=== PATIENT | female | born 1960 | race Caucasian/White ===

== ENCOUNTER → 2018-03-03 07:02 | Outpatient (CLI) | payer OTHER, SELFPAY ==
[2018-03-03 08:51] LABS: Hemoglobin A1c 6.8 % (4.2-6.3)
[2018-03-03 08:53] LABS: AST(SGOT) 14 U/L (15-37); Alanine Aminotransfer ALT/SGPT 24 U/L (13-56); Albumin, Serum 3.8 g/dL (3.2-5.0); Alkaline Phosphatase 83 U/L (45-117); Anion Gap 7 (5-15); BUN 16 mg/dL (7-18); BUN/Creat Ratio 20.1 RATIO (10-20); Calcium,Total 8.8 mg/dL (8.5-10.1); Chloride 107 mmol/L (98-107); Cholesterol 198 mg/dL (200); EST Glomerular Filtration Rate 79 mL/min (>60); Est Glom Filt Rate - Afr Amer 95 mL/min (>60); Free T3 3.3 pg/mL (2.18-3.98); Globulin 3.7 g/dL (2.2-4.2); Glucose 128 mg/dL (74-106); High Density Lipoprotein 33 mg/dL; Potassium 4.1 mmol/L (3.5-5.1); Protein, Total 7.5 g/dL (6.4-8.2); Sodium Level 139 mmol/L (136-145); T4 Free Direct 1.47 ng/dL (0.76-1.46); Thyroid Stim Hormone (TSH) 0.06 uIU/mL (0.358-3.74); Triglycerides 162 mg/dL; Very Low Density Lipoprotein 32 mg/dL (5-40)
[2018-03-03 09:28] LABS: Microalbumin,Random Urine < 5.0 mg/L (NO RANGE EST.)
[2018-03-05 09:30] LABS: Vitamin D,25 Hydroxy 78.9 ng/mL (29.95-100.01)
[2018-03-06 11:25] LABS: Anti-Thyroglobulin AB < 1.0 IU/mL (0.0-0.9); Thyroglobulin, Serum Qt. < 0.1 ng/mL (1.5-38.5)
== END ==
PROVIDERS: Family Provider Family Medicine; PCP Family Medicine; Visit Provider Nurse Practitioner
DX: E03.9 Hypothyroidism, unspecified (principal); E07.9 Disorder of thyroid, unspecified; E11.9 Type 2 diabetes mellitus without complications; E55.9 Vitamin D deficiency, unspecified
CPT/HCPCS: 36415; 80053; 80061; 82043; 82306; 82570; 83036; 83970; 84432; 84439; 84443; 84481; 86800

== ENCOUNTER → 2018-03-05 14:42 | Outpatient (CLI) | payer OTHER, SELFPAY ==
--- NOTE | 2018-03-05 14:43 | US_ITS ---
STUDY: THYROID ULTRASOUND REASON FOR EXAM: Female, 57 years old. Hypothyroidism history of thyroid cancer thyroid removed TECHNIQUE: Ultrasound evaluation of the thyroid was performed with real-time and static brito-scale imaging. COMPARISON: None. FINDINGS: RIGHT LOBE: Removed. LEFT LOBE: Removed. ISTHMUS: Removed. No visualized regional lymph nodes. US/Thyroid IMPRESSION: No visualized thyroid tissue. Electronically Signed: Kendy Cabrera MD at 17:53 EDT Tel , Service support ,
== END ==
PROVIDERS: Family Provider Family Medicine; PCP Family Medicine; Visit Provider Nurse Practitioner
DX: E03.9 Hypothyroidism, unspecified (principal); E07.9 Disorder of thyroid, unspecified; E55.9 Vitamin D deficiency, unspecified; E11.9 Type 2 diabetes mellitus without complications
CPT/HCPCS: 76536

== ENCOUNTER → 2019-09-21 10:20 | Outpatient (CLI) | payer OTHER, SELFPAY ==
[2018-02-26 16:35] VITALS: BMI 29.4
--- NOTE | 2019-09-21 10:26 | US_ITS ---
STUDY: ABDOMINAL ULTRASOUND - RIGHT UPPER QUADRANT REASON FOR VISIT: Female, 59 years old right upper quadrant pain radiating to the back. TECHNIQUE: Ultrasound evaluation of the right upper quadrant was performed with real-time and static brito-scale imaging. TECHNICAL QUALITY: Limited. Examination limited by bowel gas. COMPARISON: None. FINDINGS: Liver: The liver measures 18.6 cm. There is increased echogenicity consistent with fatty infiltration. The bile ducts are within normal limits. There is hepatic color flow. The direction of portal flow is hepatopetal. There is no demonstrated mass lesion. Gallbladder: Normal distended gallbladder. The gallbladder wall measures 1.8 mm. There is a negative sonographic Sanchez's sign. There is no pericholecystic fluid. There are no gallstones. Common Bile Duct (C.B.D.): The common bile duct measures 4.8 mm. Pancreas: Normal size of the head, body and tail of the pancreas. There is normal echogenicity of the pancreas. There is no demonstrated pancreatic mass or cyst. Right Kidney: Normal size of the right kidney. The right kidney measures 11.5 x 6.4 x 3.8 cm. Normal renal cortex. The right cortex measures 1.1 cm. There is no demonstrated renal mass or cyst. There is no right hydronephrosis. US/Abdomen Limited IMPRESSION: Diffuse fatty liver, otherwise normal right upper quadrant ultrasound examination. Electronically Signed: Tatiana Colby MD at 22:05 EST , Service support ,
== END ==
PROVIDERS: Family Provider Family Medicine; PCP Family Medicine; Referring Provider Family Medicine; Visit Provider Family Medicine
DX: R10.11 Right upper quadrant pain (principal)
CPT/HCPCS: 76705

== ENCOUNTER → 2019-11-21 12:19 | Outpatient (CLI) | payer OTHER, SELFPAY ==
[2019-11-12 15:35] VITALS: BMI 29.4
[2019-11-21 13:51] LABS: Creatinine, Urine (random) < 13.00 mg/dL (NO RANGE EST.); Microalbumin,Random Urine < 5.0 mg/L (NO RANGE EST.)
[2019-11-21 14:03] LABS: Vitamin D,25 Hydroxy 69.2 ng/mL (29.95-100.01)
[2019-11-21 14:05] LABS: ALB/GLOB Ratio 1.1 RATIO (0.9-2.4); AST(SGOT) 23 U/L (15-37); Alanine Aminotransfer ALT/SGPT 45 U/L (13-56); Albumin, Serum 4.3 g/dL (3.2-5.0); Alkaline Phosphatase 90 U/L (45-117); Anion Gap 7 (5-15); BUN 11 mg/dL (7-18); BUN/Creat Ratio 13.3 RATIO (10-20); Bilirubin, Direct 0.11 mg/dL (0.00-0.30); Calcium,Total 9.4 mg/dL (8.5-10.1); Chloride 104 mmol/L (98-107); Cholesterol 149 mg/dL (200); Creatinine, Serum 0.82 mg/dL (0.55-1.02); EST Glomerular Filtration Rate 75 mL/min (>60); Est Glom Filt Rate - Afr Amer 91 mL/min (>60); Globulin 3.9 g/dL (2.2-4.2); Glucose 93 mg/dL (74-106); High Density Lipoprotein 35 mg/dL; Magnesium 1.9 mg/dL (1.6-2.6); Potassium 3.6 mmol/L (3.5-5.1); Protein, Total 8.2 g/dL (6.4-8.2); Sodium Level 138 mmol/L (136-145); T4 Free Direct 1.49 ng/dL (0.76-1.46); Thyroid Stim Hormone (TSH) 0.15 uIU/mL (0.358-3.74); Triglycerides 180 mg/dL; Very Low Density Lipoprotein 36 mg/dL (5-40)
== END ==
PROVIDERS: PCP Family Medicine; Referring Provider Internal Medicine Endocrinology, Diabetes & Metabolism; Visit Provider Internal Medicine Endocrinology, Diabetes & Metabolism
DX: M62.838 Other muscle spasm (principal); K75.81 Nonalcoholic steatohepatitis (NASH)
CPT/HCPCS: 36415; 80053; 80061; 82043; 82248; 82306; 82570; 83735; 84439; 84443; 86304

== ENCOUNTER → 2020-10-09 16:19 | Outpatient (CLI) | payer OTHER, SELFPAY ==
[2020-10-09 15:32] VITALS: BMI 29.1
[2020-10-09 17:35] LABS: Microalbumin,Random Urine < 5.0 mg/L (NO RANGE EST.)
[2020-10-09 18:07] LABS: ALB/GLOB Ratio 1.1 RATIO (0.9-2.4); AST(SGOT) 16 U/L (15-37); Alanine Aminotransfer ALT/SGPT 25 U/L (13-56); Albumin, Serum 4.1 g/dL (3.2-5.0); Alkaline Phosphatase 93 U/L (45-117); Anion Gap 9 (5-15); BUN 10 mg/dL (7-18); Calcium,Total 9.3 mg/dL (8.5-10.1); Chloride 105 mmol/L (98-107); Cholesterol 153 mg/dL (200); Creatinine, Serum 0.83 mg/dL (0.55-1.02); EST Glomerular Filtration Rate 74 mL/min (>60); Est Glom Filt Rate - Afr Amer 90 mL/min (>60); Globulin 3.7 g/dL (2.2-4.2); Glucose 100 mg/dL (74-106); High Density Lipoprotein 36 mg/dL; Potassium 3.8 mmol/L (3.5-5.1); Protein, Total 7.8 g/dL (6.4-8.2); Sodium Level 138 mmol/L (136-145); T4 Free Direct 1.33 ng/dL (0.76-1.46); Thyroid Stim Hormone (TSH) 0.28 uIU/mL (0.358-3.74); Triglycerides 151 mg/dL; Very Low Density Lipoprotein 30 mg/dL (5-40)
[2020-10-09 18:19] LABS: Vitamin D,25 Hydroxy 79.2 ng/mL
[2020-10-12 13:31] LABS: Carcinoembryonic Antigen 2139 2.2 ng/mL (0.0-4.7)
== END ==
PROVIDERS: PCP Family Medicine; Referring Provider Internal Medicine Endocrinology, Diabetes & Metabolism; Visit Provider Internal Medicine Endocrinology, Diabetes & Metabolism
DX: E11.9 Type 2 diabetes mellitus without complications (principal); E55.9 Vitamin D deficiency, unspecified; E89.0 Postprocedural hypothyroidism
CPT/HCPCS: 36415; 80053; 80061; 82043; 82306; 82378; 82570; 84439; 84443

== ENCOUNTER → 2021-02-24 | Outpatient (CLI) | payer OTHER, SELFPAY ==
[2021-02-24 10:53] VITALS: BMI 28.9
[2021-02-26 16:45] LABS: HPV APTIMA, High Risk Negative (Negative)
== END | disposition home or self-care (01) ==
LOC: LABSPEC 12:05
PROVIDERS: PCP Family Medicine; Referring Provider Obstetrics & Gynecology; Visit Provider Obstetrics & Gynecology
DX: Z12.4 Encounter for screening for malignant neoplasm of cervix (principal)
CPT/HCPCS: 87624; 88175; G0145

== ENCOUNTER → 2021-03-19 06:57 | Outpatient (CLI) | payer OTHER, SELFPAY ==
[2021-02-24 10:53] VITALS: BMI 28.9
--- NOTE | 2021-03-19 07:04 | BI_ITS ---
MAMMOGRAPHY - BILATERAL SCREENING 3-D TOMOSYNTHESIS REASON FOR EXAM: Female, 60 years old. Routine screening PERTINENT HISTORY: Cousin with breast cancer. TECHNIQUE: 2-D mammograms and 3-D Tomosynthesis of the breast (s) were performed. CAD was performed. COMPARISON: 2013 FINDINGS: The breast composition is composed of scattered fibroglandular density. Scattered benign calcifications are seen. No dense spiculated masses or suspicious microcalcifications are identified. No architectural distortion is identified. There is no skin thickening or retraction. There has been no significant change since the prior study. BI/SCRN MAMM (CAD)W/CHINTAN BILAT IMPRESSION: No mammographic signs of malignancy. Routine yearly mammograms recommended. ASSESSMENT CATEGORY: BIRADS Category 2: Benign. A letter regarding these results will be sent to the patient by the facility within 30 days. FOLLOW UP RECOMMENDATION: Yearly follow up mammogram recommended. (A) Approximately 10% of breast cancers are not detected by mammography. A normal mammogram should not delay biopsy of a clinically suspicious abnormality. Electronically Signed: Jorge Quiroz MD at 12:46 EDT , Service support ,
== END ==
PROVIDERS: PCP Family Medicine; Referring Provider Obstetrics & Gynecology; Visit Provider Obstetrics & Gynecology
DX: Z12.31 Encounter for screening mammogram for malignant neoplasm of breast (principal)
CPT/HCPCS: 77063; 77067

== ENCOUNTER → 2021-09-02 08:40 | Outpatient (CLI) | payer OTHER, SELFPAY ==
[2021-09-02 12:39] LABS: ALB/GLOB Ratio 0.9 RATIO (0.9-2.4); AST(SGOT) 13 U/L (15-37); Alanine Aminotransfer ALT/SGPT 23 U/L (13-56); Albumin, Serum 3.6 g/dL (3.2-5.0); Alkaline Phosphatase 91 U/L (45-117); Anion Gap 9 (5-15); BUN 13 mg/dL (7-18); BUN/Creat Ratio 16.6 RATIO (10-20); Calcium,Total 9.3 mg/dL (8.5-10.1); Chloride 105 mmol/L (98-107); Cholesterol 160 mg/dL (200); Creatinine, Serum 0.78 mg/dL (0.55-1.02); EST Glomerular Filtration Rate 79 mL/min (>60); Est Glom Filt Rate - Afr Amer 96 mL/min (>60); Glucose 113 mg/dL (74-106); High Density Lipoprotein 36 mg/dL; Potassium 4.1 mmol/L (3.5-5.1); Protein, Total 7.6 g/dL (6.4-8.2); Sodium Level 139 mmol/L (136-145); T4 Free Direct 1.17 ng/dL (0.76-1.46); Thyroid Stim Hormone (TSH) 0.64 uIU/mL (0.358-3.74); Triglycerides 205 mg/dL; Very Low Density Lipoprotein 41 mg/dL (5-40)
[2021-09-02 12:56] LABS: Vitamin D,25 Hydroxy 51.4 ng/mL
[2021-09-02 13:34] LABS: Microalbumin,Random Urine < 5.0 mg/L (NO RANGE EST.)
[2021-09-03 22:57] LABS: Anti-Thyroglobulin AB < 1.0 IU/mL (0.0-0.9); Carcinoembryonic Antigen 2139 2.7 ng/mL (0.0-4.7); Thyroglobulin, Serum Qt. < 0.1 ng/mL (1.5-38.5)
== END ==
PROVIDERS: PCP Family Medicine; Visit Provider Internal Medicine Endocrinology, Diabetes & Metabolism
DX: C73 Malignant neoplasm of thyroid gland (principal); E11.9 Type 2 diabetes mellitus without complications; E55.9 Vitamin D deficiency, unspecified; E89.0 Postprocedural hypothyroidism
CPT/HCPCS: 80053; 80061; 82043; 82306; 82378; 82570; 84432; 84439; 84443; 86800

== ENCOUNTER 2021-12-14 13:39 | Outpatient (CLI) | payer OTHER, SELFPAY ==
[2021-12-16 16:13] LABS: Carcinoembryonic Antigen 2139 2.2 ng/mL (0.0-4.7)
== END 2021-12-14 23:59 | disposition home or self-care (01) ==
PROVIDERS: PCP Family Medicine; Referring Provider Internal Medicine Endocrinology, Diabetes & Metabolism; Visit Provider Internal Medicine Endocrinology, Diabetes & Metabolism
DX: C73 Malignant neoplasm of thyroid gland (principal)
CPT/HCPCS: 36415; 82378

== ENCOUNTER → 2022-03-16 | Outpatient (CLI) | payer OTHER, SELFPAY ==
--- NOTE | 2022-03-16 13:45 | VUL_PTH ---
PATIENT: FANTA NEUMANN LOC: [facility] U#:[id number] AGE/SX: 61/F ROOM: RE03/16/[address]: Dr. Mita Mazariegso DO : 1960 BED: DIS: 03/16/2022 SPEC #: [id number] RECD: 03/16/22 16:25 STATUS: HARSHA PASTOR #: [id number] DBEORAH: 03/16/22 13:[address]: Mita Mazariegos DEPT: SURGICAL PATHOLOGY RECD BY: Juana Salcedo ENTERED: 03/17/22 08:13 SP TYPE: VULVA BX OTHR DR: Dr. Jarad Murrell MD Tissues: Vulva, NOS Procedures: Surgery Specimen Level IV HEADER OPERATION: Vulva biopsy PRE-OP DIAGNOSIS: Vulva lesion TISSUE SUBMITTED: Vulva MICROSCOPIC DIAGNOSIS Vulvar lesion, biopsy: Densely collagenized dermis suggestive of lichen sclerosus. See comment. AM:rosalva 03/18/2022 COMMENT Clinical correlation is suggested. MICROSCOPIC DESCRIPTION Slides are reviewed. GROSS DESCRIPTION Received is one container labeled with the patient's name and not further designated. The specimen consists of one irregular fragment of light french soft tissue that measures 0.3 x 0.2 x 0.1 cm. The specimen is totally submitted in one cassette. / SJ:rosalva 03/17/2022 TC:3 CPT: 88346
== END | disposition home or self-care (01) ==
LOC: LABSPEC 16:35
PROVIDERS: PCP Family Medicine; Referring Provider Obstetrics & Gynecology; Visit Provider Obstetrics & Gynecology
DX: N90.89 Other specified noninflammatory disorders of vulva and perineum (principal)
CPT/HCPCS: 88305

== ENCOUNTER → 2022-04-01 | Outpatient (CLI) | payer OTHER, SELFPAY ==
--- NOTE | 2022-04-01 08:34 | BI_ITS ---
MAMMOGRAPHY - BILATERAL SCREENING REASON FOR EXAM: Female, 61 years old. Routine annual screening examination. PERTINENT HISTORY: Non-contributory. TECHNIQUE: Digital bilateral breast chintan (3D mammographic acquisition) in the CC and MLO projections. 2-D mediolateral oblique (MLO) and craniocaudad (CC) views of both breasts were obtained. CAD: Full Field Digital Mammography with Computer Added Detection was performed. COMPARISON: Comparison is made with prior study dated 03/19/2021. FINDINGS: Breast Composition: There are scattered areas of fibroglandular density. There are no dominant masses or suspicious calcifications. No other significant abnormalities are identified. There has been no significant change since the prior study. BI/SCRN MAMM (CAD)W/CHINTAN BILAT IMPRESSION: Stable bilateral screening mammogram. Yearly follow-up mammogram recommended. (A) ASSESSMENT CATEGORY: BIRADS Category 1: Negative. A letter regarding these results will be sent to the patient by the facility within 30 days. Approximately 10% of breast cancers are not detected by mammography. A normal mammogram should not delay biopsy of a clinically suspicious abnormality. [id number] Electronically Signed: Hugh Schultz MD at 9:14 EDT ,
== END | disposition home or self-care (01) ==
LOC: OPBI 08:32
PROVIDERS: PCP Family Medicine; Referring Provider Obstetrics & Gynecology; Visit Provider Obstetrics & Gynecology
DX: Z12.31 Encounter for screening mammogram for malignant neoplasm of breast (principal)
CPT/HCPCS: 77063; 77067

== ENCOUNTER → 2022-08-27 | Outpatient (CLI) | payer OTHER, SELFPAY ==
[2022-08-27 16:50] LABS: ALB/GLOB Ratio 1.1 RATIO (0.9-2.4); AST(SGOT) 18 U/L (15-37); Alanine Aminotransfer ALT/SGPT 26 U/L (13-56); Albumin, Serum 3.7 g/dL (3.2-5.0); Alkaline Phosphatase 80 U/L (45-117); Anion Gap 10 (5-15); BUN 11 mg/dL (7-18); BUN/Creat Ratio 12.5 RATIO (10-20); Chloride 104 mmol/L (98-107); Cholesterol 126 mg/dL (200); Creatinine, Serum 0.88 mg/dL (0.55-1.02); EST Glomerular Filtration Rate 69 mL/min (>60); Est Glom Filt Rate - Afr Amer 84 mL/min (>60); Globulin 3.4 g/dL (2.2-4.2); Glucose 263 mg/dL (74-106); High Density Lipoprotein 31 mg/dL; Potassium 3.9 mmol/L (3.5-5.1); Protein, Total 7.1 g/dL (6.4-8.2); Sodium Level 138 mmol/L (136-145); T4 Free Direct 1.42 ng/dL (0.76-1.46); Thyroid Stim Hormone (TSH) 0.51 uIU/mL (0.358-3.74); Triglycerides 139 mg/dL; Very Low Density Lipoprotein 28 mg/dL (5-40)
[2022-08-27 16:56] LABS: Microalbumin:Creatinine Ratio 5.5 mg/g CRE (<30 mg/g CRE)
[2022-08-28 10:37] LABS: Carcinoembryonic Antigen 1.9 ng/mL (0.0-4.7)
== END | disposition home or self-care (01) ==
PROVIDERS: PCP Family Medicine; Visit Provider Internal Medicine Endocrinology, Diabetes & Metabolism
DX: E11.9 Type 2 diabetes mellitus without complications (principal); C73 Malignant neoplasm of thyroid gland; E89.0 Postprocedural hypothyroidism; E55.9 Vitamin D deficiency, unspecified
CPT/HCPCS: 36415; 80053; 80061; 82043; 82306; 82378; 82570; 84439; 84443

== ENCOUNTER 2022-09-13 16:04 | Outpatient (CLI) | payer OTHER, SELFPAY ==
--- NOTE | 2022-09-13 16:09 | BD_ITS ---
STUDY: DUAL ENERGY X-RAY ABSORPTIOMETRY / DXA REASON FOR EXAM: Female, 61 years old. Screening TECHNIQUE: Bone Mineral Density (BMD) measurements of lumbar spine and bilateral hips were obtained. COMPARISON: None. FINDINGS: Lumbar Spine (L1-L4): g/cm2 (0.897) / T-score (-1.4) / Z-score (0.3) Findings are suggestive of osteopenia with a low fracture risk. Left Femur Total: g/cm2 (1.043) / T-score (0.8) / Z-score (1.9) Left Femoral Neck: g/cm2 (0.891) / T-score (0.4) / Z-score (1.8) Right Femur Total: g/cm2 (1.014) / T-score (0.6) / Z-score (1.7) Right Femoral Neck: g/cm2 (0.944) / T-score (0.9) / Z-score (2.3) BD/Dexa Bone Density Study IMPRESSION: The patient is considered osteopenic as outlined below according to World Andrea Organization (WHO) criteria with a low fracture risk. Reference Information: The T-score is the number of standard deviations above or below the standard which is normal for young adults at their peak bone mineral density. The World Health Organization (WHO) interprets the T-scores as follows: Above -1 Normal bone density Between -1 and -2.5 Osteopenia Equal to / or below -2.5 Osteoporosis As a practical clinical guideline, osteopenia may be graded as follows: Mild -1 through -1.5 Moderate -1.6 through -2.0 Severe -2.1 through -2.4 The Z-score is the number of standard deviations above or below age-matched controls. A Z-score of less than -1.5 would be considered abnormal. References: 1. NIH Osteoporosis and Related Bone Diseases www osteo.org 2. International Society for Clinical Densitometry www iscd.org 3. National Osteoporosis Foundation www nof.org Electronically Signed: Hugh Schultz MD at 14:59 EST ,
== END 2022-09-13 23:59 | disposition home or self-care (01) ==
LOC: OPBD 16:05
PROVIDERS: PCP Family Medicine; Visit Provider Internal Medicine Endocrinology, Diabetes & Metabolism
DX: Z78.0 Asymptomatic menopausal state (principal)
CPT/HCPCS: 77080

== ENCOUNTER → 2023-03-02 | Outpatient (CLI) | payer OTHER, SELFPAY | END | disposition home or self-care (01) | LOC: LABSPEC 09:31 | PROVIDERS: PCP Family Medicine; Referring Provider Family Medicine; Visit Provider Family Medicine | DX: N39.0 Urinary tract infection, site not specified (principal) | CPT/HCPCS: 87086; 87088 ==

== ENCOUNTER → 2023-05-04 | Outpatient (CLI) | payer OTHER, SELFPAY ==
--- NOTE | 2023-05-04 | BI_ITS ---
MAMMOGRAPHY - BILATERAL SCREENING REASON FOR EXAM: Female, 62 years old. Routine annual screening examination. PERTINENT HISTORY: Non-contributory. Chronic bilateral nipple inversion. TECHNIQUE: Digital bilateral breast chintan (3D mammographic acquisition) in the CC and MLO projections. 2-D mediolateral oblique (MLO) and craniocaudad (CC) views of both breasts were obtained. CAD: Full Field Digital Mammography with Computer Added Detection was performed. COMPARISON: Comparison is made with prior study dated April 01, 2022 and March 19, 2021. FINDINGS: Breast Composition: The breasts are heterogeneously dense, which may obscure small masses. There are no dominant masses or suspicious calcifications. Stable bilateral nipple inversion. No other significant abnormalities are identified. There has been no significant change since the prior study. BI/SCRN MAMM (CAD)W/CHINTAN BILAT IMPRESSION: Stable bilateral screening mammogram. Yearly follow-up mammogram recommended. (A) ASSESSMENT CATEGORY: BIRADS Category 2: Benign. A letter regarding these results will be sent to the patient by the facility within 30 days. Approximately 10% of breast cancers are not detected by mammography. A normal mammogram should not delay biopsy of a clinically suspicious abnormality. [id number] Electronically Signed: Hugh Schultz MD at 8:39 EDT ,
== END | disposition home or self-care (01) ==
LOC: OPBI 07:32
PROVIDERS: PCP Family Medicine; Referring Provider Obstetrics & Gynecology; Visit Provider Obstetrics & Gynecology
DX: Z12.31 Encounter for screening mammogram for malignant neoplasm of breast (principal)
CPT/HCPCS: 77063; 77067

== ENCOUNTER 2023-08-08 21:29 | Inpatient (IN) | payer OTHER, SELFPAY ==
[2023-08-08] VITALS (8 sets, daily range): BP systolic 108–159; BP diastolic 57–77; PULSE 86–94; RESP 12–16; TEMP 36.1–36.8; O2SAT 98–100; BMI 23.8
[2023-08-08] MEDS: Ondansetron 4 MG/2 ML Vial IV (21:42)
[2023-08-08] MEDS: Morphine 4 MG/ML Syringe IV (21:43)
--- NOTE | 2023-08-08 21:43 | EKG12_ITS ---
Test Reason : CP Blood Pressure : / mmHG Vent. Rate : 092 BPM Atrial Rate : 092 BPM P-R Int : 144 ms QRS Dur : 084 ms QT Int : 352 ms P-R-T Axes : 072 050 -07 degrees QTc Int : 435 ms Critical Test Result: STEMI Normal sinus rhythm ST elevation consider anterolateral injury or acute infarct ACUTE UT / STEMI Abnormal ECG Confirmed by JUAN PICKETT, NAOMI ([id number]), editor department JOANNA VICTORIA ([id number]) on 08/14/2023 2:00:14 PM Referred By: Rubio Ye Confirmed By:NAOMI MARTINEZ MD
[2023-08-08] MEDS: TICAGRELOR 90 MG TABLET 180 MG PO (21:45)
--- NOTE | 2023-08-08 21:45 | RAD_ITS ---
INDICATION: chest pain EXAMINATION: Frontal view of the chest COMPARISON: None. FINDINGS: Frontal view of the chest was obtained. The cardiac silhouette is not enlarged. No confluent airspace disease. No pneumothorax. No acute fracture identified. RAD/Chest 1 View (Portable) IMPRESSION: No acute pulmonary disease. Electronically Signed: Patrice Swartz MD at 22:23 EDT ,
[2023-08-08] MEDS: Heparin Injection (Vial) 5,000 UNIT/ML VIAL 4000 UNIT IV (21:46)
[2023-08-08] MEDS: Aspirin 81 MG TAB.CHEW 324 MG PO (21:47)
[2023-08-08] MEDS: Nitroglycerin SL (ED/IMG/CATH) 0.4 MG TABLET SL ×3 (21:50→22:00)
[2023-08-08 21:55] LABS: Absolute Neutrophil Count 7.8 X10^3/uL (2.0-7.7); Basophil% 0.7 % (0-1); Eosinophil# 0.52 X10^3/uL; Eosinophils% 3.4 % (0-5); Hematocrit 42.9 % (37-47); Hemoglobin 14.2 g/dL (12.0-15.0); Lymphocyte % 32.4 % (19-41); Mean Corp Hgb Conc 33.1 g/dL (32-36); Mean Corpuscular Hgb 29.8 pg (27.0-32.0); Mean Corpuscular Volume 90.1 fL (81-99); Mean Platelet Vol. 9.9 fl (6.2-12.0); Monocyte% 11.2 % (0-10); NRBC Flagged by Analyzer 0 % (0-5); Neutrophil # 7.84 X10^3/uL (2.7-7.7); Neutrophil % 51.8 % (47-70); POSITIVE DIFFERENTIAL YES; Platelet Count 337 K/mm3 (150-450); RBC Distribution Width CV 13.7 % (11.6-14.6); RBC Distribution Width SD 45.2 fl (35.1-43.9); Red Blood Count 4.76 M/mm3 (4.2-5.4); White Blood Count 15.1 K/mm3 (4.4-11.0)
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
[2023-08-08 22:08] LABS: Prothrombin Time (Protime)PT. 13.7 SECONDS (11.7-14.9)
[2023-08-08 22:09] LABS: Differential Indicated SCAN CRITERIA MET; Partial Thromboplast Time 25.5 Seconds (24.1-36.2)
[2023-08-08 22:15] LABS: Anion Gap 10 (5-15); BUN 12 mg/dL (7-18); BUN/Creat Ratio 13.8 RATIO (10-20); Calcium,Total 9.1 mg/dL (8.5-10.1); Chloride 106 mmol/L (98-107); Creatinine, Serum 0.87 mg/dL (0.55-1.02); EST Glomerular Filtration Rate 70 mL/min (>60); Est Glom Filt Rate - Afr Amer 85 mL/min (>60); Estimated Creatinine Clearance 59.56 ml/min; Glucose 122 mg/dL (74-106); Potassium 3.2 mmol/L (3.5-5.1); Sodium Level 139 mmol/L (136-145); Troponin-I HS 35 pg/mL (3.0-54.0)
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
[2023-08-08 22:26] LABS: Differential Comment SCANNED
--- NOTE | 2023-08-08 23:45 | EKG12_ITS ---
Test Reason : POST PCI Blood Pressure : / mmHG Vent. Rate : 084 BPM Atrial Rate : 084 BPM P-R Int : 148 ms QRS Dur : 090 ms QT Int : 382 ms P-R-T Axes : 064 079 068 degrees QTc Int : 451 ms Normal sinus rhythm Normal ECG When compared with ECG of 08-AUG-2023 21:34, MANUAL COMPARISON REQUIRED, DATA IS UNCONFIRMED Confirmed by JUAN PICKETT, NAOMI ([id number]), book or script editor RUTH BOWMAN ([id number]) on 08/17/2023 1:26:55 PM Referred By: Rubio Ye Confirmed By:NAOMI MARTINEZ MD
--- NOTE | 2023-08-08 23:49 | ECHOCS_ITS ---
Reason For Study: s/p [facility] Procedure This was a 2D Doppler, Color Flow transthoracic echocardiogram. Contrast injection was performed. Exam performed portable in ICU/CCU. Left Ventricle Normal LV size. The left ventricular ejection fraction is 55 %. Stage 1 diastolic dysfunction. There are regional wall motion abnormalities as specified. Mid-Anterior : Hypokinetic. Septal [place] : Hypokinetic. The rest of the wall segments are normal. Right Ventricle Normal RV size. Normal systolic function. Atria Normal left atrium. Normal right atrium. Mitral Valve Normal mitral valve. Tricuspid Valve Normal tricuspid valve. Mild (1+) tricuspid valve insufficiency. Pulmonary artery systolic pressure is 32 mmHg. Aortic Valve Normal aortic valve. Trisinus/trileaflet aortic valve. Pulmonic Valve Normal pulmonic valve. Great Vessels Normal aortic root. Pericardium/Pleural No pericardial effusion. Medication Diluted definity 1.5ml given slow IV push to enhance endocardial definition. MMode/2D Measurements & Calculations LVIDd: 4.2 cm IVSd: 1.1 cm LA dimension: 3.1 cm LVIDs: 2.8 cm LVPWd: 0.95 cm RVDd: 2.7 cm FS: 33.4 % LAV(MOD-bp): 32.3 ml LVAd ap4: 26.3 cm2 LVAd ap2: 28.0 cm2 LAV(MOD-bp) Indexed: 18.8 ml/m2 LVLd ap4: 7.4 cm LVLd ap2: 7.7 cm LAV(MOD-sp2): 29.7 ml EDV(MOD-sp4): 77.9 ml EDV(MOD-sp2): 87.2 ml LAV(MOD-sp4): 32.0 ml EDV(sp4-el): 79.5 ml EDV(sp2-el): 86.6 ml LVAs ap4: 15.2 cm2 LVAs ap2: 17.1 cm2 LVLs ap4: 6.0 cm LVLs ap2: 6.1 cm ESV(MOD-sp4): 31.6 ml ESV(MOD-sp2): 39.5 ml ESV(sp4-el): 32.6 ml ESV(sp2-el): 40.4 ml EF(MOD-sp4): 59.4 % EF(MOD-sp2): 54.7 % EF(sp4-el): 59.0 % SV(MOD-sp4): 46.3 ml SV(MOD-sp2): 47.7 ml SV(sp4-el): 47.0 ml LA A4 area: 12.9 cm2 RA A4 area: 11.4 cm2 TAPSE: 1.5 cm Time Measurements MV dec time: 0.19 sec Doppler Measurements & Calculations MV E max lamonte: 93.5 cm/sec Lat Peak E' Lamonte: 9.5 cm/sec Med Peak E' Lamonte: 11.1 cm/sec MV A max lamonte: 96.7 cm/sec E/E' lat: 9.8 E/E' med: 8.4 MV E/A: 0.97 MV V2 max: 110.2 cm/sec MV P1/2t max lamonte: 105.1 cm/sec Ao V2 max: 94.8 cm/sec MV max P.9 mmHg MV P1/2t: 63.6 msec Ao max P.6 mmHg MV V2 mean: 61.6 cm/sec MV mean P.8 mmHg MV dec slope: 483.8 cm/sec2 MV V2 VTI: 28.5 cm MVA(P1/2t): 3.5 cm2 LV V1 max: 92.9 cm/sec MR max lamonte: 557.8 cm/sec PA V2 max: 93.3 cm/sec LV V1 max P.4 mmHg MR max P.5 mmHg PA V2 mean: 70.1 cm/sec MR mean lamonte: 456.5 cm/sec MR mean P.6 mmHg MR VTI: 181.8 cm TR max lamonte: 266.6 cm/sec TR max P.4 mmHg ECHO/Echo Complete W/ Contrast Interpretation Summary Normal LV size. The left ventricular ejection fraction is 55 %. There are regional wall motion abnormalities as specified. Stage 1 diastolic dysfunction. Pulmonary artery systolic pressure is 32 mmHg. Contrast injection was performed. Ordering Physician: Rubio Ye Referring Physician: Greta Edmond Performed By: Jason Beauchamp [facility]
--- NOTE | 2023-08-08 23:50 | CON.PCM.CA_ITS ---
Assessment & Plan Assessment/Plan (1) STEMI (ST elevation myocardial infarction): QUALIFIERS: Involved coronary artery: LAD coronary artery Qualified Code(s): I21.02 - ST elevation (STEMI) myocardial infarction involving left anterior descending coronary artery PLAN: Treated with drug-eluting stent to the LAD and PTCA of ostial diagonal 1. We will keep the patient on aspirin, Brilinta, beta-garo, statin. We will check a 2D echo to evaluate LV function. Patient is being admitted to the CCU for further management. HPI Consult Data Date of Consult: 08/08/23 HPI Narrative Reason for Consultation: STEMI HPI Narrative: FANTA NEUMANN, is a 62 F who presents with chest pain. EKG revealed anterolateral ST elevation CT. Patient underwent emergent coronary angiography which revealed 90% stenosis in the LAD diagonal 1 bifurcation. She was treated with drug-eluting stent to the LAD and PTCA alone of the ostial diagonal 1. Patient was doing well at the end of the procedure and is being admitted to the CCU for further management. Review of systems: All systems reviewed. All else is negative except as in HPI [facility] Medical History Arthritis Cervical high risk HPV (human papillomavirus) test positive Diabetes type 2, controlled GERD (gastroesophageal reflux disease) High cholesterol High triglycerides Hives Overweight (BMI 25.0-29.9) Pneumonia Thyroid cancer Vitamin D deficiency Home Medications cholecalciferol (vitamin D3) 125 mcg (5,000 unit) capsule 5,000 unit PO .3/week 10/12/20 [History Last Taken Unknown] Vagifem 10 mcg vaginal tablet (estradiol) 10 mcg vaginal 2XW #8 tabs 02/24/21 [R x Last Taken Unknown] estradiol 0.01% (0.1 mg/gram) vaginal cream 1 g vaginal 2XW #42.5 grams 03/08/22 [Rx Last Taken Unknown] clobetasol 0.05 % topical cream 1 applic topical BID 12 weeks #30 grams 03/18/22 [Rx Last Taken Unknown] atorvastatin 20 mg tablet 20 mg PO DAILY #90 tabs 08/03/22 [Rx Last Taken Unknown] metformin 1,000 mg tablet 1,000 mg PO BID #180 tabs 08/03/22 [Rx Last Taken Unknown] ospemifene 60 mg tablet (Osphena) 60 mg PO DAILY #90 tabs 06/29/23 [Rx Last Taken Unknown] Synthroid 100 mcg tablet (levothyroxine) 100 mcg PO DAILY #30 tabs 07/27/23 [Rx Last Taken Unknown] hydrocortisone 2.5 % topical cream with perineal applicator (Proctozone-HC) 1 applic MO BID-QID PRN hemorrhoids #30 grams 07/28/23 [Rx Last Taken Unknown] Allergy/AdvReac Type Severity Reaction Status Date / Time animal dander Allergy Unknown NEEDS Verified 08/08/23 21:33 FOLLOW-UP house dust Allergy Unknown Unknown Verified 08/08/23 21:33 mold Allergy Unknown Unknown Verified 08/08/23 21:33 Family History Other Cancer Diabetes Heart disease Hypertension Myocardial infarction Surgical History S/P complete thyroidectomy S/P surgical removal of pilonidal cyst Social History Smoking Status: Never smoker second hand exposure: No alcohol intake: current alcohol intake frequency: a few times a month substance use type: does not use what type of physical activity do you participate in: none seatbelt use: always do you feel safe at home: Yes additional social history: -Johan Physical Exam Const alert and oriented x3 HEENT normocephalic Eyes no scleral icterus Resp clear to auscultation bilaterally Cardio regular rate Extremity no pedal edema Psych mental status grossly normal Risk Stratification Risk Stratification Applicable: No Charges/Coding Visit Charges Inpatient E&M: 54952 Init Hosp L2 Objective Data Vital Signs: Vital Signs Temp Pulse Resp BP Pulse Ox O2 Del Method 98.2 F 87 16 124/73 H 98 Room Air 08/08/23 21:30 08/08/23 22:25 08/08/23 22:25 08/08/23 22:25 08/08/23 22:25 08/08/23 21:56 Oxygen Delivery Method Room Air Weight: 143 lb 9 oz Body Mass Index (BMI) 23.8 Lab / Micro Data 08/08/23 21:36 08/08/23 21:36 Labs: Laboratory Results - last 24 hr 08/08/23 21:36: WBC 15.1 H, RBC 4.76, Hgb 14.2, Hct 42.9, MCV 90.1, MCH 29.8, MCHC 33.1, RDW Std Deviation 45.2 H, RDW Coeff of Josef 13.7, Plt Count 337, MPV 9.9, Immature Gran % (Auto) 0.500, Neut % (Auto) 51.8, Lymph % (Auto) 32.4, [place] % (Auto) 11.2 H, Eos % (Auto) 3.4, Baso % (Auto) 0.7, Absolute Neuts (auto) 7.8 H, Absolute Lymphs (auto) 4.90 H, Nucleated RBC % 0, Differential Comment SCANNED, Diff Path Review February, PT 13.7, INR 1.0, APTT 25.5, Sodium 139, Potassium 3.2 L, Chloride 106, Carbon Dioxide 23.0, Anion Gap 10, BUN 12, Creatinine 0.87, Estim Creat Clear Calc 59.56, Est GFR (MDRD) Af Amer 85, Est GFR (MDRD) Non-Af 70, BUN/Creatinine Ratio 13.8, Glucose 122 H, Calcium 9.1, Troponin I High Sens 35 Cardiology Labs/Tests 08/08/23 21:36: WBC 15.1 H, RBC 4.76, Hgb 14.2, Hct 42.9, MCV 90.1, MCH 29.8, MCHC 33.1, Plt Count 337, MPV 9.9, Immature Gran % (Auto) 0.500, Neut % (Auto) 51.8, Lymph % (Auto) 32.4, [place] % (Auto) 11.2 H, Eos % (Auto) 3.4, Baso % (Auto) 0.7, Absolute Neuts (auto) 7.8 H, Nucleated RBC % 0, PT 13.7, INR 1.0, APTT 25.5, Sodium 139, Potassium 3.2 L, Chloride 106, Carbon Dioxide 23.0, Anion Gap 10, BUN 12, Creatinine 0.87, Est GFR (MDRD) Af Amer 85, Est GFR (MDRD) Non-Af 70, BUN/Creatinine Ratio 13.8, Glucose 122 H, Calcium 9.1 Rhythm: EKG: ECHO: Stress Test: Cardiac Cath: PCI: CT Surgery: Holter monitor: EPS: PPM: CXR: Chest CT Scan: Radiography Diagnostic Testing: Radiology Impression Chest X-Ray 08/08/23 21:45 IMPRESSION: No acute pulmonary disease. Electronically Signed: Patrice Swartz MD at 22:23 EDT ,
[2023-08-09] VITALS (23 sets, daily range): BP systolic 91–144; BP diastolic 55–74; PULSE 68–96; RESP 12–20; TEMP 36.1–37; O2SAT 96–100; BMI 23.8
[2023-08-09 00:22] LABS: Troponin-I HS 2187 pg/mL (3.0-54.0)
[2023-08-09] MEDS: 0.9% Normal Saline (1000mL) 1,000 ML 75 ML IV (00:56)
[2023-08-09 03:39] LABS: Absolute Lymphocyte Count 1.31 X10^3/uL (0.83-4.51); Basophil# 0.04 X10^3/uL; Basophil% 0.4 % (0-1); Hematocrit 36.7 % (37-47); Hemoglobin 11.5 g/dL (12.0-15.0); Lymphocyte # 1.31 X10^3/ul (0.83-4.51); Lymphocyte % 12.5 % (19-41); Mean Corp Hgb Conc 31.3 g/dL (32-36); Mean Corpuscular Hgb 28.6 pg (27.0-32.0); Mean Corpuscular Volume 91.3 fL (81-99); Mean Platelet Vol. 9.7 fl (6.2-12.0); Monocyte# 0.96 X10^3/uL; Monocyte% 9.2 % (0-10); NRBC Flagged by Analyzer 0 % (0-5); Neutrophil # 8.04 X10^3/uL (2.7-7.7); Neutrophil % 76.5 % (47-70); Platelet Count 233 K/mm3 (150-450); RBC Distribution Width CV 13.7 % (11.6-14.6); RBC Distribution Width SD 45.5 fl (35.1-43.9); Red Blood Count 4.02 M/mm3 (4.2-5.4); White Blood Count 10.5 K/mm3 (4.4-11.0)
[2023-08-09 04:28] LABS: Troponin-I HS 11827 pg/mL (3.0-54.0)
[2023-08-09 04:29] LABS: AST(SGOT) 25 U/L (15-37); Alanine Aminotransfer ALT/SGPT 14 U/L (13-56); Albumin, Serum 2.9 g/dL (3.2-5.0); Alkaline Phosphatase 59 U/L (45-117); Anion Gap 5 (5-15); BUN 10 mg/dL (7-18); BUN/Creat Ratio 13.8 RATIO (10-20); Chloride 110 mmol/L (98-107); Creatinine, Serum 0.73 mg/dL (0.55-1.02); EST Glomerular Filtration Rate 86 mL/min (>60); Est Glom Filt Rate - Afr Amer 104 mL/min (>60); Estimated Creatinine Clearance 70.98 ml/min; Glucose 126 mg/dL (74-106); Potassium 3.7 mmol/L (3.5-5.1); Protein, Total 5.9 g/dL (6.4-8.2); Sodium Level 140 mmol/L (136-145)
[2023-08-09] MEDS: Levothyroxine 100 MCG Tablet PO (05:00)
--- NOTE | 2023-08-09 07:14 | PCM.PN.HOSP ---
Reason for Visit Reason for Visit: Diagnoses ST elevation (STEMI) myocardial infarction involving left anterior descending coronary artery (08/08/23) ST elevation (STEMI) myocardial infarction of unspecified site (08/08/23) Subjective Subjective Feeling much better than she was previously and denies any chest pain or shortness of breath Objective Data Objective Data Vital Signs: Vital Signs Temp Pulse Resp BP Pulse Ox O2 Del Method 97.0 F L 68 15 116/58 L 97 Room Air 08/09/23 00:00 08/09/23 07:00 08/09/23 07:00 08/09/23 07:00 08/09/23 07:00 08/09/23 07:00 Oxygen Delivery Method Room Air Weight: 65.1 kg Body Mass Index (BMI) 23.8 Intake & Output: Intake and Output for Last 24 Hours 08/07/23 08/08/23 08/09/23 23:59 23:59 23:59 Intake Total 100 / 100 Balance 100 / 100 Lab / Micro Data 08/09/23 03:30 08/09/23 03:30 Labs: Laboratory Results - last 24 hr 08/08/23 21:36: WBC 15.1 H, RBC 4.76, Hgb 14.2, Hct 42.9, MCV 90.1, MCH 29.8, MCHC 33.1, RDW Std Deviation 45.2 H, RDW Coeff of Josef 13.7, Plt Count 337, MPV 9.9, Immature Gran % (Auto) 0.500, Neut % (Auto) 51.8, Lymph % (Auto) 32.4, [place] % (Auto) 11.2 H, Eos % (Auto) 3.4, Baso % (Auto) 0.7, Absolute Neuts (auto) 7.8 H, Absolute Lymphs (auto) 4.90 H, Nucleated RBC % 0, Differential Comment SCANNED, Diff Path Review February foll, PT 13.7, INR 1.0, APTT 25.5, Sodium 139, Potassium 3.2 L, Chloride 106, Carbon Dioxide 23.0, Anion Gap 10, BUN 12, Creatinine 0.87, Estim Creat Clear Calc 59.56, Est GFR (MDRD) Af Amer 85, Est GFR (MDRD) Non-Af 70, BUN/Creatinine Ratio 13.8, Glucose 122 H, Calcium 9.1, Troponin I High Sens 35 08/08/23 23:50: Troponin I High Sens 2187 H* 08/09/23 03:30: WBC 10.5, RBC 4.02 L, Hgb 11.5 L, Hct 36.7 L, MCV 91.3, MCH 28.6, MCHC 31.3 L D, RDW Std Deviation 45.5 H, RDW Coeff of Josef 13.7, Plt Count 233, MPV 9.7, Immature Gran % (Auto) 0.400, Neut % (Auto) 76.5 H, Lymph % (Auto) 12.5 L, [place] % (Auto) 9.2, Eos % (Auto) 1.0, Baso % (Auto) 0.4, Absolute Neuts (auto) 8.0 H, Absolute Lymphs (auto) 1.31, Nucleated RBC % 0, Sodium 140, Potassium 3.7, Chloride 110 H, Carbon Dioxide 25.0, Anion Gap 5, BUN 10, Creatinine 0.73, Estim Creat Clear Calc 70.98, Est GFR (MDRD) Af Amer 104, Est GFR (MDRD) Non-Af 86, BUN/Creatinine Ratio 13.8, Glucose 126 H, Calcium 8.0 L, Total Bilirubin 0.20, AST 25, ALT 14, Alkaline Phosphatase 59, Troponin I High Sens 95209 H*, Total Protein 5.9 L, Albumin 2.9 L, Globulin 3.0, Albumin/Globulin Ratio 1.0 Radiography Diagnostic Testing: Radiology Impression Chest X-Ray 08/08/23 21:45 IMPRESSION: No acute pulmonary disease. Electronically Signed: Patrice Swartz MD at 22:23 EDT , Physical Exam Narrative General: Alert, oriented, no apparent distress HEENT: Atraumatic, normocephalic Eyes: Anicteric, normal conjunctiva, extraocular movements grossly intact Neck: Supple Respiratory: Clear to auscultation bilaterally, normal respiratory effort Cardiovascular: Regular rate and rhythm GI: Soft, nontender, nondistended Extremities: No edema Musculoskeletal: Moving all extremities Neuro: No overt focal neurological deficits Skin: No rashes appreciated Psych: Cooperative Assessment & Plan Assessment/Plan (1) STEMI (ST elevation myocardial infarction): QUALIFIERS: Involved coronary artery: LAD coronary artery Qualified Code(s): I21.02 - ST elevation (STEMI) myocardial infarction involving left anterior descending coronary artery PLAN: Plan #STEMI -EKG showed ST elevations in leads V3,- V6; 1 and aVL with reciprocals in inferior leads. -At the ED patient was ordered full dose aspirin; Brilinta loading dose;. Also she was order was heparin IV; morphine and nitroglycerin. -cxr was interpreted by radiology as no acute pulmonary disease. Chest x-ray and independently interpreted by hospitalist; agrees with without interpretation. Cardiology was consulted. Patient was taken to the recyclable materials collector -Check troponin and trend so it can be used as baseline. -Further orders after stent placement or by cardiology. -08/09: Treated with HOWARD to LAD and PTCA of ostial diagonal 1. Continue aspirin, Brilinta, beta-garo, statin. Echo ordered #Hypothyroidism after thyroidectomy secondary to medullary thyroid carcinoma -Continue Synthroid #Type 2 diabetes mellitus -Glucose checks and sliding scale insulin Time spent in the patient's overall evaluation,decision-making process, review of diagnostic data, adjustment of management, discussion with other providers, nursing and ancillary staff involved in patient's care documentation, 35 minutes. Charges/Coding Visit Charges Inpatient E&M: 48689 [facility] Hosp L2
--- NOTE | 2023-08-09 07:45 | CRPHASE1 ---
Patient Communication Patient Information PHII Cardiac Rehab Discussed with Patient:: Yes Guide to Cardiac Rehab Given to Patient:: Yes Cardiac Rehab Facility Choice List Given to Patient:: Yes Communication to Cardiac Rehab Choice Program [facility] PHII:: Communication Given to CR [employer] Room Attendant:: Rubio Ye Phase II Cardiac Rehab:: Yes Sessions:: 36 sessions - 3 days/wk, 12 weeks Cardiac Rehabilitation Info Program Information Cardiac Rehabilitation Program Information: Cardiac Rehab The cardiac rehab team at [facility] consists of highly skilled exercise physiologists, nurses, respiratory therapists and physicians working together with you. Our purpose is to help you have a full recovery and achieve the goals you set for yourself. Over the years many of our patients have returned to activities they assumed they would never do again! We can help restore your confidence and motivation to make lifestyle changes that can have a significant impact on your health and quality of life! We can help answer questions and concerns you may have about exercise, lifestyle, medications, diet, stress and anxiety which are common following a hospitalization. WE monitor ECG and vital signs during exercise and discuss your progress with you and report to your physician(s). Cardiac Rehab is proven to help reduce readmissions, improve functional capacity and lower recurrence of problems with your heart. Our Cardiac Rehab program is Certified by the [place] [employer]io-Vascular and Pulmonary [employer] (AACVPR) and Accredited by the [place] [employer] through our [facility]. You can contact us at . We invite you to call us with your questions or to get started in our program. If you have other questions or concerns be sure to ask your physician/provider during your follow-up visit. WE look forward to seeing you!
--- NOTE | 2023-08-09 07:47 | CRPH1.INSTRU ---
General Education Discussed with Patient CAD and cardiac anatomy and function:: Patient communicates acknowledgment Explanation of diagnoses and procedures:: Patient communicates acknowledgment Sign/Symptoms of NC:: Patient communicates acknowledgment Antiplatelet therapy: Patient communicates acknowledgment Proper use of NTG-SL: Patient communicates acknowledgment Emergency procedures and activation of EMS: Patient communicates acknowledgment Compliance of all prescribed medications: Patient communicates acknowledgment Smoking Risk Factors Patient Nicotine/Smoking Risk Factors Are:: Never smoked Dyslipidemia Recommendations Recommendations Include:: Lipid profile not available Response Code Dyslipidemia Response Code:: Patient communicates acknowledgment Overweight/Obesity Risk Factors Patient Overweight/Obesity Risk Factors Are:: BMI Normal [18-25 & < 65 years old] Recommendations Recommendations Include:: Weight loss of 5-10% Response Code Overweight/Obesity:: Patient communicates acknowledgment Hypertension Recommendations Recommendations Include:: BP <130/80 if diabetic and Decrease/maintain normal body weight Response Code Hypertension:: Patient communicates acknowledgment Heart Disease Risk Factors Patient Heart Disease Risk Factors Are:: Family history of heart disease < 65 years old Recommendations Recommendations Include:: Educated family members of their risk Response Code Heart Disease Response Code:: Patient communicates acknowledgment Diabetes Risk Factors Patient Diabetes Risk Factors Are:: Elevated blood sugars Recommendations Recommendations Include:: Maintain fasting blood sugars 70-110 md/dL, Maintain HgbA1c of 6% or less, Monitor blood sugar as prescribed, Diabetic dietary guidelines and Decrease/maintain body weight Response Code Diabetes:: Patient communicates acknowledgment Sedentary Risk Factors Patient Sedentary Risk Factors Are:: Lack of regular exercise Recommendations Recommendations Include:: Aerobic exercise 5-7 times/week for 20-30 minutes continuously, Benefits of regular exercise, Discussed home walking program and Monitored Outpatient Cardiac Rehab Response Code Sedentary Response Code:: Patient communicates acknowledgment Stress Risk Factors Patient Stress Risk Factors Are:: Patient denies stress as a risk factor Recommendations Recommendations Include:: Identification of stressors, and assessment of coping skills and Stress management techniques Response Code Stress Response Code:: Patient communicates acknowledgment
[2023-08-09] MEDS: TICAGRELOR 90 MG TABLET PO ×2 (08:18→22:40)
[2023-08-09] MEDS: Metoprolol Tartrate 25 MG Tablet 12.5 MG PO ×2 (08:18→22:41)
[2023-08-09] MEDS: Aspirin E.C. 81 MG Tablet PO (08:19)
--- NOTE | 2023-08-09 09:00 | CASEMGMT ---
RN RADHA Face to Face with patient for initial transition planning/care coordination assessment. RN CM introduced self and role at [facility]. Patient lying in bed, alert and oriented. Patient willing to participate in assessment and is able to answer all questions appropriately. Care providers, pharmacy, and demographics verified. Patient wishes to discharge home, denies need for home health at this time. Patient states she has no further needs or concerns at this time. CM to follow for discharge planning needs that may arise. PCP: Feli Specialists: [facility] Preferred Pharmacy: [facility] retail at discharge. [facility] [facility] yes Living Will/HPOA: none LNOK: Living Arrangements: Patient lives with in a first floor apartment with no steps to enter. Patient states she is independent at home. Transportation: Self, DME/HHC: Patient has grab bar at home. No previous HHC or SNF Disposition Plan: Patient to discharge home with family support and follow-up plans in place. Nallely ROCHE, RN, CM
[2023-08-09 13:42] LABS: Pathologist Review Reviewed
[2023-08-09] MEDS: Lisinopril 2.5 MG Tablet PO (17:44)
[2023-08-09] MEDS: Atorvastatin Calcium 40 MG Tablet PO (22:41)
--- NOTE | 2023-08-09 23:45 | EKG12_ITS ---
Test Reason : AM EKG Blood Pressure : / mmHG Vent. Rate : 084 BPM Atrial Rate : 084 BPM P-R Int : 156 ms QRS Dur : 092 ms QT Int : 386 ms P-R-T Axes : 062 080 056 degrees QTc Int : 456 ms Normal sinus rhythm Normal ECG Confirmed by JUAN PICKETT, NAOMI ([id number]), editorial cartoonist LUDIVINA NICHOLSON ([id number]) on 08/15/2023 1:49:42 PM Referred By: Rubio Ye Confirmed By:NAOMI MARTINEZ MD
[2023-08-10 03:00] VITALS: PULSE 80
[2023-08-10 03:27] VITALS: BMI 23.3
[2023-08-10 05:30] VITALS: BP 129/76; PULSE 79; RESP 16; TEMP 36.8; O2SAT 99
[2023-08-10] MEDS: Levothyroxine 100 MCG Tablet PO (05:47)
[2023-08-10 06:16] LABS: Absolute Lymphocyte Count 1.54 X10^3/uL (0.83-4.51); Absolute Neutrophil Count 6.5 X10^3/uL (2.0-7.7); Basophil# 0.05 X10^3/uL; Basophil% 0.5 % (0-1); Eosinophil# 0.52 X10^3/uL; Eosinophils% 5.4 % (0-5); Hematocrit 41.1 % (37-47); Hemoglobin 12.9 g/dL (12.0-15.0); Lymphocyte # 1.54 X10^3/ul (0.83-4.51); Lymphocyte % 15.9 % (19-41); Mean Corp Hgb Conc 31.4 g/dL (32-36); Mean Corpuscular Hgb 28.6 pg (27.0-32.0); Mean Corpuscular Volume 91.1 fL (81-99); Mean Platelet Vol. 10.2 fl (6.2-12.0); Monocyte# 1.06 X10^3/uL; NRBC Flagged by Analyzer 0 % (0-5); Neutrophil # 6.48 X10^3/uL (2.7-7.7); Platelet Count 247 K/mm3 (150-450); RBC Distribution Width SD 47.3 fl (35.1-43.9); Red Blood Count 4.51 M/mm3 (4.2-5.4); White Blood Count 9.7 K/mm3 (4.4-11.0)
[2023-08-10 06:49] LABS: Anion Gap 6 (5-15); BUN 9 mg/dL (7-18); BUN/Creat Ratio 12.7 RATIO (10-20); Calcium,Total 8.7 mg/dL (8.5-10.1); Chloride 113 mmol/L (98-107); Creatinine, Serum 0.71 mg/dL (0.55-1.02); EST Glomerular Filtration Rate 88 mL/min (>60); Est Glom Filt Rate - Afr Amer 107 mL/min (>60); Estimated Creatinine Clearance 72.98 ml/min; Glucose 108 mg/dL (74-106); Potassium 3.7 mmol/L (3.5-5.1); Sodium Level 141 mmol/L (136-145)
--- NOTE | 2023-08-10 08:14 | PCM.PN.CARD ---
Subjective Subjective Patient seen and evaluated. Doing well no complaints Objective Data Vital Signs: Vital Signs Temp Pulse Resp BP Pulse Ox O2 Del Method 98.3 F 79 16 129/76 H 99 Room Air 08/10/23 05:30 08/10/23 05:30 08/10/23 05:30 08/10/23 05:30 08/10/23 05:30 08/10/23 05:30 Oxygen Delivery Method Room Air Weight: 140 lb 3.424 oz Body Mass Index (BMI) 23.3 Intake & Output: Intake and Output for Last 24 Hours 08/08/23 08/09/23 08/10/23 23:59 23:59 23:59 Intake Total 835 / 835 0 / 0 Balance 835 / 835 0 / 0 Lab / Micro Data 08/10/23 04:44 08/10/23 04:44 Labs: Laboratory Results - last 24 hr 08/08/23 21:36: Diff Path Review Reviewed 08/10/23 04:44: WBC 9.7, RBC 4.51, Hgb 12.9, Hct 41.1, MCV 91.1, MCH 28.6, MCHC 31.4 L, RDW Std Deviation 47.3 H, RDW Coeff of Josef 14.0, Plt Count 247, MPV 10.2, Immature Gran % (Auto) 0.200, Neut % (Auto) 67.0, Lymph % (Auto) 15.9 L, [place] % (Auto) 11.0 H, Eos % (Auto) 5.4 H, Baso % (Auto) 0.5, Absolute Neuts (auto) 6.5, Absolute Lymphs (auto) 1.54, Nucleated RBC % 0, Sodium 141, Potassium 3.7, Chloride 113 H, Carbon Dioxide 22.0, Anion Gap 6, BUN 9, Creatinine 0.71, Estim Creat Clear Calc 72.98, Est GFR (MDRD) Af Amer 107, Est GFR (MDRD) Non-Af 88, BUN/Creatinine Ratio 12.7, Glucose 108 H, Calcium 8.7 Cardiology Labs/Tests 08/10/23 04:44: WBC 9.7, RBC 4.51, Hgb 12.9, Hct 41.1, MCV 91.1, MCH 28.6, MCHC 31.4 L, Plt Count 247, MPV 10.2, Immature Gran % (Auto) 0.200, Neut % (Auto) 67.0, Lymph % (Auto) 15.9 L, [place] % (Auto) 11.0 H, Eos % (Auto) 5.4 H, Baso % (Auto) 0.5, Absolute Neuts (auto) 6.5, Nucleated RBC % 0, Sodium 141, Potassium 3.7, Chloride 113 H, Carbon Dioxide 22.0, Anion Gap 6, BUN 9, Creatinine 0.71, Est GFR (MDRD) Af Amer 107, Est GFR (MDRD) Non-Af 88, BUN/Creatinine Ratio 12.7, Glucose 108 H, Calcium 8.7 Rhythm: EKG: ECHO: Stress Test: Cardiac Cath: PCI: CT Surgery: Holter monitor: EPS: PPM: CXR: Chest CT Scan: Radiography Diagnostic Testing: Radiology Impression Echocardiogram 08/08/23 23:49 Interpretation Summary Normal LV size. The left ventricular ejection fraction is 55 %. There are regional wall motion abnormalities as specified. Stage 1 diastolic dysfunction. Pulmonary artery systolic pressure is 32 mmHg. Contrast injection was performed. Ordering Physician: Rubio Ye Referring Physician: Greta Edmond Performed By: Jason Beauchamp RCS Physical Exam Const alert, oriented x3 and no apparent distress General Appearance: cooperative HEENT hearing grossly normal bilaterally Head and Scalp: atraumatic Eyes EOMs intact bilaterally Neck General: normal visual inspection Chest inspection of chest normal and palpation of chest normal Resp normal respiratory effort Auscultation: clear to auscultation bilaterally Cardio regular rate, regular rhythm, S1 normal heart sound and S2 normal heart sound Jugular Venous Distention: JVD GI normal to inspection, nondistended, normoactive bowel sounds Extremity normal capillary refill and no pedal edema Peripheral Pulses: Yes pulses 2+ throughout and femoral pulses present Skin no rashes or lesions noted Neuro oriented x3 and CN's II-XII intact bilaterally Psych Appearance: grossly normal and appropriate Assessment & Plan Assessment/Plan (1) STEMI (ST elevation myocardial infarction): QUALIFIERS: Involved coronary artery: LAD coronary artery Qualified Code(s): I21.02 - ST elevation (STEMI) myocardial infarction involving left anterior descending coronary artery PLAN: Plan #STEMI Patient presented with an ST elevation myocardial infarction and underwent treatment with HOWARD to LAD and PTCA of ostial diagonal 1. Continue aspirin, Brilinta, beta-garo, statin. Echocardiogram demonstrated preserved left ventricular systolic function. Patient can be discharged later today for outpatient follow-up And cardiac rehabilitation.
[2023-08-10 09:09] VITALS: O2SAT 99
[2023-08-10 09:50] VITALS: BP 126/60; PULSE 95; RESP 16; TEMP 36.6; O2SAT 99
--- NOTE | 2023-08-10 10:00 | EKG12_ITS ---
Test Reason : AM EKG Blood Pressure : / mmHG Vent. Rate : 081 BPM Atrial Rate : 081 BPM P-R Int : 152 ms QRS Dur : 086 ms QT Int : 398 ms P-R-T Axes : 061 078 118 degrees QTc Int : 462 ms Normal sinus rhythm T wave abnormality, consider anterolateral ischemia Abnormal ECG When compared with ECG of 09-AUG-2023 04:46, MANUAL COMPARISON REQUIRED, DATA IS UNCONFIRMED Confirmed by JUAN PICKETT, NAOMI ([id number]), city editor RUTH BOWMAN ([id number]) on 08/10/2023 11:08:30 AM Referred By: Rubio Ye Confirmed By:NAOMI MARTINEZ MD
[2023-08-10 10:11] VITALS: PULSE 95
[2023-08-10] MEDS: TICAGRELOR 90 MG TABLET PO (10:11)
[2023-08-10] MEDS: Lisinopril 2.5 MG Tablet PO (10:11)
[2023-08-10] MEDS: Aspirin E.C. 81 MG Tablet PO (10:11)
[2023-08-10] MEDS: Metoprolol Tartrate 25 MG Tablet 12.5 MG PO (10:11)
--- NOTE | 2023-08-10 10:40 | PCM.PN.CARD ---
Subjective Subjective Patient is doing well. No significant cardiac complaints. Objective Data Vital Signs: Vital Signs Temp Pulse Resp BP Pulse Ox O2 Del Method 97.9 F 95 16 126/60 H 99 Room Air 08/10/23 09:50 08/10/23 10:11 08/10/23 09:50 08/10/23 09:50 08/10/23 09:50 08/10/23 09:50 Oxygen Delivery Method Room Air Weight: 140 lb 3.424 oz Body Mass Index (BMI) 23.3 Intake & Output: Intake and Output for Last 24 Hours 08/08/23 08/09/23 08/10/23 23:59 23:59 23:59 Intake Total 835 / 835 0 / 0 Balance 835 / 835 0 / 0 Lab / Micro Data 08/10/23 04:44 08/10/23 04:44 Labs: Laboratory Results - last 24 hr 08/08/23 21:36: Diff Path Review Reviewed 08/10/23 04:44: WBC 9.7, RBC 4.51, Hgb 12.9, Hct 41.1, MCV 91.1, MCH 28.6, MCHC 31.4 L, RDW Std Deviation 47.3 H, RDW Coeff of Josef 14.0, Plt Count 247, MPV 10.2, Immature Gran % (Auto) 0.200, Neut % (Auto) 67.0, Lymph % (Auto) 15.9 L, [place] % (Auto) 11.0 H, Eos % (Auto) 5.4 H, Baso % (Auto) 0.5, Absolute Neuts (auto) 6.5, Absolute Lymphs (auto) 1.54, Nucleated RBC % 0, Sodium 141, Potassium 3.7, Chloride 113 H, Carbon Dioxide 22.0, Anion Gap 6, BUN 9, Creatinine 0.71, Estim Creat Clear Calc 72.98, Est GFR (MDRD) Af Amer 107, Est GFR (MDRD) Non-Af 88, BUN/Creatinine Ratio 12.7, Glucose 108 H, Calcium 8.7 Cardiology Labs/Tests 08/10/23 04:44: WBC 9.7, RBC 4.51, Hgb 12.9, Hct 41.1, MCV 91.1, MCH 28.6, MCHC 31.4 L, Plt Count 247, MPV 10.2, Immature Gran % (Auto) 0.200, Neut % (Auto) 67.0, Lymph % (Auto) 15.9 L, [place] % (Auto) 11.0 H, Eos % (Auto) 5.4 H, Baso % (Auto) 0.5, Absolute Neuts (auto) 6.5, Nucleated RBC % 0, Sodium 141, Potassium 3.7, Chloride 113 H, Carbon Dioxide 22.0, Anion Gap 6, BUN 9, Creatinine 0.71, Est GFR (MDRD) Af Amer 107, Est GFR (MDRD) Non-Af 88, BUN/Creatinine Ratio 12.7, Glucose 108 H, Calcium 8.7 Rhythm: EKG: ECHO: Stress Test: Cardiac Cath: PCI: CT Surgery: Holter monitor: EPS: PPM: CXR: Chest CT Scan: Radiography Diagnostic Testing: Radiology Impression Echocardiogram 08/08/23 23:49 Interpretation Summary Normal LV size. The left ventricular ejection fraction is 55 %. There are regional wall motion abnormalities as specified. Stage 1 diastolic dysfunction. Pulmonary artery systolic pressure is 32 mmHg. Contrast injection was performed. Ordering Physician: Rubio Ye Referring Physician: Greta Edmond Performed By: Jason Beauchamp RCS Physical Exam Const alert and oriented x3 HEENT normocephalic Eyes no scleral icterus Resp normal respiratory effort Psych mental status grossly normal
--- NOTE | 2023-08-10 11:43 | DCINST_ITS ---
Discharge Instructions Diet Discharge Diet: - (DASH diet) Follow Up Care Test Results: Test results from this visit will be discussed in further detail at your follow- up appointment, if applicable. Discharge Plan Admission Admit Date/Time: 08/08/23 21:56 Primary Reason for Your Visit: Chest pain, STEMI Attending Provider: Chante Josue Primary Care Provider: Greta Edmond Consulting Providers: Cristiano Rajput; Rubio Ye Instructions Patient Instructions: Heart Attack Dc, Heart Attack Meds, Heart Attack Questions, Heart Attack: Leaving the Hospital, Heart Attack: Back at Home Additional Instructions / Restrictions: DISCHARGE INSTRUCTIONS PLEASE READ *Please take this with you to your next doctors appointment* -Your atorvastatin has been increased to 40 mg daily, new prescription was sent to your preferred pharmacy on file -You will also need to take an 81 mg aspirin daily, metoprolol 12.5 mg twice daily, lisinopril 2.5 mg twice daily, and Brilinta 90 mg twice daily. -Any newly prescribed medications have been sent to your preferred pharmacy on file -You will need to follow-up with cardiology upon discharge, please call the office of Dr. Saunders's office upon discharge to schedule your hospital follow-up appointment ) -Do only light and easy activities for 2 to 3 days after your stent placement, ask for help with chores and errands while you recover and have someone drive you to your appointments. -Unless your job involves lifting you may return to normal activities within 2 days -Please take your medications as prescribed, do not skip doses -Check your incisions every day for signs of infection which would include redness, swelling, leaking. It is normal to have a small bruise or bump where the catheter was placed but a bruise that is getting larger is not normal. Please tell your healthcare team about this. Please proceed to the emergency department if you have uncontrollable bleeding from the site. -It is important to eat a diet that is low in fat, salt, and cholesterol -You will be set up with cardiac rehab upon discharge, it is important that you follow-up -Okay to shower from the day after your heart catheterization but keep your incision site clean and dry. -Please call your primary care provider's office upon discharge to schedule a hospital follow up within 1 week. -For any concerning signs or symptoms please call 911 or proceed to the nearest emergency department Discharge Orders/Prescriptions Prescriptions: New atorvastatin 40 mg Tablet 40 mg PO QHS 30 Days Qty: 30 0RF aspirin 81 mg Tablet,Delayed Release (Dr/Ec) 81 mg PO DAILY 30 Days Qty: 30 0RF lisinopril 2.5 mg Tablet 2.5 mg PO DAILY 30 Days Qty: 30 0RF metoprolol tartrate 25 mg Tablet 12.5 mg PO BID 30 Days Qty: 30 0RF Brilinta 90 mg Tablet 90 mg PO BID 30 Days Qty: 60 0RF Continued estradiol [Vagifem] 10 mcg tablet 10 mcg vaginal 2XW Qty: 8 12RF Rx Instructions: To start after using nightly x2w Osphena 60 mg tablet 60 mg PO DAILY Qty: 90 4RF Rx Instructions: must administer with food, preferably a high-fat meal hydrocortisone [Proctozone-HC] 2.5 % cream with perineal applicator 1 applic OR BID-QID PRN (Reason: hemorrhoids) Qty: 30 0RF cholecalciferol (vitamin D3) 125 mcg (5,000 unit) capsule 5,000 unit PO .3/week metformin 1,000 mg tablet 1,000 mg PO BID Qty: 180 3RF levothyroxine [Synthroid] 100 mcg tablet 100 mcg PO DAILY Qty: 30 0RF Discontinued estradiol 0.01 % (0.1 mg/gram) cream 1 g vaginal 2XW Qty: 42.5 3RF clobetasol 0.05 % cream 1 applic topical BID 84 Days Qty: 30 6RF atorvastatin 20 mg tablet 20 mg PO DAILY Qty: 90 3RF Referrals / Follow Up: Bob Saunders MD [Med Staff - Active Staff] - Within 1 Month Greta Edmond DO [Primary Care Provider] - Within 1 Week Disposition Disposition (needs filled in before D/C Order can be placed): Home, Self Care
--- NOTE | 2023-08-10 11:47 | DS.PCM_ITS ---
Providers Date of Admission: 08/08/23 Date of Discharge: 08/10/23 Primary Care Physician: Dr. Greta Edmond, Consultations 08/09/23 02:14 Consult: Cardiology Routine Consulting Provider: Rubio Ye Reason for Consult: STEMI EMERGENT Consult: Yes MD Notified: Yes Date Notified: 08/09/23 Time Notified: 02:15 Method of Notification: ED Physician Initiated Method of Consult:: In-Person Reason For Visit: STEMI Diagnosis Discharge Diagnosis (1) STEMI (ST elevation myocardial infarction): Status: Acute Code(s): I21.3 - ST elevation (STEMI) myocardial infarction of unspecified site Qualifiers: Involved coronary artery: LAD coronary artery Qualified Code(s): I21.02 - ST elevation (STEMI) myocardial infarction involving left anterior descending coronary artery (2) Diabetes type 2, controlled: Status: Acute Code(s): E11.9 - Type 2 diabetes mellitus without complications Qualifiers: Diabetes mellitus facility manager histology insulin use: without retirement use Diabetes mellitus complication status: without complication Qualified Code(s): E11.9 - Type 2 diabetes mellitus without complications (3) Medullary thyroid carcinoma: Status: Chronic Code(s): C73 - Malignant neoplasm of thyroid gland (4) Stented coronary artery: Status: Acute Code(s): Z95.5 - Presence of coronary angioplasty implant and graft (5) (HFpEF) heart failure with preserved ejection fraction: Status: Acute Code(s): I50.30 - Unspecified diastolic (congestive) heart failure Plan #STEMI Treated with HOWARD to LAD and PTCA of ostial diagonal #Hypothyroidism after thyroidectomy secondary to medullary thyroid carcinoma #Type 2 diabetes mellitus Medications at Discharge Home Medications cholecalciferol (vitamin D3) 125 mcg (5,000 unit) capsule 5,000 unit PO .3/week 10/12/20 Vagifem 10 mcg vaginal tablet (estradiol) 10 mcg vaginal 2XW #8 tabs 02/24/21 metformin 1,000 mg tablet 1,000 mg PO BID #180 tabs 08/03/22 ospemifene 60 mg tablet (Osphena) 60 mg PO DAILY #90 tabs 06/29/23 Synthroid 100 mcg tablet (levothyroxine) 100 mcg PO DAILY #30 tabs 07/27/23 hydrocortisone 2.5 % topical cream with perineal applicator (Proctozone-HC) 1 applic GA BID-QID PRN hemorrhoids #30 grams 07/28/23 aspirin 81 mg tablet,delayed release 81 mg PO DAILY 30 days #30 tabs 08/10/23 atorvastatin 40 mg tablet 40 mg PO QHS 30 days #30 tabs 08/10/23 lisinopril 2.5 mg tablet 2.5 mg PO DAILY 30 days #30 tabs 08/10/23 metoprolol tartrate 25 mg tablet 12.5 mg (1/2 x 25 mg) PO BID 30 days #30 tabs 08/10/23 ticagrelor 90 mg tablet (Brilinta) 90 mg PO BID 30 days #60 tabs 08/10/23 Hospital Course Procedures Cardiac catheterization (w/ stenting) and Transthoracic echo Summary of Care Provided Minutes Spent on Discharge: 35 Hospital Course: FANTA NEUMANN, is a 62 F with a significant history of medullary thyroid carcinoma status post thyroidectomy; diabetes mellitus; and hyperlipidemia who noted that ED 08/08/2023 with substernal chest pain and was found to have a STEMI. EKG showed ST elevations in leads V3,- V6; 1 and aVL with reciprocals in inferior leads. Taken to Processing Technologist emergently and treated with HOWARD to LAD and PTCA of ostial diagonal 1. Did well postop, echocardiogram with EF 55%, stage 1 diastolic dysfunction and regional wallmotion abdn. Patient started on aspirin, Brilinta, beta-tory, lisinopril, statin increased. Cardiology cleared patient for discharge. Discharge instructions as followed: DISCHARGE INSTRUCTIONS PLEASE READ *Please take this with you to your next doctors appointment* -Your atorvastatin has been increased to 40 mg daily, new prescription was sent to your preferred pharmacy on file -You will also need to take an 81 mg aspirin daily, metoprolol 12.5 mg twice daily, lisinopril 2.5 mg twice daily, and Brilinta 90 mg twice daily. -Any newly prescribed medications have been sent to your preferred pharmacy on file -You will need to follow-up with cardiology upon discharge, please call the office of Dr. Saunders's office upon discharge to schedule your hospital follow-up appointment ( [phone]) -Do only light and easy activities for 2 to 3 days after your stent placement, ask for help with chores and errands while you recover and have someone drive you to your appointments. -Unless your job involves lifting you may return to normal activities within 2 days -Please take your medications as prescribed, do not skip doses -Check your incisions every day for signs of infection which would include redness, swelling, leaking. It is normal to have a small bruise or bump where the catheter was placed but a bruise that is getting larger is not normal. Please tell your healthcare team about this. Please proceed to the emergency department if you have uncontrollable bleeding from the site. -It is important to eat a diet that is low in fat, salt, and cholesterol -You will be set up with cardiac rehab upon discharge, it is important that you follow-up -Okay to shower from the day after your heart catheterization but keep your incision site clean and dry. -Please call your primary care provider's office upon discharge to schedule a hospital follow up within 1 week. -For any concerning signs or symptoms please call 911 or proceed to the nearest emergency department Physical Exam Narrative General: Alert, oriented, no apparent distress HEENT: Atraumatic, normocephalic Eyes: Anicteric, normal conjunctiva, extraocular movements grossly intact Neck: Supple Respiratory: Clear to auscultation bilaterally, normal respiratory effort Cardiovascular: Regular rate and rhythm GI: Soft, nontender, nondistended Extremities: No edema Musculoskeletal: Moving all extremities Neuro: No overt focal neurological deficits Skin: No rashes appreciated Psych: Cooperative Weight / BMI Weight Weight: 63.6 kg Body Mass Index (BMI) 23.3 ABG / Lab / Microbiology Data 08/10/23 04:44 08/10/23 04:44 Laboratory: Laboratory Results - last 24 hr 08/08/23 21:36: Diff Path Review Reviewed 08/10/23 04:44: WBC 9.7, RBC 4.51, Hgb 12.9, Hct 41.1, MCV 91.1, MCH 28.6, MCHC 31.4 L, RDW Std Deviation 47.3 H, RDW Coeff of Josef 14.0, Plt Count 247, MPV 10.2, Immature Gran % (Auto) 0.200, Neut % (Auto) 67.0, Lymph % (Auto) 15.9 L, [place] % (Auto) 11.0 H, Eos % (Auto) 5.4 H, Baso % (Auto) 0.5, Absolute Neuts (auto) 6.5, Absolute Lymphs (auto) 1.54, Nucleated RBC % 0, Sodium 141, Potassium 3.7, Chloride 113 H, Carbon Dioxide 22.0, Anion Gap 6, BUN 9, Creatinine 0.71, Estim Creat Clear Calc 72.98, Est GFR (MDRD) Af Amer 107, Est GFR (MDRD) Non-Af 88, BUN/Creatinine Ratio 12.7, Glucose 108 H, Calcium 8.7 Radiography Diagnostic Testing: Radiology Impression Echocardiogram 08/08/23 23:49 Interpretation Summary Normal LV size. The left ventricular ejection fraction is 55 %. There are regional wall motion abnormalities as specified. Stage 1 diastolic dysfunction. Pulmonary artery systolic pressure is 32 mmHg. Contrast injection was performed. Ordering Physician: Rubio Ye Referring Physician: Greta Edmond Performed By: Jason Beauchamp RCS D/C Instructions Discharge Diet: - (DASH diet) Meaningful Use Info Meaningful Use Diagnoses (Choose all that apply): AMI AMI/Post PCI/Angioplasty Aspirin given w/in 24hrs of arrival?: Yes ASA at discharge?: Yes Antiplatelet Therapy at Discharge:: Yes Statins at discharge?: Yes Maurizio/ARB at discharge?: Yes Beta Tory at discharge?: Yes Done w/ Acute CA measure.: Yes Documented LVEF (%): 55 Discharge Plan Admission Admit Date/Time: 08/08/23 21:56 Primary Reason for Your Visit: Chest pain, STEMI Attending Provider: Chante Josue Primary Care Provider: Greta Edmond Consulting Providers: Cristiano Rajput; Rubio Ye Instructions Patient Instructions: Heart Attack Dc, Heart Attack Meds, Heart Attack Questions, Heart Attack: Leaving the Hospital, Heart Attack: Back at Home Additional Instructions / Restrictions: DISCHARGE INSTRUCTIONS PLEASE READ *Please take this with you to your next doctors appointment* -Your atorvastatin has been increased to 40 mg daily, new prescription was sent to your preferred pharmacy on file -You will also need to take an 81 mg aspirin daily, metoprolol 12.5 mg twice daily, lisinopril 2.5 mg twice daily, and Brilinta 90 mg twice daily. -Any newly prescribed medications have been sent to your preferred pharmacy on file -You will need to follow-up with cardiology upon discharge, please call the office of Dr. Saunders's office upon discharge to schedule your hospital follow-up appointment ( [phone]) -Do only light and easy activities for 2 to 3 days after your stent placement, ask for help with chores and errands while you recover and have someone drive you to your appointments. -Unless your job involves lifting you may return to normal activities within 2 days -Please take your medications as prescribed, do not skip doses -Check your incisions every day for signs of infection which would include redness, swelling, leaking. It is normal to have a small bruise or bump where the catheter was placed but a bruise that is getting larger is not normal. Please tell your healthcare team about this. Please proceed to the emergency department if you have uncontrollable bleeding from the site. -It is important to eat a diet that is low in fat, salt, and cholesterol -You will be set up with cardiac rehab upon discharge, it is important that you follow-up -Okay to shower from the day after your heart catheterization but keep your incision site clean and dry. -Please call your primary care provider's office upon discharge to schedule a hospital follow up within 1 week. -For any concerning signs or symptoms please call 911 or proceed to the nearest emergency department Discharge Orders/Prescriptions Prescriptions: New atorvastatin 40 mg Tablet 40 mg PO QHS 30 Days Qty: 30 0RF aspirin 81 mg Tablet,Delayed Release (Dr/Ec) 81 mg PO DAILY 30 Days Qty: 30 0RF lisinopril 2.5 mg Tablet 2.5 mg PO DAILY 30 Days Qty: 30 0RF metoprolol tartrate 25 mg Tablet 12.5 mg PO BID 30 Days Qty: 30 0RF Brilinta 90 mg Tablet 90 mg PO BID 30 Days Qty: 60 0RF Continued estradiol [Vagifem] 10 mcg tablet 10 mcg vaginal 2XW Qty: 8 12RF Rx Instructions: To start after using nightly x2w Osphena 60 mg tablet 60 mg PO DAILY Qty: 90 4RF Rx Instructions: must administer with food, preferably a high-fat meal hydrocortisone [Proctozone-HC] 2.5 % cream with perineal applicator 1 applic GA BID-QID PRN (Reason: hemorrhoids) Qty: 30 0RF cholecalciferol (vitamin D3) 125 mcg (5,000 unit) capsule 5,000 unit PO .3/week metformin 1,000 mg tablet 1,000 mg PO BID Qty: 180 3RF levothyroxine [Synthroid] 100 mcg tablet 100 mcg PO DAILY Qty: 30 0RF Discontinued estradiol 0.01 % (0.1 mg/gram) cream 1 g vaginal 2XW Qty: 42.5 3RF clobetasol 0.05 % cream 1 applic topical BID 84 Days Qty: 30 6RF atorvastatin 20 mg tablet 20 mg PO DAILY Qty: 90 3RF Referrals / Follow Up: Bob Saunders MD [Med Staff - Active Staff] - Within 1 Month Greta Edmond DO [Primary Care Provider] - Within 1 Week Disposition Disposition (needs filled in before D/C Order can be placed): Home, Self Care Charges/Coding Visit Charges Inpatient E&M: 63208 Disch Hosp >30min
--- NOTE | 2023-08-10 12:30 | CASEMGMT ---
Patient discharging on Brilinta. RN CM called [facility] retail and 30 day savings card applied. RN CM provided patient with $5 copay card. Patient denied further needs. Patient had no further questions or concerns.
--- NOTE | 2023-08-10 12:38 | CL.I_ITS ---
Patient Name: FANTA NEUMANN Study Date: 08/08/2023 Performing: Owen Ye MD Ht: 65 inches 165.1 cm : 1960 Wt: 143.8 lbs 65.12 kg Age: 62 Gender: female BSA: 1.72 PROCEDURE(S) PERFORMED DC02-(40733)LHC/COR IC16-([id number])AMI, HOWARD OR PTCA, ARTERY/GRAFT, SINGLE VESSEL IC02-([id number])PTCA, EACH ADD'L CORONARY ART, SAME MAJOR CLINICAL PROFILE AND CO-MORBIDITIES Indications: ACS <= 24 hrs Heart Failure: None Stress/Imaging Stress/Image Study Performed: No CAD Presentations: STEMI. Symptom onset Date/Time: 08/08/23 Time Not Available CONCLUSIONS CAD as described. Successful PCI of mLAD/D1 bifurcation with HOWARD to mLAD and PTCA alone of D1. RECOMMENDATIONS DESCRIPTION OF PROCEDURE The patient arrived to the procedure lab. The risks and benefits of the procedure as well as a full description of our services here and lack of surgical backup were fully explained to the patient and/or their significant other prior to the catheterization. The Timeout was completed, verifying the correct patient and procedure. The patient's procedural site was prepped and draped in the usual fashion. Local anesthetic was given subcutaneously to right radial region with Lidocaine 2%. Using a modified Seldinger technique, arterial access was obtained via the right radial artery, a 6Fr sheath was inserted.. Right Coronary Artery selective angiography was then performed in multiple views using a 5 Fr. JR 4 catheter XB3 Guide catheter was inserted and engaged into the LCA. BMW Guide wire was advanced to the LAD. 2.25x12 E[place] Balloon catheter was inserted. Balloon catheter was advanced across lesion in the LAD, mid. PTCA balloon inflated at 8 atms for 7 secs. Angiogram performed post balloon dilatation. 3x30 Resolute Drug Eluting stent was inserted. Drug Eluting stent was advanced across the lesion in the LAD, mid. Angiogram performed post stent deployment. 1.5x12 SC Euphora Balloon catheter was inserted. Balloon catheter was advanced across lesion in the first diagonal, ostial. PTCA balloon inflated at 14 atms for 16 secs. Angiogram performed post balloon dilatation. The arterial sheath was pulled and a TR Band was applied for hemostasis. 15cc of air CORONARY ANGIOGRAPHY DOMINANCE: Right Dominant LEFT MAIN: Mild luminal irregularities LEFT ANTERIOR DESCENDING ARTERY: MID LAD: 95 % Stenosis DIAGONAL 1: Ostial - 95 % Stenosis CIRCUMFLEX ARTERY: Mild luminal irregularities RIGHT CORONARY ARTERY: Mild luminal irregularities INTERVENTION INFORMATION LESION SITE: LAD (Mid) Lesion Complexity: High/C, chronic total occlusion: No, lesion at bifurcation: Yes, thrombus present: No, lesion length: 25 mm, culprit lesion: Yes, Previously treated lesion: No Pre Stenosis: 95 % Pre intervention MISTY flow: 3 PROCEDURE: Drug Eluting Stent with pre dilatation. Post Stenosis: 0 % Post intervention MISTY flow: 3 Lesion Devices: Khan .014 190cm BMW [place] Straight Cordis 6 Fr XB3.0 100cm Guide Catheter Medtronic SC EUPHORA RX 2.25x12 BALLOON Medtronic Resolute Felipe RX HOWARD 3.0x30 LESION SITE: 1st Diagonal (Ostial) Lesion Complexity: High/C, chronic total occlusion: No, lesion at bifurcation: Yes, thrombus present: No, lesion length: 3 mm, culprit lesion: Yes, Previously treated lesion: No Pre Stenosis: 95 % Pre intervention MISTY flow: 2 PROCEDURE: Balloon Angioplasty PTCA alone was perfomed through the stent struts to improve flow into the D1. Post Stenosis: 90 % Post intervention MISTY flow: 3 Lesion Devices: Khan .014 190cm BMW [place] Straight Cordis 6 Fr XB3.0 100cm Guide Catheter Medtronic SC EUPHORA RX 1.5x12 BALLOON COMPLICATIONS No Complications PROCEDURE MEDICATIONS Oxygen: 2 L/min via nasal cannula Heparin given IA 08/08/2023 22:44:45 Verapamil 2.5mg, Ntg 100mcgs, 3000 units of Heparin given IA 08/08/2023 22:44:45 SUMMARY OF HEMODYNAMIC DATA Time AIR REST ECG 22:24:27 AO 105/55 (78) SA 22:46:36 AO 111/57 (82) 23:00:36 Signed By Owen Ye MD On 08/10/2023 12:37:40 Owen Ye MD
== END 2023-08-10 13:36 | disposition home or self-care (01) | DRG 322 ==
LOC: ED 22:01 → ICU 22:17 → PCU 08-09 14:56
PROVIDERS: Admitting Provider Hospitalist; Emergency Provider Emergency Medicine; PCP Family Medicine; Referring Provider Specialist; Visit Provider Internal Medicine
DX: I21.02 ST elevation (STEMI) myocardial infarction involving left anterior descending coronary artery (principal); I50.30 Unspecified diastolic (congestive) heart failure; C73 Malignant neoplasm of thyroid gland; E11.9 Type 2 diabetes mellitus without complications; E89.0 Postprocedural hypothyroidism; F41.9 Anxiety disorder, unspecified; E78.5 Hyperlipidemia, unspecified; Z79.82 Long term (current) use of aspirin; Z79.02 Long term (current) use of antithrombotics/antiplatelets; Z95.5 Presence of coronary angioplasty implant and graft
CPT/HCPCS: 36415; 71045; 80048; 80053; 84484; 85025; 85610; 85730; 92921; 92941; 93005; 93306; 93454; 99284; J7030; Q9957; Q9967; A4216; C1725; C1769; C1874; C1887; C1894; C8929; C9606; J1327; J2405

== ENCOUNTER → 2023-08-16 | Outpatient (CLI) | payer OTHER, SELFPAY ==
--- NOTE | 2023-08-16 08:06 | CR.HP_ITS ---
CR - History & Physical General Arrival date:: 08/16/23 Arrival time:: 08:06 Date of Referral:: 08/10/23 Date of CR Evaluation:: 08/16/23 Referring Physician: Dr. Bob Saunders Primary Diagnosis: STEMI, PCI with coronary stetnt History of Present Cardiac Event Onset Date PTCA or coronary stenting:: Yes Vessel: LAD, ostial diagonal 1 08/08/23 Medications Ambulatory Orders Medication Instructions Recorded cholecalciferol (vitamin D3) 125 5,000 unit PO .3/week 10/12/20 mcg (5,000 unit) capsule Vagifem 10 mcg vaginal tablet 10 mcg vaginal 2XW #8 tabs 02/24/21 (estradiol) metformin 1,000 mg tablet 1,000 mg PO BID #180 tabs 08/03/22 ospemifene 60 mg tablet (Osphena) 60 mg PO DAILY #90 tabs 06/29/23 Synthroid 100 mcg tablet 100 mcg PO DAILY #30 tabs 07/27/23 (levothyroxine) hydrocortisone 2.5 % topical cream 1 applic HI BID-QID PRN 07/28/23 with perineal applicator hemorrhoids #30 grams (Proctozone-HC) aspirin 81 mg tablet,delayed 81 mg PO DAILY 30 days #30 tabs 08/10/23 release atorvastatin 40 mg tablet 40 mg PO QHS 30 days #30 tabs 08/10/23 lisinopril 2.5 mg tablet 2.5 mg PO DAILY 30 days #30 tabs 08/10/23 metoprolol tartrate 25 mg tablet 12.5 mg (1/2 x 25 mg) PO BID 30 08/10/23 days #30 tabs ticagrelor 90 mg tablet (Brilinta) 90 mg PO BID 30 days #60 tabs 08/10/23 Allergies Allergies animal dander Allergy (Unknown, Verified 08/08/23 21:33) NEEDS FOLLOW-UP house dust Allergy (Unknown, Verified 08/08/23 21:33) Unknown mold Allergy (Unknown, Verified 08/08/23 21:33) Unknown Sleep Disorder Evaluation Hx of Sleep Apnea: No Do you snore loudly (louder than talking or can be heard through closed doors)?: No Do you often feel tired/ fatigued/ sleepy during daytime?: No Has anyone observed you stop breathing during sleep?: No History of Hypertension (for STOP score): No STOP Results: Negative Advanced Directives Advanced Directives Power of Marketing Researcher: No Living Will: No Advance Directives Information Provided: No Advance Directives on File: No DNR Order?:: No Past Medical History Covid-19 Screening Physicial Symptoms Other Clinical Concerns Exposure Risk Pertinent Comorbidities Has a serious heart condition:: Yes Diabetic:: Yes Past Medical Illness Past Medical History (Updated 08/10/23 @ 11:[address] Chante Josue MD) Arteriosclerotic coronary artery disease (08/08/23) I25.10 Arthritis M19.90 Cervical high risk HPV (human papillomavirus) test positive R87.810 Diabetes type 2, controlled E11.9 GERD (gastroesophageal reflux disease) K21.9 High cholesterol E78.00 High triglycerides E78.1 Hives L50.9 Overweight (BMI 25.0-29.9) Pneumonia J18.9 Thyroid cancer C73 Vitamin D deficiency E55.9 Past Surgical History Past Surgical History (Updated 08/09/23 @ 08:46 by Ingrid Sanchez) S/P complete thyroidectomy E89.0 S/P surgical removal of pilonidal cyst Z98.890 Stented coronary artery (08/08/23) Z95.5 HOWARD to LAD and PTCA of ostial Diagonal 1 Family History Summary Family History Other Cancer Diabetes Heart disease Hypertension Myocardial infarction Social History Smoking History Smoking Status: Never smoker Alcohol Use Alcohol Usage: Yes (socially) Occupation Occupation (List type of work in comments):: Employed Hours worked per day:: 8 Returned to work on:: 08/14/23 Hobbies, Recreation, Social Activities Hobbies: Reading and Other (birding, cooking, gardening) Recreational Activities: I am able to engage in all my recreational activities Social Environment Status Marital Status: Current Living Arrangements Living Environment:: Family Children How many children do you have?: 2 Do any of your children live nearby?: No Safety Do you feel safe in your surroundings?: Yes Assistance Do you need any assistance at home?: no Review of Systems Review of Systems Hints Review of Present Symptoms: Reports Shortness of Breath with Exertion, Operative Discomfort (mild wrist pain), Angina, Fatigue, Heart Arrhythmia/Irregularities (feels it beating fast) and Appetite - Special Diet; Denies Shortness of Breath at Rest, PVD, Wound Healing, Dizziness/Lightheadedness, Appetite - Normal, Sleep - Normal or Sexual Changes Pain Is Patient Pain Free?: Yes Risk Factor Assessment Chief Complaint Chief Complaint: STEMI, PCI with coronary stent Vital Signs Pulse Ox: 99 Blood Pressure: 129/76 Pulse Pulse Rate: 79 Stress Stress: Work-related and Home/Family Diabetes Diabetic History: Type II Nutrition Referral for Diabetes: Yes Obesity Height: 5 ft 5 in Weight:: 140 lb Weight in Pounds: 140.0 lbs Body Mass Index (BMI): 23.3 Nutritional Referral for Obesity: No Physical Inactivity Physical Inactivity: None Risk Stratification Risk Guidelines: Lowest Risk: Risk Factor for Smoking, Moderate Risk: Risk Factor for Obesity, Risk Factor for Hypertension, Risk Factor for Sedentary Lifestyle and Risk Factor for Depression and Highest Risk: Risk Factor for Dyslipidemia and Risk Factor for Diabetes For Smoking Smoking Risk Guidelines For Dyslipidemia Dyslipidemia Risk Guidelines For Diabetes Mellitus Diabetes Risk Guidelines For Obesity/Overweight Obesity/Overweight Risk Guidelines For Hypertension Hypertension Risk Guidelines For Sedentary Lifestyle Sedentary Lifestyle Risk Guidelines For Depression Depression Risk Guidelines Family History Family History Other Cancer Diabetes Heart disease Hypertension Myocardial infarction Motivation Motivation to Participate On a scale of 1 to 10, how prepared are you to commit to attending program?: 10 What do you see as barriers to successfully being able to complete the program?: no What do you see as the benefits of succesfully completing the program? In other words, what do you hope to get out of participating in the program?: stronger, healthier, confidence Are there issues you are dealing with that will interfere with completing the program?: no Do you have a spouse or signficant other, family or friends who will help support you to complete the program?: yes
[2023-08-16 08:13] VITALS: BP 129/76; PULSE 79; O2SAT 99
--- NOTE | 2023-08-16 08:13 | PCM.CR.ITP ---
Diagnosis General Information Admitting Diagnosis: STEMI, PCI with coronary stent Personal Learning Style:: Audio/Visual Stage of change r/t lifestyle modifications:: Contemplation Gave educational material for:: Treating Heart Disease, How The Heart Works, What it means to have Heart Disease, How Coronary Artery Disease is Diagnosed, Heart Procedures, What Heart Medications Do, Risk Factors & Modifications, Living an Active Life, Nutrition, Emotions & Heart Disease, Stress Management & Relaxation and Sleep Disorders & Heart Disease Education/Goals Cardiac Rehabilitation Goals Personal Goals: Initial Assessment: Improve management of stress and emotions, Improve energy level, Participate in home exercise program, Improve muscle strength and endurance, Improve diet and eating habits (eat healthier) and Control risk factors (learn risk factor modification) Scale for measuring improvement of personal goals Diagnosis & Disease Process Outcomes/Goals: Pt IDs own risk factors & lifestyle modifications by Session 10, Verbalizes symptoms of angina & response by session 3., Pt independently manages and Other Additional Outcomes/Goals: Plan/Interventions: Assist Pt to ID & engage in lifestyle modification to reduce CVD risk, Instruct on individual risk factors, Review symptoms of angina & emergency actions, Review secondary diagnosis & identify educational needs. and Other see comment 30 day Reassessments:: Not Met 30 day Reassessments:: Not Met 30 day Reassessments:: Not Met 30 day Reassessments:: Not Met Final Reassessments:: Not Met Safety Referral to Physical Therapy: No Referral to [facility] Case Management: No Fall Risk Assessed:: Yes Assistive Devices:: None Exercise - Initial Assessment Visit Date of Eval: 08/16/23 (initial eval ) Mets: Pre-: >3 METS for 30 minutes by discharge, >5 METS for 30 minutes by discharge, >7 METS for 30 minutes by discharge and Unable to meet goal due to: (see comment below) Physician Prescribed Exercise Modalities: Treadmill, Rower, Airdyne, NuStep, SciFit and Lateral [place] Frequency: 2x/week for 18 weeks [36 sessions] and 3x/week for 12 weeks [36 sessions] Intensity: 60-80% of age predicted maximum heart rate reserve Duration: 30 - 45 minutes Current METSs:: 3 Target Heart Rate:: 94-133 Resting Blood Pressure: 129/76 EKG Type: NSR with T wave abnormality Outcomes & Goals Goals:: Verbalizes understanding of THR, RPE & goal METS by session 6, Documents in home exercise log/reports 30 min aerobic 5 day/wk by DC, Demonstrates accurate pulse taking by DC and Other additional outcome/goals: see below Intervention & Plan Exercise Program Goals: Instruct on personal THR & RPE, Instruct on MET level & personal MET goal, Show patient to take own pulse /validate performance until accurate, Instruct on home exercise and Other additional plan/int Physical Activity Home Exercise Physical Activity - Home Exercise: Safe Exercise, Warm-up, Self-monitoring, Cool-Down, Home Exercise > 30 min Daily and Sitting Time <3 hours/daily Outcomes & Goals Outcomes/Goals: Demonstrates correct Warm-up/exercise Cool-Down (S3) if = 2.5 METs, Verbalizes symptoms of exercise intolerance by Session 3 (S3), Demonstrate safe equipment use (S3) & follows exercise prescrition (6) and Other: See below Intervention & Plan Plan/Intervention: Instruct warm-up & cool-down if exercising at > 2 METs, Instruct on symptoms of exercise intolerance & actions to take, Instruct & monitor on saf, Assess intial functional capacity & safety risk and Other See below Nutrition - Initial Assessment Program Goals Nutrition Program Goals Patient has diagnosis of Hyperlipidemia (ICD E78)?: Yes Visit Date of Eval: 08/16/23 (initial eval ) Cholesterol/Lipids (Other Core Measures) Determine presence & major risk factors that modify LDL goal: Cigarette smoking, Hypertension or hypertensive medication, Low HDL cholesterol <40 mg/dL*, Family history of premature CHD in Male < 55 years: female <65 yearsFa and Age men > 45 years; women >/= 55 years Outcomes/Goals: Pt IDs own risk factors & lifestyle modifications by Session 10, Verbalizes symptoms of angina & response by session 3., Pt independently manages and Other Additional Outcomes/Goals: Intervention/Plan: Advocate for lipid panel cholesterol medication if applicable, Instruct on personal lipid levels & lipid goals/NCEP guidelines, Instruct on cholesterol and Other additional plan/int Referral to dietitian:: Yes Diabetes (Other Core Measures) Diabetes Type: Diagnosis Type II ICD-10 E11 Insulin dependent injection/pump?: No Non-Insulin Dependent?: Yes Do you monitor your blood sugar at home?: Yes Referral to Diabetic Clinic:: Yes Outcomes/Goals:: Able to state symptoms of, Able to state, Able to state and Other additional Intervention/Plan:: Instruct on, Refer to, Instruct on and Other Weight Mgt (Other Care) Height: 5 ft 5 in Weight:: 140 lb BMI: 23.3 Diagnosis Overweight/Obesity BMI> 30% ICD-10 E66: No Diagnosis High BMI/Morbid Obesity BMI> 35% ICD-10 Z68: No Outcomes/Goals: Pt sets, maintains & shows weight loss goal & trend during rehab and Other additional outcomes/goals Intervention/Plan: Instruct on ideal BMI & set weight loss goal w/patient, Assist pt to ID & incorporate diet changes for weight loss by S9, Refer to Structured Weight Loss program as appropriate, Encourage goal of using 250-300dcal per session for weight loss and Other additional plan/interventions Healthy Eating Habits Will attend diet classes:: Yes Outcomes/Goals:: Consume diet rich in vegs,fruits,whole grain/high fiber,fish,lean meat, Limit sat/trans fats,cholesterol & added salts & sugars and Other additional outcome/goals: Intervention/Plan:: Assess current eating habits and Other Additional plan/interventions Education Gave educational materials for:: Signs & symptoms of hypoglycemia, Signs & symptoms of hyperglycemia, Relate diabetes to coronary artery disease and Healthy eating Core - Initial Assessment Visit Date of Eval: 08/16/23 (initial eval ) Medication Compliance Preventative Medication(s):: Aspirin, ALEXANDRA inhibitor, Ticagrelor/P2Y12 inhibitor, Statin/lipid and Beta garo H/O mental health issues: depression, anxiety, or addiction?: No Doesn?t believe in the benefits of treatment?: No Believes medications are unnecessary or harmful?: No Has a concern about medication side effects?: No Expresses concern over the cost of medications?: No Outcomes/Goals: Verbalizes medications,desired effect & common side effects @ DC, Pt self-reports following medication regimen, Keeps card in wallet w/medications listed by DC and Other additional outcome/goals: Interventions/plans: Instruct on medication effects & side effects, Review medication list w/patient every two weeks, Instruct importance of taking meds as ordered & assist problem solving and Other additional Tobacco Use Tobacco Use: Non-smoker Hypertension Resting Blood Pressure:: 129/76 [place] [employer] Hypertension Guidelines Outcomes/Goals: Able to verbalize/achieve optimal blood pressure <130/80, Incorporates diet changes & exercise for blood pressure control by DC and Other additional outcomes/goals Interventions/plan: Instruct on optimal blood pressure, hypertension & medications, Instruct on effects of sodium, alcohol, stress, exercise &hypertension and Other additional plan/interventions Tobacco Cessation Referral Smoking Cessation Referral:: No Individual Education/Counseling:: No Education Schedule Given:: Yes Psychosocial - Initial Assess VIsit Date of Eval: 08/16/23 (initial eval ) History of previous Mental disease:: No Target Goals Target Goals Patient Health Questionnaire PHQ-9 Screening Initial Assessment: 1. Little interest or pleasure in doing things: Not at all 2. Feeling down, depressed, or hopeless: Not at all 3. Trouble falling or staying asleep, or sleeping too much: Several days 4. Feeling tired or having little energy: Several days 5. Poor appetite or overeating: Several days 6. Feeling bad about yourself -- or that you are a failure or have let yourself or your family down: Not at all 7. Trouble concentrating on things, such as reading the newspaper or watching television: Not at all 8. Moving or speaking so slowly that other people could have noticed. Or the opposite - being so fidgety or restless that you have been moving around a lot more than usual: Not at all 9. Thoughts that you would be better off , or of hurting yourself in some way: Not at all How difficult have these problems made it for you to do your work, take care of things at home, or get along with other people?: Somewhat difficult Total Score: 3 LEONEL-Q SV Test Statements CAD is a disease of the arteries in the heart: False Examples of risk factors for heart disease: True Angina is chest pain or discomfort: True The benefits of resistance training include: True Eating more meat and dairy products: False Anti-platelet medications such as aspirin are important: True The only effective way to manage stress: False An exercise warm-up slowly increases heart rate: True Prepared, processed foods usually have high sodium: True Depression is common after a heart attack: True The statin medications lower cholesterol: True To control blood pressure, lower the amount of sodium: True If someone gets chest discomfort during walking: False Transfats are partially hydrogenated vegetable oils: True Sleep apnea that is not treated increases the risk: False To control cholesterol, one should become a vegetarian: False Someone knows if he/she is exercising at the right level: True Diabetes cannot be prevented with exercise & health eating: False Stress is a large risk for heart attack: True A diet that can help lower blood pressure is rich in: True Total Score Total Correct Responses: 20 Self-Efficacy 6-Item Scale Initial Assessment: We would like to know how confident you are in doing certain activities. Please select your confidence level for: Fatigue Select Number: 8 Physical Discomfort or Pain Select Number: 8 Emotional Distress Select Number: 9 Other Symptoms or Health Problems Select Number: 9 Different Tasks and Activities Select Number: 9 Medication Select Number: 9 Total Score:: 8 Nutrition Survey Nutrition Survey Instructions Scoring Instructions Nutrition Survey Initial: Have you lost >10 lbs over the past 2 months without trying?: No Are you following a special diet at home for diabetes, low fat, or low salt?: Yes Are you interested in meeting with a dietitian for help understanding your diet?: Yes Do you eat less than 3 meals a day?: No Do you eat fatty meats (barnes, sausage, ribs, etc), fried foods, desserts, large amounts of salad dressings, margarine, butter, or cheese most days?: Yes Do you have food allergies? [Enter types in comment field]: No Do you eat in restaurants more than 3 times a week?: No Do you season food with salt, seasoning salt, or garlic salt?: Yes Do you used canned, boxed, frozen meals, or soups, seasoning packets?: Yes Total Score:: 5 Exercise - 30-day Assessment Physician Prescribed Exercise Modalities: Treadmill, Rower, Airdyne, NuStep, SciFit and Lateral Assignment Clerk Frequency: 3x/week for 12 weeks [36 sessions] Intensity: 60-80% of age predicted maximum heart rate reserve Exercise - Final/Discharge Physician Prescribed Exercise Modalities: Treadmill, Rower, Airdyne, NuStep, SciFit and Lateral [place] Frequency: 2x/week for 18 weeks [36 sessions] and 3x/week for 12 weeks [36 sessions] Intensity: 60-80% of age predicted maximum heart rate reserve Current METSs:: 3 Target Heart Rate:: 94-133 Nutrition - 30-Day Assessment Weight Mgt (Other Care) Height: 5 ft 5 in Weight:: 140 lb BMI: 23.3 Nutrition - 60-Day Assessment Weight Mgt (Other Care) Height: 5 ft 5 in Weight:: 140 lb BMI: 23.3 Core - Final Assessment Hypertension Resting Blood Pressure:: 129/76 [place] [employer] Hypertension Guidelines Core - 60-Day Assessment Hypertension Resting Blood Pressure:: 129/76 [place] [employer] Hypertension Guidelines Psychosocial - 30-Day Assess Target Goals Target Goals Psychosocial - 60-Day Assess Target Goals Target Goals Psychosocial - 90-Day Assess Target Goals Target Goals Psychosocial - Final Assessmen Target Goals Target Goals Nutrition - 90-Day Assessment Weight Mgt (Other Care) Height: 5 ft 5 in Weight:: 140 lb BMI: 23.3 Nutrition - Final Assessment Program Goals Patient has diagnosis of Hyperlipidemia (ICD E78)?: Yes Weight Mgt (Other Care) Height: 5 ft 5 in Weight:: 140 lb BMI: 23.3
[2023-08-16 08:22] VITALS: BP 129/76
[2023-08-16 08:34] VITALS: BMI 23.3
[2023-08-16 09:12] VITALS: BMI 23.3
== END | disposition home or self-care (01) ==
LOC: CR 07:59
PROVIDERS: PCP Family Medicine; Referring Provider Internal Medicine Cardiovascular Disease; Visit Provider Internal Medicine Cardiovascular Disease
DX: Z95.5 Presence of coronary angioplasty implant and graft (principal); I20.9 Angina pectoris, unspecified; E11.9 Type 2 diabetes mellitus without complications; I25.2 Old myocardial infarction; I5A Non-ischemic myocardial injury (non-traumatic); I25.10 Atherosclerotic heart disease of native coronary artery without angina pectoris; E78.00 Pure hypercholesterolemia, unspecified; Z85.850 Personal history of malignant neoplasm of thyroid; R06.02 Shortness of breath; G89.18 Other acute postprocedural pain; R53.83 Other fatigue; I49.9 Cardiac arrhythmia, unspecified

== ENCOUNTER → 2023-08-19 | Outpatient (CLI) | payer OTHER, SELFPAY ==
[2023-08-16 08:34] VITALS: BMI 23.3
[2023-08-19 12:30] LABS: T4 Free Direct 1.29 ng/dL (0.76-1.46); Thyroid Stim Hormone (TSH) 1.13 uIU/mL (0.358-3.74)
== END | disposition home or self-care (01) ==
LOC: LAB 11:18
PROVIDERS: PCP Family Medicine; Visit Provider Nurse Practitioner Family
DX: E89.0 Postprocedural hypothyroidism (principal)
CPT/HCPCS: 36415; 84439; 84443

== ENCOUNTER → 2023-08-25 | Outpatient (CLI) | payer OTHER, SELFPAY ==
[2023-08-16 08:34] VITALS: BMI 23.3
[2023-08-25 16:49] LABS: Anion Gap 6 (5-15); BUN 12 mg/dL (7-18); BUN/Creat Ratio 14.7 RATIO (10-20); Chloride 105 mmol/L (98-107); Creatinine, Serum 0.82 mg/dL (0.55-1.02); EST Glomerular Filtration Rate 75 mL/min (>60); Est Glom Filt Rate - Afr Amer 91 mL/min (>60); Glucose 95 mg/dL (74-106); Magnesium 2.1 mg/dL (1.6-2.6); Potassium 4.1 mmol/L (3.5-5.1); Sodium Level 136 mmol/L (136-145)
== END | disposition home or self-care (01) ==
LOC: LAB 14:36
PROVIDERS: PCP Nurse Practitioner Family; Referring Provider Nurse Practitioner Gerontology; Visit Provider Nurse Practitioner Gerontology
DX: I50.30 Unspecified diastolic (congestive) heart failure (principal)
CPT/HCPCS: 36415; 80048; 83735

== ENCOUNTER 2023-08-28 15:15 | Outpatient (RCR) | payer OTHER, SELFPAY ==
[2023-08-16 08:34] VITALS: BMI 23.3
== END 2023-08-29 23:59 ==
LOC: CR 15:15
PROVIDERS: PCP Family Medicine; Referring Provider Internal Medicine Cardiovascular Disease; Visit Provider Internal Medicine Cardiovascular Disease
DX: I21.02 ST elevation (STEMI) myocardial infarction involving left anterior descending coronary artery (principal); Z95.5 Presence of coronary angioplasty implant and graft; I25.10 Atherosclerotic heart disease of native coronary artery without angina pectoris
CPT/HCPCS: 93798

== ENCOUNTER 2023-09-27 15:15 | Outpatient (RCR) | payer OTHER, SELFPAY ==
[2023-08-16 08:34] VITALS: BMI 23.3
--- NOTE | 2023-09-15 09:53 | PCM.CR.ITP ---
Exercise - Initial Assessment Visit Session #:: 11 Nutrition - Initial Assessment Weight Mgt (Other Care) Height: 5 ft 5 in Weight:: 135 lb BMI: 22.4 Psychosocial - Initial Assess Target Goals Target Goals Patient Health Questionnaire PHQ-9 Screening 30-Day Re-eval Assessment: 1. Little interest or pleasure in doing things: Not at all 2. Feeling down, depressed, or hopeless: Not at all 3. Trouble falling or staying asleep, or sleeping too much: Several days 4. Feeling tired or having little energy: Several days 5. Poor appetite or overeating: Several days 6. Feeling bad about yourself -- or that you are a failure or have let yourself or your family down: Not at all 7. Trouble concentrating on things, such as reading the newspaper or watching television: Not at all 8. Moving or speaking so slowly that other people could have noticed. Or the opposite - being so fidgety or restless that you have been moving around a lot more than usual: Not at all 9. Thoughts that you would be better off , or of hurting yourself in some way: Not at all How difficult have these problems made it for you to do your work, take care of things at home, or get along with other people?: Somewhat difficult Total Score: 3 Self-Efficacy 6-Item Scale 30-Day Re-eval Assessment: We would like to know how confident you are in doing certain activities. Please select your confidence level for: Fatigue Select Number: 8 Physical Discomfort or Pain Select Number: 8 Emotional Distress Select Number: 9 Other Symptoms or Health Problems Select Number: 9 Different Tasks and Activities Select Number: 9 Medication Select Number: 9 Total Score:: 8 Nutrition Survey Nutrition Survey Instructions Scoring Instructions Exercise - 30-day Assessment Visit Date of Eval: 09/15/23 Session #:: 11 Physician Prescribed Exercise Modalities: Treadmill, NuStep and Lateral [place] Frequency: 3x/week for 12 weeks [36 sessions] Intensity: 60-80% of age predicted maximum heart rate reserve Duration: 30 - 45 minutes Current METSs:: 4 Target Heart Rate:: 11-133 Current RPE:: 11-13 Maximum Excercise HR:: 129 Resting Blood Pressure: 104/60 Maximum Exercise Blood Pressure: 182/62 EKG Type: NSR to ST w/t wave abnormality to st with rare PAC/PVC. Outcomes & Goals Goals:: Verbalizes understanding of THR, RPE & goal METS by session 6, Documents in home exercise log/reports 30 min aerobic 5 day/wk by DC, Demonstrates accurate pulse taking by DC and Other additional outcome/goals: see below Intervention & Plan Exercise Program Goals: Instruct on personal THR & RPE, Instruct on MET level & personal MET goal, Show patient to take own pulse /validate performance until accurate, Instruct on home exercise and Other additional plan/int 30-day Reassessments 30 day Reassessments:: Progressing Reassessment Notes & Comments:: RPE explained Physical Activity Home Exercise Physical Activity - Home Exercise: Safe Exercise, Warm-up, Self-monitoring, Cool-Down, Home Exercise > 30 min Daily and Sitting Time <3 hours/daily Outcomes & Goals Outcomes/Goals: Demonstrates correct Warm-up/exercise Cool-Down (S3) if = 2.5 METs, Verbalizes symptoms of exercise intolerance by Session 3 (S3), Demonstrate safe equipment use (S3) & follows exercise prescrition (6) and Other: See below Intervention & Plan Plan/Intervention: Instruct warm-up & cool-down if exercising at > 2 METs, Instruct on symptoms of exercise intolerance & actions to take, Instruct & monitor on saf, Assess intial functional capacity & safety risk and Other See below 30-day Reassessments 30 day Reassessments:: Progressing Reassessment Notes & Comments:: warm up encouraged Nutrition - 30-Day Assessment Program Goals Nutrition Program Goals Patient has diagnosis of Hyperlipidemia (ICD E78)?: Yes Visit Date of Eval: 09/15/23 Session #:: 11 Cholesterol/Lipids (Other Core Measures) Determine presence & major risk factors that modify LDL goal: Hypertension or hypertensive medication, Low HDL cholesterol <40 mg/dL*, Family history of premature CHD in Male < 55 years: female <65 yearsFa and Age men > 45 years; women >/= 55 years Outcomes/Goals: Pt IDs own risk factors & lifestyle modifications by Session 10, Verbalizes symptoms of angina & response by session 3., Pt independently manages and Other Additional Outcomes/Goals: Intervention/Plan: Advocate for lipid panel cholesterol medication if applicable, Instruct on personal lipid levels & lipid goals/NCEP guidelines, Instruct on cholesterol and Other additional plan/int 30-day Reassessments:: Progressing Reassessment Notes & Comments:: risk factors reviewed Diabetes (Other Core Measures) Diabetes Type: Diagnosis Type II ICD-10 E11 Insulin dependent injection/pump?: No Non-Insulin Dependent?: Yes Do you monitor your blood sugar at home?: Yes Referral to Diabetic Clinic:: Yes Outcomes/Goals:: Able to state symptoms of, Able to state, Able to state and Other additional Intervention/Plan:: Instruct on, Refer to, Instruct on and Other 30-day Reassessments:: Met Weight Mgt (Other Care) Height: 5 ft 5 in Weight:: 135 lb BMI: 22.4 Diagnosis Overweight/Obesity BMI> 30% ICD-10 E66: No Diagnosis High BMI/Morbid Obesity BMI> 35% ICD-10 Z68: No Outcomes/Goals: Pt sets, maintains & shows weight loss goal & trend during rehab and Other additional outcomes/goals Intervention/Plan: Instruct on ideal BMI & set weight loss goal w/patient, Assist pt to ID & incorporate diet changes for weight loss by S9, Refer to Structured Weight Loss program as appropriate, Encourage goal of using 250-300dcal per session for weight loss and Other additional plan/interventions 30 day Reassessments:: Progressing Reassessment Notes & Comments:: pt to attend nutrition class Healthy Eating Habits Will attend diet classes:: Yes Intervention/Plan:: Assess current eating habits and Other Additional plan/interventions 30-day Reassessments:: Progressing Reassessment Notes & Comments:: pt to attend nutrition class Education Gave educational materials for:: Signs & symptoms of hypoglycemia, Signs & symptoms of hyperglycemia, Relate diabetes to coronary artery disease and Healthy eating Nutrition - 60-Day Assessment Weight Mgt (Other Care) Height: 5 ft 5 in Weight:: 135 lb BMI: 22.4 Core - 30-Day Assessment Visit Date of Eval: 09/15/23 Session #:: 11 Medication Compliance Preventative Medication(s):: Aspirin, ALEXANDRA inhibitor, Ticagrelor/P2Y12 inhibitor, Statin/lipid and Beta garo H/O mental health issues: depression, anxiety, or addiction?: No Doesn?t believe in the benefits of treatment?: No Believes medications are unnecessary or harmful?: No Has a concern about medication side effects?: No Expresses concern over the cost of medications?: No Outcomes/Goals: Verbalizes medications,desired effect & common side effects @ DC, Pt self-reports following medication regimen, Keeps card in wallet w/medications listed by DC and Other additional outcome/goals: Interventions/plans: Instruct on medication effects & side effects, Review medication list w/patient every two weeks, Instruct importance of taking meds as ordered & assist problem solving and Other additional 30-day Reassessments:: Progressing Reassessment Notes & Comments:: pt encouraged to take her meds Tobacco Use Tobacco Use: Non-smoker Hypertension Resting Blood Pressure:: 104/60 [place] [employer] Hypertension Guidelines Peak Exercise Blood Pressure:: 182/62 Outcomes/Goals: Able to verbalize/achieve optimal blood pressure <130/80, Incorporates diet changes & exercise for blood pressure control by DC and Other additional outcomes/goals Interventions/plan: Instruct on optimal blood pressure, hypertension & medications, Instruct on effects of sodium, alcohol, stress, exercise &hypertension and Other additional plan/interventions 30 day Reassessments:: Progressing Reassessment Notes & Comments:: pt encouraged to take her meds Tobacco Cessation Referral Smoking Cessation Referral:: No Individual Education/Counseling:: No Education Schedule Given:: Yes Psychosocial - 30-Day Assess Target Goals Target Goals Psychosocial - 60-Day Assess Target Goals Target Goals Psychosocial - 90-Day Assess Target Goals Target Goals Psychosocial - Final Assessmen Target Goals Target Goals Nutrition - 90-Day Assessment Weight Mgt (Other Care) Height: 5 ft 5 in Weight:: 135 lb BMI: 22.4 Nutrition - Final Assessment Weight Mgt (Other Care) Height: 5 ft 5 in Weight:: 135 lb BMI: 22.4
[2023-09-15 10:02] VITALS: BP 104/60; BMI 22.4
== END 2023-09-28 23:59 ==
LOC: CR 15:15
PROVIDERS: PCP Nurse Practitioner Family; Referring Provider Internal Medicine Cardiovascular Disease; Visit Provider Internal Medicine Cardiovascular Disease
DX: I21.02 ST elevation (STEMI) myocardial infarction involving left anterior descending coronary artery (principal); I25.10 Atherosclerotic heart disease of native coronary artery without angina pectoris; Z95.5 Presence of coronary angioplasty implant and graft
CPT/HCPCS: 93798

== ENCOUNTER → 2023-09-30 | Outpatient (CLI) | payer OTHER, SELFPAY ==
[2023-09-15 10:02] VITALS: BMI 22.4
[2023-09-30 09:12] LABS: AST(SGOT) 15 U/L (15-37); Alanine Aminotransfer ALT/SGPT 22 U/L (13-56); Albumin, Serum 3.3 g/dL (3.2-5.0); Alkaline Phosphatase 54 U/L (45-117); Anion Gap 4 (5-15); BUN 11 mg/dL (7-18); BUN/Creat Ratio 12.8 RATIO (10-20); Calcium,Total 8.7 mg/dL (8.5-10.1); Chloride 113 mmol/L (98-107); Cholesterol 140 mg/dL (200); Creatinine, Serum 0.86 mg/dL (0.55-1.02); EST Glomerular Filtration Rate 71 mL/min (>60); Est Glom Filt Rate - Afr Amer 86 mL/min (>60); Globulin 3.3 g/dL (2.2-4.2); Glucose 117 mg/dL (74-106); High Density Lipoprotein 37 mg/dL; Potassium 4.1 mmol/L (3.5-5.1); Protein, Total 6.6 g/dL (6.4-8.2); Sodium Level 143 mmol/L (136-145); Triglycerides 99 mg/dL; Very Low Density Lipoprotein 20 mg/dL (5-40)
[2023-09-30 11:23] LABS: Microalbumin,Random Urine 13.3 mg/L (NO RANGE EST.); Microalbumin:Creatinine Ratio 12.9 mg/g CRE (<30 mg/g CRE)
[2023-10-02 08:39] LABS: Vitamin D,25 Hydroxy 76.3 ng/mL
[2023-10-02 13:10] LABS: Carcinoembryonic Antigen 2139 2.5 ng/mL (0.0-4.7)
== END | disposition home or self-care (01) ==
LOC: LAB 07:42
PROVIDERS: PCP Nurse Practitioner Family; Referring Provider Internal Medicine Endocrinology, Diabetes & Metabolism; Visit Provider Internal Medicine Endocrinology, Diabetes & Metabolism
DX: E11.9 Type 2 diabetes mellitus without complications (principal); C73 Malignant neoplasm of thyroid gland; E89.0 Postprocedural hypothyroidism; E55.9 Vitamin D deficiency, unspecified
CPT/HCPCS: 36415; 80053; 80061; 82043; 82306; 82378; 82570

== ENCOUNTER 2023-10-16 16:04 | Outpatient (CLI) | payer OTHER, SELFPAY ==
[2023-10-16 11:14] VITALS: BMI 22.1
[2023-10-16 16:26] LABS: Hematocrit 43.9 % (37-47); Hemoglobin 14.3 g/dL (12.0-15.0); Mean Corp Hgb Conc 32.6 g/dL (32-36); Mean Corpuscular Volume 92.2 fL (81-99); Mean Platelet Vol. 9.4 fl (6.2-12.0); Platelet Count 334 K/mm3 (150-450); RBC Distribution Width CV 14.7 % (11.6-14.6); RBC Distribution Width SD 50.3 fl (35.1-43.9); Red Blood Count 4.76 M/mm3 (4.2-5.4); White Blood Count 9.1 K/mm3 (4.4-11.0)
[2023-10-16 16:51] LABS: Thyroid Stim Hormone (TSH) 0.14 uIU/mL (0.358-3.74)
== END 2023-10-16 23:59 | disposition home or self-care (01) ==
LOC: LAB 16:05
PROVIDERS: PCP Nurse Practitioner Family; Referring Provider Internal Medicine Cardiovascular Disease; Visit Provider Internal Medicine Cardiovascular Disease
DX: R00.0 Tachycardia, unspecified (principal); I50.30 Unspecified diastolic (congestive) heart failure; C73 Malignant neoplasm of thyroid gland; I25.10 Atherosclerotic heart disease of native coronary artery without angina pectoris; Z95.5 Presence of coronary angioplasty implant and graft; E89.0 Postprocedural hypothyroidism; K62.5 Hemorrhage of anus and rectum
CPT/HCPCS: 36415; 84443; 85027

== ENCOUNTER 2023-10-27 15:15 | Outpatient (RCR) | payer OTHER, SELFPAY ==
[2023-09-15 10:02] VITALS: BMI 22.4
[2023-09-29 00:50] VITALS: BP 104/60
--- NOTE | 2023-10-16 11:04 | PCM.CR.ITP ---
Nutrition - Initial Assessment Weight Mgt (Other Care) Height: 5 ft 5 in Weight:: 133 lb BMI: 22.1 Psychosocial - Initial Assess Target Goals Target Goals Referral to Behavioral Health PS - Interventions: Yes: Attend Stress Management Classes and No: Referral to Behavioral Health if PHQ-9 score >9:, No: Referral to [facility] and No: Referral to Physician if PHQ-9 if score is 5-9: Patient Health Questionnaire PHQ-9 Screening 60-Day Re-eval Assessment: 1. Little interest or pleasure in doing things: Not at all 2. Feeling down, depressed, or hopeless: Not at all 3. Trouble falling or staying asleep, or sleeping too much: Not at all 4. Feeling tired or having little energy: Not at all 5. Poor appetite or overeating: Several days 6. Feeling bad about yourself -- or that you are a failure or have let yourself or your family down: Not at all 7. Trouble concentrating on things, such as reading the newspaper or watching television: Not at all 8. Moving or speaking so slowly that other people could have noticed. Or the opposite - being so fidgety or restless that you have been moving around a lot more than usual: Not at all 9. Thoughts that you would be better off , or of hurting yourself in some way: Not at all How difficult have these problems made it for you to do your work, take care of things at home, or get along with other people?: Not difficult at all Total Score: 1 Self-Efficacy 6-Item Scale 60-Day Re-eval Assessment: We would like to know how confident you are in doing certain activities. Please select your confidence level for: Fatigue Select Number: 9 Physical Discomfort or Pain Select Number: 9 Emotional Distress Select Number: 10 Other Symptoms or Health Problems Select Number: 10 Different Tasks and Activities Select Number: 10 Medication Select Number: 10 Total Score:: 9 Nutrition Survey Nutrition Survey Instructions Scoring Instructions Exercise - 60-day Assessment Visit Date of Eval: 10/16/23 Session #:: 22 Physician Prescribed Exercise Modalities: Treadmill, NuStep and Lateral [place] Frequency: 3x/week for 12 weeks [36 sessions] Intensity: 60-80% of age predicted maximum heart rate reserve Duration: 30 - 45 minutes Current METSs:: 5 Target Heart Rate:: 118-133 Current RPE:: 11-12 Maximum Excercise HR:: 146 Resting Blood Pressure: 126/50 Maximum Exercise Blood Pressure: 186/44 EKG Type: NSR to sinus tachycardia with T wave abnomality, Isolated PAC Current Physical Activity or Exercising minutes: 35:32 Outcomes & Goals Goals:: Verbalizes understanding of THR, RPE & goal METS by session 6, Documents in home exercise log/reports 30 min aerobic 5 day/wk by DC and Demonstrates accurate pulse taking by DC Intervention & Plan Exercise Program Goals: Instruct on personal THR & RPE, Instruct on MET level & personal MET goal, Show patient to take own pulse /validate performance until accurate and Instruct on home exercise 30-day Reassessments 30 day Reassessments:: Progressing Physical Activity Home Exercise Physical Activity - Home Exercise: Safe Exercise, Warm-up, Self-monitoring, Cool-Down, Home Exercise > 30 min Daily and Sitting Time <3 hours/daily Outcomes & Goals Outcomes/Goals: Demonstrates correct Warm-up/exercise Cool-Down (S3) if = 2.5 METs, Verbalizes symptoms of exercise intolerance by Session 3 (S3) and Demonstrate safe equipment use (S3) & follows exercise prescrition (6) Intervention & Plan Plan/Intervention: Instruct warm-up & cool-down if exercising at > 2 METs, Instruct on symptoms of exercise intolerance & actions to take, Instruct & monitor on saf and Assess intial functional capacity & safety risk 30-day Reassessments 30 day Reassessments:: Progressing Nutrition - 30-Day Assessment Weight Mgt (Other Care) Height: 5 ft 5 in Weight:: 133 lb BMI: 22.1 Nutrition - 60-Day Assessment Program Goals Nutrition Program Goals Patient has diagnosis of Hyperlipidemia (ICD E78)?: Yes Visit Date of Eval: 10/16/23 Session #:: 22 Cholesterol/Lipids (Other Core Measures) Determine presence & major risk factors that modify LDL goal: Hypertension or hypertensive medication and Age men > 45 years; women >/= 55 years Outcomes/Goals: Pt IDs own risk factors & lifestyle modifications by Session 10 and Verbalizes symptoms of angina & response by session 3. Intervention/Plan: Instruct on personal lipid levels & lipid goals/NCEP guidelines and Instruct on cholesterol Referral to dietitian:: Yes 30-day Reassessments:: Progressing Diabetes (Other Core Measures) Diabetes Type: Not Applicable Weight Mgt (Other Care) Not Applicable: Yes Height: 5 ft 5 in Weight:: 133 lb BMI: 22.1 Diagnosis Overweight/Obesity BMI> 30% ICD-10 E66: No Diagnosis High BMI/Morbid Obesity BMI> 35% ICD-10 Z68: No Outcomes/Goals: Pt sets, maintains & shows weight loss goal & trend during rehab Intervention/Plan: Instruct on ideal BMI & set weight loss goal w/patient 30 day Reassessments:: Met Healthy Eating Habits Will attend diet classes:: Yes Outcomes/Goals:: Consume diet rich in vegs,fruits,whole grain/high fiber,fish,lean meat and Limit sat/trans fats,cholesterol & added salts & sugars Intervention/Plan:: Assess current eating habits 30-day Reassessments:: Met Core - 60-Day Assessment Visit Date of Eval: 10/16/23 Session #:: 22 Medication Compliance Preventative Medication(s):: Aspirin, Ticagrelor/P2Y12 inhibitor and Statin/lipid H/O mental health issues: depression, anxiety, or addiction?: No Doesn?t believe in the benefits of treatment?: No Believes medications are unnecessary or harmful?: No Has a concern about medication side effects?: No Expresses concern over the cost of medications?: No Outcomes/Goals: Verbalizes medications,desired effect & common side effects @ DC, Pt self-reports following medication regimen and Keeps card in wallet w/medications listed by DC Interventions/plans: Instruct on medication effects & side effects, Review medication list w/patient every two weeks and Instruct importance of taking meds as ordered & assist problem solving 30-day Reassessments:: Met Tobacco Use Tobacco Use: Non-smoker Hypertension Resting Blood Pressure:: 126/50 [place] [employer] Hypertension Guidelines Peak Exercise Blood Pressure:: 186/44 Outcomes/Goals: Able to verbalize/achieve optimal blood pressure <130/80 and Incorporates diet changes & exercise for blood pressure control by DC Interventions/plan: Instruct on optimal blood pressure, hypertension & medications and Instruct on effects of sodium, alcohol, stress, exercise &hypertension 30 day Reassessments:: Progressing Tobacco Cessation Referral Smoking Cessation Referral:: No Individual Education/Counseling:: Yes Education Schedule Given:: Yes Psychosocial - 30-Day Assess Target Goals Target Goals Referral to Behavioral Health PS - Interventions: Yes: Attend Stress Management Classes and No: Referral to Behavioral Health if PHQ-9 score >9:, No: Referral to [facility] and No: Referral to Physician if PHQ-9 if score is 5-9: Outcomes/Goals: See list Psychosocial Outcomes/Goals:: ID's personal stressors & 2 strategies to manage stress by discharge Psychosocial - 60-Day Assess VIsit Date of Eval: 10/16/23 Session #:: 22 Not Applicable: Yes History of previous Mental disease:: No Target Goals Target Goals Psychosocial Test Tool Used:: PHQ-9 Questionnaire phq-9 Severity Referral to Behavioral Health PS - Interventions: Yes: Attend Stress Management Classes and No: Referral to Behavioral Health if PHQ-9 score >9:, No: Referral to [facility] and No: Referral to Physician if PHQ-9 if score is 5-9: Outcomes/Goals: See list Psychosocial Outcomes/Goals:: ID's personal stressors & 2 strategies to manage stress by discharge Intervention/Plan: See List Interventions/Plan:: Assess stressors,coping strategies & signs of derpression on admission, Instruct/assist pt to develop coping & personal stress Mgt strategies, Instruct patient to recognize signs & symptoms of depression and Instruct patient to recog 30-day Reassessments: 30 day Reassessments:: Progressing Psychosocial - 90-Day Assess Target Goals Target Goals Referral to Behavioral Health PS - Interventions: Yes: Attend Stress Management Classes and No: Referral to Behavioral Health if PHQ-9 score >9:, No: Referral to [facility] and No: Referral to Physician if PHQ-9 if score is 5-9: Psychosocial - Final Assessmen Target Goals Target Goals Referral to Behavioral Health PS - Interventions: Yes: Attend Stress Management Classes and No: Referral to Behavioral Health if PHQ-9 score >9:, No: Referral to [facility] and No: Referral to Physician if PHQ-9 if score is 5-9: Nutrition - 90-Day Assessment Weight Mgt (Other Care) Height: 5 ft 5 in Weight:: 133 lb BMI: 22.1 Nutrition - Final Assessment Weight Mgt (Other Care) Height: 5 ft 5 in Weight:: 133 lb BMI: 22.1
[2023-10-16 11:14] VITALS: BP 126/50
== END 2023-10-29 23:59 ==
LOC: CR 15:15
PROVIDERS: PCP Nurse Practitioner Family; Referring Provider Internal Medicine Cardiovascular Disease; Visit Provider Internal Medicine Cardiovascular Disease
DX: I21.02 ST elevation (STEMI) myocardial infarction involving left anterior descending coronary artery (principal); I25.10 Atherosclerotic heart disease of native coronary artery without angina pectoris; Z95.5 Presence of coronary angioplasty implant and graft
CPT/HCPCS: 93798

== ENCOUNTER 2023-11-27 15:15 | Outpatient (RCR) | payer OTHER, SELFPAY ==
[2023-10-30 00:47] VITALS: BP 104/60; BP 126/50
== END 2023-11-29 23:59 ==
LOC: CR 15:15
PROVIDERS: PCP Nurse Practitioner Family; Referring Provider Internal Medicine Cardiovascular Disease; Visit Provider Internal Medicine Cardiovascular Disease
DX: I21.02 ST elevation (STEMI) myocardial infarction involving left anterior descending coronary artery (principal); I25.10 Atherosclerotic heart disease of native coronary artery without angina pectoris; Z95.5 Presence of coronary angioplasty implant and graft
CPT/HCPCS: 93798

== ENCOUNTER → 2023-11-27 | Outpatient (CLI) | payer OTHER, SELFPAY ==
[2023-11-27 09:19] LABS: Absolute Lymphocyte Count 1.04 X10^3/uL (0.83-4.51); Basophil# 0.08 X10^3/uL; Eosinophils% 3.6 % (0-5); Hematocrit 45.8 % (37-47); Hemoglobin 14.4 g/dL (12.0-15.0); Lymphocyte # 1.04 X10^3/ul (0.83-4.51); Lymphocyte % 12.7 % (19-41); Mean Corp Hgb Conc 31.4 g/dL (32-36); Mean Corpuscular Hgb 28.7 pg (27.0-32.0); Mean Corpuscular Volume 91.2 fL (81-99); Mean Platelet Vol. 9.7 fl (6.2-12.0); Monocyte# 0.75 X10^3/uL; Monocyte% 9.1 % (0-10); NRBC Flagged by Analyzer 0 % (0-5); Neutrophil # 6.02 X10^3/uL (2.7-7.7); Neutrophil % 73.2 % (47-70); Platelet Count 308 K/mm3 (150-450); RBC Distribution Width CV 13.8 % (11.6-14.6); RBC Distribution Width SD 46.5 fl (35.1-43.9); Red Blood Count 5.02 M/mm3 (4.2-5.4); White Blood Count 8.2 K/mm3 (4.4-11.0)
--- OUTSIDE RECORDS SUMMARY | 2023-11-27 09:35 | XMS RPT_ITS | CCD ---
Author Name Unknown Address [address] [place] [address] Organization [facility] Results Test Name Value Interpretation Reference Range Facil ity Progress note 10-06-2021 Note Date & Type Note Facility 10-06-2021 Note HNO ID: [id number] Author: Leonel Matute MD Service: ? Author Type: Physician Type: Progress Notes Filed: 10/06/2021 11:09 AM Note Text: Leonel Matute M.D. Department of Endocrine Surgery Endocrinology [place] [address] ENDOCRINE SURGERY NEW CONSULTATION NAME: Fanta Martinez CLINIC NO: [id number] : 1960 REFERRING PROVIDER: Bharath Raines MD [address] [place] [id number] The patient was referred by the above provider and my findings and recommendations will be communicated by way of the shared medical record. HPI: Fanta Martinez was evaluated today for a consultation regarding the following condition(s): Medullary thyroid carcinoma (hcc) (primary encounter diagnosis). 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 Autumn Masters in 2010 Pertinent medications (blood thinners, calcium, biotin, diuretics, lithium): No PMH: PAST MEDICAL HISTORY Diagnosis Date - Asthma - Diabetes (HCC) type 2 - Dyslipidemia - Hypertension - Snoring - Thyroid cancer (HCC) 2010 PSH: PAST SURGICAL HISTORY Procedure Laterality Date - COLONOSCOP W/ OR W/O [facility] SPEC 12/07/2015 Colonoscopy - COLONOSCOPY 2005 [facility] (neg except hemorrhoids) - DRAINAGE OF PILONIDAL CY[employer] high school - EXTRACTION, ERUPTED TOOTH OR EXPOSED ROOT (ELEVATION AND/OR FORCEPS REMOVAL) age 20 wisdom teeth - PAST SURGICAL HISTORY OF 06/2008 removal moles/back - THYROIDECTOMY 11/2010 Medications: Current Outpatient Medications on File Prior to Visit Medication Sig - metFORMIN ER (GLUCOPHAGE XR) 500 mg 24 hr tablet Take 1 tablet by mouth twice daily. - SYNTHROID 112 mcg tablet Take 1 tablet by mouth daily before breakfast. Brand name only - Estradiol (VAGIFEM) 10 mcg tab vaginal tablet Use 1 tablet vaginally twice a week. - Cholecalciferol, Vitamin D3, 5,000 unit tab Take 5,000 Units by mouth once daily. - ATORVASTATIN CALCIUM (ATORVASTATIN ORAL) Take 20 mg by mouth. - ibuprofen 800 mg ORAL tablet Take 1 tablet by mouth every 8 hours as needed. FOR PAIN. No current facility-administered medications on file prior to visit. All: ALLERGIES Allergen Reactions - Environmental [Othe* Other: See Comments watery eyes and itching - House Dust Unknown - Mold Unknown SH: Social History Tobacco Use - Smoking status: Never Smoker - Smokeless tobacco: Never Used Substance Use Topics - Alcohol use: Yes Alcohol/week: 2.5 standard drinks Types: 1 Glasses of Wine (5oz) per week - Drug use: No FH: Pertinent history above; otherwise, non-contributory REVIEW OF SYSTEMS: GENERAL: Well-appearing, no malaise or fevers HEENT: Negative for occular, acoustic, nasal, or oral complaints NECK: See HPI RESPIRATORY: Negative for cough, hemoptysis, wheezing, or resting dyspnea CARDIOVASCULAR: Negative for resting chest pain GI: No nausea, vomiting, or diarrhea MUSCULOSKELETAL: Negative for joint swelling or acute pain PSYCH: Negative for significant mood disorder or psychiatric illness ENDOCRINE: See HPI NEURO: No history of recent syncope, paralysis, or seizures PHYSICAL EXAM: On physical exam, Fanta Martinez is well appearing, alert, and oriented and appears euthyroid. On inspection, the skin over the anterior neck is smooth, no mass is visualized. There is a barely visible cervical scar. Palpation revealed neck to be supple. No lymphadenopathy was palpated on either side of the neck. ULTRASOUND EXAMINATION: Ultrasound examination was performed in the office. The thyroid was absent. No worrisome lymphadenopathy was appreciated in either central neck compartment or jugular chain. There was no evidence of structural recurrence. LABS: TSH Date Value Ref Range Status 01/09/2019 0.375 (L) 0.400 - 5.500 uU/mL Final Calcium Date Value Ref Range Status 02/13/2016 8.9 8.5 - 10.5 mg/dL Final Calcitonin, per the patient, was recently measured at 14 ASSESSMENT and PLAN: In summary, Fanta Martinez has a remote history of medullary thyroid cancer and an undetectable calcitonin level dating back to 2019. Per report, her recent calcitonin level blanco to 14. I do not see obvious structural recurrence on ultrasound today. Therefore, I recommend repeat calcitonin and CEA measurement in three months. I recommend surveillance sonography in six months with in radiology, by Dr. Masters, or by myself. I appreciate being involved in the care of your patient, and please feel free to contact me should you have additional questions. Sincerely, (more content not included)... [facility] Summary Purpose Family History No Family History Records Found Advance Directives No Advanced Directives Records Found Additional Source Comments INFORMATION SOURCE (unrecogn ized section and content) FOR RECORDS PERTAINING TO PATIENTS WHO ARE OR HAVE BEEN ENROLLED IN A CHEMICAL DEPENDENCY/SUBSTANCEABUSE PROGRAM, SOME INFORMATION MAY BE OMITTED. This clinical summary was aggregated from multiple sources. Caution should be exercised in using it in the provision of clinical care. This summary normalizes information from multiple sources, and as a consequence, information in this document may materially change the coding, format and clinical context of patient data. In addition, data may be omitted in some cases. CLINICAL DECISIONS SHOULD BE BASED ON THE PRIMARY CLINICAL RECORDS. [employer] provides no warranty or guarantee of the accuracy or completeness of information in this document.
[2023-11-27 09:46] LABS: BNP,B-Type NATRIURETIC PEPTIDE 11.6 pg/mL (0-100)
[2023-11-27 09:51] LABS: Anion Gap 4 (5-15); BUN 17 mg/dL (7-18); BUN/Creat Ratio 18.1 RATIO (10-20); Calcium,Total 9.3 mg/dL (8.5-10.1); Chloride 111 mmol/L (98-107); Creatinine, Serum 0.94 mg/dL (0.55-1.02); EST Glomerular Filtration Rate 64 mL/min (>60); Est Glom Filt Rate - Afr Amer 77 mL/min (>60); Glucose 121 mg/dL (74-106); Potassium 4.3 mmol/L (3.5-5.1); Sodium Level 139 mmol/L (136-145)
[2023-11-27 10:37] LABS: Thyroid Stim Hormone (TSH) 0.47 uIU/mL (0.358-3.74)
== END | disposition home or self-care (01) ==
PROVIDERS: Internal Medicine Cardiovascular Disease; PCP Nurse Practitioner Family; Referring Provider Nurse Practitioner Gerontology; Visit Provider Nurse Practitioner Gerontology
DX: R00.0 Tachycardia, unspecified (principal); I50.30 Unspecified diastolic (congestive) heart failure; C73 Malignant neoplasm of thyroid gland; I25.10 Atherosclerotic heart disease of native coronary artery without angina pectoris; K62.5 Hemorrhage of anus and rectum; Z95.5 Presence of coronary angioplasty implant and graft; E89.0 Postprocedural hypothyroidism; R06.02 Shortness of breath
CPT/HCPCS: 36415; 80048; 83880; 84443; 85025

== ENCOUNTER → 2024-01-17 | Outpatient (CLI) | payer OTHER, SELFPAY ==
--- NOTE | 2024-01-17 10:00 | RAD_ITS ---
STUDY: X-RAY - LEFT KNEE REASON FOR EXAM: Female, 63 years old. Pain in left knee. TECHNIQUE: 4 views of the left knee. COMPARISON: None. FINDINGS: Normal visualized distal femur. Normal visualized proximal tibia and fibula. Normal proximal tibiofibular articulation. There is no demonstrated fracture. There is minimal degenerative arthrosis of the medial femorotibial compartment. Normal lateral femorotibial compartment. Normal patellofemoral articulation. There is a small knee joint effusion. There is a 1.0 cm calcified loose body in the intercondylar notch. The soft tissue structures are unremarkable. 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 Small knee joint effusion. 1.0 cm calcified loose body in the intercondylar notch. Electronically Signed: Ralph Prado MD at 10:37 EDT ,
== END | disposition home or self-care (01) ==
LOC: RAD 09:55
PROVIDERS: PCP Nurse Practitioner Family; Referring Provider Family Medicine; Visit Provider Family Medicine
DX: M25.562 Pain in left knee (principal)
CPT/HCPCS: 73564

== ENCOUNTER 2024-03-27 16:30 | Outpatient (RCR) | payer OTHER, SELFPAY ==
--- NOTE | 2024-02-01 07:14 | HP.PTEVAL_ITS ---
Patient's Visit Information Visit Information Visit Information: FANTA NEUMANN is a 63 year old F referred to Physical Therapy by Dr. Harjit Gordon DO with a diagnosis of L ant knee pain. Date of Evaluation: 01/31/24 Physical Therapist: Fritz Noriega DPT Visit Plan Frequency: 2x /Week Duration: 6 Weeks Plan: -quad and HS stretching/ MT to L ITB and patellar tendon (can use CFM, STM, foam rolling, or other modality to help decrease pain) -LE/hip strengthening (begin with closed chain, include concentric and eccentric quad strengthening) need to have indep gym program by end of PT -dynamic balance act (SL if toelrated) *Pt has some tightness/irritation in patellar tendon and ITB, working on reducing pain and strengthening LEs, pt fairly active and wants to work up to indep gym program (HEP: prone quad stretch, seated GTB HS curls, GTB SLR, S/L hip ABD, glute bridge, ITB stretch, GTB TKE, lateral GTB walks) Subjective Subjective: Pt presents to PT with L knee pain that began about 2 months ago. Pt had a heart attack in Jul 2023, recently finished cardiac rehab in Nov. and was doing a lot of recumbent bike and walking on treadmill. Pt is a member of [employer], noticed pain more when trying to workout and walk on treadmill, was okay during 30 min period at gym, next day was more sore. Pt reports no KEYON, but did have an instance where she stepped down out of car and twisted her knee which aggravated knee pain a few days ago. Pt works at [employer], has been on her feet a lot. Pt feels she has been able to improve what shes able to do, but feels she is not quite there yet with her physical activity. Pt reports standing sometimes helps knee feel better, elevating her legs in recliner while at home often. GOALS: indep with workout program, decrease pain Objective Objective: ROM: 125 flex, ext 0 deg, tightness in [place], tightness in L ITB (stretch felt good) MMT: L - knee ext 4-/5 pain, knee flex 3+/5, hip flex 3+/5, hip ABD 4-/5 R - knee ext 4/5, knee flex 4-/5, hip flex 4/5, hip ABD 4-/5 glute bridge 4-/5 rich[place] PALPATION: tenderness of lateral knee near insertion of L ITB, inferior pole of patella along patellar tendon, TTP distal L hamstrings GAIT: no AD, slight increase in pelvic rotation to advance LEs STAIRS: reciprocal to ascend and descend, some pain with descending when lowering using LLE MICHAEL COMPRESSION: (+) L OBERS: (+) L Balance/Special Test Scores Lower Extremity Functional Score: 39 Goals Goal 1:: Pt will demonstrate overall LE strength of 4+/5 with no pain Goal Time Frame: 4-6 Weeks Goal 2:: Pt will navigate full flight of steps with 0/10 pain in L knee Goal Time Frame: 4-6 Weeks Goal 3:: Pt will be able to workout for >3 days per week with no knee pain Goal Time Frame: 6-8 Weeks Goal 4:: Pt will demonstrate good squat mechanics with good knee stability Goal Time Frame: 4-6 Weeks Rehabilitation Potential Physical Therapy Diagnosis: Pt presents to PT with L knee pain, weakness, decr eased LE tissue extensibility and difficulty with gait. Pt would benefit from skilled PT services to address LE strength, quad and HS length, and overall improve stability of L knee to allow pt to perform functional and recreational act. Rehabilitation Potential: Excellent Anticipated Interventions Patient/Client Instruction: Educate patient on: Condition and Plan of Care For the Purpose of:: To decrease pain, To decrease swelling/inflammation, To increase ROM, To improve nutrient delivery to tissue, To improve ability to perform ADL's, To increase tolerance to activity/condition/position, To improve performance and independence with ADL's, To improve ability of physical actions for home/community/work/leisure, To improve gait and locomotor functions, To improve health of tissue, To decrease soft tissue restriction, To increase flexibility/ROM, To improve balance, To assume or resume ADL's, To improve self management, To prevent re-injury, To improve ability to perform tasks related to life management and To improve tolerance to ADL's Therapeutic Exercise to Include: Strength training, Endurance training, Balance training, Body mechanics, Postural training, Flexibilty training, Gait and locomotor training, Passive ROM and Active ROM For the Purpose of:: To decrease pain, To decrease swelling/inflammation, To increase ROM, To increase oxygenation perfusion, To improve ability to perform ADL's, To increase tolerance to activity/condition/position, To improve performance and independence with ADL's, To improve ability of physical actions for home/community/work/leisure, To improve gait and locomotor functions, To improve health of tissue, To decrease soft tissue restriction, To increase flexibility/ROM, To assume or resume ADL's, To reduce risk of recurrence, To improve safety, To improve health and function, To foster healthy habits, To improve self management, To prevent re-injury, To improve ability to perform tasks related to life management and To improve tolerance to ADL's Manual Therapy Techniques to Include: Mobilization, Passive ROM and Soft tissue mobilization For the Purpose of:: To decrease pain, To decrease swelling/inflammation, To increase ROM, To improve health of tissue, To decrease soft tissue restriction and To increase flexibility/ROM TENS: Yes Cryotherapy (ice pack, ice massage): Yes Ultrasound (thermal/non thermal): Yes For the Purpose of:: To decrease pain, To decrease swelling/inflammation, To increase ROM and To improve health of tissue Text: Thank you for the opportunity to evaluate your patient. For Medicare and Medicare HMO plans, please review the plan of care and approve it. It will need to be FAXED BACK to us at [phone] for Medicare purposes. For Medicare only, by signing this I certify the plan of care. Please let me know if there are questions or concerns regarding this plan of care. Physician Signature: Date:
--- NOTE | 2024-02-15 17:18 | HP.PTDCSUM ---
Discharge Summary D/C summary: It has been my pleasure to treat FANTA NEUMANN referred by Dr. Harjit Gordon DO, with the diagnosis of L ant knee pain for a total of 5 visit(s). Discharge Date: Please see the following information for a summary of their discharge status. Subjective Subjective: Pt states her day hasn't been too bad today, reports pain in L anterior knee when standing from seated position. Pt also reports she had pain when walking up hill earlier this week with her . Pain L knee: Pain Intensity (Out of 10): 3 Objective Objective/Function: Added rocker board balance for increased hip stability. Utilized STM only with manual therapy today d/t increased soreness in L quad. Pt educated to speak with PCP about seeing orthopaedic DR about loose body found in X-ray that may be causing her more pain. Goals Goal 1:: Pt will demonstrate overall LE strength of 4+/5 with no pain Goal 2:: Pt will navigate full flight of steps with 0/10 pain in L knee Goal 3:: Pt will be able to workout for >3 days per week with no knee pain Goal 4:: Pt will demonstrate good squat mechanics with good knee stability Plan Plan: -quad and HS stretching/ MT to L ITB and patellar tendon (can use CFM, STM, foam rolling, or other modality to help decrease pain) -LE/hip strengthening (begin with closed chain, include concentric and eccentric quad strengthening) need to have indep gym program by end of PT -dynamic balance act (SL if toelrated) *Pt has some tightness/irritation in patellar tendon and ITB, working on reducing pain and strengthening LEs, pt fairly active and wants to work up to indep gym program (HEP: prone quad stretch, seated GTB HS curls, GTB SLR, S/L hip ABD, glute bridge, ITB stretch, GTB TKE, lateral GTB walks) D/C Information d/c sentence: If there are questions or concerns regarding this patient's physical therapy, please feel free to call me at [phone]. Thank you for the referral of this patient. Sincerely, Blake Dillard, PT, Cert MDT, OCS Balance/Gait/Functional tests Balance/Special Test Scores Lower Extremity Functional Score: 39
--- NOTE | 2024-02-15 17:23 | HP.PT.NRP ---
Patient Information Patient Information: FANTA NEUMANN was seen in my office for initial evaluation on 01/31/24. The following Plan of Care was established for this patient: POC Established Initial Frequency: 2x /Week Initial Duration: 6 Weeks Anticipated Interventions Patient/Client Instruction: Educate patient on: Condition and Plan of Care For the Purpose of:: To decrease pain, To decrease swelling/inflammation, To increase ROM, To improve nutrient delivery to tissue, To improve ability to perform ADL's, To increase tolerance to activity/condition/position, To improve performance and independence with ADL's, To improve ability of physical actions for home/community/work/leisure, To improve gait and locomotor functions, To improve health of tissue, To decrease soft tissue restriction, To increase flexibility/ROM, To improve balance, To assume or resume ADL's, To improve self management, To prevent re-injury, To improve ability to perform tasks related to life management and To improve tolerance to ADL's Therapeutic Exercise to Include: Strength training, Endurance training, Balance training, Body mechanics, Postural training, Flexibilty training, Gait and locomotor training, Passive ROM and Active ROM For the Purpose of:: To decrease pain, To decrease swelling/inflammation, To increase ROM, To increase oxygenation perfusion, To improve ability to perform ADL's, To increase tolerance to activity/condition/position, To improve performance and independence with ADL's, To improve ability of physical actions for home/community/work/leisure, To improve gait and locomotor functions, To improve health of tissue, To decrease soft tissue restriction, To increase flexibility/ROM, To assume or resume ADL's, To reduce risk of recurrence, To improve safety, To improve health and function, To foster healthy habits, To improve self management, To prevent re-injury, To improve ability to perform tasks related to life management and To improve tolerance to ADL's Manual Therapy Techniques to Include: Mobilization, Passive ROM and Soft tissue mobilization For the Purpose of:: To decrease pain, To decrease swelling/inflammation, To increase ROM, To improve health of tissue, To decrease soft tissue restriction and To increase flexibility/ROM TENS: Yes Cryotherapy (ice pack, ice massage): Yes Ultrasound (thermal/non thermal): Yes For the Purpose of:: To decrease pain, To decrease swelling/inflammation, To increase ROM and To improve health of tissue Last Seen Last Seen: This patient was last seen in our office . Pertinent comments regarding their Physical therapy will appear below: This patient was seen for PT for knee pain for 5 session thus id d/c At this point I will be discontinuing this patient from physical therapy. I would be happy to see this patient again in the future if found appropriate by the physician. Thank you! Blake Dillard, PT, Cert MDT, OCS Balance/Gait/Functional tests Balance/Special Test Scores Lower Extremity Functional Score: 39
--- NOTE | 2024-03-27 18:37 | HP.PTDCSUM ---
Discharge Summary D/C summary: It has been my pleasure to treat FANTA NEUMANN referred by Dr. Harjit Gordon DO, with the diagnosis of L ant knee pain for a total of 14 visit(s). Discharge Date: 03/27/24 Please see the following information for a summary of their discharge status. Subjective Subjective: Pt. reports having 1-2/10 pain in her L knee, only with really bending it. Pt. reports overall doing well. No longer having issues with walking. Pt. reports being 75% better overall. Pain L knee: Pain Intensity (Out of 10): 1 Overall Improvement % Improvement: 75 Objective Objective/Function: ROM: R knee: 0-0-138deg. L knee; 0-0-124deg. Mild increase in symptoms at end ranges. Mild pain reported at lateral joint line. MMT: RLE: knee: ext 35.4#, flexion 25.4#; L knee: ext 33.2#, flexion 22.1#. GAIT: Pt. has normal gait pattern without increase in symptoms. STAIRS: Pt. has some slight pain with descending, but not much. completed with reciprocal pattern with 1 HR to complete. SQUAT: Pt. had good technique, no valgus or varus. No pain noted. Pt. is I with gym program and plans to continue with machines progressing strength as tolerated. Goals Goal 1:: Pt will demonstrate overall LE strength of 4+/5 with no pain Goal Progress: Goal Met Goal 2:: Pt will navigate full flight of steps with 0/10 pain in L knee Goal Progress: Goal Met Goal 3:: Pt will be able to workout for >3 days per week with no knee pain Goal Progress: Goal Met Goal 4:: Pt will demonstrate good squat mechanics with good knee stability Goal Progress: Goal Met Plan Plan: Pt. to be DC from PT at this point in time. Pt. to continue with gym strengthening 2-3 times per week with focus on quad, glute, HS strengthening. Pt. is I with program. D/C Information d/c sentence: If there are questions or concerns regarding this patient's physical therapy, please feel free to call me at [phone]. Thank you for the referral of this patient. Sincerely, Fritz Alvarenga Sipos, DPT Balance/Gait/Functional tests Balance/Special Test Scores Lower Extremity Functional Score: 65 Improvement % Improvement: 75
== END 2024-03-27 19:00 | disposition home or self-care (01) ==
LOC: PT 16:30
PROVIDERS: PCP Nurse Practitioner Family; Referring Provider Family Medicine; Visit Provider Family Medicine
DX: M25.562 Pain in left knee (principal)
CPT/HCPCS: 97110; 97140; 97161; 97530

== ENCOUNTER → 2024-10-02 | Outpatient (CLI) | payer OTHER, SELFPAY ==
--- NOTE | 2024-10-02 07:26 | BI_ITS ---
MAMMOGRAPHY - BILATERAL SCREENING REASON FOR EXAM: Female, 64 years old. Routine annual screening examination. PERTINENT HISTORY: Non-contributory. TECHNIQUE: Digital bilateral breast chintan (3D mammographic acquisition) in the CC and MLO projections. 2-D mediolateral oblique (MLO) and craniocaudad (CC) views of both breasts were obtained. CAD: Full Field Digital Mammography with Computer Added Detection was performed. COMPARISON: Comparison is made with prior study May 04, 2023 and April 01, 2022. FINDINGS: Breast Composition: The breasts are heterogeneously dense, which may obscure small masses. There are no dominant masses or suspicious calcifications. No other significant abnormalities are identified. There has been no significant change since the prior study. BI/SCRN MAMM (CAD)W/CHINTAN BILAT IMPRESSION: Stable bilateral screening mammogram. Yearly follow-up mammogram recommended. (A) ASSESSMENT CATEGORY: BIRADS Category 1: Negative. A letter regarding these results will be sent to the patient by the facility within 30 days. Approximately 10% of breast cancers are not detected by mammography. A normal mammogram should not delay biopsy of a clinically suspicious abnormality. [id number] Electronically Signed: Hugh Schultz MD at 8:46 EST ,
== END | disposition home or self-care (01) ==
LOC: OPBI 07:26
PROVIDERS: PCP Nurse Practitioner Family; Referring Provider Obstetrics & Gynecology; Visit Provider Obstetrics & Gynecology
DX: Z12.31 Encounter for screening mammogram for malignant neoplasm of breast (principal)
CPT/HCPCS: 77063; 77067

== ENCOUNTER → 2024-10-19 | Outpatient (CLI) | payer OTHER, SELFPAY ==
[2024-10-19 10:07] LABS: AST(SGOT) 16 U/L (15-37); Alanine Aminotransfer ALT/SGPT 25 U/L (13-56); Albumin, Serum 3.6 g/dL (3.2-5.0); Alkaline Phosphatase 82 U/L (45-117); Anion Gap 4 (5-15); BUN 18 mg/dL (7-18); BUN/Creat Ratio 21.6 RATIO (10-20); Calcium,Total 9.1 mg/dL (8.5-10.1); Chloride 109 mmol/L (98-107); Cholesterol 145 mg/dL (200); Creatinine, Serum 0.83 mg/dL (0.55-1.02); EST Glomerular Filtration Rate 73 mL/min (>60); Est Glom Filt Rate - Afr Amer 89 mL/min (>60); Globulin 3.5 g/dL (2.2-4.2); Glucose 120 mg/dL (74-106); High Density Lipoprotein 52 mg/dL; Protein, Total 7.1 g/dL (6.4-8.2); Sodium Level 140 mmol/L (136-145); Thyroid Stim Hormone (TSH) 0.365 uIU/mL (0.358-3.740); Triglycerides 74 mg/dL; Very Low Density Lipoprotein 15 mg/dL (5-40)
[2024-10-19 10:18] LABS: Microalbumin,Random Urine < 5.0 mg/L (NO RANGE EST.)
[2024-10-20 08:07] LABS: Carcinoembryonic Antigen 3.1 ng/mL (0.0-4.7)
[2024-10-21 08:20] LABS: Vitamin D,25 Hydroxy 53.3 ng/mL
== END | disposition home or self-care (01) ==
PROVIDERS: PCP Nurse Practitioner Family; Referring Provider Internal Medicine Endocrinology, Diabetes & Metabolism; Visit Provider Internal Medicine Endocrinology, Diabetes & Metabolism
DX: C73 Malignant neoplasm of thyroid gland (principal); E11.9 Type 2 diabetes mellitus without complications; E89.0 Postprocedural hypothyroidism; E78.00 Pure hypercholesterolemia, unspecified
CPT/HCPCS: 80053; 80061; 82043; 82306; 82378; 82570; 84439; 84443

== ENCOUNTER → 2025-03-29 | Outpatient (CLI) | payer OTHER, SELFPAY ==
[2025-03-30 08:08] LABS: Carcinoembryonic Antigen 2.3 ng/mL (0.0-4.7)
== END | disposition home or self-care (01) ==
LOC: LAB 07:59
PROVIDERS: PCP Nurse Practitioner Family; Referring Provider Nurse Practitioner Family; Visit Provider Nurse Practitioner Family
DX: C73 Malignant neoplasm of thyroid gland (principal)
CPT/HCPCS: 36415; 82378

== ENCOUNTER → 2025-04-08 | Outpatient (CLI) | payer OTHER, SELFPAY ==
--- NOTE | 2025-04-08 14:28 | RAD_ITS ---
PROCEDURE: CLAVICLE 04/08/2025 REASON FOR EXAM: STERNOCLAVICULAR ARTHRITIS TECHNIQUE: 2 view(s) of each clavicle COMPARISON: None. 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 No associated erosive changes of the corresponding articular surface contour. No fracture or dislocation is seen. No lytic or blastic bone lesion is identified. Unremarkable acromioclavicular joint. 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 No associated erosive changes of the corresponding articular surface contour. Reading Location: [facility]
--- OUTSIDE RECORDS SUMMARY | 2025-04-08 23:52 | XMS RPT_ITS | CCD ---
Author Organization [facility] Care Team Providers Care Social Sciences Professor Name Role Phone Dr. Jarad Murrell Primary Care Provider Dr. Jarad Murrell Referring Provider Dr. Mita Mazariegos Attending Provider [phone] Dr. Jarad Murrell Primary Care Provider Dr. aJrad Murrell Referring Provider FER Jefferson Attending Provider Dr. Bharath Raines Attending Provider Dr. Jarad Murrell Primary Care Provider Dr. Jarad Murrell Referring Provider FER Jefferson Attending Provider Dr. Bharath Raines Attending Provider Dr. Greta Edmond Primary Care Provider Dr. Greta Edmond Referring Provider Dr. Mita Mazariegos Attending Provider Dr. Katherin Alcala Attending Provider Dr. Rogerio Zhu Emergency Provider [phone] Cristiano Rajput Admit Provider Dr. Cristiano Rajput Other Provider Dr. Rubio Ye Attending Provider [phone] Dr. Rubio Ye Referring Provider [phone] Dr. Rubio Ye Other Provider Dr. Chante Josue Attending Provider Dr. Chante Josue Other Provider Dr. Bob Saunders Attending Provider [phone] Jarad Murrell Referring Provider Unavailable Dr. Bharath Raines Attending Provider Ajay PARDO, PROOF PASSER-C Queta Attending Provider Feli, Dr. Hernandes Primary Care Provider Dr. Greta Edmond Referring Provider Dr. Mita Mazariegos Attending Provider [phone] Dr. Katherin Alcala Attending Provider Dr. Rogerio Zhu Emergency Provider Dr. Cristiano Rajput Admit Provider Dr. Cristiano Rajput Other Provider Dr. Rubio Ye Attending Provider [phone] Dr. Rubio Ye Referring Provider [phone] Dr. Rubio Ye Other Provider Dr. Chante Josue Attending Provider Dr. Chante Josue Other Provider Dr. Bob Saunders Attending Provider [phone] Jarad Murrell Referring Provider Unavailable Dr. Bharath Raines Attending Provider Ajay PARDO, PROOF PASSER-C Queta Attending Provider PHILIPPE Yee Primary Care Provider Dr. Grtea Edmond Primary Care Provider Feli, Dr. Hernandes Referring Provider Dr. Greta Edmond Primary Care Provider Dr. Greta Edmond Referring Provider Dr. Greta Edmond Referring Provider Ajay PROOF PASSER, PROOF PASSERMary Birch Attending Provider Joselito, PROOF PASSER-C Luiza Primary Care Provider Joselito, Luiza Primary Care Unavailable Joselito, Luiza Referring Unavailable Mita Garcia Attending Unavailabl e OluBharath Attending Unavailable Olu, Bharath Referring Unavailable Joselito, Luiza Primary Care Unavailable Joselito, Luiza Primary Care Unavailable LamontedeMita Attending Unavailabl e VeldeMita Referring Unavailabl e Joselito, Luiza Primary Care Unavailable Trudi Holliday Attending Unavailable Trudi Holliday Referring Unavailable Joselito, Luiza Primary Care Unavailable Greta Edmond Referring Unavailable Bharath Raines Attending Unavailable Ajay PROOF PASSERQueta Attending Unavailable Joselito, Luiza Primary Care Unavailable Joselito, Luiza Referring Unavailable Joselito, Luiza Referring Unavailable Joselito, Luiza Primary Care Unavailable Veronica PROOF PASSERKaden Attending Unavailable Joselito PROOF PASSER-C, Luiza Primary Care Provider Joselito PROOF PASSER-C, Luiza Referring Provider [phone] Veronica PARDO-Kaden Lee Attending Provider [phone] PARDO-CTrudi Attending Provider [phone] PARDO-Trudi Lee Referring Provider [phone] Allergies Allergy Classification Reported Allergen(s) Allergy Type Date of Onset Reaction(s) Facility (17 sources) house dust allergenic extract Drug Allergy 2 Unknown [facility] (17 sources) Mold Extract Drug Allergy 2 Unknown [facility] (4 sources) pet dander Allergy to substance 1 Unknown [facility] Work Phone: (14 sources) animal dander; Translations: [animal dander] Allergy to substance 2 NEEDS FOLLOW-UP, Sneezing, watery eyes [facility] (1 source) house dust allergenic extract Drug Allergy 5 [facility] (1 source) Lisinopril Drug Allergy 5 [facility] (1 source) Mold Extract Drug Allergy 5 [facility] (1 source) Lisinopril Drug Allergy Cough [facility] Medications Current Medications Medication Drug Class(es) Dates Sig (Normalized) Sig (Original) aspirin 81 mg delayed release oral tablet (20 sources) Platelet Aggregation Inhibitor, Nonsteroidal Anti-inflammatory Drug Start: 08-10-2023 End: 08-12-2024 take 1 tablet by mouth once daily Aspirin 81 mg tablet,delayed release (DR/EC) Active 81 mg PO DAILY August 12, 2024 9:26am cholecalciferol 0.125 mg oral capsule (20 sources) Vitamin D Start: 12-04-2024 take 0.2 capsule by mouth every week Cholecalciferol (Vitamin D3) 125 mcg (5,000 unit) capsule Active 5000 U PO .2 weekly December 04, 2024 4:37pm Start: 10-12-2020 End: 12-04-2024 Cholecalciferol (Vitamin D3) 125 mcg (5,000 unit) capsule Discontinued 5000 U PO .3/week October 12, 2020 8:57am December 04, 2024 4:37pm Start: 02-19-2018 End: 10-12-2020 take 1 capsule by mouth once daily Cholecalciferol (Vitamin D3) 5,000 unit capsule Discontinued 5000 U PO daily February 19, 2018 12:00am October 12, 2020 8:58am empagliflozin 25 mg oral tablet (10 sources) Sodium-Glucose Cotransporter 2 Inhibitor Start: 08-25-2023 End: 08-12-2024 take 1 tablet by mouth once daily Empagliflozin (Jardiance) 25 mg tablet Active 25 mg PO DAILY August 12, 2024 9:20am metoprolol tartrate 25 mg oral tablet (20 sources) beta-Adrenergic Garo Start: 09-01-2023 End: 08-12-2024 take 1 tablet by mouth twice daily Metoprolol Tartrate 25 mg tablet Active 25 mg PO TWICE A DAY August 12, 2024 9:26am Start: 08-10-2023 End: 09-01-2023 Metoprolol Tartrate 25 mg ta blet Discontinued 12.5 mg PO TWICE A DAY August 25, 2023 2:17pm September 01, 2023 5:01pm Start: 08-10-2023 End: 09-01-2023 take 12.5 mg by mouth twice daily Metoprolol Tartrate Discontinued 12.5 MG PO TWICE A DAY August 25, 2023 2:17pm September 01, 2023 5:01pm ticagrelor 90 mg oral tablet (20 sources) Start: 08-10-2023 End: 08-12-2024 take 1 tablet by mouth twice daily Ticagrelor (Brilinta) 90 mg tablet Active 90 mg PO TWICE A DAY August 12, 2024 9:26am Vitamin B6 (10 sources) Start: 05-23-2024 vitamin b6 Act meagan PO TWICE A WEEK May 23, 2024 8:29am 3x week Start: 08-25-2023 End: 05-23-2024 vitamin b6 Discontinued PO O ct2022 12:00am May 23, 2024 8:29am 3x week Start: 08-25-2023 vitamin b6 Act meagan PO August 24, 2023 11:00pm 3x week Start: 08-25-2023 vitamin b6 Act meagan PO August 25, 2023 12:00am 3x week Completed/Discontinued Medications Medication Drug Class(es) Dates Sig (Normalized) Sig (Original) atorvastatin 20 mg oral tablet (20 sources) HMG-CoA Reductase Inhibitor Start: 08-25-2023 End: 08-12-2024 take 1 tablet by mouth at bedtime Atorvastatin 20 mg tablet Discontinued 20 mg PO AT BEDTIME August 12, 2024 8:07am August 12, 2024 9:27am Start: 08-10-2023 End: 08-25-2023 take 1 tablet by mouth at bedtime Atorvastatin 40 mg Tablet Discontinued 40 mg PO AT BEDTIME August 10, 2023 12:00am August 25, 2023 2:19pm Start: 11-12-2019 End: 08-10-2023 take 1 tablet by mouth once daily Atorvastatin 20 mg tablet Discontinued 20 mg PO DAILY August 03, 2022 4:30pm August 10, 2023 8:56am clobetasol propionate 0.5 mg/ml topical cream (16 sources) Corticosteroid Start: 03-18-2022 End: 08-10-2023 Clobetasol 0.05 % cream Discontinued 1 NMA TOPICAL TWICE A DAY March 18, 2022 12:00am October 12th, 2023 8:56am estradiol 0.1 mg/ml vaginal cream (20 sources) Estrogen Start: 03-08-2022 End: 08-10-2023 Estradiol 0.01 % (0.1 mg/gram) cream Discontinued 1 g VAGINAL TWICE A WEEK 42.5 March 08, 2022 12:00am August 10, 2023 11:44am Start: 02-24-2021 End: 08-25-2023 Estradiol (Vagifem) 10 mcg t ablet Discontinued 10 ug VAGINAL TWICE A WEEK February 24, 2021 12:00am August 25, 2023 8:10am To start after using nightly x2w Start: 02-24-2021 End: 03-10-2021 Estradiol (Vagifem) 10 mcg t ablet Discontinued 10 ug VAGINAL DAILY 14 February 24, 2021 12:00am March 09, 2021 12:00am March 10, 2021 12:02am Start: 02-24-2021 End: 08-25-2023 Estradiol (Vagifem) 10 mcg t ablet Discontinued 10 MCG VAGINAL TWICE A WEEK February 24, 2021 12:00am August 25, 2023 8:10am To start after using nightly x2w Start: 02-24-2021 End: 03-10-2021 Estradiol (Vagifem) 10 mcg t ablet Discontinued 10 MCG VAGINAL DAILY 14 February 24, 2021 12:00am March 10, 2021 12:02am hydrocortisone 25 mg/ml topical cream (20 sources) Corticosteroid Start: 07-28-2023 End: 05-23-2024 Hydrocortisone (Proctozone-Hc) 2.5 % cream with perineal applicator Discontinued 1 NMA RC 2 to 4 times per day as needed for hemorrhoids July 28, 2023 12:00am July 28, 2023 2:43pm levothyroxine sodium 0.1 mg oral tablet (20 sources) l-Thyroxine Start: 10-12-2020 End: 08-23-2024 take 1 tablet by mouth once daily Levothyroxine (Synthroid) 100 mcg tablet Discontinued 100 ug PO DAILY July 27, 2023 12:12pm August 25, 2023 8:41am Start: 02-19-2018 End: 10-12-2020 take 1 tablet by mouth once daily Levothyroxine (Synthroid) 112 mcg tablet Discontinued 112 ug PO daily November 28, 2019 8:23am October 12, 2020 8:57am KUSUM lisinopril 2.5 mg oral tablet (20 sources) Angiotensin Converting Enzyme Inhibitor Start: 08-10-2023 End: 12-04-2024 take 1 tablet by mouth once daily Lisinopril 2.5 mg tablet Discontinued 2.5 mg PO DAILY August 25, 2023 2:16pm December 04, 2024 4:46pm On Hold: cough metFORMIN hydrochloride 1000 mg oral tablet (20 sources) Biguanide Start: 11-12-2019 End: 08-25-2023 take 1 tablet by mouth twice daily Metformin 1,000 mg tablet Discontinued 1000 mg PO TWICE A DAY August 03, 2022 4:31pm August 25, 2023 8:20am Start: 02-19-2018 End: 11-12-2019 take 1 tablet by mouth once daily Metformin 500 mg tablet extended release 24hr Discontinued 500 mg PO daily June 27, 2018 1:06pm November 12, 2019 4:57pm ospemifene 60 mg oral tablet (12 sources) Start: 06-29-2023 End: 11-27-2023 take 1 tablet by mouth once daily at mealtime Ospemifene (Osphena) 60 mg tablet Discontinued 60 mg PO DAILY June 29, 2023 12:00am November 27, 2023 9:29am must administer with food, preferably a high-fat meal Problems Active Problems Problem Classification Problem Date Documented Da te Episodic/Chronic Acute myocardial infarction (20 sources) Myocardial infarction; Translations: [ST elevation (STEMI) myocardial infarction of unspecified site] Onset: 08-08-2023 08-09-2023 Chronic Cancer of thyroid (20 sources) Medullary thyroid carcinoma; Translations: [Malignant neoplasm of thyroid gland] Onset: 04-03-2025 Chronic Cardiac dysrhythmias (5 sources) Tachycardia; Translations: [Tachycardia, unspecified] 10-16-2023 Episodic Complications of surgical procedures or medical care (20 sources) Postoperative hypothyroidism; Translations: [Postprocedural hypothyroidism] Onset: 08-23-2024 Chronic Congestive heart failure; nonhypertensive (20 sources) Heart failure with normal ejection fraction; Translations: [Unspecified diastolic (congestive) heart failure] Onset: 06-24-2024 08-10-2023 Chronic Coronary atherosclerosis and other heart disease (12 sources) Coronary arteriosclerosis; Translations: [Atherosclerotic heart disease of [place] coronary artery without angina pectoris] Onset: 08-08-2023 08-09-2023 Chronic Diabetes mellitus without complication (20 sources) Type 2 diabetes mellitus; Translations: [Type 2 diabetes mellitus without complications] Onset: 08-23-2024 Chronic Disorders of lipid metabolism (20 sources) Hypercholesterolemia; Translations: [Pure hypercholesterolemia, unspecified] Onset: 08-23-2024 08-08-2023 Chronic Gastrointestinal hemorrhage (7 sources) Rectal hemorrhage; Translations: [Hemorrhage of anus and rectum] 09-13-2023 Episodic Hemorrhoids (20 sources) Hemorrhoids; Translations: [Unspecified hemorrhoids] 07-28-2023 Episodic Nutritional deficiencies (20 sources) Vitamin D deficiency; Translations: [Vitamin D deficiency, unspecified] Chronic Other female genital disorders (17 sources) Lesion of vulva; Translations: [Other specified noninflammatory disorders of vulva and perineum] 03-01-2022 Episodic Other female genital disorders (4 sources) Other specified noninflammatory disorders of vulva and perineum; Translations: [Other specified noninflammatory disorders of vulva and perineum] Episodic Other gastrointestinal disorders (7 sources) Chronic constipation; Translations: [Other constipation] 09-13-2023 Episodic Other lower respiratory disease (4 sources) Dyspnea; Translations: [Shortness of breath] 11-27-2023 Episodic Other lower respiratory disease (3 sources) Shortness of breath; Translations: [Shortness of breath] 11-27-2023 Episodic Other nutritional; endocrine; and metabolic disorders (1 source) Body mass index 25-29 - overweight 04-12-2021 Episodic Unclassified (20 sources) Body mass index 25-29 - overweight; Translations: [Body mass index (BMI) of 25.0 to 29.9] Past or Other Problems Problem Classification Problem Date Documented Da te Episodic/Chronic Coronary atherosclerosis and other heart disease (20 sources) Stented coronary artery; Translations: [Presence of coronary angioplasty implant and graft] Onset: 08-08-2023 08-09-2023 Episodic Comment on above: HOWARD to LAD and PTCA of ostial Diagonal 1 Other screening for suspected conditions (not mental disorders or infectious disease) (1 source) Encounter for screening mammogram for malignant neoplasm of breast; Translations: [Encounter for screening mammogram for malignant neoplasm of breast] Onset: 11-04-2024 Episodic Results Test Name Value Interpretation Reference Range Facility Carcinoembryonic Antigenon 0 - CEA 2.3 ng/mL Normal 0.0-4.7 [facility] Comment on above: Result Comment: Nons mokers <3.9 Smokers <5.6 [facility] Electrochemiluminescence Immunoassay (ECLIA) Values obtained with different assay methods or kits cannot be used interchangeably. Results cannot be interpreted as absolute evidence of the presence or absence of malignant disease. Performed at: [facility] [place] [address], [place] [id number] Optical Fabrication Technician: Jan Gonzalez PhD, Phone: [phone] Performed By: #### L 3100.2300 #### [facility] [address] [place], [address] Serum or plasma carcinoembry onic antigen measurement (mass/volume)Ordered By: Trudi Holliday on 03-29-2025 Carcinoembryonic Ag [Mass/Vol] 2.3 ng/mL 0.0-4.7 [facility] Comment on above: Nonsmokers <3.9 Smok ers <5.6[facility] Electrochemiluminescence Immunoassay(ECLIA)Values obtained with different assay methods or kitscannot be used interchangeably. Results cannot beinterpreted as absolute evidence of the presence orabsence of malignant disease.Performed at: [facility], [place] [place], [place] [id number] Director: Jan Gonzalez PhD, Phone: [phone] Cardiology Visit Reporton Cardiology Visit Report [facility] [address] [place] [address]. [address] [place] [id number] OFFICE VISIT Date of Service: 12/04/24 MR#: [id number] Acct: [id number] Name: SHASTA MARTINEZ Rep #: [id number] : 1960 Provider: PHILIPPE biggs Age/Sex: 64/F [place] [facility] [place] Status: Signed HPI HPI History of Present Illness Details: SHASTA MARTINEZ, is a 64 F who presents to the office today for a cardiovascular follow up visit. She had presented to emergency room with chest pain in July of 2023. Her EKG revealed anterolateral ST elevation WI. Patient underwent emergent coronary angiography which revealed 90% stenosis in the LAD diagonal 1 bifurcation. She was treated with drug-eluting stent to the LAD and PTCA alone of the ostial diagonal 1. She denies chest, arm, jaw, or neck discomfort. She denies palpitations. She denies bilateral lower extremity edema. She denies claudication. She denies shortness of breath with activity, shortness of breath at rest, orthopnea, or PND. She denies chronic cough. She denies significant, sudden weight gain. She states dizziness with position changes. She denies lightheadedness, near- syncope, or syncope. She denies blood in urine, blood in stool, or epistaxis. He denies fever with chills. She denies myalgia. She denies fatigue. Her exercise level has remained stable. Intake Vital Signs 05/23/24 08:26 09/09/24 14:41 12/04/24 15:36 Height 5 ft 5 in 5 ft 5 in 5 ft 5 in Weight: 131 lb BMI 21.8 BP 101/66 Blood Pressure Location Lt brachial Position Sitting Respiration 18 Pulse 65 Pulse Source Monitor Pulse Oximetry (%) 98 Intake Visit Reasons: 6 M FU Pressure Dispatcher Required: No Is patient in pain?: No Allergies animal dander Allergy (Unknown, Verified 12/04/24 15:37) Sneezing, watery eyes house dust Allergy (Unknown, Verified 12/04/24 15:37) Unknown mold Allergy (Unknown, Verified 12/04/24 15:37) Unknown lisinopril Adverse Reaction (Mild, Verified 12/04/24 15:37) Cough Medications ???Medication ???Instructions ???Recorded ???Confirmed ???Type vitamin b6 PO 2XW 05/23/24 12/04/24 History aspirin 81 mg tablet,delayed 81 mg PO DAILY #90 tabs 08/12/24 0 12/04/24 Rx release atorvastatin 20 mg tablet 20 mg PO QHS #90 tabs 10/14/24 02/ 05/25 Rx empagliflozin 25 mg tablet 25 mg PO DAILY #90 tabs 08/12/24 0 12/04/24 Rx (Jardiance) metoprolol tartrate 25 mg tablet 25 mg PO BID Dose increased #180 1 12/04/24 Rx tabs ticagrelor 90 mg tablet (Brilinta) 90 mg PO BID #180 tabs 08/12/24 12/04/24 Rx levothyroxine 100 mcg tablet 100 mcg PO DAILY #90 tabs 08/23/24 12/04/24 Rx (Synthroid) cholecalciferol (vitamin D3) 125 5,000 unit PO .2 weekly 12/04/24 0 12/04/24 History mcg (5,000 unit) capsule Ejection fraction %: 55 Have you fallen in the past year?: No PFSH Medical History Arteriosclerotic coronary artery disease (08/08/23) Overweight (BMI 25.0-29.9) Cervical high risk HPV (human papillomavirus) test positive Vitamin D deficiency Thyroid cancer GERD (gastroesophageal reflux disease) Pneumonia Hives High triglycerides High cholesterol Diabetes type 2, controlled Arthritis Surgical History Stented coronary artery (08/08/23) S/P surgical removal of pilonidal cyst S/P complete thyroidectomy Family History Other Cancer Diabetes Heart disease Hypertension Myocardial infarction Social History (Updated 09/09/24 @ 14:46 by Kayce Rubio) Smoking Status: Never smoker second hand exposure: No alcohol intake: current alcohol intake frequency: a few times a month substance use type: does not use caffeine: Yes what type of physical activity do you participate in: aerobics and weight training frequency: 3-4 times per week seatbelt use: always do you feel safe at home: Yes additional social history: -Johan ROS Const Const: Negative for fatigue, weakness, body ache, fever(s) or chills ENT ENT: Negative for dizziness or Nosebleed/epistaxis Cardio Chest Pain: No Palpitations: No Edema: None Muscle aches with walking: None Resp Respiratory: Negative for SOB with activity, SOB at rest, SOB orthopnea SOB lying down, Cough or paroxysmal nocturnal dyspnea GI GI: Negative nausea, vomiting blood/hematemesis, bright, red blood in stools or black,tarry stools : Negative for hematuria or frequent nighttime urination/ nocturia Musc Musc: Negative for muscle aches/ myalgia Skin Skin: Negative non-healing lesions or rash Neuro Neuro: Negative for dizziness, lightheadedness, near syncope, syncope, orthostatic symptoms or weakness Endo Endo: (more content not included)... Normal [facility] Vitamin D,25 Hydroxyon 10-21 Vitamin D 25-OH 53.3 ng/mL Normal [facility] Comment on above: Result Comment: Dilcia min D 25(OH) Status Range Deficiency <20 ng/mL (50nmol/L) Insufficiency 20 - 30 ng/mL (50 - 75 nmol/L) Sufficiency 30 - 100 ng/mL (75 - 250 nmol/L) Toxicity >100 ng/mL (>250 nmol/L) Performed By: #### L 500.4100, L506.0400, L502.0250, L506.1000, L501.9520, L500.4050, L3100.2300 ####[facility] [id number] [place], [address] Carcinoembryonic Antigenon 1 12-21-2023 CEA 3.1 ng/mL Normal 0.0-4.7 [facility] Comment on above: Result Comment: Nons mokers <3.9 Smokers <5.6 [facility] Electrochemiluminescence Immunoassay (ECLIA) Values obtained with different assay methods or kits cannot be used interchangeably. Results cannot be interpreted as absolute evidence of the presence or absence of malignant disease. Performed at: [address] [id number] Optical Fabrication Technician: Jan Gonzalez PhD, Phone: [phone] Performed By: #### L 500.4100, L506.0400, L502.0250, L506.1000, L501.9520, L500.4050, L3100.2300 ####[facility] [address] [place], [address] Comprehensive Metabolic Prof ilon 12-21-2024 Albumin [Mass/Vol] 3.6 g/dL Normal 3.2-5.0 [facility] Comment on above: Performed By: #### L 500.4100, L506.0400, L502.0250, L506.1000, L501.9520, L500.4050, L3100.2300 #### [facility] [address] [place], [address] Albumin/Globulin [Mass ratio] 1.0 {ratio} Normal 0.9-2.4 [facility] Comment on above: Performed By: #### L 500.4100, L506.0400, L502.0250, L506.1000, L501.9520, L500.4050, L3100.2300 #### [facility] [address] [place], [address] ALK P 82 U/L Normal 45-117 [facility] Comment on above: Performed By: #### L 500.4100, L506.0400, L502.0250, L506.1000, L501.9520, L500.4050, L3100.2300 #### [facility] [address] [place], [address] ALT [Catalytic activity/Vol] 25 U/L Normal 13-56 [facility] Comment on above: Performed By: #### L 500.4100, L506.0400, L502.0250, L506.1000, L501.9520, L500.4050, L3100.2300 #### [facility] [address] [place], [address] AST [Catalytic activity/Vol] 16 U/L Normal 15-37 [facility] Comment on above: Performed By: #### L 500.4100, L506.0400, L502.0250, L506.1000, L501.9520, L500.4050, L3100.2300 #### [facility] [address] [place], [address] Bilirubin [Mass/Vol] 0.50 mg/dL Normal 0.20-1.00 [facility] Comment on above: Result Comment: For patients on eltrombopag therapy, use of Dimension [place] TBIL is not recommended. Performed By: #### L 500.4100, L506.0400, L502.0250, L506.1000, L501.9520, L500.4050, L3100.2300 #### [facility] [address] [place], [address] BUN/CRE 21.6 RATIO High 10-20 [facility] Comment on above: Performed By: #### L 500.4100, L506.0400, L502.0250, L506.1000, L501.9520, L500.4050, L3100.2300 #### [facility] [address] [place], [address] CA,Total 9.1 mg/dL Normal 8.5-10.1 [facility] Comment on above: Performed By: #### L 500.4100, L506.0400, L502.0250, L506.1000, L501.9520, L500.4050, L3100.2300 #### [facility] [address] [place], [address] Chloride [Moles/Vol] 109 mmol/L High 98-107 [facility] Comment on above: Performed By: #### L 500.4100, L506.0400, L502.0250, L506.1000, L501.9520, L500.4050, L3100.2300 #### [facility] [address] [place], [address] CO2 [Moles/Vol] 27.0 mmol/L Normal 21.0-32.0 [facility] Comment on above: Performed By: #### L 500.4100, L506.0400, L502.0250, L506.1000, L501.9520, L500.4050, L3100.2300 #### [facility] [address] [place], [place], [id number] Creatinine [Mass/Vol] 0.83 mg/dL Normal 0.55-1.02 [facility] Comment on above: Result Comment: The validity of the calculated GFR GFRAA in patients over 70 years has not been determined. Clinical correlation is essential. Performed By: #### L 500.4100, L506.0400, L502.0250, L506.1000, L501.9520, L500.4050, L3100.2300 #### [facility] [address] [place], [place], [id number] EST GFR - AA 89 mL/min Normal >60 [facility] Comment on above: Result Comment: Afri can Ken[place] GFR Calc Performed By: #### L 500.4100, L506.0400, L502.0250, L506.1000, L501.9520, L500.4050, L3100.2300 #### [facility] [address] [facility] [address] [place], [place], [id number] GAP 4 Low 5-15 [facility] Comment on above: Performed By: #### L 500.4100, L506.0400, L502.0250, L506.1000, L501.9520, L500.4050, L3100.2300 #### [facility] [address] [place], [place], [id number] (317 GFR/1.73 sq M.predicted among non-blacks MDRD (S/P/Bld) [Vol rate/Area] 73 mL/min/{1.73_m2} Normal >60 [facility] Comment on above: Result Comment: Non- GFR Calc Performed By: #### L 500.4100, L506.0400, L502.0250, L506.1000, L501.9520, L500.4050, L3100.2300 #### [facility] [address] [place], [address] Globulin (S) [Mass/Vol] 3.5 g/dL Normal 2.2-4.2 [facility] Comment on above: Performed By: #### L 500.4100, L506.0400, L502.0250, L506.1000, L501.9520, L500.4050, L3100.2300 #### [facility] [address] [place], [address] Glucose [Mass/Vol] 120 mg/dL High 74-106 [facility] Comment on above: Result Comment: Fast ing Glucose result from 100 to 125 mg/dL suggests IMPAIRED HOMEOSTASIS per A.D.A. criteria. Performed By: #### L 500.4100, L506.0400, L502.0250, L506.1000, L501.9520, L500.4050, L3100.2300 #### [facility] [address] [place], [address] Potassium [Moles/Vol] 4.0 mmol/L Normal 3.5-5.1 [facility] Comment on above: Performed By: #### L 500.4100, L506.0400, L502.0250, L506.1000, L501.9520, L500.4050, L3100.2300 #### [facility] [address] [place], [address] Sodium [Moles/Vol] 140 mmol/L Normal 136-145 [facility] Comment on above: Performed By: #### L 500.4100, L506.0400, L502.0250, L506.1000, L501.9520, L500.4050, L3100.2300 #### [facility] [address] [place], [address] T PROT 7.1 g/dL Normal 6.4-8.2 [facility] Comment on above: Performed By: #### L 500.4100, L506.0400, L502.0250, L506.1000, L501.9520, L500.4050, L3100.2300 #### [facility] [address] [place], [address] Urea nitrogen [Mass/Vol] 18 mg/dL Normal 7-18 [facility] Comment on above: Performed By: #### L 500.4100, L506.0400, L502.0250, L506.1000, L501.9520, L500.4050, L3100.2300 #### [facility] [address] [place], [address] Lipid Profileon 10-19-2024 Cholesterol [Mass/Vol] 145 mg/dL Normal 200 [facility] Comment on above: Result Comment: <200 mg/dL Desirable 200-240 mg/dL Borderline >240 mg/dL High Risk Performed By: #### L 500.4100, L506.0400, L502.0250, L506.1000, L501.9520, L500.4050, L3100.2300 #### [facility] [address] [facility] [place], [address] Cholesterol in HDL [Mass/Vol] 52 mg/dL Normal [facility] Comment on above: Result Comment: The drugs N-Acetylcysteine and Metamizole may falsely depress this assay. Reference Range HDL <40 mg/dL Low HDL Cholesterol HDL >or= 60 mg/dL High HDL Cholesterol Performed By: #### L 500.4100, L506.0400, L502.0250, L506.1000, L501.9520, L500.4050, L3100.2300 #### [facility] [address] [place], [address] Cholesterol in LDL [Mass/Vol] 78 mg/dL Normal 0-130 [facility] Comment on above: Performed By: #### L 500.4100, L506.0400, L502.0250, L506.1000, L501.9520, L500.4050, L3100.2300 #### [facility] [address] [place], [address] Cholesterol in VLDL [Mass/Vol] 15 mg/dL Normal 5-40 [facility] Comment on above: Performed By: #### L 500.4100, L506.0400, L502.0250, L506.1000, L501.9520, L500.4050, L3100.2300 #### [facility] [address] [place], [address] Triglyceride [Mass/Vol] 74 mg/dL Normal [facility] Comment on above: Result Comment: The drugs N-Acetylcysteine and Metamizole may falsely depress this assay. Serum Triglycerides Reference Interval Normal <150 mg/dL Borderline high 150 - 199 mg/dL High 200 - 499 mg/dL Very High > or = 500 mg/dL Performed By: #### L 500.4100, L506.0400, L502.0250, L506.1000, L501.9520, L500.4050, L3100.2300 #### [facility] [address] [place], [address] Microalb:Creat Ratio,Random URon 10-19-2024 Creatinine [Mass/Vol] 53.80 mg/dL Normal NO RAN GE EST. [facility] Comment on above: Performed By: #### L 500.4100, L506.0400, L502.0250, L506.1000, L501.9520, L500.4050, L3100.2300 #### [facility] [address] [place], [address] MALB:CRE TNP Normal <30 mg/g CRE [facility] Comment on above: Performed By: #### L 500.4100, L506.0400, L502.0250, L506.1000, L501.9520, L500.4050, L3100.2300 #### [facility] [address] [place], [address] MICROALBUMIN,UR < 5.0 Normal NO RANGE EST. [facility] Comment on above: Performed By: #### L 500.4100, L506.0400, L502.0250, L506.1000, L501.9520, L500.4050, L3100.2300 #### [facility] [address] [place], [address] T4 Free Directon 10-19-2024 T4 FREE DIRECT 1.50 ng/dL High 0.76-1.46 [facility] Comment on above: Performed By: #### L 500.4100, L506.0400, L502.0250, L506.1000, L501.9520, L500.4050, L3100.2300 #### [facility] [address] [place], [address] Thyroid Stim Hormone (TSH)on 10-19-2024 TSH 0.365 uIU/mL Normal 0.358-3.740 [facility] Comment on above: Performed By: #### L 500.4100, L506.0400, L502.0250, L506.1000, L501.9520, L500.4050, L3100.2300 #### [facility] [address] [place], [address] SCRN MAMM (CAD)W/CHINTAN BILATo n 10-02-2024 SCRN MAMM (CAD)W/CHINTAN BILAT [facility] Imaging Services [address] [place] [address] SCRN MAMM (CAD)W/CHINTAN BILAT MR#: [id number] Acct: [id number] Name: SHASTA MARTINEZ VANDA Rep #: [id number] : 1960 F 64 From: Hugh geller MD PCP: PHILIPPE Altamirano Status: REG CLI Study: SCRN MAMM (CAD)W/CHINTAN BILAT Date of Exam: 02/20 Exam# [id number] Ordering Dr: Mita Mazariegos DO [id number] MAMMOGRAPHY - BILATERAL SCREENING REASON FOR EXAM: Female, 64 years old. Routine annual screening examination. PERTINENT HISTORY: Non-contributory. TECHNIQUE: Digital bilateral breast chintan (3D mammographic acquisition) in the CC and MLO projections. 2-D mediolateral oblique (MLO) and craniocaudad (CC) views of both breasts were obtained. CAD: Full Field Digital Mammography with Computer Added Detection was performed. COMPARISON: Comparison is made with prior study May 04, 2023 and April 01, 2022. FINDINGS: Breast Composition: The breasts are heterogeneously dense, which may obscure small masses. There are no dominant masses or suspicious calcifications. No other significant abnormalities are identified. There has been no significant change since the prior study. BI/SCRN MAMM (CAD)W/CHINTAN BILAT IMPRESSION: Stable bilateral screening mammogram. Yearly follow-up mammogram recommended. (A) ASSESSMENT CATEGORY: BIRADS Category 1: Negative. A letter regarding these results will be sent to the patient by the facility within 30 days. Approximately 10% of breast cancers are not detected by mammography. A normal mammogram should not delay biopsy of a clinically suspicious abnormality. [id number] Electronically Signed: Hugh Schultz MD at 8:46 EST , CC: PHILIPPE Yee; Dr. Mita Mazariegos DO Lap Regulator: Signed Normal [facility] Supervisor [place] [facility] Visit Reporton 09-09-2024 Supervisor [place] [facility] Visit Report [facility]'[address], [address] [place] [address] OFFICE VISIT Date of Service: 09/09/24 MR#: [id number] Acct: [id number] Name: SHASTA MARTINEZ Rep #: [id number] : 1960 Provider: Dr. 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 Is patient in pain?: No Allergies animal dander Allergy (Unknown, Verified 09/09/24 14:41) Sneezing, watery eyes house dust Allergy (Unknown, Verified 09/09/24 14:41) Unknown mold Allergy (Unknown, Verified 09/09/24 14:41) Unknown lisinopril Adverse Reaction (Mild, Verified 09/09/24 14:41) Cough Medications ???Medication ???Instructions ???Recorded ???Confirmed ???Type cholecalciferol (vitamin D3) 125 5,000 unit PO .3/week 10/12/20 09/09/24 History mcg (5,000 unit) capsule lisinopril 2.5 mg tablet 2.5 mg PO DAILY #90 tabs 08/25/23 09/09/24 Rx vitamin b6 PO 2XW 05/23/24 09/09/24 History aspirin 81 mg tablet,delayed 81 mg PO DAILY #90 tabs 08/12/24 09/09/24 Rx release atorvastatin 20 mg tablet 20 mg PO QHS #90 tabs 08/12/24 09/09/24 Rx empagliflozin 25 mg tablet 25 mg PO DAILY #90 tabs 08/12/24 09/09/24 Rx (Jardiance) metoprolol tartrate 25 mg tablet 25 mg PO BID Dose increased #180 08/12/24 09/09/24 Rx tabs ticagrelor 90 mg tablet (Brilinta) 90 mg PO BID #180 tabs 08/12/24 09/09/24 Rx levothyroxine 100 mcg tablet 100 mcg PO DAILY #90 tabs 08/23/24 09/09/24 Rx (Synthroid) Post menopausal: No Patient : No : No [facility] Medical History Arteriosclerotic coronary artery disease (08/08/23) Overweight (BMI 25.0-29.9) Cervical high risk HPV (human papillomavirus) test positive Vitamin D deficiency Thyroid cancer GERD (gastroesophageal reflux disease) Pneumonia Hives High triglycerides High cholesterol Diabetes type 2, controlled Arthritis Surgical History Stented coronary artery (08/08/23) S/P surgical removal of pilonidal cyst S/P complete thyroidectomy Family History Other Cancer Diabetes Heart disease Hypertension Myocardial infarction Social History (Updated 09/09/24 @ 14:46 by Kayce Ruboi) Smoking Status: Never smoker second hand exposure: No alcohol intake: current alcohol intake frequency: a few times a month substance use type: does not use caffeine: Yes what type of physical activity do you participate in: aerobics and weight training frequency: 3-4 times per week seatbelt use: always do you feel safe at home: Yes additional social history: -Johan History 2 Elective abortions Hx Para 2 Spontaneous abortions Hx # Term Pregnancies Ectopic pregnancies Hx # Pregnancies Multiple births 1 # of living children 2 Past Pregnancies Del. Date Name GA/Weeks Outcome Route Bth Weight Infant Gen Labor Lgth Anesthesia Del Locatn Provider FOB Unknown Vanessa Unknown Larry Unknown 1 stillborn child of twin preg HPI Encounter for routine gynecological examination Details: SHASTA MARTINEZ is a 63 year old who presents for annual exam. Last PAP: 2020 History of abnormal PAP: yes, h/o hpv Last mammogram: April History of abnormal mammogram: no Colon cancer screening: due for screening colonoscopy Other preventative health care screenings: followed by pcp- had [place] this year. Female Reproductive History Questions: metorrhagia: No, sexually active: Yes, dyspareunia: No and PCB: No Menopausal Symptoms: No hot flashes, No night sweats, No weight change, No mood changes, No difficulty concentrating, No sleep problems and No change in libido ROS Const Constitutional: Reports as per HPI; Denies fatigue, increased appetite, poor appetite, night sweats, weight gain or weight loss Cardio Card: Denies chest pain Resp Resp: Denies cough or dyspnea GI GI: Reports as per HPI; Denies abdominal pain, bloating, constipation, nausea or vomiting : Reports as per HPI and other; Denies difficulty voiding, dysuria, hematuria, hot flashes, nipple discharge, pelvic pain, prolapse symptoms, urinary frequency, urinar (more content not included)... Normal [facility] Endocrinology Visit Reporton 08-23-2024 Endocrinology Visit Report [facility] [address] [place] [address] OFFICE VISIT Date of Service: 08/23/24 MR#: [id number] Acct: [id number] Name: SHASTA MARTINEZ Rep #: [id number] : 1960 Provider: Hannah Castillo Age/Sex: 63/F [place] [facility] [place]: Signed Intake Vital Signs 08/25/23 08:07 05/23/24 08:26 08/23/24 07:58 Height 5 ft 5 in 5 ft 5 in 5 ft 5 in Weight: 131 lb 4 oz BMI 21.8 BP 125/73 H Blood Pressure Location Rt brachial Position Sitting Pulse 65 Pulse Source Monitor Pulse Oximetry (%) 98 Oxygen Delivery Method room air Intake Visit Reasons: 1 Y FU Chief Complaint: Diabetes/Medullary thyroid cancer. Allergies animal dander Allergy (Unknown, Verified 05/23/24 08:52) Sneezing, watery eyes house dust Allergy (Unknown, Verified 05/23/24 08:52) Unknown mold Allergy (Unknown, Verified 05/23/24 08:52) Unknown lisinopril Adverse Reaction (Mild, Verified 06/24/24 14:36) Cough Medications ???Medication ???Instructions ???Recorded ???Confirmed ???Type cholecalciferol (vitamin D3) 125 5,000 unit PO .3/week 10/12/20 08/23/24 History mcg (5,000 unit) capsule lisinopril 2.5 mg tablet 2.5 mg PO DAILY #90 tabs 08/25/23 08/23/24 Rx vitamin b6 PO 2XW 05/23/24 08/23/24 History aspirin 81 mg tablet,delayed 81 mg PO DAILY #90 tabs 08/12/24 08/23/24 Rx release atorvastatin 20 mg tablet 20 mg PO QHS #90 tabs 08/12/24 08/23/24 Rx empagliflozin 25 mg tablet 25 mg PO DAILY #90 tabs 08/12/24 08/23/24 Rx (Jardiance) metoprolol tartrate 25 mg tablet 25 mg PO BID Dose increased #180 08/12/24 08/23/24 Rx tabs ticagrelor 90 mg tablet (Brilinta) 90 mg PO BID #180 tabs 08/12/24 08/23/24 Rx levothyroxine 100 mcg tablet 100 mcg PO DAILY #90 tabs 08/23/24 08/23/24 Rx (Synthroid) [facility] Medical History Arteriosclerotic coronary artery disease (08/08/23) Overweight (BMI 25.0-29.9) Cervical high risk HPV (human papillomavirus) test positive Vitamin D deficiency Thyroid cancer GERD (gastroesophageal reflux disease) Pneumonia Hives High triglycerides High cholesterol Diabetes type 2, controlled Arthritis Surgical History Stented coronary artery (08/08/23) S/P surgical removal of pilonidal cyst S/P complete thyroidectomy Family History Other Cancer Diabetes Heart disease Hypertension Myocardial infarction Social History Smoking Status: Never smoker second hand exposure: No alcohol intake: current alcohol intake frequency: a few times a month substance use type: does not use what type of physical activity do you participate in: none seatbelt use: always do you feel safe at home: Yes additional social history: -Johan HPI HPI Chief Complaint: Diabetes/Medullary thyroid cancer. Details: SHASTA MARTIENZ, is a 63 F who presents to the office today for follow up. A1C is 6.2% She is taking metformin and is tolerating it well. She is down 7 pounds. She has history of medullary thyroid carcinoma and post-surgical hypothyroidism. She is taking levothyroxine. ROS Const Constitutional: No fatigue, weight change or change in appetite Eyes Eyes: No change in vision ENT ENT: No dizziness/vertigo or difficulty swallowing Cardio Cardiology: No chest pain at rest, chest pain with exertion, shortness of breath or palpitations Musc Musculoskeletal: No abnormal gait, joint pain, numbness or tingling Neuro Neurology: No abnormal gait, memory loss, numbness or tingling Psych Psychiatric: No change in appetite, No memory loss and No Thoughts of harming yourself/Others Resp Respiratory: No cough, chest congestion or shortness of breath Gastro GI: No abdominal pain, constipation, diarrhea or difficulty swallowing Genitourinary-Female: No burning urination Skin Skin: No itchy eyes or wounds Endo Endocrine: No fatigue or weight change Aller/Imm Allergy/Immunologic: No itchy eyes Exam Const General: cooperative, healthy appearing, comfortable, no acute distress, well developed and not cushingoid Nutritional Appearance: well nourished Orientation: alert, awake and oriented x3 HENMT Head: normal to inspection Ears: hearing grossly normal bilaterally Nose: external nose normal Mouth: oral mucosae normal Eyes General: appearance normal, both eyes and all related structures Alignment and Position: alignment normal Periorbital: periorbital findings normal Eyelids: eyelids normal Conjunctivae: conjunctivae normal Neck Neck: normal visual inspection Neck mass: No Thyroid: other (no palp (more content not included)... Normal [facility] Cardiology Visit Reporton Cardiology Visit Report [facility] [address] [place] [address] OFFICE VISIT Date of Service: 05/23/24 MR#: [id number] Acct: [id number] Name: SHASTA MARTINEZ Rep #: [id number] : 1960 Provider: PHILIPPE holland Age/Sex: 63/F Location: [facility] Status: Signed [facility] History of Present Illness Details: SHASTA MARTINEZ, is a 63 F who presents to the office today for a cardiovascular follow up visit. She had presented to emergency room with chest pain in July of 2023. Her EKG revealed anterolateral ST elevation WI. Patient underwent emergent coronary angiography which revealed 90% stenosis in the LAD diagonal 1 bifurcation. She was treated with drug-eluting stent to the LAD and PTCA alone of the ostial diagonal 1. From a cardiac standpoint, the patient is doing well. She denies any palpitations, chest pain, pressure or heaviness. She denies SOB, Orthopnea, and PND. She does acknowledge a tickle in her throat. She states that she does have some sinus drainage as well. She does not have bleeding issues; no blood in urine, stool or nosebleeds. She denies any decrease in energy level, myalgias, or claudication. She does not have edema, or sudden weight gain. She does have occasional lightheadedness with quick positional changes. She denies dizziness, syncopal or near syncopal episodes, and headaches. Intake Vital Signs 11/27/23 08:26 05/23/24 08:26 Height 5 ft 5 in 5 ft 5 in Weight: 128 lb BMI 21.2 BP 99/63 Blood Pressure Location Lt brachial Position Sitting Respiration 16 Pulse 77 Pulse Source Monitor Pulse Oximetry (%) 99 Oxygen Delivery Method room air Intake Visit Reasons: 6 M FU Accompanied by: Is patient in pain?: No Allergies animal dander Allergy (Unknown, Verified 05/23/24 08:52) Sneezing, watery eyes house dust Allergy (Unknown, Verified 05/23/24 08:52) Unknown mold Allergy (Unknown, Verified 05/23/24 08:52) Unknown Medications ???Medication ???Instructions ???Recorded ???Confirmed ???Type cholecalciferol (vitamin D3) 125 5,000 unit PO .3/week 10/12/20 05/23/24 History mcg (5,000 unit) capsule aspirin 81 mg tablet,delayed 81 mg PO DAILY #90 tabs 08/25/23 05/23/24 Rx release atorvastatin 20 mg tablet 20 mg PO QHS #90 tabs 08/25/23 05/23/24 Rx empagliflozin 25 mg tablet 25 mg PO DAILY #90 tabs 08/25/23 05/23/24 Rx (Jardiance) levothyroxine 100 mcg tablet 100 mcg PO DAILY #90 tabs 08/25/23 05/23/24 Rx (Synthroid) lisinopril 2.5 mg tablet 2.5 mg PO DAILY #90 tabs 08/25/23 05/23/24 Rx ticagrelor 90 mg tablet (Brilinta) 90 mg PO BID #180 tabs 08/25/23 05/23/24 Rx metoprolol tartrate 25 mg tablet 25 mg PO BID Dose increased #180 09/01/23 05/23/24 Rx tabs vitamin b6 PO 2XW 05/23/24 05/23/24 History Ejection fraction %: 55 Nurse's Note: C/o frequent persistent tickle in throat, cough, and thick throat congestion since heart attack. Had left knee pain d/t arthritis that effected cardiac rehab. PT effective and resumed cardiac rehab without issues. C/o SOB when whispering to co-workers. [facility] Medical History Arteriosclerotic coronary artery disease (08/08/23) Overweight (BMI 25.0-29.9) Cervical high risk HPV (human papillomavirus) test positive Vitamin D deficiency Thyroid cancer GERD (gastroesophageal reflux disease) Pneumonia Hives High triglycerides High cholesterol Diabetes type 2, controlled Arthritis Surgical History Stented coronary artery (08/08/23) S/P surgical removal of pilonidal cyst S/P complete thyroidectomy Family History Other Cancer Diabetes Heart disease Hypertension Myocardial infarction Social History Smoking Status: Never smoker second hand exposure: No alcohol intake: current alcohol intake frequency: a few times a month substance use type: does not use what type of physical activity do you participate in: none seatbelt use: always do you feel safe at home: Yes additional social history: -Johan ROS Const Const: Negative for fatigue, weakness, fever(s), headache(s), chills, frequent falls, weight gain or weight loss Eyes Eyes: Negative for blind spots, loss of peripheral vision, transient loss of vision, blurry vision, change in vision, double vision, floaters or tunnel vision ENT ENT: Negative for headache(s), dizziness, Nosebleed/epistaxis, balance problems or neck pain Cardio Chest Pain: No Palpitations: No Edema: None Muscle aches with walking: None Resp Respiratory: Positive for Cough (tickle in throat); Negative for SOB with activi (more content not included)... Normal [facility] Absolute lymphocyte countOrd ered By: Queta Moss on 11-27-2023 Lymphocytes Auto (Unsp spec) [#/Vol] 1.04 10*3/uL 0.83-4.51 [facility] Automated lymphocyte count a s percentage of total leukocytesOrdered By: Queta Moss on 11-27-2023 Lymphocytes/100 WBC Auto (Unsp spec) 12.7 % 19-41 [facility] Basophil percentageOrdered B y: Queta Moss on 11-27-2023 Basophils/100 WBC (Bld) 1.0 % 0-1 [facility] Chloride [Moles/Vol] 111 mmol/L 98-107 [facility] Eosinophils/100 WBC (Bld) 3.6 % 0-5 [facility] Glucose [Mass/Vol] 121 mg/dL 74-106 [facility] Comment on above: Fasting Glucose resu lt from 100 to 125 mg/dL suggests IMPAIRED HOMEOSTASIS per A.D.A. criteria. Hemoglobin (Bld) [Mass/Vol] 14.4 g/dL 12.0-15.0 [facility] Monocytes/100 WBC (Bld) 9.1 % 0-10 [facility] Neutrophils (Bld) [#/Vol] 6.0 10*3/uL 2.0-7.7 [facility] Neutrophils/100 WBC (Bld) 73.2 % 47-70 [facility] Potassium [Moles/Vol] 4.3 mmol/L 3.5-5.1 [facility] Sodium [Moles/Vol] 139 mmol/L 136-145 [facility] WBC (Bld) [#/Vol] 8.2 10*3/uL 4.4-11.0 [facility] Determination of erythrocyte mean corpuscular volume (MCV)Ordered By: Queta Moss on 11-27-2023 MCV (RBC) [Entitic vol] 91.2 fL 81-99 [facility] Erythrocyte distribution wid th ratioOrdered By: Queta Moss on 11-27-2023 Erythrocyte distribution width (RBC) [Ratio] 13.8 % 11.6-14.6 [facility] Erythrocyte distribution wid th standard deviationOrdered By: Queta Moss on 11-27-2023 Erythrocyte distribution width (RBC) [Entitic vol] 46.5 fL 35.1-43.9 [facility] Hematocrit Auto (Bld) [Volum e fraction]Ordered By: Queta Moss on 11-27-2023 Hematocrit (Bld) [Volume fraction] 45.8 % 37-47 [facility] Immature granulocytes/100 WB C Auto (Bld)Ordered By: Queta Moss on 11-27-2023 Immature granulocytes/100 WBC (Bld) 0.400 % 0.0-0.9 [facility] Comment on above: IG% - Immature Granu locytes (promyelocytes, myelocytes and metamyelocytes) > 1% indicates that a LEFT SHIFT is Present. Laboratory - Chemistry and C hemistry - challengeOrdered By: Queta Moss on 11-27-2023 CO2 [Moles/Vol] 24.0 mmol/L 21.0-32.0 [facility] Natriuretic peptide B (Bld) [Mass/Vol] 11.6 pg/mL 0-100 [facility] Urea nitrogen/Creatinine [Mass ratio] 18.1 mg/mg 10-20 [facility] - Hematology and Cell countsOrdered By: Queta Moss on 11-27-2023 MCH (RBC) [Entitic mass] 28.7 pg 27.0-32.0 [facility] MCHC (RBC) [Mass/Vol] 31.4 g/dL 32-36 [facility] Nucleated RBC/100 WBC (Bld) [Ratio] 0 % 0-5 [facility] Platelets (Bld) [#/Vol] 308 10*3/uL 150-450 [facility] No Panel InformationOrdered By: Queta Moss on 11-27-2023 Estimated GFR (MDRD) Amer 77 mL/min >60 [facility] Comment on above: GFR Calc Estimated GFR (MDRD) Non-Af Amer 64 mL/min >60 [facility] Comment on above: Non- GFR Calc Platelet mean volume D[place]-Ec ker (Bld) [Entitic vol]Ordered By: Queta Moss on 11-27-2023 Platelet mean volume (Bld) [Entitic vol] 9.7 fL 6.2-12.0 [facility] RBC Auto (Bld) [#/Vol]Ordere d By: Queta Moss on 11-27-2023 RBC (Bld) [#/Vol] 5.02 10*6/uL 4.2-5.4 [facility] Serum or plasma calcium blayne urement (mass/volume)Ordered By: Queta Moss on 11-27-2023 Calcium [Mass/Vol] 9.3 mg/dL 8.5-10.1 [facility] Serum or plasma creatinine m easurement (mass/volume)Ordered By: Queta Moss on 11-27-2023 Creatinine [Mass/Vol] 0.94 mg/dL 0.55-1.02 [facility] Comment on above: The validity of the calculated GFR & GFRAA in patients over 70 years has not been determined. Clinical correlation is essential. Serum or plasma thyroid stim ulating hormone (TSH) measurement (units/volume)Ordered By: Bob Saunders on 11-27-2023 TSH Qn 0.47 uIU/mL 0.358-3.74 [facility] Serum or plasma urea nitroge n measurement (mass/volume)Ordered By: Queta Moss on 11-27-2023 Urea nitrogen [Mass/Vol] 17 mg/dL 7-18 [facility] Thin prep Papanicolaou smear with manual screeningOrdered By: Queta Moss on 11-27-2023 Thin prep Papanicolaou smear with manual screening 4 5-15 [facility] Basophil percentageOrdered B y: Bob Saunders on 10-16-2023 WBC (Bld) [#/Vol] 9.1 10*3/uL 4.4-11.0 [facility] Blood erythrocytes count (nu mber/volume)Ordered By: Bob Saunders on 10-16-2023 RBC (Bld) [#/Vol] 4.76 10*6/uL 4.2-5.4 [facility] Blood hemoglobin measurement (mass/volume)Ordered By: Bob Saunders on 10-16-2023 Hemoglobin (Bld) [Mass/Vol] 14.3 g/dL 12.0-15.0 [facility] Blood platelet mean volumeOr dered By: Bob Saunders on 10-16-2023 Platelet mean volume (Bld) [Entitic vol] 9.4 fL 6.2-12.0 [facility] Determination of erythrocyte mean corpuscular volume (MCV)Ordered By: Bob Saunders on 10-16-2023 MCV (RBC) [Entitic vol] 92.2 fL 81-99 [facility] Hematocrit Auto (Bld) [Volum e fraction]Ordered By: Bob Saunders on 10-16-2023 Hematocrit (Bld) [Volume fraction] 43.9 % 37-47 [facility] Laboratory - Hematology and Cell countsOrdered By: Bob Saunders on 10-16-2023 Erythrocyte distribution width (RBC) [Entitic vol] 50.3 fL 35.1-43.9 [facility] Erythrocyte distribution width (RBC) [Ratio] 14.7 % 11.6-14.6 [facility] MCH (RBC) [Entitic mass] 30.0 pg 27.0-32.0 [facility] MCHC Auto (RBC) [Mass/Vol]Or dered By: Bob Saunders on 10-16-2023 MCHC (RBC) [Mass/Vol] 32.6 g/dL 32-36 [facility] No Panel InformationOrdered By: Bob Saunders on 10-16-2023 Thyroid Stimulating Hormone (TSH) 0.14 uIU/mL 0.358-3.74 [facility] Platelets bldOrdered By: Chun Saunders on 10-16-2023 Platelets (Bld) [#/Vol] 334 10*3/uL 150-450 [facility] Basophil percentageOrdered B y: Bharath Raines on 09-30-2023 Bilirubin [Mass/Vol] 0.50 mg/dL 0.20-1.00 [facility] Comment on above: For patients on eltr ombopag therapy, use of Dimension [place] TBIL is not recommended. Chloride [Moles/Vol] 113 mmol/L 98-107 [facility] Cholesterol [Mass/Vol] 140 mg/dL <200 [facility] Comment on above: <200 mg/dL Desirable 200-240 mg/dL Borderline >240 mg/dL High Risk Glucose [Mass/Vol] 117 mg/dL 74-106 [facility] Comment on above: Fasting Glucose resu lt from 100 to 125 mg/dL suggests IMPAIRED HOMEOSTASIS per A.D.A. criteria. Potassium [Moles/Vol] 4.1 mmol/L 3.5-5.1 [facility] Protein [Mass/Vol] 6.6 g/dL 6.4-8.2 [facility] Sodium [Moles/Vol] 143 mmol/L 136-145 [facility] Triglyceride [Mass/Vol] 99 mg/dL <199 [facility] Comment on above: The drugs N-Acetylcy steine and Metamizole may falsely depress this assay.Serum Triglycerides Reference Interval Normal <150 mg/dL Borderline high 150 - 199 mg/dL High 200 - 499 mg/dL Very High > or = 500 mg/dL Laboratory - Chemistry and C hemistry - challengeOrdered By: Bharath Raines on 09-30-2023 ALP [Catalytic activity/Vol] 54 U/L 45-117 [facility] ALT [Catalytic activity/Vol] 22 U/L 13-56 [facility] CO2 [Moles/Vol] 26.0 mmol/L 21.0-32.0 [facility] Globulin (S) [Mass/Vol] 3.3 g/dL 2.2-4.2 [facility] Urea nitrogen/Creatinine [Mass ratio] 12.8 mg/mg 10-20 [facility] No Panel InformationOrdered By: Bharath Raines on 09-30-2023 Carcinoembryonic Ag Serial Monitor Not Reportable [facility] Estimated GFR (MDRD) Amer 86 mL/min >60 [facility] Comment on above: GFR Calc Estimated GFR (MDRD) Non-Af Amer 71 mL/min >60 [facility] Comment on above: Non- GFR Calc Urine Microalbumin/Creatini ne Ratio 12.9 mg/g CRE <30 [facility] Vitamin D 25-Hydroxy 76.3 ng/mL [facility] Comment on above: Vitamin D 25(OH) Sta tus Range Deficiency <20 ng/mL (50nmol/L) Insufficiency 20 - 30 ng/mL (50 - 75 nmol/L) Sufficiency 30 - 100 ng/mL (75 - 250 nmol/L) Toxicity >100 ng/mL (>250 nmol/L) Serum or plasma albumin blayne urement (mass/volume)Ordered By: Bharath Raines on 09-30-2023 Albumin [Mass/Vol] 3.3 g/dL 3.2-5.0 [facility] Serum or plasma albumin/glob ulin mass ratioOrdered By: Bharath Raines on 09-30-2023 Albumin/Globulin [Mass ratio] 1.0 {ratio} 0.9-2.4 [facility] Serum or plasma calcium blayne urement (mass/volume)Ordered By: Bharath Raines on 09-30-2023 Calcium [Mass/Vol] 8.7 mg/dL 8.5-10.1 [facility] Serum or plasma carcinoembry onic antigen measurement (mass/volume)Ordered By: Bharath Raines on 09-30-2023 Carcinoembryonic Ag [Mass/Vol] 2.5 ng/mL 0.0-4.7 [facility] Comment on above: Nonsmokers <3.9 Smok ers <5.6[employer] Electrochemiluminescence Immunoassay(ECLIA)Values obtained with different assay methods or kitscannot be used interchangeably. Results cannot beinterpreted as absolute evidence of the presence orabsence of malignant disease.Performed at: [facility] [employer] [id number] Director: Jan Gonzalez PhD, Phone: [phone] Serum or plasma cholesterol in HDL measurement (mass/volume)Ordered By: Bharath Raines on 09-30-2023 Cholesterol in HDL [Mass/Vol] 37 mg/dL >40 [facility] Comment on above: The drugs N-Acetylcy steine and Metamizole may falsely depress this assay. Reference Range HDL <40 mg/dL Low HDL Cholesterol HDL >or= 60 mg/dL High HDL Cholesterol Serum or plasma cholesterol in VLDL measurement (mass/volume)Ordered By: Bharath Raines on 09-30-2023 Cholesterol in VLDL [Mass/Vol] 20 mg/dL 5-40 [facility] Serum or plasma creatinine m easurement (mass/volume)Ordered By: Bharath Raines on 09-30-2023 Creatinine [Mass/Vol] 0.86 mg/dL 0.55-1.02 [facility] Comment on above: The validity of the calculated GFR & GFRAA in patients over 70 years has not been determined. Clinical correlation is essential. Serum or plasma low density lipoprotein (LDL) cholesterol measurement (mass/volume)Ordered By: Bharath Raines on 09-30-2023 Cholesterol in LDL [Mass/Vol] 83 mg/dL 0-130 [facility] Serum or plasma urea nitroge n measurement (mass/volume)Ordered By: Bharath Raines on 09-30-2023 Urea nitrogen [Mass/Vol] 11 mg/dL 7-18 [facility] Thin prep Papanicolaou smear with manual screeningOrdered By: Bharath Raines on 09-30-2023 Thin prep Papanicolaou smear with manual screening 15 U/L 15-37 [facility] Thin prep Papanicolaou smear with manual screening 4 5-15 [facility] Thin prep Papanicolaou smear with manual screening 13.3 mg/L NO RANGE EST. [facility] Urine creatinine measurement (mass/volume)Ordered By: Bharath Raines on 09-30-2023 Creatinine (U) [Mass/Vol] 103.00 mg/dL NO RANGE EST. [facility] Basophil percentageOrdered B y: Qutea Moss on 08-25-2023 Chloride [Moles/Vol] 105 mmol/L 98-107 [facility] Glucose [Mass/Vol] 95 mg/dL 74-106 [facility] Potassium [Moles/Vol] 4.1 mmol/L 3.5-5.1 [facility] Sodium [Moles/Vol] 136 mmol/L 136-145 [facility] Laboratory - Chemistry and C hemistry - challengeOrdered By: Queta Moss on 08-25-2023 CO2 [Moles/Vol] 25.0 mmol/L 21.0-32.0 [facility] Magnesium [Mass/Vol] 2.1 mg/dL 1.6-2.6 [facility] Urea nitrogen/Creatinine [Mass ratio] 14.7 mg/mg 10- [facility] Laboratory - Hematology and Cell countson 08-25-2023 HbA1c (Bld) [Mass fraction] 6.2 % 4.2-6.3 [facility] No Panel InformationOrdered By: Queta Moss on 08-25-2023 Estimated GFR (MDRD) Amer 91 mL/min >60 [facility] Comment on above: GFR Calc Estimated GFR (MDRD) Non-Af Amer 75 mL/min >60 [facility] Comment on above: Non- GFR Calc Serum or plasma calcium blayne urement (mass/volume)Ordered By: Queta Moss on 08-25-2023 Calcium [Mass/Vol] 9.0 mg/dL 8.5-10.1 [facility] Serum or plasma creatinine m easurement (mass/volume)Ordered By: Queta Moss on 08-25-2023 Creatinine [Mass/Vol] 0.82 mg/dL 0.55-1.02 [facility] Comment on above: The validity of the calculated GFR & GFRAA in patients over 70 years has not been determined. Clinical correlation is essential. Serum or plasma urea nitroge n measurement (mass/volume)Ordered By: Queta Moss on 08-25-2023 Urea nitrogen [Mass/Vol] 12 mg/dL 05-16 [facility] Thin prep Papanicolaou smear with manual screeningOrdered By: Queta Moss on 08-25-2023 Thin prep Papanicolaou smear with manual screening 6 -15 [facility] Laboratory - Chemistry and C hemistry - challengeOrdered By: Trudi Holliday on 08-19-2023 Free T4 [Mass/Vol] 1.29 ng/dL 0.76-1.46 [facility] No Panel InformationOrdered By: Trudi Holliday on 08-19-2023 Thyroid Stimulating Hormone (TSH) 1.13 uIU/mL 0.358-3.74 [facility] Absolute lymphocyte countOrd ered By: Chante Josue on 08-10-2023 Lymphocytes Auto (Unsp spec) [#/Vol] 1.54 10*3/uL 0.83-4.51 [facility] Basophil percentageOrdered B y: Chante Josue on 08-10-2023 Basophils/100 WBC (Bld) 0.5 % 0-1 [facility] Chloride [Moles/Vol] 113 mmol/L 98-107 [facility] Eosinophils/100 WBC (Bld) 5.4 % 0-5 [facility] Glucose [Mass/Vol] 108 mg/dL 74-106 [facility] Comment on above: Fasting Glucose resu lt from 100 to 125 mg/dL suggests IMPAIRED HOMEOSTASIS per A.D.A. criteria. Neutrophils (Bld) [#/Vol] 6.5 10*3/uL 2.0-7.7 [facility] Neutrophils/100 WBC (Bld) 67.0 % 47-70 [facility] Potassium [Moles/Vol] 3.7 mmol/L 3.5-5.1 [facility] Sodium [Moles/Vol] 141 mmol/L 136-145 [facility] WBC (Bld) [#/Vol] 9.7 10*3/uL 4.4-11.0 [facility] Blood erythrocytes count (nu mber/volume)Ordered By: Chante Josue on 08-10-2023 RBC (Bld) [#/Vol] 4.51 10*6/uL 4.2-5.4 [facility] Blood hemoglobin measurement (mass/volume)Ordered By: Chante Josue on 08-10-2023 Hemoglobin (Bld) [Mass/Vol] 12.9 g/dL 12.0-15.0 [facility] Blood lymphocytes/100 leukoc ytesOrdered By: Chante Josue on 08-10-2023 Lymphocytes/100 WBC (Bld) 15.9 % 19-41 [facility] Blood monocytes/100 leukocyt esOrdered By: Chante Josue on 08-10-2023 Monocytes/100 WBC (Bld) 11.0 % 0-10 [facility] Blood platelet mean volumeOr dered By: Chante Josue on 08-10-2023 Platelet mean volume (Bld) [Entitic vol] 10.2 fL 6.2-12.0 [facility] Determination of erythrocyte mean corpuscular volume (MCV)Ordered By: Chante Josue on 08-10-2023 MCV (RBC) [Entitic vol] 91.1 fL 81-99 [facility] Hematocrit Auto (Bld) [Volum e fraction]Ordered By: Chatne Josue on 08-10-2023 Hematocrit (Bld) [Volume fraction] 41.1 % 37-47 [facility] Laboratory - Chemistry and C hemistry - challengeOrdered By: Chante Josue on 08-10-2023 CO2 [Moles/Vol] 22.0 mmol/L 21.0-32.0 [facility] Urea nitrogen/Creatinine [Mass ratio] 12.7 mg/mg 10-20 [facility] Laboratory - Hematology and Cell countsOrdered By: Chante Josue on 08-10-2023 Erythrocyte distribution width (RBC) [Entitic vol] 47.3 fL 35.1-43.9 [facility] Erythrocyte distribution width (RBC) [Ratio] 14.0 % 11.6-14.6 [facility] Immature granulocytes/100 WBC (Bld) 0.200 % 0.0-0.9 [facility] Comment on above: IG% - Immature Granu locytes (promyelocytes, myelocytes and metamyelocytes) > 1% indicates that a LEFT SHIFT is Present. MCH (RBC) [Entitic mass] 28.6 pg 27.0-32.0 [facility] Nucleated RBC/100 WBC (Bld) [Ratio] 0 % 0-5 [facility] MCHC Auto (RBC) [Mass/Vol]Or dered By: Chante Josue on 08-10-2023 MCHC (RBC) [Mass/Vol] 31.4 g/dL 32-36 [facility] No Panel InformationOrdered By: Chante Josue on 08-10-2023 Estimated Creatinine Clearance Calc 72.98 ml/min [facility] Estimated GFR (MDRD) Amer 107 mL/min >60 [facility] Comment on above: GFR Calc Estimated GFR (MDRD) Non-Af Amer 88 mL/min >60 [facility] Comment on above: Non- GFR Calc Platelets bldOrdered By: Karely Josue on 08-10-2023 Platelets (Bld) [#/Vol] 247 10*3/uL 150-450 [facility] Serum or plasma calcium blayne urement (mass/volume)Ordered By: Chante Josue on 08-10-2023 Calcium [Mass/Vol] 8.7 mg/dL 8.5-10.1 [facility] Serum or plasma creatinine m easurement (mass/volume)Ordered By: Chante Josue on 08-10-2023 Creatinine [Mass/Vol] 0.71 mg/dL 0.55-1.02 [facility] Comment on above: The validity of the calculated GFR & GFRAA in patients over 70 years has not been determined. Clinical correlation is essential. Serum or plasma urea nitroge n measurement (mass/volume)Ordered By: Chante Josue on 08-10-2023 Urea nitrogen [Mass/Vol] 9 mg/dL 7-18 [facility] Thin prep Papanicolaou smear with manual screeningOrdered By: Chante Josue on 08-10-2023 Thin prep Papanicolaou smear with manual screening 6 5-15 [facility] Basophil percentageOrdered B y: Rubio Ye on 08-09-2023 Bilirubin [Mass/Vol] 0.20 mg/dL 0.20-1.00 [facility] Comment on above: For patients on eltr ombopag therapy, use of Dimension [place] TBIL is not recommended. Protein [Mass/Vol] 5.9 g/dL 6.4-8.2 [facility] Laboratory - Chemistry and C hemistry - challengeOrdered By: Rubio Ye on 08-09-2023 ALP [Catalytic activity/Vol] 59 U/L 45-117 [facility] ALT [Catalytic activity/Vol] 14 U/L 13-56 [facility] Globulin (S) [Mass/Vol] 3.0 g/dL 2.2-4.2 [facility] No Panel InformationOrdered By: Cristiano Rajput on 08-09-2023 Troponin I High Sensitivity 56664 pg/mL 3.0-54.0 [facility] Comment on above: Critical Result(s) C alled at: 04:27:37 08/09/2023 by: James Horta RN ICU. Results read back by same. Please Note: New Test Units and Gender Specific Reference Ranges. For more information see Policy Stat Procedure [place] High Sensitivity Troponin (TNIH) and attachments. Serum or plasma albumin blayne urement (mass/volume)Ordered By: Rubio Ye on 08-09-2023 Albumin [Mass/Vol] 2.9 g/dL 3.2-5.0 [facility] Serum or plasma albumin/glob ulin mass ratioOrdered By: Rubio Ye on 08-09-2023 Albumin/Globulin [Mass ratio] 1.0 {ratio} 0.9-2.4 [facility] Thin prep Papanicolaou smear with manual screeningOrdered By: Rubio Ye on 08-09-2023 Thin prep Papanicolaou smear with manual screening 25 U/L 15- [facility] Blood manual differential co mment interpretation (narrative result)Ordered By: Rogerio Zhu on 08-08-2023 Manual differential comment Ortiz (Bld) [Interp] SCANNED [facility] Comment on above: MONOCYTOSIS NOTED INR in Blood by Coagulation assayOrdered By: Rogerio Zhu on 08-08-2023 INR Coag (Bld) [Relative time] 1.0 {INR} [facility] Laboratory - CoagulationOrde red By: Rogerio Zhu on 08-08-2023 aPTT Coag (Bld) [Time] 25.5 s 24.1-36.2 [facility] PT Coag (PPP) [Time] 13.7 s 11.7-14.9 [facility] Review by pathologistOrdered By: Rogerio Zhu on 08-08-2023 Pathologist review Ortiz (Unsp spec) [Interp] Reviewed [facility] Comment on above: Previous reported re sult: Mellisa benitez Edited by: HOMER on 08/09/23:1342Leukocytosis.Clinical correlation suggested.Alexander Morse D.O. 08/09/23 AMENDED REPORT 08/09/23 1342 PATH REV previously reported as: Mellisa benitez Culture, urineOrdered By: Dr Jenaro Edmond on 03-03-2023 Bacteria identified Cx Nom (U) Mixed Gram Pos & Gram Neg Org [facility] Basophil percentageon 2021 Bilirubin [Mass/Vol] 0.50 mg/dL 0.20-1.00 [facility] Work Phone: Comment on above: For patients on eltr ombopag therapy, use of Dimension [place] TBIL is not recommended. Chloride [Moles/Vol] 104 mmol/L 98-107 [facility] Work Phone: Cholesterol [Mass/Vol] 126 mg/dL <200 [facility] Work Phone: [phone] Comment on above: <200 mg/dL Desirable 200-240 mg/dL Borderline >240 mg/dL High Risk Glucose [Mass/Vol] 263 mg/dL 74-106 [facility] Work Phone: Comment on above: Glucose result great er than or equal to 200 mg/dLsuggests DIABETES MELLITUS per A.D.A. criteria. Potassium [Moles/Vol] 3.9 mmol/L 3.5-5.1 [facility] Work Phone: Protein [Mass/Vol] 7.1 g/dL 6.4-8.2 [facility] Work Phone: Sodium [Moles/Vol] 138 mmol/L 136-145 [facility] Work Phone: Triglyceride [Mass/Vol] 139 mg/dL <199 [facility] Work Phone: Comment on above: The drugs N-Acetylcy steine and Metamizole may falsely depress this assay.Serum Triglycerides Reference Interval Normal <150 mg/dL Borderline high 150 - 199 mg/dL High 200 - 499 mg/dL Very High > or = 500 mg/dL Laboratory - Chemistry and C hemistry - challengeon 08-27-2022 ALP [Catalytic activity/Vol] 80 U/L 45-117 [facility] Work Phone: ALT [Catalytic activity/Vol] 26 U/L 13-56 [facility] Work Phone: CO2 [Moles/Vol] 24.0 mmol/L 21.0-32.0 [facility] Work Phone: Free T4 [Mass/Vol] 1.42 ng/dL 0.76-1.46 [facility] Work Phone: Globulin (S) [Mass/Vol] 3.4 g/dL 2.2-4.2 [facility] Work Phone: Urea nitrogen/Creatinine [Mass ratio] 12.5 mg/mg 10-20 [facility] Work Phone: No Panel Informationon 08-27 Estimated GFR (MDRD) Amer 84 mL/min >60 [facility] Work Phone: Comment on above: GFR Calc Estimated GFR (MDRD) Non-Af Amer 69 mL/min >60 [facility] Work Phone: Comment on above: Non- GFR Calc Miscellaneous Test See comment [facility] Work Phone: Comment on above: TEST RESULT LIMITSCh romogranin AChromogranin A, 50.8 ng/mL 0.0-101.8Chromogranin A performed by [employer] methodology.Values obtained with different assay methods or kits cannot be used interchangeably.A: This test was developed and its performance characteristics determined by [employer]. It has not been cleared or approved by the Food and DrugAdministration. TESTING PERFORMED AT [facility]. ORIGINAL REPORT ON FILE IN LAB CONTAINS ADDITIONAL TEST SITE INFORMATION. Thyroid Stimulating Hormone (TSH) 0.51 uIU/mL 0.358-3.74 [facility] Work Phone: Urine Microalbumin/Creatini ne Ratio 5.5 mg/g CRE <30 [facility] Work Phone: Vitamin D 25-Hydroxy 67.0 ng/mL [facility] Work Phone: Comment on above: Vitamin D 25(OH) Sta tus Range Deficiency <20 ng/mL (50nmol/L) Insufficiency 20 - 30 ng/mL (50 - 75 nmol/L) Sufficiency 30 - 100 ng/mL (75 - 250 nmol/L) Toxicity >100 ng/mL (>250 nmol/L) Serum or plasma albumin blayne urement (mass/volume)on 08-27-2022 Albumin [Mass/Vol] 3.7 g/dL 3.2-5.0 [facility] Work Phone: Serum or plasma albumin/glob ulin mass ratioon 08-27-2022 Albumin/Globulin [Mass ratio] 1.1 {ratio} 0.9-2.4 [facility] Work Phone: Serum or plasma calcium blayne urement (mass/volume)on 08-27-2022 Calcium [Mass/Vol] 9.0 mg/dL 8.5-10.1 [facility] Work Phone: Serum or plasma carcinoembry onic antigen measurement (mass/volume)on 08-27-2022 Carcinoembryonic Ag [Mass/Vol] 1.9 ng/mL 0.0-4.7 [facility] Work Phone: Comment on above: Nonsmokers <3.9 Smok ers <5.6[facility] [employer] Electrochemiluminescence Immunoassay(ECLIA)Values obtained with different assay methods or kitscannot be used interchangeably. Results cannot beinterpreted as absolute evidence of the presence orabsence of malignant disease.Performed at: [address] [id number] Director: Jan Gonzalez PhD, Phone: [phone] Serum or plasma cholesterol in HDL measurement (mass/volume)on 08-27-2022 Cholesterol in HDL [Mass/Vol] 31 mg/dL >40 [facility] Work Phone: Comment on above: The drugs N-Acetylcy steine and Metamizole may falsely depress this assay. Reference Range HDL <40 mg/dL Low HDL Cholesterol HDL >or= 60 mg/dL High HDL Cholesterol Serum or plasma cholesterol in VLDL measurement (mass/volume)on 08-27-2022 Cholesterol in VLDL [Mass/Vol] 28 mg/dL 5-40 [facility] Work Phone: Serum or plasma creatinine m easurement (mass/volume)on 08-27-2022 Creatinine [Mass/Vol] 0.88 mg/dL 0.55-1.02 [facility] Work Phone: Comment on above: The validity of the calculated GFR & GFRAA in patients over 70 years has not been determined. Clinical correlation is essential. Serum or plasma low density lipoprotein (LDL) cholesterol measurement (mass/volume)on 08-27-2022 Cholesterol in LDL [Mass/Vol] 67 mg/dL 0-130 [facility] Work Phone: Serum or plasma urea nitroge n measurement (mass/volume)on 08-27-2022 Urea nitrogen [Mass/Vol] 11 mg/dL 7-18 [facility] Work Phone: Thin prep Papanicolaou smear with manual screeningon 08-27-2022 Thin prep Papanicolaou smear with manual screening 18 U/L 15-37 [facility] Work Phone: Thin prep Papanicolaou smear with manual screening 10 5-15 [facility] Work Phone: Thin prep Papanicolaou smear with manual screening 9.0 mg/L NO RANGE EST. [facility] Work Phone: Urine creatinine measurement (mass/volume)on 08-27-2022 Creatinine (U) [Mass/Vol] 162.00 mg/dL NO RANGE EST. [facility] Work Phone: Laboratory - Hematology and Cell countson 08-26-2022 HbA1c (Bld) [Mass fraction] 6.4 % [facility] Work Phone: No Panel Informationon 12-14 Carcinoembryonic Ag Serial Monitor See comment [facility] Work Phone: Comment on above: Scanned image report available in EMR Miscellaneous Test See comment [facility] Work Phone: Comment on above: TEST RESULT LIMITSCa lcitonin, Serum < 2.0 pg/mL 0.0 - 5.0 Nonsmokers <3.9 Smokers <5.6 [facility] Electrochemiluminescence Immunoassay (ECLIA) Values obtained with different assay methods or kits cannot be used interchangeably. Results cannot be interpreted as absolute evidence of the presence or absence of malignant disease. _ TESTING PERFORMED AT [facility]. ORIGINAL REPORT ON FILE IN LAB CONTAINS ADDITIONAL TEST SITE INFORMATION. Serum or plasma carcinoembry onic antigen measurement (mass/volume)on 12-14-2021 Carcinoembryonic Ag [Mass/Vol] 2.2 ng/mL [facility] Work Phone: Comment on above: Nonsmokers <3.9 Smok ers <5.6[facility] Electrochemiluminescence Immunoassay(ECLIA)Values obtained with different assay methods or kitscannot be used interchangeably. Results cannot beinterpreted as absolute evidence of the presence orabsence of malignant disease.Performed at: [address] [id number] Director: Jan Gonzalez PhD, Phone: [phone] Lilian 10-06-2021 [facility] Office Visit (NADIA ) SHASTA MARTINEZ ([id number]) 1960 F Date Time Provider Department 10/06/21 10:15 AM LEONEL GILL During your visit today, we recorded the following information about you: Pulse Blood pressure Weight Height 91/minute 152/59 81.2 kg 1.698 m Alyson Tyson 10/06/2021 10:08 AM Signed Thank you for choosing the [facility] Department of Endocrinology, Diabetes and Metabolism. Did you know that you need to call 48 hours in advance of your scheduled visit, if you are unable to make your appointment? The Endocrinology [facility] Metabolism [place] thanks you for your commitment, because patients not showing to their appointment results in a lost opportunity for patients to receive [facility] health care at the [facility]. To Cancel an appointment, please choose one of the following: - Call the Appointment Call Center at [phone] - From [employer], Go to Appointments ? Cancel Appts If cancelling, consider your need to reschedule to prevent further delays in your care. To Schedule an appointment, please choose one of the following: - Call the Appointment Call Center at [phone] - From [employer], Go to Appointments ? Request an Appt Leonel Gill MD 10/06/2021 11:09 AM Signed Leonel Gill M.D. Department of Endocrine Surgery Endocrinology Metabolism [place] [address] ENDOCRINE SURGERY NEW CONSULTATION NAME: Shasta Martinez CLINIC NO: [id number] : 1960 REFERRING PROVIDER: Bharath Raines MD [address] [place] [address] The patient was referred by the above provider and my findings and recommendations will be communicated by way of the shared medical record. HPI: Shasta Martinez was evaluated today for a consultation [...] Laterality Date - COLONOSCOP W/ OR W/O [facility] SPEC 12/07/2015 Colonoscopy - COLONOSCOPY 2004 [facility] (neg except hemorrhoids) - DRAINAGE OF PILONIDAL [...] or seizures PHYSICAL EXAM: On physical exam, Shasta Martinez is well appearing, alert, and oriented and appears euthyroid. On inspection, the skin over the anterior neck is smooth, no mass is visualized. There is a barely visible cervi (more content not included)... Normal [facility] S[facility]-28-2021 [facility]Passenger Baggage Xpress) SHASTA MARTINEZ ([id number]) 1960 F Date Time Provider Department 09/28/21 LEONEL GILL During your visit today, we recorded the following information about you: Greta Pringle 09/30/2021 10:21 AM Addendum 09/30/21: MESFIN CLEMENTS Received labs and HANDP. Indexed into [employer]. 09/28/21: Left MAXINE w/ Dr. Raines for labs/office notes Patient had sub-total thyroidectomy with Dr. Masters in 2010. 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 PATIENT PHYSICIAN INFORMATION Referring Doctor: Dr. 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: same Address: Phone: PCP: Jarad Murrell [address] [place] [address] PAST TREATMENT Office notes: Requested from referring physician (Date received:09/30/21 ) Medications: NONE THAT APPLY Pre-Visit Testing STUDY/TEST DATE ORDERED/REQUESTED DATE RECEIVED/COMPLETED ENTIRE PANEL TSH FREE T4 FREE T3 Imaging Reports: See [facility] CD of Images: See [facility] FNA: yes: 11/19/10 FNA Slides: FNA performed at [facility] Has the patient ever had thyroid or parathyroid surgery before: Yes: Thyroid (Date: 12/17/10) Operative Reports: SEE [facility] Pathology Reports: SEE EPIC Allergies As of Date: 09/28/2021 Noted Allergy Reaction environmental [Other] 11/29/2010 14 - Other: See Comments Comments: watery eyes and itching Date Reviewed: 01/09/2019 Reviewed by: Sara Camara Ma - Fully Assessed Reason for Visit: Consult [173] Cmt: Facesheet Prescriptions as of 09/30/2021 - metFORMIN ER (GLUCOPHAGE XR) 500 mg [...] every 8 hours as needed. FOR PAIN. Meds Comments as of 12/20/2011: Patient needs refills today. 12/20/11 Problem List As Of Date 09/28/2021 Noted Resolved ASTHMA UNSPECIFIED [J45.909] 11/28/2007 ALLERGIC RHINITIS NOS [J30.9] 11/28/2007 OBESITY NOS [E66.9] 11/28/2007 Family history of diabetes mellitus [Z83.3] 11/28/2007 08/06/2015 Family history of other cardiovascular diseases*05/21/2008 Other premature beats [I49.49] 06/12/2008 08/06/2015 Neoplasm of uncertain behavior of skin [D48.5] 06/13/2008 08/06/2015 NEVUS TRUNK////BENIGN CLIFF SKIN TRUNK [D23.5] 06/13/2008 08/06/2015 NEVI ////BENIGN CLIFF SCALP/SKIN NECK [D23.4] 06/13/2008 08/06/2015 NEVI/////BENIGN CLIFF SKIN ARM [D23.60] 06/13/2008 08/06/2015 Other chronic dermatitis due to solar radiation*06/13/2008 08/06/2015 Impaired fasting glucose [R73.01] 06/23/2008 08/06/2015 Routine general medical examination at [facility]*2009 08/06/2015 Class: Chronic Gynecological examination 2009 01/20/2014 Class: Chronic Mixed hyperlipidemia [E78.2] 2009 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*07/16/2010 Multiple thyroid nodules [E04.2] 09/29/2010 03/02/2011 DM w/o complication type II [E11.9] 11/19/2010 Thyroid cancer, 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] 11/29/2010 Other benign neoplasm of connective and other s*03/02/2011 08/06/2015 Pain in limb [M79.609] 03/21/2011 01/20/2014 Type 2 diabetes mellitus with complication, wit*01/09/2019 Medullary thyroid carcinoma (HCC) [C73] 01/09/2019 Post-surgical hypothyroidism [E89.0] 01/09/2019 Encounter Status:Closed by GRETA PRINGLE on 09/28/21 [facility] Sallie 09-14-2021 CNPN Telephone (ENDOMN) SHASTA MARTINEZ ([id number]) 1960 F Date Time Provider Department 09/14/21 NICKY WHITE During your visit today, we recorded the following information about you: Daina Banuelosmarissa Adm 09/14/2021 4:44 PM Signed christiana Castillo, called stated that she has taken over the care of Damaris. Patient has an elevated calcitonin level and Dr. Raines wants to know if she should come back to the clinic for a follow up or should Dr. Raines just continue watching her levels. Dr. Raines would like a call back at [phone] (C) Nicky White MD 09/15/2021 9:44 AM Signed Returned 's call. Patient's calcitonin has increased I suggested to have the patient schedule an appt [facility] Patient might also need to see Endocrine surgery Nicky White MD 09/15/21 Allergies As of Date: 09/14/2021 Noted Allergy Reaction environmental [Other] 11/29/2010 14 - Other: See Comments Comments: watery eyes and itching Date Reviewed: 01/09/2019 Reviewed by: Sraa Camara Ma - Fully Assessed Reason for Visit: Patient Update [1234] Prescriptions as of 09/15/2021 - metFORMIN ER (GLUCOPHAGE XR) 500 mg [...] every 8 hours as needed. FOR PAIN. Meds Comments as of 12/20/2011: Patient needs refills today. 12/20/11 Problem List As Of Date 09/14/2021 Noted Resolved ASTHMA UNSPECIFIED [J45.909] 11/28/2007 ALLERGIC RHINITIS NOS [J30.9] 11/28/2007 OBESITY NOS [E66.9] 11/28/2007 Family history of diabetes mellitus [Z83.3] 11/28/2007 08/06/2015 Family history of other cardiovascular diseases*05/21/2008 Other premature beats [I49.49] 06/12/2008 08/06/2015 Neoplasm of uncertain behavior of skin [D48.5] 06/13/2008 08/06/2015 NEVUS TRUNK////BENIGN CLIFF SKIN TRUNK [D23.5] 06/13/2008 08/06/2015 NEVI ////BENIGN CLIFF SCALP/SKIN NECK [D23.4] 06/13/2008 08/06/2015 NEVI/////BENIGN CLIFF SKIN ARM [D23.60] 06/13/2008 08/06/2015 Other chronic dermatitis due to solar radiation*06/13/2008 08/06/2015 Impaired fasting glucose [R73.01] 06/23/2008 08/06/2015 Routine general medical examination at a [facility]*2009 08/06/2015 Class: Chronic Gynecological examination 2009 01/20/2014 Class: Chronic Mixed hyperlipidemia [E78.2] 2009 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*07/16/2010 Multiple thyroid nodules [E04.2] 09/29/2010 03/02/2011 DM w/o complication type II [E11.9] 11/19/2010 Thyroid cancer, 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] 11/29/2010 Other benign neoplasm of connective and other s*03/02/2011 08/06/2015 Pain in limb [M79.609] 03/21/2011 01/20/2014 Type 2 diabetes mellitus with complication, wit*01/09/2019 Medullary thyroid carcinoma (HCC) [C73] 01/09/2019 Post-surgical hypothyroidism [E89.0] 01/09/2019 Encounter Status:Closed by DAINA LEON on 09/15/21 Normal [facility] Vital Signs Date Time Vital Sign Value Performing Clinician Ruiz barragan 12-04-2024 15:36-0500 Body height 165.1 cm Luiza Joselito [employer] Work Phone: [facility] 12-04-2024 15:36-0500 Body mass index (BMI) [Ratio] 21.8 kg/m2 Luiza Joselito [employer] Work Phone: [facility] 12-04-2024 15:36-0500 Body weight 59.42 kg Luiza Joselito [employer] Work Phone: [facility] 12-04-2024 15:36-0500 Diastolic blood pressure 66 mm[Hg] LuizaKate's Goodness [employer] Work Phone: [facility] 12-04-2024 15:36-0500 Heart rate 65 /min Luiza Joselito [employer] Work Phone: [facility] 12-04-2024 15:36-0500 Respiratory rate 18 /min LuizaKate's Goodness [employer] Work Phone: [facility] 12-04-2024 15:36-0500 SaO2% (BldA) [Mass fraction] 98 % Luiza Joselito [employer] Work Phone: [facility] 12-04-2024 15:36-0500 Systolic blood pressure 101 mm[Hg] LuizaKate's Goodness [employer] Work Phone: [facility] 11-27-2023 08:26-0500 Body height 165.[address] Greta Edmond Work Phone: [facility] 11-27-2023 08:26-0500 Body mass index (BMI) [Ratio] 21.9 kg/m2 Dr. Greta Edmond Work Phone: [facility] 11-27-2023 08:26-0500 Body weight 59.[address] Greta Edmond Work Phone: [facility] 11-27-2023 08:26-0500 Diastolic blood pressure 58 mm[Hg] Dr. Greta Edmond Work Phone: [facility] 11-27-2023 08:26-0500 Heart rate 82 /min Dr. Greta Edmond Work Phone: [facility] 11-27-2023 08:26-0500 Respiratory rate 18 /min Dr. Greta Edmond Work Phone: [facility] 11-27-2023 08:26-0500 SaO2% (BldA) [Mass fraction] 98 % Dr. Greta Edmond Work Phone: [facility] 11-27-2023 08:26-0500 Systolic blood pressure 108 mm[Hg] Dr. Greta Edmond Work Phone: [facility] 10-30-2023 00:47-0500 Body weight 60.[address] Greta Edmond Work Phone: [facility] 10-16-2023 11:14-0500 Body height 165.[address] Greta Edmond Work Phone: [facility] 10-16-2023 11:14-0500 Body weight 60.[address] Greta Edmond Work Phone: [facility] 09-29-2023 00:50-0500 Body weight 61.[address] Greta Edmond Work Phone: [facility] 09-15-2023 10:02-0500 Body height 165.[address] Greta Edmond Work Phone: [facility] 09-15-2023 10:02-0500 Body weight 61.[address] Greta Edmond Work Phone: [facility] 08-25-2023 13:57-0400 Body height 165.[address] Greta Edmond Work Phone: [facility] 08-25-2023 13:57-0400 Body mass index (BMI) [Ratio] 22.6 kg/m2 Dr. Greta Edmond Work Phone: [facility] 08-25-2023 13:57-0400 Body weight 61.[address] Greta Edmond Work Phone: [facility] 08-25-2023 13:57-0400 Diastolic blood pressure 74 mm[Hg] Dr. Greta Edmond Work Phone: [facility] 08-25-2023 13:57-0400 Heart rate 98 /min Dr. Greta Edmond Work Phone: [facility] 08-25-2023 13:57-0400 Respiratory rate 18 /min Dr. Greta Edmond Work Phone: [facility] 08-25-2023 13:57-0400 SaO2% (BldA) [Mass fraction] 100 % Dr. Greta Edmond Work Phone: [facility] 08-25-2023 13:57-0400 Systolic blood pressure 128 mm[Hg] Dr. Greta Edmond Work Phone: [facility] 08-25-2023 08:07-0400 Body mass index (BMI) [Ratio] 23 kg/m2 Dr. Greta Edmond Work Phone: [facility] 08-25-2023 08:07-0400 Body temperature 97.4 [degF] Dr. Greta Edmond Work Phone: [facility] 08-25-2023 08:07-0400 Body weight 62.[address] Greta Edmond Work Phone: [facility] 08-25-2023 08:07-0400 Diastolic blood pressure 61 mm[Hg] Dr. Greta Edmond Work Phone: [facility] 08-25-2023 08:07-0400 Heart rate 96 /min Dr. Greta Edmond Work Phone: [facility] 08-25-2023 08:07-0400 Respiratory rate 16 /min Dr. Greta Edmond Work Phone: [facility] 08-25-2023 08:07-0400 SaO2% (BldA) [Mass fraction] 98 % Dr. Greta dEmond Work Phone: [facility] 08-25-2023 08:07-0400 Systolic blood pressure 90 mm[Hg] Dr. Greta Edmond Work Phone: [facility] 08-16-2023 09:12-0400 Body mass index (BMI) [Ratio] 23.3 kg/m2 Dr. Greta Edmond Work Phone: [facility] 08-16-2023 08:22-0400 Body height 165.[address] Greta Edmond Work Phone: [facility] 08-16-2023 08:22-0400 Body weight 63.[address] Greta Edmond Work Phone: [facility] 08-16-2023 08:13-0400 Diastolic blood pressure 76 mm[Hg] Dr. Greta Edmond Work Phone: [facility] 08-16-2023 08:13-0400 Heart rate 79 /min Dr. Greta Edmond Work Phone: [facility] 08-16-2023 08:13-0400 SaO2% (BldA) [Mass fraction] 99 % Dr. Greta Edmond Work Phone: [facility] 08-16-2023 08:13-0400 Systolic blood pressure 129 mm[Hg] Dr. Greta Edmond Work Phone: [facility] 08-10-2023 10:11-0400 Heart rate 95 /min Dr. Greta Edmond Work Phone: [facility] 08-10-2023 09:50-0400 Body temperature 97.9 [degF] Dr. Greta Edmond Work Phone: [facility] 08-10-2023 09:50-0400 Diastolic blood pressure 60 mm[Hg] Dr. Greta Edmond Work Phone: [facility] 08-10-2023 09:50-0400 Respiratory rate 16 /min Dr. Greta Edmond Work Phone: [facility] 08-10-2023 09:50-0400 SaO2% (BldA) [Mass fraction] 99 % Dr. Greta Edmond Work Phone: [facility] 08-10-2023 09:50-0400 Systolic blood pressure 126 mm[Hg] Dr. Greta Edmond Work Phone: [facility] 08-10-2023 03:27-0400 Body mass index (BMI) [Ratio] 23.3 kg/m2 Dr. Greta Edmond Work Phone: [facility] 08-10-2023 03:27-0400 Body weight 63.[address] Greta Edmond Work Phone: [facility] 08-09-2023 10:02-0400 Body height 165.[address] Greta Edmond Work Phone: [facility] 07-28-2023 13:37-0400 Body mass index (BMI) [Ratio] 24.1 kg/m2 Dr. Greta Edmond Work Phone: [facility] 07-28-2023 13:37-0400 Body temperature 95.7 [degF] Dr. Greta Edmond Work Phone: [facility] 07-28-2023 13:37-0400 Body weight 65.[address] Greta Edmond Work Phone: [facility] 07-28-2023 13:37-0400 Diastolic blood pressure 81 mm[Hg] Dr. Greta Edmond Work Phone: [facility] 07-28-2023 13:37-0400 Heart rate 86 /min Dr. Greta Edmond Work Phone: [facility] 07-28-2023 13:37-0400 Respiratory rate 17 /min Dr. Greta Edmond Work Phone: [facility] 07-28-2023 13:37-0400 SaO2% (BldA) [Mass fraction] 98 % Dr. Greta Edmond Work Phone: [facility] 07-28-2023 13:37-0400 Systolic blood pressure 136 mm[Hg] Dr. Greta Edmond Work Phone: [facility] 06-29-2023 08:52-0400 Body mass index (BMI) [Ratio] 24 kg/m2 Dr. Greta Edmond Work Phone: [facility] 06-29-2023 08:52-0400 Body weight 66.[address] Greta Edmond Work Phone: [facility] 06-29-2023 08:52-0400 Diastolic blood pressure 68 mm[Hg] Dr. Greta Edmond Work Phone: [facility] 06-29-2023 08:52-0400 Systolic blood pressure 121 mm[Hg] Dr. Greta Edmond Work Phone: [facility] 08-26-2022 08:09-0400 Body height 166.[address] Jarad Murrell Work Phone: [facility] Work Phone: 08-26-2022 08:09-0400 Body mass index (BMI) [Ratio] 28.2 kg/m2 Dr. Jarad Murrell Work Phone: [facility] Work Phone: 08-26-2022 08:09-0400 Body temperature 95.2 [degF] Dr. Jarad Murrell Work Phone: [facility] Work Phone: 08-26-2022 08:09-0400 Body weight 78.[address] Jarad Murrell Work Phone: [facility] Work Phone: 08-26-2022 08:09-0400 Diastolic blood pressure 84 mm[Hg] Dr. Jarad Murrell Work Phone: [facility] Work Phone: 08-26-2022 08:09-0400 Heart rate 102 /min Dr. Jarad Murrell Work Phone: [facility] Work Phone: 08-26-2022 08:09-0400 Respiratory rate 18 /min Dr. Jarad Murrell Work Phone: [facility] Work Phone: 08-26-2022 08:09-0400 SaO2% (BldA) [Mass fraction] 97 % Dr. Jarad Murrell Work Phone: [facility] Work Phone: 08-26-2022 08:09-0400 Systolic blood pressure 148 mm[Hg] Dr. Jarad Murrell Work Phone: [facility] Work Phone: 03-16-2022 13:32-0400 Body height 166.[address] Jarad Murrell Work Phone: [facility] Work Phone: 03-16-2022 13:32-0400 Body mass index (BMI) [Ratio] 29.2 kg/m2 Dr. Jarad Murrell Work Phone: [facility] Work Phone: 03-16-2022 13:32-0400 Body weight 80.[address] Jarad Murrell Work Phone: [facility] Work Phone: 03-16-2022 13:32-0400 Diastolic blood pressure 80 mm[Hg] Dr. Jarad Murrell Work Phone: [facility] Work Phone: 03-16-2022 13:32-0400 Systolic blood pressure 168 mm[Hg] Dr. Jarad Murrell Work Phone: [facility] Work Phone: 03-01-2022 09:45-0400 Body mass index (BMI) [Ratio] 29.2 kg/m2 Dr. Jarad Murrell Work Phone: [facility] Work Phone: 03-01-2022 09:45-0400 Body weight 80.[address] Jarad Murrell Work Phone: [facility] Work Phone: 03-01-2022 09:45-0400 Diastolic blood pressure 80 mm[Hg] Dr. Jarad Murrell Work Phone: [facility] Work Phone: 03-01-2022 09:45-0400 Systolic blood pressure 180 mm[Hg] Dr. Jarad Murrell Work Phone: [facility] Work Phone: Encounters Encounter Date Encounter Type Care Provider Facility Start: 03-29-2025 End: 03-29-2025 ambulatory Luiza Yee [employer] Work Phone: [facility] Work Phone: Start: 03-29-2025 End: 03-29-2025 Patient encounter procedure Trudi Holliday [employer] -Laboratory Work Phone: Start: 03-29-2025 End: 03-29-2025 ambulatory [facility] Facility:[facility] Start: 12-04-2024 End: 12-04-2024 Patient encounter procedure Kaden Martin [employer] -[facility] Work Phone: Start: 12-04-2024 End: 12-04-2024 ambulatory [facility] Facility:[facility] Start: 10-19-2024 End: 10-19-2024 ambulatory Bharath Olu Facility:[facility] Start: 10-02-2024 End: 10-02-2024 ambulatory [facility] Facility:[facility] Start: 09-09-2024 Encounter for gynecological examination (general) (routine) without abnormal findings Mita Mazariegos [facility] Start: 09-09-2024 End: 09-09-2024 ambulatory [facility] Facility:[facility] Start: 08-23-2024 End: 08-23-2024 ambulatory [facility] Facility:[facility] Start: 05-23-2024 End: 05-23-2024 ambulatory Queta Moss NP Facility:[facility] Start: 01-17-2024 End: 01-17-[address] Greta Edmond Work Phone: [facility] Work Phone: Start: 01-17-2024 End: 01-17-[address] Greta Edmond Work Phone: [facility]Rad[facility], [facility] Work Phone: Start: 11-27-2023 End: 11-29-[address] Greta Edmond Work Phone: [facility] Work Phone: Start: 11-27-2023 End: 11-29-[address] Greta Edmond Work Phone: [facility]Card[facility] Work Phone: Start: 11-27-2023 End: 11-27-[address] Greta Edmond Work Phone: [facility] Work Phone: Start: 11-27-2023 End: 11-27-[address] [facility] Start: 10-27-2023 End: 10-29-[address] Greta Edmond Work Phone: [facility] Work Phone: Start: 10-27-2023 End: 10-29-[address] Grtea Edmond Work Phone: [facility] Work Phone: Start: 10-16-2023 End: 10-16-[address] [facility] Start: 09-30-2023 End: 09-30-[address] Greta Edmond Work Phone: [facility] Work Phone: Start: 09-30-2023 End: 09-30-[address] [facility] Start: 09-29-[address] Greta Edmond Work Phone: [facility] Work Phone: Start: 09-27-2023 End: 09-28-[address] Greta Edmond Work Phone: [facility] Work Phone: Start: 09-27-2023 End: 09-28-[address] Greta Edmond Work Phone: [facility] Work Phone: Start: 09-13-2023 Non-patient / Non-visit Dr. Wilma Edmond Work Phone: [facility] Start: 08-30-[address] Greta Edmond Work Phone: [facility] Work Phone: Start: 08-28-2023 End: 08-29-[address] Greta Edmond Work Phone: [facility] Work Phone: Start: 08-28-2023 End: 08-29-[address] Greta Edmond Work Phone: [facility] Work Phone: Start: 08-25-2023 End: 08-25-[address] Greta Edmond Work Phone: [facility] Work Phone: Start: 08-25-2023 End: 08-25-[address] Greta Edmond Work Phone: [facility]Labor[facility] Work Phone: Start: 08-25-2023 End: 08-25-[address] Greta Edmond Work Phone: [facility] Work Phone: Start: 08-23-[address] Greta Edmond Work Phone: [facility] Work Phone: Start: 08-21-[address] Greta Edmond Work Phone: [facility] Work Phone: Start: 08-19-2023 End: 08-19-[address] Greta Edmond Work Phone: [facility] Work Phone: Start: 08-19-2023 End: 08-19-[address] Greta Edmond Work Phone: [facility] Work Phone: Start: 08-16-2023 End: 08-16-[address] Greta Edmond Work Phone: [facility] Work Phone: Start: 08-16-2023 End: 08-16-[address] Greta Edmond Work Phone: [facility] Work Phone: Start: 08-10-2023 Non-patient / Non-visit Dr. Wilma Edmond Work Phone: [facility] Work Phone: Start: 08-10-2023 Non-patient / Non-visit Dr. Wilma Edmond Work Phone: [facility] Start: 08-09-2023 Non-patient / Non-visit Dr. Wilma Edmond Work Phone: [facility] Start: 08-09-2023 Non-patient / Non-visit Dr. Wilma Edmond Work Phone: [facility] Work Phone: Start: 08-08-2023 Non-patient / Non-visit Dr. Wilma Edmond Work Phone: [facility] Start: 08-08-2023 End: 08-10-2023 Evaluation and management of inpatient Dr. Greta Edmond Work Phone: [facility]Pro[facility] Work Phone: Start: 07-28-2023 End: 07-28-[address] Greta Edmond Work Phone: [facility] Work Phone: Start: 06-29-2023 End: 06-29-[address] Greta Edmond Work Phone: [facility] Work Phone: Start: 05-04-2023 End: 05-04-[address] Greta Edmond Work Phone: [facility]Outpatient [facility] Work Phone: Start: 03-02-2023 End: 03-02-2023 ambulatory [facility] Work Phone: Start: 03-02-2023 End: 03-02-2023 Patient encounter procedure [facility]Laboratory, Specimen Start: 09-13-2022 End: 09-13-[address] Jarad Murrell Work Phone: [facility] Work Phone: Start: 09-13-2022 End: 09-13-[address] Jarad Murrell Work Phone: [facility]Outpatient Bone D[facility] Start: 08-27-2022 End: 08-27-[address] Jarad Murrell Work Phone: [facility] Work Phone: Start: 08-27-2022 End: 08-27-[address] Jarad Murrell Work Phone: [facility]Labor[facility] Start: 08-26-2022 End: 08-26-[address] Jarad Murrell Work Phone: [facility] Start: 07-11-2022 End: 07-11-[address] Jarad Murrell Work Phone: [facility] Start: 04-01-2022 End: 04-01-[address] Jarad Murrell Work Phone: [facility] Start: 03-16-2022 End: 03-16-[address] Jarad Murrell Work Phone: [facility]Laboratory, Specimen Start: 03-16-2022 End: 03-16-[address] Jarad Murrell Work Phone: [facility] Start: 03-01-2022 End: 03-01-[address] Jarad Murrell Work Phone: [facility] Start: 12-14-2021 End: 12-14-[address] Jarad Murrell Work Phone: [facility] Procedures Date Procedure Procedure Detail Performing Clinician Start: 01-17-2024 Radiologic examinati on of knee Dr. Greta Edmond Work Phone: Start: 08-08-2023 Plain chest X-ray Dr. Lyle Edmond Work Phone: Start: 05-04-2023 Screening mammography Lisa Edmond Work Phone: Start: 09-13-2022 Dual energy X-ray absorptiometry Dr. Jarad Murrell Work Phone: Start: 04-01-2022 Screening mammography Lisa Murrell Work Phone: Urine culture Plan of Treatment Date Care Activity Detail Author Start: 09-30-2023 Lab findings surveillance [facility] Start: 09-13-2023 Patient referral [facility] Work Phone: Start: 08-16-2023 Blood chemistry [facility] Start: 08-16-2023 Patient referral to dietitian [facility] Start: 08-15-2023 Blood chemistry [facility] Start: 08-14-2023 Blood chemistry [facility] Start: 08-13-2023 Blood chemistry [facility] Start: 08-12-2023 Blood chemistry [facility] Start: 08-11-2023 Blood chemistry [facility] Start: 08-10-2023 Patient referral [facility] Work Phone: Start: 08-10-2023 Patient discharge [facility] Start: 08-09-2023 Care planning and problem solving actions [facility] Start: 08-09-2023 Referral to [facility] Start: 08-08-2023 Cardiac monitoring [facility] Start: 08-08-2023 Cardiac rehabilitation - phase 1 [facility] Start: 08-08-2023 Cardiac rehabilitation - phase 2 [facility] Start: 08-08-2023 Patient discharge [facility] Start: 08-08-2023 Systemic arterial pressure monitoring [facility] Start: 08-08-2023 Vascular disease risk assessment [facility] Start: 08-08-2023 End: 08-08-2023 [facility] Start: 08-08-2023 Application of intermittent pneumatic compression device [facility] Start: 08-08-2023 End: 08-08-2023 Notification of physician [facility] Start: 08-08-2023 Patient education [facility] Start: 08-08-2023 Provision of activity privileges [facility] Start: 08-08-2023 Pulse taking [facility] Start: 08-08-2023 End: 08-08-2023 Taking patient vital signs [facility] Start: 08-08-2023 Wound care [facility] Start: 08-08-2023 Following clinical pathway protocol [facility] Start: 08-08-2023 Assessment of risk of venous thromboembolism [facility] Start: 08-08-2023 Bedrest [facility] Start: 08-08-2023 Catheterization of vein [facility] Start: 08-08-2023 Chart related administrative procedure [facility] Start: 08-08-2023 Elevation of head of bed [facility] Start: 08-08-2023 Insertion of catheter into peripheral vein [facility] Start: 08-08-2023 Measuring intake and output [facility] Start: 08-08-2023 Oxygen therapy [facility] Start: 08-08-2023 Providing care according to standard [facility] Start: 08-08-2023 Vital signs measurements [facility] Start: 08-08-2023 Admission procedure [facility] Lab findings surveillance [facility] Lipid 1996 panel - S michael or Plasma [facility] Patient Education Heart Attack D c Heart Attack Meds Heart Attack Questions Heart Attack: Leaving the Hospital Heart Attack: Back at Home [facility] Work Phone: Patient referral [facility] Work Phone: Urine microalbumin/creatinine ratio measurement [facility] Vitamin D, 25-hydrox y measurement [facility] Payers Date Payer Category Payer Self-pay [id number] 2023 Unknown [id number] Unknown [id number] Unknown [id number] Unknown [id number] 2.16.8 [id number] Unknown [id number] 2.16.8 [id number] Unknown [id number] 2.16.8 [id number] Unknown [id number] 2.16.8 [id number] Unknown [id number] 2.16.8 [id number] Unknown [id number] 2.16.8 [id number] Unknown [id number] 2.16.8 [id number] Social History Date Type Detail Facility Start: 03-01-2022 End: 11-27-2023 Tobacco smoking status NHIS Unknown if ever smoked [facility] Start: 1960 Sex Assigned At Female W [facility] Start: 09-09-2024 Tobacco smoking stat us VTIS Never smoked tobacco (finding) [facility] Medical Equipment Procedure Code Equipment Code Equipment Origin al Text Equipment Identifier Dates Drug-eluting coronary artery stent, ary-mfzgqgagflhdi-di lymer-coated ([id number] FDA Start: 08-08-2023 Goals Date Patient Goal Desired Activity /State Functional Status Date Assessment Result Facility 08-10-2023 Functional status Bedrest [place] [facility] Work Phone: Mental Status Date Assessment Result Facility 08-10-2023 Cognitive function Voice/Name [facility] Work Phone: Clinical Notes 10-06-2021 to 12-04-2024 Note Date & Type Note Facility 12-04-2024 Evaluation note Diagnosis Onset Date Resolution (HFpEF) heart failure with preserved ejection fraction acute December 04, 2024 3:25pm Stented coronary artery August 08, 2023 acute December 04, 2024 3:25pm Hypercholesterolemia chronic Febr 2024 3:25pm [facility] Work Phone: 1(515) 278-195910-12-2023 Progress note Author Bob Saunders [facility] August 10, 2023 8:16am Note Date/Time August 10, 2023 8 :16am [facility] Medical Records Department [address] [place] [id number] Progress Note - Cardiology 08/10/23813 MR#: [id number] Acct: [id number] Name: SHASTA MARTINEZ VANDA Rep #:[id number] : 1960 62 From: Bob Saunders MD PCP: Dr. Greta Edmond, DO Status:ADM IN Location: [place] [address] Subjective Subjective Patient seen and evaluated. Doing well no complaints Objective Data Vital Signs: Vital Signs Temp Pulse Resp BP Pulse Ox O2 Del Method 98.3 F 79 16 129/76 H 99 Room Air 08/10/23 05:30 08/10/23 05:30 08/10/23 05:30 08/10/23 05:30 08/10/23 05:30 08/10/23 05:30 Oxygen Delivery Method Room Air Weight: 140 lb 3.424 oz Body Mass Index (BMI) 23.3 Intake & Output: Intake and Output for Last 24 Hours 08/08/23 08/09/23 08/10/23 23:59 23:59 23:59 Intake Total 835 / 835 0 / 0 Balance 835 / 835 0 / 0 Lab / Micro Data 08/10/23 04:44 08/10/23 04:44 Labs: Laboratory Results - last 24 hr 08/08/23 21:36: Diff Path Review Reviewed 08/10/23 04:44: WBC 9.7, RBC 4.51, Hgb 12.9, Hct 41.1, MCV 91.1, MCH 28.6, MCHC 31.4 L, RDW Std Deviation 47.3 H, RDW Coeff of Josef 14.0, Plt Count 247, MPV 10.2, Immature Gran % (Auto) 0.200, Neut % (Auto) 67.0, Lymph % (Auto) 15.9 L, York % (Auto) 11.0 H, Eos % (Auto) 5.4 H, Baso % (Auto) 0.5, Absolute Neuts (auto) 6.5, Absolute Lymphs (auto) 1.54, Nucleated RBC % 0, Sodium 141, Potassium 3.7, Chloride 113 H, Carbon Dioxide 22.0, Anion Gap 6, BUN 9, Creatinine 0.71, Estim Creat Clear Calc 72.98, Est GFR (MDRD) Af Amer 107, Est GFR (MDRD) Non-Af 88, BUN/Creatinine Ratio 12.7, Glucose 108 H, Calcium 8.7 Cardiology Labs/Tests 08/10/23 04:44: WBC 9.7, RBC 4.51, Hgb 12.9, Hct 41.1, MCV 91.1, MCH 28.6, MCHC 31.4 L, Plt Count 247, MPV 10.2, Immature Gran % (Auto) 0.200, Neut % (Auto) 67.0, Lymph % (Auto) 15.9 L, York % (Auto) 11.0 H, Eos % (Auto) 5.4 H, Baso % (Auto) 0.5, Absolute Neuts (auto) 6.5, Nucleated RBC % 0, Sodium 141, Potassium 3.7, Chloride 113 H, Carbon Dioxide 22.0, Anion Gap 6, BUN 9, Creatinine 0.71, Est GFR (MDRD) Af Amer 107, Est GFR (MDRD) Non-Af 88, BUN/Creatinine Ratio 12.7,Glucose 108 H, Calcium 8.7 Rhythm: EKG: ECHO: Stress Test: Cardiac Cath: PCI: CT Surgery: Holter monitor: EPS: PPM: CXR: Chest CT Scan: Radiography Diagnostic Testing: Radiology Impression Echocardiogram 08/08/23 23:49 Interpretation Summary Normal LV size. The left ventricular ejection fraction is 55 %. There are regional wall motion abnormalities as specified. Stage 1 diastolic dysfunction. Pulmonary artery systolic pressure is 32 mmHg. Contrast injection was performed. Ordering Physician: Rubio Ye Referring Physician: Greta Edmond Performed By: Jason Beauchamp RCS Physical Exam Const alert, oriented x3 and no apparent distress General Appearance: cooperative HEENT hearing grossly normal bilaterally Head and Scalp: atraumatic Eyes EOMs intact bilaterally Neck General: normal visual inspection Chest inspection of chest normal and palpation of chest normal Resp normal respiratory effort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 Method Room Air Weight: 143 lb 9 oz Body Mass Index (BMI) 23.8 Lab / Micro Data 08/08/23 21:36 08/08/23 21:36 Labs: Laboratory Results - last 24 hr 08/08/23 21:36: WBC 15.1 H, RBC 4.76, Hgb 14.2, Hct 42.9, MCV 90.1, MCH 29.8, MCHC 33.1, RDW Std Deviation 45.2 H, RDW Coeff of Josef 13.7, Plt Count 337, MPV 9.9, Immature Gran % (Auto) 0.500, Neut % (Auto) 51.8, Lymph % (Auto) 32.4, York% (Auto) 11.2 H, Eos % (Auto) 3.4, Baso % (Auto) 0.7, Absolute Neuts (auto) 7.8 H, Absolute Lymphs (auto) 4.90 H, Nucleated RBC % 0, Differential Comment SCANNED, Diff Path Review February foll, PT 13.7, INR 1.0, APTT 25.5, Sodium 139, Potassium 3.2 L, Chloride 106, Carbon Dioxide 23.0, Anion Gap 10, BUN 12, Creatinine 0.87, Estim Creat Clear Calc 59.56, Est GFR (MDRD) Af Amer 85, Est GFR (MDRD) Non-Af 70, BUN/Creatinine Ratio 13.8, Glucose 122 H, Calcium 9.1, Troponin I High Sens 35 Cardiology Labs/Tests 08/08/23 21:36: WBC 15.1 H, RBC 4.76, Hgb 14.2, Hct 42.9, MCV 90.1, MCH 29.8, MCHC 33.1, Plt Count 337, MPV 9.9, Immature Gran % (Auto) 0.500, Neut % (Auto) 51.8, Lymph % (Auto) 32.4, York % (Auto) 11.2 H, Eos % (Auto) 3.4, Baso % (Auto)0.7, Absolute Neuts (auto) 7.8 H, Nucleated RBC % 0, PT 13.7, INR 1.0, APTT 25.5, Sodium 139, Potassium 3.2 L, Chloride 106, Carbon Dioxide 23.0, Anion Gap 10, BUN 12, Creatinine 0.87, Est GFR (MDRD) Af Amer 85, Est GFR (MDRD) Non-Af 70, BUN/Creatinine Ratio 13.8, Glucose 122 H, Calcium 9.1 Rhythm: EKG: ECHO: Stress Test: Cardiac Cath: PCI: CT Surgery: Holter monitor: EPS: PPM: CXR: Chest CT Scan: Radiography Diagnostic Testing: Radiology Impression Chest X-Ray 08/08/23 21:45 IMPRESSION: No acute pulmonary disease. Electronically Signed: Patrice Swartz MD at 22:23 EDT , 08/08/23 2286 <Electronically signed by Rubio Ye MD> Cosigner Signature (if applicable): CC: Dr. Greta Edmond DO; Dr. Rubio Ye MD~ Signed [facility] Work Phone: [phone]) 166-548310-10-2023 Evaluation note* Diagnosis Onset Date Resolution Status Encounter for routine gyneco logical examination noneactive Hemorrhoids acute (HFpEF) heart failure with p reserved ejection fraction acute Hypercholesterolemia acute Stented coronary artery August 08, 2023 acute Diabetes type 2, controlled chronic Medullary thyroid carcinoma chronic STEMI (ST elevation myocardial infarction) July resolved Diabetes type 2, controlled chronic Hypothyroidism associated wi surgical procedure chronic Thyroid cancer chronic (HFpEF) heart failure with p reserved ejection fraction acute Hypercholesterolemia acute Stented coronary artery August 08, 2023 [facility] Work Phone: [phone]) 368-772610-10-2023 Evaluation note* Diagnosis Onset Date Resolution Status Hemorrhoids acute (HFpEF) heart failure with p reserved ejection fraction acute Hypercholesterolemia acute Stented coronary artery August 08, 2023 acute Diabetes type 2, controlled chronic Medullary thyroid carcinoma chronic STEMI (ST elevation myocardial infarction) July resolved Diabetes type 2, controlled chronic Hypothyroidism associated wi surgical procedure chronic Thyroid cancer chronic (HFpEF) heart failure with p reserved ejection fraction acute Hypercholesterolemia acute Stented coronary artery August 08, 2023 [facility] Work Phone: [phone]) 677-966310-10-2023 Evaluation note* Diagnosis Onset Date Resolution Status (HFpEF) heart failure with p reserved ejection fraction acute Hypercholesterolemia acute Stented coronary artery August 08, 2023 acute Diabetes type 2, controlled chronic Medullary thyroid carcinoma chronic STEMI (ST elevation myocardial infarction) July resolved Diabetes type 2, controlled chronic Hypothyroidism associated wi surgical procedure chronic Thyroid cancer chronic (HFpEF) heart failure with p reserved ejection fraction acute Hypercholesterolemia acute Stented coronary artery August 08, 2023 acute (HFpEF) heart failure with p reserved ejection fraction acute Hypercholesterolemia acute SOB (shortness of breath) ac [place] Stented coronary artery August 08, 2023 [facility] Work Phone: [phone]) 179-941910-10-2023 Evaluation note* Diagnosis Onset Date Resolution Status (HFpEF) heart failure with p reserved ejection fraction acute Hypercholesterolemia acute SOB (shortness of breath) ac [place] Stented coronary artery August 08, 2023 [facility] Work Phone: [phone]) 691-529712-08-2021 NoteHNO ID: [id number] Author: Leonel Gill MD Service: ? Author Type: Physician Type: Progress Notes Filed: 10/06/2021 11:09 AM Note Text: Leonel Gill M.D. Department of Endocrine Surgery Endocrinology Metabolism [place] [address] ENDOCRINE SURGERY NEW CONSULTATION NAME: Shasta Rawls [facility] NO: [id number] : 1960 REFERRING PROVIDER: Bharath Raines MD [address] [place] [address] Pass [facility] [id number] The patient was referred by the above provider and my findings and recommendations will be communicated by way of the shared medical record. HPI: Shasta Martinez was evaluated today for a consultation [...] Laterality Date - COLONOSCOP W/ OR W/O [facility] SPEC 12/07/2015 Colonoscopy - COLONOSCOPY [facility] (neg except hemorrhoids) - DRAINAGE OF PILONIDAL [...] or seizures PHYSICAL EXAM: On physical exam, Shasta Martinez is well appearing, alert, and oriented [...] at 14 ASSESSMENT and PLAN: In summary, Shasta Martinez has a remote history of medullary [...] have additional questions. Sincerely, (more content not included)...[facility] summary Author Chante Josue [facility] August 10, 2023 11:47am Note Date/Time August 10, 2023 1 1:44am [facility] Medical Records Department [address] [place] [address] Instructions for Home/Discharge Instructions 08/10/23 1143 MR#: [id number] Acct: [id number] Name: SHASTA MARTINEZ Rep #:[id number] : 1960 62 From: Chante Josue MD PCP: Dr. Greta Edmond, Status:ADM IN Discharge Instructions Diet Discharge Diet: - (DASH diet) Follow Up Care Test Results: Test results from this visit will be discussed in further detail at your follow- up appointment, if applicable. Discharge Plan Admission Admit Date/Time: 08/08/23 21:56 Primary Reason for Your Visit: Chest pain, STEMI Attending Provider: Chante Josue Primary Care Provider: Greta Edmond Consulting Providers: Cristiano Rajput; Rubio Ye Instructions Patient Instructions: Heart Attack Dc, Heart Attack Meds, Heart Attack Questions, Heart Attack: Leaving the Hospital, Heart Attack: Back at Home Additional Instructions / Restrictions: DISCHARGE INSTRUCTIONS PLEASE READ *Please take this with you to your next doctors appointment* -Your atorvastatin has been increased to 40 mg daily, new prescription was sent to your preferred pharmacy on file -You will also need to take an 81 mg aspirin daily, metoprolol 12.5 mg twice daily, lisinopril 2.5 mg twice daily, and Brilinta 90 mg twice daily. -Any newly prescribed medications have been sent to your preferred pharmacy on file -You will need to follow-up with cardiology upon discharge, please call the office of Dr. Saunders's office upon discharge to schedule your hospital follow-up appointment ( [phone]) -Do only light and easy activities for 2 to 3 days after your stent placement, ask for help with chores and errands while you recover and have someone drive you to your appointments. -Unless your job involves lifting you may return to normal activities within 2 days -Please take your medications as prescribed, do not skip doses -Check your incisions every day for signs of infection which would include redness, swelling, leaking. It is normal to have a small bruise or bump where the catheter was placed but a bruise that is getting larger is not normal. Please tell your healthcare team about this. Please proceed to the emergency department if you have uncontrollable bleeding from the site. -It is important to eat a diet that is low in fat, salt, and cholesterol -You will be set up with cardiac rehab upon discharge, it is important that you follow-up -Okay to shower from the day after your heart catheterization but keep your incision site clean and dry. -Please call your primary care provider's office upon discharge to schedule a hospital follow up within 1 week. -For any concerning signs or symptoms please call 911 or proceed to the nearest emergency department Discharge Orders/Prescriptions Prescriptions: New atorvastatin 40 mg Tablet 40 mg PO QHS 30 Days Qty: 30 0RF aspirin 81 mg Tablet,Delayed Release (Dr/Ec) 81 mg PO DAILY 30 Days Qty: 30 0RF lisinopril 2.5 mg Tablet 2.5 mg PO DAILY 30 Days Qty: 30 0RF metoprolol tartrate 25 mg Tablet 12.5 mg PO BID 30 Days Qty: 30 0RF Brilinta 90 mg Tablet 90 mg PO BID 30 Days Qty: 60 0RF Continued estradiol [Vagifem] 10 mcg tablet 10 mcg vaginal 2XW Qty: 8 12RF Rx Instructions: To start after using nightly x2w Osphena 60 mg tablet 60 mg PO DAILY Qty: 90 4RF Rx Instructions: must administer with food, preferably a high-fat meal hydrocortisone [Proctozone-HC] 2.5 % cream with perineal applicator 1 applic PA BID-QID PRN (Reason: hemorrhoids) Qty: 30 0RF cholecalciferol (vitamin D3) 125 mcg (5,000 unit) capsule 5,000 unit PO .3/week metformin 1,000 mg tablet 1,000 mg PO BID Qty: 180 3RF levothyroxine [Synthroid] 100 mcg tablet 100 mcg PO DAILY Qty: 30 0RF Discontinued estradiol 0.01 % (0.1 mg/gram) cream 1 g vaginal 2XW Qty: 42.5 3RF clobetasol 0.05 % cream 1 applic topical BID 84 Days Qty: 30 6RF atorvastatin 20 mg tablet 20 mg PO DAILY Qty: 90 3RF Referrals / Follow Up: Bob Saunders MD [Med Staff - Active Staff] - Within 1 Month Greta Edmond DO [Primary Care Provider] - Within 1 Week Disposition Disposition (needs filled in before D/C Order can be placed): Home, Self Care 08/10/23 1147<Electronically signed by Chante Josue MD>Chante Josue MD CC: Dr. Cristiano Rajput MD; Dr. Greta Emdond DO; Dr. Rubio Ye MD ~ Signed [facility] Work Phone: Discharge summary Author Chante Josue [facility] August 10, 2023 11:51am Note Date/Time August 10, 2023 1 1:51am [facility] Medical Records Department [address] [place] [address] Discharge Summary 08/10/23 1147 MR#: [id number] Acct: [id number] Name: SHASTA MARTINEZ Rep #:[id number] : 1960 62 From: Chante Josue MD PCP: Dr. Greta Edmond DO Status:ADM IN [facility] Providers Date of Admission: 08/08/23 Date of Discharge: 08/10/23 Primary Care Physician: Dr. Greta Edmond DO Consultations 08/09/23 02:14 Consult: Cardiology Routine Consulting Provider: Rubio Ye Reason for Consult: STEMI EMERGENT Consult: Yes MD Notified: Yes Date Notified: 08/09/23 Time Notified: 02:15 Method of Notification: ED Physician Initiated Method of Consult:: In-Person Reason For Visit: STEMI Diagnosis Discharge Diagnosis (1) STEMI (ST elevation myocardial infarction): Status: Acute Code(s): I21.3 - ST elevation (STEMI) myocardial infarction of unspecified site Qualifiers: Involved coronary artery: LAD coronary artery Qualified Code(s): I21.02- ST elevation (STEMI) myocardial infarction involving left anterior descending coronary artery (2) Diabetes type 2, controlled: Status: Acute Code(s): E11.9 - Type 2 diabetes mellitus without complications Qualifiers: Diabetes mellitus jail insulin use: without jail use Diabetesmellitus complication status: without complication Qualified Code(s): E11.9 - Type 2 diabetes mellitus without complications (3) Medullary thyroid carcinoma: Status: Chronic Code(s): C73 - Malignant neoplasm of thyroid gland (4) Stented coronary artery: Status: Acute Code(s): Z95.5 - Presence of coronary angioplasty implant and graft (5) (HFpEF) heart failure with preserved ejection fraction: Status: Acute Code(s): I50.30 - Unspecified diastolic (congestive) heart failure Plan #STEMI Treated with HOWARD to LAD and PTCA of ostial diagonal #Hypothyroidism after thyroidectomy secondary to medullary thyroid carcinoma #Type 2 diabetes mellitus Medications at Discharge Home Medications cholecalciferol (vitamin D3) 125 mcg (5,000 unit) capsule 5,000 unit PO .3/week 10/12/20 Vagifem 10 mcg vaginal tablet (estradiol) 10 mcg vaginal 2XW #8 tabs 02/24/21 metformin 1,000 mg tablet 1,000 mg PO BID #180 tabs 08/03/22 ospemifene 60 mg tablet (Osphena) 60 mg PO DAILY #90 tabs 06/29/23 Synthroid 100 mcg tablet (levothyroxine) 100 mcg PO DAILY #30 tabs 07/27/23 hydrocortisone 2.5 % topical cream with perineal applicator (Proctozone-HC) 1 applic PA BID-QID PRN hemorrhoids #30 grams 07/28/23 aspirin 81 mg tablet,delayed release 81 mg PO DAILY 30 days #30 tabs 08/10/23 atorvastatin 40 mg tablet 40 mg PO QHS 30 days #30 tabs 08/10/23 lisinopril 2.5 mg tablet 2.5 mg PO DAILY 30 days #30 tabs 08/10/23 metoprolol tartrate 25 mg tablet 12.5 mg (1/2 x 25 mg) PO BID 30 days #30 tabs 08/10/23 ticagrelor 90 mg tablet (Brilinta) 90 mg PO BID 30 days #60 tabs 08/10/23 Hospital Course Procedures Cardiac catheterization (w/ stenting) and Transthoracic echo Summary of Care Provided Minutes Spent on Discharge: 35 Hospital Course: SHASTA MARTINEZ, is a 62 F with a significant history of medullary thyroid carcinoma status post thyroidectomy; diabetes mellitus; and hyperlipidemia who noted that ED 08/08/2023 with substernal chest pain and was found to have a STEMI. EKG showed ST elevations in leads V3,- V6; 1 and aVL with reciprocals in inferior leads. Taken to [facility] emergently and treated with HOWARD to LAD and PTCA of ostial diagonal 1. Did well postop, echocardiogram with EF 55%, stage 1diastolic dysfunction and regional wallmotion abdn. Patient started on aspirin,Brilinta, beta-garo, lisinopril, statin increased. Cardiology cleared patient for discharge. Discharge instructions as followed: DISCHARGE INSTRUCTIONS PLEASE READ *Please take this with you to your next doctors appointment* -Your atorvastatin has been increased to 40 mg daily, new prescription was sent to your preferred pharmacy on file -You will also need to take an 81 mg aspirin daily, metoprolol 12.5 mg twice daily, lisinopril 2.5 mg twice daily, and Brilinta 90 mg twice daily. -Any newly prescribed medications have been sent to your preferred pharmacy on file -You will need to follow-up with cardiology upon discharge, please call the office of Dr. Saunders's office upon discharge to schedule your hospital follow-up appointment ( [phone]) -Do only light and easy activities for 2 to 3 days after your stent placement, ask for help with chores and errands while you recover and have someone drive you to your appointments. -Unless your job involves lifting you may return to normal activities within 2 days -Please take your medications as prescribed, do not skip doses -Check your incisions every day for signs of infection which would include redness, swelling, leaking. It is normal to have a small bruise or bump where the catheter was placed but a bruise that is getting larger is not normal. Please tell your healthcare team about this. Please proceed to the emergency department if you have uncontrollable bleeding from the site. -It is important to eat a diet that is low in fat, salt, and cholesterol -You will be set up with cardiac rehab upon discharge, it is important that you follow-up -Okay to shower from the day after your heart catheterization but keep your incision site clean and dry. -Please call your primary care provider's office upon discharge to schedule a hospital follow up within 1 week. -For any concerning signs or symptoms please call 911 or proceed to the nearest emergency department Physical Exam Narrative General: Alert, oriented, no apparent distress HEENT: Atraumatic, normocephalic Eyes: Anicteric, normal conjunctiva, extraocular movements grossly intact Neck: Supple Respiratory: Clear to auscultation bilaterally, normal respiratory effort Cardiovascular: Regular rate and rhythm GI: Soft, nontender, nondistended Extremities: No edema Musculoskeletal: Moving all extremities Neuro: No overt focal neurological deficits Skin: No rashes appreciated Psych: Cooperative Weight / BMI Weight Weight: 63.6 kg Body Mass Index (BMI) 23.3 ABG / Lab / Microbiology Data 08/10/23 04:44 08/10/23 04:44 Laboratory: Laboratory Results - last 24 hr 08/08/23 21:36: Diff Path Review Reviewed 08/10/23 04:44: WBC 9.7, RBC 4.51, Hgb 12.9, Hct 41.1, MCV 91.1, MCH 28.6, MCHC 31.4 L, RDW Std Deviation 47.3 H, RDW Coeff of Josef 14.0, Plt Count 247, MPV 10.2, Immature Gran % (Auto) 0.200, Neut % (Auto) 67.0, Lymph % (Auto) 15.9 L, York % (Auto) 11.0 H, Eos % (Auto) 5.4 H, Baso % (Auto) 0.5, Absolute Neuts (auto) 6.5, Absolute Lymphs (auto) 1.54, Nucleated RBC % 0, Sodium 141, Potassium 3.7, Chloride 113 H, Carbon Dioxide 22.0, Anion Gap 6, BUN 9, Creatinine 0.71, Estim Creat Clear Calc 72.98, Est GFR (MDRD) Af Amer 107, Est GFR (MDRD) Non-Af 88, BUN/Creatinine Ratio 12.7, Glucose 108 H, Calcium 8.7 Radiography Diagnostic Testing: Radiology Impression Echocardiogram 08/08/23 23:49 Interpretation Summary Normal LV size. The left ventricular ejection fraction is 55 %. There are regional wall motion abnormalities as specified. Stage 1 diastolic dysfunction. Pulmonary artery systolic pressure is 32 mmHg. Contrast injection was performed. Ordering Physician: Rubio Ye Referring Physician: Greta Edmond Performed By: Jason Beauchamp RCS D/C Instructions Discharge Diet: - (DASH diet) Meaningful Use Info Meaningful Use Diagnoses (Choose all that apply): AMI AMI/Post PCI/Angioplasty Aspirin given w/in 24hrs of arrival?: Yes ASA at discharge?: Yes Antiplatelet Therapy at Discharge:: Yes Statins at discharge?: Yes Maurizio/ARB at discharge?: Yes Beta Garo at discharge?: Yes Done w/ Acute WI measure.: Yes Documented LVEF (%): 55 Discharge Plan Admission Admit Date/Time: 08/08/23 21:56 Primary Reason for Your Visit: Chest pain, STEMI Attending Provider: Chante Josue Primary Care Provider: Greta Edmond Consulting Providers: Cristiano Rajput; Rubio Ye Instructions Patient Instructions: Heart Attack Dc, Heart Attack Meds, Heart Attack Questions, Heart Attack: Leaving the Hospital, Heart Attack: Back at Home Additional Instructions / Restrictions: DISCHARGE INSTRUCTIONS PLEASE READ *Please take this with you to your next doctors appointment* -Your atorvastatin has been increased to 40 mg daily, new prescription was sent to your preferred pharmacy on file -You will also need to take an 81 mg aspirin daily, metoprolol 12.5 mg twice daily, lisinopril 2.5 mg twice daily, and Brilinta 90 mg twice daily. -Any newly prescribed medications have been sent to your preferred pharmacy on file -You will need to follow-up with cardiology upon discharge, please call the office of Dr. Saunders's office upon discharge to schedule your hospital follow-up appointment ) -Do only light and easy activities for 2 to 3 days after your stent placement, ask for help with chores and errands while you recover and have someone drive you to your appointments. -Unless your job involves lifting you may return to normal activities within 2 days -Please take your medications as prescribed, do not skip doses -Check your incisions every day for signs of infection which would include redness, swelling, leaking. It is normal to have a small bruise or bump where the catheter was placed but a bruise that is getting larger is not normal. Please tell your healthcare team about this. Please proceed to the emergency department if you have uncontrollable bleeding from the site. -It is important to eat a diet that is low in fat, salt, and cholesterol -You will be set up with cardiac rehab upon discharge, it is important that you follow-up -Okay to shower from the day after your heart catheterization but keep your incision site clean and dry. -Please call your primary care provider's office upon discharge to schedule a hospital follow up within 1 week. -For any concerning signs or symptoms please call 911 or proceed to the nearest emergency department Discharge Orders/Prescriptions Prescriptions: New atorvastatin 40 mg Tablet 40 mg PO QHS 30 Days Qty: 30 0RF aspirin 81 mg Tablet,Delayed Release (Dr/Ec) 81 mg PO DAILY 30 Days Qty: 30 0RF lisinopril 2.5 mg Tablet 2.5 mg PO DAILY 30 Days Qty: 30 0RF metoprolol tartrate 25 mg Tablet 12.5 mg PO BID 30 Days Qty: 30 0RF Brilinta 90 mg Tablet 90 mg PO BID 30 Days Qty: 60 0RF Continued estradiol [Vagifem] 10 mcg tablet 10 mcg vaginal 2XW Qty: 8 12RF Rx Instructions: To start after using nightly x2w Osphena 60 mg tablet 60 mg PO DAILY Qty: 90 4RF Rx Instructions: must administer with food, preferably a high-fat meal hydrocortisone [Proctozone-HC] 2.5 % cream with perineal applicator 1 applic PA BID-QID PRN (Reason: hemorrhoids) Qty: 30 0RF cholecalciferol (vitamin D3) 125 mcg (5,000 unit) capsule 5,000 unit PO .3/week metformin 1,000 mg tablet 1,000 mg PO BID Qty: 180 3RF levothyroxine [Synthroid] 100 mcg tablet 100 mcg PO DAILY Qty: 30 0RF Discontinued estradiol 0.01 % (0.1 mg/gram) cream 1 g vaginal 2XW Qty: 42.5 3RF clobetasol 0.05 % cream 1 applic topical BID 84 Days Qty: 30 6RF atorvastatin 20 mg tablet 20 mg PO DAILY Qty: 90 3RF Referrals / Follow Up: Bob Saunders MD [Med Staff - Active Staff] - Within 1 Month Greta Edmond DO [Primary Care Provider] - Within 1 Week Disposition Disposition (needs filled in before D/C Order can be placed): Home, Self Care Charges/Coding Visit Charges Inpatient E&M: 57973 Disch Hosp >30min 08/10/23 1151 <Electronically signed by Chante Josue MD> Cosigner Signature (if applicable): CC: Dr. Greta Edmond DO; Dr. Chante Josue MD~ Signed [facility] Work Phone: Evaluation note* Diagnosis Onset Date Resolution Status Diabetes type 2, controlled acute Hypothyroidism associated with surgical procedure acute Overweight (BMI 25.0-29.9) a cute Vitamin D deficiency acute Vulvar lesion acute Medullary thyroid carcinoma chronic Vulvar lesion acute [facility] Work Phone: Evaluation note* Diagnosis Onset Date Resolution Status Diabetes type 2, controlled acute Hypothyroidism associated with surgical procedure acute Overweight (BMI 25.0-29.9) a cute Vitamin D deficiency acute Medullary thyroid carcinoma chronic [facility] Work Phone: Evaluation noteNo assessment information available [facility] Work Phone: Evaluation note* Diagnosis Onset Date Resolution Status Encounter for routine gyneco logical examination noneactive Hemorrhoids acute (HFpEF) heart failure with p reserved ejection fraction acute Diabetes type 2, controlled acute Hypercholesterolemia acute STEMI (ST elevation myocardial infarction) July acute Stented coronary artery August 08, 2023 acute Medullary thyroid carcinoma chronic [facility] Work Phone: Evaluation note* Diagnosis Onset Date Resolution Status Encounter for routine gyneco logical examination noneactive Hemorrhoids acute (HFpEF) heart failure with p reserved ejection fraction acute Diabetes type 2, controlled acute Hypercholesterolemia acute Stented coronary artery August 08, 2023 acute Medullary thyroid carcinoma chronic STEMI (ST elevation myocardial infarction) July resolved [facility] Work Phone: Hospital Discharge instructionsAmbulatory Orders* Phase II, Outpatient Cardiac Rehab Location: None Selected [facility] Work Phone: Reason for referral (narrative)No reason for referral information [facility] Work Phone: Summary Purpose Family History Relationship Condition Age at Onset Recorded Date/T jeny Not Specified Diabetes mellitus Unknown Cardiac disease Unknown Myocardial infarction Unknown Malignant neoplasm Unknown Hypertension Unknown Advance Directives Advance Directive Response Recorded Date/ Time Living Will No August 08 11:31pm Power of Processor Grain No August 08, 2023 11:31pm Advance Directive Response Recorded Date/ Time Advance Directives on File No er 2022 8:13am Living Will No August 16 8:13am Power of Processor Grain No August 16, 2023 8:13am Advance Directive Response Recorded Date/ Time Advance Directives on File No 2022 7:13am Living Will No August 16 7:13am Power of Processor Grain No August 16, 2023 7:13am Advance Directive Response Recorded Date/ Time Living Will No August 16 8:13am Power of Processor Grain No August 16, 2023 8:13am Advance Directive Response Recorded Date/ Time Living Will No August 16 8:13am Do you have a Healthcare Power of Processor Grain? 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) Vulvar biopsy VULVAR LESION SCREENING Reason for Visit Diabetes type 2, con trolled Hypothyroidism associated with surgical procedure Overweight (BMI 25.0-29.9) Vitamin D deficiency Vulvar lesion Medullary thyroid carcinoma Vulvar lesion Chief Complaint PE DRUG SCREEN/GOODW ILL 1 Y FU E ORDER Reason for Visit Diabetes type 2, con trolled Hypothyroidism associated with surgical procedure Overweight (BMI 25.0-29.9) Vitamin D deficiency Medullary thyroid carcinoma Chief Complaint PE DRUG SCREEN/GOODW ILL 1 Y FU E ORDER POSTMENOPAUSAL Reason for Visit Diabetes type 2, con trolled Hypothyroidism associated with surgical procedure Overweight (BMI 25.0-29.9) Vitamin D deficiency Medullary thyroid carcinoma Chief Complaint SCREENING 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) THROMBOSED HEMORRHOIDS STEMI STEMI STEMI STEMI STEMI Reason for Visit Encounter for routin e gynecological examination Hemorrhoids (HFpEF) heart failure with preserved ejection fraction Diabetes type 2, controlled Hypercholesterolemia STEMI (ST elevation myocardial infarction) Stented coronary artery Medullary thyroid carcinoma Chief Complaint SCREENING 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) THROMBOSED HEMORRHOIDS STEMI STEMI STEMI STEMI STEMI STEMI, S/P PCI w/coronary stenting STEMI, PCI with coronary stent Reason for Visit Encounter for routin e gynecological examination Hemorrhoids (HFpEF) heart failure with preserved ejection fraction Diabetes type 2, controlled Hypercholesterolemia Stented coronary artery Medullary thyroid carcinoma STEMI (ST elevation myocardial infarction) Chief Complaint SCREENING 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) THROMBOSED HEMORRHOIDS STEMI STEMI STEMI STEMI STEMI STEMI, S/P PCI w/coronary stenting 1 Y FU S/P [facility] 08/08 E-ORDER STEMI, PCI with coronary stent Reason for Visit Encounter for routin e gynecological examination Hemorrhoids (HFpEF) heart failure with preserved ejection fraction Hypercholesterolemia Stented coronary artery Diabetes type 2, controlled Medullary thyroid carcinoma STEMI (ST elevation myocardial infarction) Diabetes type 2, controlled Hypothyroidism associated with surgical procedure Thyroid cancer (HFpEF) heart failure with preserved ejection fraction Hypercholesterolemia Stented coronary artery Chief Complaint SCREENING 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) THROMBOSED HEMORRHOIDS STEMI STEMI STEMI STEMI STEMI STEMI, S/P PCI w/coronary stenting 1 Y FU S/P [facility] 08/08 E-ORDER STEMI, PCI with coronary stent STEMI, PCI with coronary stent Reason for Visit Encounter for routin e gynecological examination Hemorrhoids (HFpEF) heart failure with preserved ejection fraction Hypercholesterolemia Stented coronary artery Diabetes type 2, controlled Medullary thyroid carcinoma STEMI (ST elevation myocardial infarction) Diabetes type 2, controlled Hypothyroidism associated with surgical procedure Thyroid cancer (HFpEF) heart failure with preserved ejection fraction Hypercholesterolemia Stented coronary artery Chief 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) THROMBOSED HEMORRHOIDS STEMI STEMI STEMI STEMI STEMI STEMI, S/P PCI w/coronary stenting 1 Y FU S/P [facility] 08/08 E-ORDER STEMI, PCI with coronary stent STEMI, PCI with coronary stent Reason for Visit Encounter for routin e gynecological examination Hemorrhoids (HFpEF) heart failure with preserved ejection fraction Hypercholesterolemia Stented coronary artery Diabetes type 2, controlled Medullary thyroid carcinoma STEMI (ST elevation myocardial infarction) Diabetes type 2, controlled Hypothyroidism associated with surgical procedure Thyroid cancer (HFpEF) heart failure with preserved ejection fraction Hypercholesterolemia Stented coronary artery Chief 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) THROMBOSED HEMORRHOIDS STEMI STEMI STEMI STEMI STEMI STEMI, S/P PCI w/coronary stenting 1 Y FU S/P [facility] 08/08 E-ORDER STEMI, PCI with coronary stent STEMI, PCI with coronary stent STEMI, PCI with coronary stent Reason for Visit Encounter for routin e gynecological examination Hemorrhoids (HFpEF) heart failure with preserved ejection fraction Hypercholesterolemia Stented coronary artery Diabetes type 2, controlled Medullary thyroid carcinoma STEMI (ST elevation myocardial infarction) Diabetes type 2, controlled Hypothyroidism associated with surgical procedure Thyroid cancer (HFpEF) heart failure with preserved ejection fraction Hypercholesterolemia Stented coronary artery Chief Complaint THROMBOSED HEMORRHOI DS STEMI STEMI STEMI STEMI STEMI STEMI, S/P PCI w/coronary stenting 1 Y FU S/P [facility] 08/08 E-ORDER STEMI, PCI with coronary stent STEMI, PCI with coronary stent STEMI, PCI with coronary stent Reason for Visit Hemorrhoids (HFpEF) heart failure with preserved ejection fraction Hypercholesterolemia Stented coronary artery Diabetes type 2, controlled Medullary thyroid carcinoma STEMI (ST elevation myocardial infarction) Diabetes type 2, controlled Hypothyroidism associated with surgical procedure Thyroid cancer (HFpEF) heart failure with preserved ejection fraction Hypercholesterolemia Stented coronary artery Chief Complaint STEMI STEMI STEMI STEMI STEMI STEMI, S/P PCI w/coronary stenting 1 Y FU S/P [facility] 08/08 E-ORDER STEMI, PCI with coronary stent STEMI, PCI with coronary stent STEMI, PCI with coronary stent 3 M FU INT LABS STEMI, PCI with coronary stent Reason for Visit (HFpEF) heart failur e with preserved ejection fraction Hypercholesterolemia Stented coronary artery Diabetes type 2, controlled Medullary thyroid carcinoma STEMI (ST elevation myocardial infarction) Diabetes type 2, controlled Hypothyroidism associated with surgical procedure Thyroid cancer (HFpEF) heart failure with preserved ejection fraction Hypercholesterolemia Stented coronary artery (HFpEF) heart failure with preserved ejection fraction Hypercholesterolemia SOB (shortness of breath) Stented coronary artery Chief Complaint STEMI, PCI with ruben nary stent STEMI, PCI with coronary stent 3 M FU INT LABS STEMI, PCI with coronary stent Pain in left knee Reason for Visit (HFpEF) heart failur e with preserved ejection fraction Hypercholesterolemia SOB (shortness of breath) Stented coronary artery Chief Complaint Admit Date 6 M FU December 04, 2024 3 :25pm INT LAB ORDER March 29, 2025 7:59a m Reason for Visit Admit Date (HFpEF) heart failure with preserved eje ction fraction December 04, 2024 3:25pm Stented coronary artery December 04 3:25pm Hypercholesterolemia December 04, 2024 3:25pm Additional Source Comments INFORMATION SOURCE (unrecogn ized section and content) DATE CREATED AUTHOR 11/08/2021 [facility] DATE CREATED AUTHOR AUTHOR'S ORGANIZ ATION 04/04/2025 [facility] Goals (unrecognized section and content) Goals may be documented in a n alternate sectionGoals may be documented in an alternate sectionGoals may be documented in an alternate sectionGoals may be documented in an alternate sectionGoals may be documented in an alternate sectionGoals may be documented in an alternate sectionGoals may be documented in an alternate section Care Teams (unrecognized sec tion and content) Team Status: Active Member Role Status Dates Dr. Jarad Murrell MD Family Provider Active Dr. Greta Edmond DO Primary Care Provider Active Team Status: Inactive Member Role Status Dates Dr. Greta Edmond DO Primary Care Provide r, Attending Provider, Referring Provider Active Team Status: Inactive Member Role Status Dates Dr. Greta Edmond DO Primary Care Provider, Referring P rovider Active Dr. Mita Mazariegos DO Attending Provider Activ e Team Status: Inactive Member Role Status Dates Dr. Greta Edmond DO Primary Care Provider, Referring P rovider Active Dr. Katherin Alcala MD Attending Provider Active Team Status: Active Member Role Status Dates Dr. Greta Edmond DO Primary Care Provider Active Dr. Rogerio Zhu DO Emergency Provider Active Dr. Cristiano Rajput MD Admit Provider, Other Provide r Active Dr. Rubio Ye MD Attending Provider, Refe rring Provider Active Team Status: Active Member Role Status Dates Dr. Greta Edmond DO Primary Care Provider Active Dr. Rogerio Zhu DO Emergency Provider Active Dr. Cristiano Rajput MD Admit Provider, Other Provide r Active Dr. Rubio Ye MD Referring Provider, Othe r Provider Active Dr. Chante Josue MD Attending Provider, Other Provid er Active Team Status: Active Member Role Status Dates Dr. Greta Edmond DO Primary Care Provider Active Dr. Bob Saunders MD Attending Provider Active Team Status: Active Member Role Status Dates Dr. Greta Edmond DO Primary Care Provider Active Dr. Rogerio Zhu DO Emergency Provider Active Dr. Cristiano Rajput MD Admit Provider, Other Provide r Active Dr. Rubio Ye MD Referring Provider, Othe r Provider Active Dr. Chante Josue MD Other Provider Active Dr. Bob Saunders MD Attending Provider Active Team Status: Inactive Member Role Status Dates Dr. Greta Edmond DO Primary Care Provider Active Dr. Mita Mazariegos DO Attending Provider, Refe rring Provider Active Team Status: Inactive Member Role Status Dates Dr. Greta Edmond DO Primary Care Provider Active Dr. Rogerio Zhu DO Emergency Provider Active Dr. Cristiano Rajput MD Admit Provider, Other Provide r Active Dr. Rubio Ye MD Referring Provider, Othe r Provider Active Dr. Chante Josue MD Attending Provider Active Team Status: Active Member Role Status Dates Dr. Greta Edmond DO Primary Care Provider Active Dr. Rogerio Zhu DO Emergency Provider Active Dr. Cristiano Rajput MD Admit Provider, Other Provide r Active Dr. Rubio Ye MD Other Provider Active Dr. Chante Josue MD Attending Provider, Other Provid er Active Team Status: Inactive Member Role Status Dates Dr. Greta Edmond DO Primary Care Provider Active Dr. Bob Saunders MD Attending Provider, Referring Pro vider Active Team Status: Active Member Role Status Dates Dr. Greta Edmond DO Primary Care Provider Active NUPUR HernandezC Attending Provider Active Team Status: Active Member Role Status Dates Dr. Greta Edmond DO Primary Care Provider Active Dr. Bob Saunders MD Attending Provider, Referring Pro vider Active Team Status: Inactive Member Role Status Dates Dr. Greta Edmond DO Primary Care Provider Active Trudi Holliday NP-C Attending Provider Active Team Status: Active Member Role Status Dates Dr. Jarad Murrell MD Family Provider Active Luiza Yee PROOF PASSER-C Primary Care Provider Active Team Status: Inactive Member Role Status Dates Dr. Jarad Murrell MD Referring Provider Active Dr. Bharath Raines MD Attending Provider Active Dr. Greta Edmond DO Primary Care Provider Active Team Status: Inactive Member Role Status Dates Dr. Greta Edmond DO Primary Care Provider, Referring P rovider Active Queta Moss PROOF PASSER, PROOF PASSER-C Attending Provider Active Team Status: Active Member Role Status Dates Luiza Yee PROOF PASSER-C Primary Care Provider Active Queta Moss PROOF PASSER, PROOF PASSER-C Attending Provider, Referring P rovider Active Team Status: Inactive Member Role Status Dates Luiza Yee PROOF PASSER-C Primary Care Provider Active Queta Moss PROOF PASSER, PROOF PASSER-C Attending Provider, Referring P rovider Active Team Status: Active Member Role Status Dates Dr. Bob Saunders MD Attending Provider, Referring Pro vider Active Luizalogan Yee , PROOF PASSER-C Primary Care Provider Active Team Status: Active Member Role Status Dates Luiza Yee PROOF PASSER-C Primary Care Provider Active Queta Moss PROOF PASSER, PROOF PASSER-C Attending Provider Active Team Status: Inactive Member Role Status Dates Dr. Bob Saunders MD Attending Provider, Referring Pro vider Active Luiza Yee , PROOF PASSER-C Primary Care Provider Active Team Status: Inactive Member Role Status Dates Luiza Yee , PROOF PASSER-C Primary Care Provider Active Dr. Bharath Raines MD Attending Provider, Referring Provi jesse Active Team Status: Inactive Member Role Status Dates Luiza Yee , PROOF PASSER-C Primary Care Provider Active Dr. Bob Saunders MD Attending Provider, Referring Pro vider Active Team Status: Inactive Member Role Status Dates Dr. Greta Edmond DO Referring Provider Active Queta Moss PROOF PASSER, PROOF PASSER-C Attending Provider Active Luizalogan Yee , PROOF PASSER-C Primary Care Provider Active Team Status: Inactive Member Role Status Dates Luiza Yee , PROOF PASSER-C Primary Care Provider Active Dr. Harjit Gordon DO Attending Provider, Referring P teodorader Active Team Status: Active Member Role Status Dates Luiza Joselito , PROOF PASSER-C Primary Care Provider Active Team Status: Inactive Member Role Status Dates Luizalogan Yee , PROOF PASSER-C Primary Care Provider Active Start: December 04, 2024 End: December 04, 2024 Luiza Yee , PROOF PASSER-C Referring Provider Active St art: December 04, 2024 End: December 04, 2024 Kaden Martin PROOF PASSER, PROOF PASSER-C Attending Provider Active S tart: December 04, 2024 End: December 04, 2024 Team Status: Inactive Member Role Status Dates Luiza Yee , PROOF PASSER-C Primary Care Provider Active Start: March 29, 2025 End: March 29, 2025 Trudi Holliday NP-Jesus Attending Provider Active Start: March 29, 2025 End: March 29, 2025 Trudi Holliday NP-Jesus Referring Provider Active Start: March 29, 2025 End: March 29, 2025 FOR RECORDS PERTAINING TO PATIENTS WHO ARE [...] BE BASED ON THE PRIMARY CLINICAL RECORDS. [email or web address] provides no warranty or guarantee of the accuracy or completeness of information in this document.
== END | disposition home or self-care (01) ==
LOC: RAD 14:24
PROVIDERS: PCP Nurse Practitioner Family; Referring Provider Nurse Practitioner Family; Visit Provider Nurse Practitioner Family
DX: M89.8X1 Other specified disorders of bone, shoulder (principal)
CPT/HCPCS: 73000

== ENCOUNTER → 2025-08-16 | Outpatient (CLI) | payer OTHER, SELFPAY ==
--- OUTSIDE RECORDS SUMMARY | 2025-08-16 08:12 | XMS RPT_ITS | CCD ---
Author Organization [facility] Care Team Providers Care Teacher Citizenship Name Role Phone Dr. Jarad Murrell Primary Care Provider Dr. Jarad Murrell Referring Provider Dr. Mita Mazariegso Attending Provider [phone] Dr. Jarad Murrell Primary Care Provider Dr. Jarad Murrell Referring Provider FER Jefferson Attending Provider Dr. Bharath Raines Attending Provider Dr. Jarad Murrell Primary Care Provider Dr. Jarad Murrell Referring Provider FER Jefferson Attending Provider Dr. Bharath Raines Attending Provider Dr. Greta Edmond Primary Care Provider Dr. Greta Edmond Referring Provider Dr. Mita Mazariegos Attending Provider Dr. Katheirn Alcala Attending Provider Dr. Rogerio Zhu Emergency Provider [phone] Cristiano Rajput Admit Provider Dr. Cristiano Rajput Other Provider Dr. Rubio Ye Attending Provider [phone] Dr. Rubio Ye Referring Provider [phone] Dr. Rubio Ye Other Provider Dr. Chante Josue Attending Provider Dr. Chante Josue Other Provider Dr. Bob Saunders Attending Provider [phone] Jarad Murrell Referring Provider Unavailable Dr. Bharath Raines Attending Provider Ajay PARDO, PROPERTY ASSISTANT-C Queta Attending Provider Feli, Dr. Hernandes Primary [...] Dr. Bharath Raines Attending Provider Ajay PARDO, PROPERTY ASSISTANT-C Queta Attending Provider PHILIPPE Yee Primary Care Provider Dr. Greta Edmond Primary Care Provider Feli, Dr. Hernandes Referring Provider Dr. Greta Edmond Primary Care Provider Dr. Grtea Edmond Referring Provider Dr. Greta Edmond Referring Provider [phone] Ajay PROPERTY ASSISTANT, PROPERTY ASSISTANT-C Queta Attending Provider Joselito, PROPERTY ASSISTANT-C Luiza Primary Care Provider Joselito PROPERTY ASSISTANT-C, Luiza Primary Care Provider Joselito PROPERTY ASSISTANT-C, Luiza Referring Provider Veronica PROPERTY ASSISTANT-C, Kaden Suh Attending Provider [phone] Mg PROPERTY ASSISTANT-C, Trudi Attending Provider [phone] Mg PROPERTY ASSISTANT-C, Trudi Referring Provider Joselito PROPERTY ASSISTANT-C, Luiza Primary Care Provider Joselito PROPERTY ASSISTANT-C, Luiza Attending Provider Joselito PROPERTY ASSISTANT-C, Luiza Referring Provider Veronica PROPERTY ASSISTANT-C, Kaden Suh Attending Provider Joselito, Luiza Primary Care Unavailable Bharath Raines Attending Unavailable Bharath Raines Referring Unavailable Joselito, Luiza Primary Care Unavailable Mita Mazariegos Attending Unavailabl Mita Jones Referring Unavailabl Greta Carr Referring Unavailable Bharath Raines Attending Unavailable Joselito, Luiza Primary Care Unavailable Joselito, Luiza Primary Care Unavailable Kaden Martin Attending Unavailable Joselito, Luiza Referring Unavailable Joselito, Luiza Referring Unavailable Bharath Raines Attending Unavailable Joselito, Luiza Primary Care Unavailable Joselito, Luiza Primary Care Unavailable Kaden Martin Attending Unavailable Joselito, Luiza Referring Unavailable Joselito, Luiza Primary Care Unavailable Mita Mazariegos Attending Unavailabl e Joselito, Luiza Referring Unavailable Joselito, Luiza Primary Care Unavailable Joselito, Luiza Attending Unavailable Joselito, Luiza Referring Unavailable Joselito, Luiza Primary Care Unavailable Trudi Holliday Attending Unavailable Trudi Holliday Referring Unavailable Allergies Allergy Classification Reported Allergen(s) Allergy Type Date of Onset Reaction(s) Facility (19 sources) house dust allergenic extract Drug Allergy 2 Unknown [facility] (19 sources) Mold Extract Drug Allergy 2 Unknown [facility] (4 sources) pet dander Allergy to substance 1 Unknown [facility] Work Phone: (16 sources) animal dander; Translations: [animal dander] Allergy to substance 2 NEEDS FOLLOW-UP, Sneezing, watery eyes [facility] (3 sources) Lisinopril Drug Allergy 5 Cough [facility] (1 source) house dust allergenic extract Drug Allergy 5 [facility] Repository (1 source) Lisinopril Drug Allergy 5 [facility] Repository (1 source) Mold Extract Drug Allergy 5 [facility] Repository Medications Current Medications Medication Drug Class(es) Dates Sig (Normalized) Sig (Original) atorvastatin 20 mg oral tablet (20 sources) HMG-CoA Reductase Inhibitor Start: 08-25-2023 End: 06-04-2025 take 1 tablet by mouth at bedtime Atorvastatin 20 mg tablet Active 20 mg PO AT BEDTIME 90 3 June 04, 2025 8:41am Start: 08-10-2023 End: 08-25-2023 take 1 tablet by mouth at bedtime Atorvastatin 40 mg Tablet Discontinued 40 mg PO AT BEDTIME 30 30 0 August 10, 2023 12:00am August 25, 2023 2:19pm Start: 11-12-2019 End: 08-10-2023 take 1 tablet by mouth once daily Atorvastatin 20 mg tablet Discontinued 20 mg PO DAILY 90 3 August 03, 2022 4:30pm August 10, 2023 8:56am cholecalciferol 0.125 mg oral capsule (20 sources) Vitamin D Start: 06-04-2025 take 1 capsule by mouth two times weekly Cholecalciferol (Vitamin D3) 125 mcg (5,000 unit) capsule Active 5000 U PO TWICE A WEEK June 04, 2025 8:13am Start: 12-04-2024 End: 06-04-2025 take 0.2 capsule by mouth every week Cholecalciferol (Vitamin D3) 125 mcg (5,000 unit) capsule Discontinued 5000 U PO .2 weekly December 04, 2024 4:37pm June 04, 2025 8:14am Start: 10-12-2020 End: 12-04-2024 Cholecalciferol (Vitamin D3) 125 mcg (5,000 unit) capsule Discontinued 5000 U PO .3/week October 12, 2020 8:57am December 04, 2024 4:37pm Start: 02-19-2018 End: 10-12-2020 take 1 capsule by mouth once daily Cholecalciferol (Vitamin D3) 5,000 unit capsule Discontinued 5000 U PO daily February 19, 2018 12:00am October 12, 2020 8:58am empagliflozin 25 mg oral tablet (15 sources) Sodium-Glucose Cotransporter 2 Inhibitor Start: 08-25-2023 End: 06-04-2025 take 1 tablet by mouth once daily Empagliflozin (Jardiance) 25 mg tablet Active 25 mg PO DAILY 90 June 04, 2025 8:41am metoprolol tartrate 25 mg oral tablet (20 sources) beta-Adrenergic Garo Start: 09-01-2023 End: 06-04-2025 take 1 tablet by mouth twice daily Metoprolol Tartrate 25 mg tablet Active 25 mg PO TWICE A DAY 180 June 04, 2025 8:41am Dose increased Start: 08-10-2023 End: 09-01-2023 Metoprolol Tartrate 25 mg ta blet Discontinued 12.5 mg PO TWICE A DAY 90 August 25, 2023 2:17pm September 01, 2023 5:01pm Start: 08-10-2023 End: 09-01-2023 take 12.5 mg by mouth twice daily Metoprolol Tartrate Discontinued 12.5 MG PO TWICE A DAY 90 August 25, 2023 2:17pm September 01, 2023 5:01pm vitamin b6 100 mg oral table t (15 sources) Start: 06-04-2025 Pyridoxine (Vi tamin B6) (Vitamin B-6) 100 mg tablet Active 50 mg PO 3 TIMES A WEEK June 04, 2025 12:00am Start: 05-23-2024 End: 06-04-2025 vitamin b6 Discontinued PO T WICE A WEEK May 23, 2024 8:29am June 04, 2025 8:14am 3x week Start: 05-23-2024 vitamin b6 Act meagan PO TWICE A WEEK May 23, 2024 8:29am 3x week Start: 08-25-2023 End: 05-23-2024 vitamin b6 Discontinued PO O ctober 2022 12:00am May 23, 2024 8:29am 3x week Start: 08-25-2023 vitamin b6 Act meagan PO August 24, 2023 11:00pm 3x week Start: 08-25-2023 vitamin b6 Act meagan PO August 25, 2023 12:00am 3x week Completed/Discontinued Medications Medication Drug Class(es) Dates Sig (Normalized) Sig (Original) aspirin 81 mg delayed release oral tablet (20 sources) Platelet Aggregation Inhibitor, Nonsteroidal Anti-inflammatory Drug Start: 08-10-2023 End: 06-04-2025 take 1 tablet by mouth once daily Aspirin 81 mg tablet,delayed release (DR/EC) Discontinued 81 mg PO DAILY June 04, 2025 8:42am June 04, 2025 8:42am clobetasol propionate 0.5 mg/ml topical cream (18 sources) Corticosteroid Start: 03-18-2022 End: 08-10-2023 Clobetasol 0.05 % cream Discontinued 1 NMA TOPICAL TWICE A DAY 30 84 6 March 18, 2022 12:00am August 10, 2023 8:56am estradiol 0.1 mg/ml vaginal cream (20 sources) Estrogen Start: 03-08-2022 End: 08-10-2023 Estradiol 0.01 % (0.1 mg/gram) cream Discontinued 1 g VAGINAL TWICE A WEEK 42.5 3 March 08, 2022 12:00am August 10, 2023 11:44am Start: 02-24-2021 End: 08-25-2023 Estradiol (Vagifem) 10 mcg t ablet Discontinued 10 ug VAGINAL TWICE A WEEK 8 February 24, 2021 12:00am August 25, 2023 8:10am To start after using nightly x2w Start: 02-24-2021 End: 03-10-2021 Estradiol (Vagifem) 10 mcg t ablet Discontinued 10 ug VAGINAL DAILY 14 14 0 February 24, 2021 12:00am March 09, 2021 12:00am March 10, 2021 12:02am Start: 02-24-2021 End: 08-25-2023 Estradiol (Vagifem) 10 mcg t ablet Discontinued 10 MCG VAGINAL TWICE A WEEK 8 February 24, 2021 12:00am August 25, 2023 [...] mcg tablet Discontinued 112 ug PO daily 30 November 28, 2019 8:23am October 12, 2020 8:57am KUSUM lisinopril 2.5 mg oral tablet (20 sources) Angiotensin Converting Enzyme Inhibitor Start: 08-10-2023 End: 12-04-2024 take 1 tablet by mouth once daily Lisinopril 2.5 mg tablet Discontinued 2.5 mg PO DAILY 90 August 25, 2023 2:16pm December 04, 2024 4:46pm On Hold: cough metFORMIN hydrochloride 1000 mg oral tablet (20 sources) Biguanide Start: 11-12-2019 End: 08-25-2023 take 1 tablet by mouth twice daily Metformin 1,000 mg tablet Discontinued 1000 mg PO TWICE A DAY 180 August 03, 2022 4:31pm August 25, 2023 8:20am Start: 02-19-2018 End: 11-12-2019 take 1 tablet by mouth once daily Metformin 500 mg tablet extended release 24hr Discontinued 500 mg PO daily 30 June 27, 2018 1:06pm November 12, 2019 4:57pm Type 2 diabetes mellitus without complications ospemifene 60 mg oral tablet (14 sources) Start: 06-29-2023 End: 11-27-2023 take 1 tablet by mouth once daily at mealtime Ospemifene (Osphena) 60 mg tablet Discontinued 60 mg PO DAILY 90 4 June 29, 2023 12:00am November 27, 2023 9:29am must administer with food, preferably a high-fat meal ticagrelor 90 mg oral tablet (20 sources) Start: 08-10-2023 End: 06-04-2025 take 1 tablet by mouth twice daily Ticagrelor (Brilinta) 90 mg tablet Discontinued 90 mg PO TWICE A DAY 180 August 12, 2024 9:26am June 04, 2025 8:40am Problems Active Problems Problem Classification Problem Date Documented Da te Episodic/Chronic Acute myocardial infarction (20 sources) Myocardial infarction; Translations: [ST elevation (STEMI) myocardial infarction of unspecified site] Onset: 08-08-2023 08-09-2023 Chronic Cancer of thyroid (20 sources) Medullary thyroid carcinoma; Translations: [Malignant neoplasm of thyroid gland] Onset: 08-11-2025 Chronic Cardiac dysrhythmias (7 sources) Tachycardia; Translations: [Tachycardia, unspecified] 10-16-2023 Episodic Complications of surgical procedures or medical care (20 sources) Postoperative hypothyroidism; Translations: [Postprocedural hypothyroidism] Onset: 08-11-2025 Chronic Congestive heart failure; nonhypertensive (20 sources) Heart failure with normal ejection fraction; Translations: [Unspecified diastolic (congestive) heart failure] 08-10-2023 Chronic Coronary atherosclerosis and other heart disease (14 sources) Coronary arteriosclerosis; Translations: [Atherosclerotic heart disease of sitka coronary artery without angina pectoris] Onset: 08-08-2023 08-09-2023 Chronic Diabetes mellitus without complication (20 sources) Type 2 diabetes mellitus; Translations: [Type 2 diabetes mellitus without complications] Onset: 08-11-2025 Chronic Disorders of lipid metabolism (20 sources) Hypercholesterolemia; Translations: [Pure hypercholesterolemia, unspecified] Onset: 08-11-2025 08-08-2023 Chronic Gastrointestinal hemorrhage (9 sources) Rectal hemorrhage; Translations: [Hemorrhage of anus and rectum] 09-13-2023 Episodic Hemorrhoids (20 sources) Hemorrhoids; Translations: [Unspecified hemorrhoids] 07-28-2023 Episodic Nutritional deficiencies (20 sources) Vitamin D deficiency; Translations: [Vitamin D deficiency, unspecified] Onset: 08-11-2025 Chronic Other bone disease and musculoskeletal deformities (1 source) Other specified disorders of bone density and structure, multiple sites; Translations: [Other specified disorders of bone density and structure, multiple sites] Onset: 08-11-2025 Episodic Other female genital disorders (19 sources) Lesion of vulva; Translations: [Other specified noninflammatory disorders of vulva and perineum] 03-01-2022 Episodic Other female genital disorders (4 sources) Other specified noninflammatory disorders of vulva and perineum; Translations: [Other specified noninflammatory disorders of vulva and perineum] Episodic Other gastrointestinal disorders (9 sources) Chronic constipation; Translations: [Other constipation] 09-13-2023 Episodic Other lower respiratory disease (6 sources) Dyspnea; Translations: [Shortness of breath] 11-27-2023 Episodic Other lower respiratory disease (3 sources) Shortness of breath; Translations: [Shortness of breath] 11-27-2023 Episodic Other nutritional; endocrine; and metabolic disorders (3 sources) Body mass index 25-29 - overweight 04-12-2021 [...] and PTCA of ostial Diagonal 1 Other bone disease and musculoskeletal deformities (1 source) Other specified disorders of bone, shoulder; Translations: [Other specified disorders of bone, shoulder] Onset: 04-11-2025 Episodic Other screening for suspected conditions (not mental disorders or infectious disease) (1 source) Encounter for screening mammogram for malignant neoplasm of breast; Translations: [Encounter for screening mammogram for malignant neoplasm of breast] Onset: 11-04-2024 Episodic Results Test Name Value Interpretation Reference Range Facility Endocrinology Visit Reporton 08-11-2025 Endocrinology Visit Report [facility] [address] [place] [address] [address] [place] [address] OFFICE VISIT Date of Service: 08/11/25 MR#: [id number] Acct: [id number] Name: SHASTA MARTINEZ Rep #: [id number] : 1960 Provider: Hannah Castillo Age/Sex: 64/F Location: [facility] Status: Signed Intake Vital Signs 08/23/24 07:58 06/04/25 08:11 08/11/25 08:23 Height 5 ft 5 in 5 ft 5 in 5 ft 5 in Weight: 134 lb 8 oz BMI 22.4 BP 111/70 Blood Pressure Location Rt brachial Position Sitting Pulse 84 Pulse Source Monitor Pulse Oximetry (%) 96 Oxygen Delivery Method room air Intake Visit Reasons: 1 Y FU Chief Complaint: Diabetes/Medullary thyroid cancer. Allergies animal dander Allergy (Unknown, Verified 08/11/25 08:28) Sneezing, watery eyes house dust Allergy (Unknown, Verified 08/11/25 08:28) Unknown mold Allergy (Unknown, Verified 08/11/25 08:28) Unknown lisinopril Adverse Reaction (Mild, Verified 08/11/25 08:28) Cough Medications ???Medication ???Instructions ???Recorded ???Confirmed ???Type aspirin 81 mg tablet,delayed 81 mg PO DAILY #90 tabs 06/04/25 1 Rx release atorvastatin 20 mg tablet 20 mg PO QHS #90 tabs 06/04/25 Rx cholecalciferol (vitamin D3) 125 5,000 unit PO 2XW 06/04/25 5 History mcg (5,000 unit) capsule pyridoxine (vitamin B6) 100 mg 50 mg PO 3XW 06/04/25 08/11/25 His tory tablet (Vitamin B-6) empagliflozin 25 mg tablet 25 mg PO DAILY #90 tabs 08/11/25 1 Rx (Jardiance) levothyroxine 100 mcg tablet 100 mcg PO DAILY #90 tabs 08/11/25 08/11/25 Rx (Synthroid) metoprolol tartrate 25 mg tablet 25 mg PO BID Dose increased #180 1 08/11/25 Rx tabs Have you fallen in the past year?: No [facility] Medical History Arteriosclerotic coronary artery disease (08/08/23) Overweight (BMI 25.0-29.9) Cervical high risk HPV (human papillomavirus) test positive Vitamin D deficiency GERD (gastroesophageal reflux disease) Pneumonia Hives High [...] Chief Complaint: Diabetes/Medullary thyroid cancer. Details: SHASTA MARTINEZ, is a 64 F who presents to the office today for follow up. A1C is 6.5% She is taking Jardiance 25 mg daily. She is due for labs. She has CAD with history of heart failure. She has history of medullary thyroid carcinoma. Following CEA levels. She has hyperlipidemia and is on a statin. Her cousin has a high lpa and she would like that checked. ROS Const Constitutional: No fatigue or weight change ENT ENT: No dizziness/vertigo Cardio Cardiology: No chest pain at rest, chest pain with exertion, shortness of breath or palpitations Skin Skin: No wounds Endo Endocrine: No fatigue or weight change Exam Const General: cooperative, healthy appearing, comfortable, [...] inspection Neck mass: No Thyroid: other (no palpable tissue) Carotids: no bruits Lymphatic: no lymphadenopathy noted Chest Chest palpation inspection: normal inspection of the chest Resp Effort Inspection: normal respiratory effort, able to speak in complete sentences, symmetric chest movement, no audible wheezes and no cough Auscultation: Bilateral: Clear to Auscultation Cardio Rate: regular rate Rhythm: regular rhythm Pulses: posterior tibial pulses present Skin General: no rashes or lesions noted Neuro Genera (more content not included)... Normal [facility] Cardiology Visit Reporton Cardiology Visit Report [facility] [address] [place] [address] OFFICE VISIT Date of Service: 06/04/25 MR#: [id number] Acct: [id number] Name: SHASTA MARTINEZ Rep #: [id number] : 1960 Provider: PHILIPPE biggs Age/Sex: 64/F Location: [facility] Status: Signed HPI HPI History of Present Illness Details: SHASTA MARTINEZ, is a 64 F who presents to the office today for a cardiovascular follow up visit. She had presented to emergency room with chest pain in July of 2023. Her EKG revealed anterolateral ST elevation MO. Patient underwent emergent coronary angiography which revealed 90% stenosis in the LAD diagonal 1 bifurcation. She was treated with drug-eluting stent to the LAD and PTCA alone of the ostial diagonal 1. She denies chest, arm, jaw, or neck discomfort. She denies palpitations. She denies bilateral lower extremity edema. She denies claudication. She states occasional shortness of breath with activity such with increased exertion or times of stress. She denies shortness of breath at rest, orthopnea, or PND. She denies chronic cough. She denies significant, sudden weight gain. She states dizziness with quick position changes. She denies lightheadedness, near-syncope, or syncope. She denies blood in urine, blood in stool, or epistaxis. He denies fever with chills. She denies myalgia. She denies fatigue. Her exercise level has remained stable. 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: No Accompanied by: Is patient in pain?: No Allergies animal dander Allergy (Unknown, Verified 06/04/25 08:12) Sneezing, watery eyes house dust Allergy (Unknown, Verified 06/04/25 08:12) Unknown mold Allergy (Unknown, Verified 06/04/25 08:12) Unknown lisinopril Adverse Reaction (Mild, Verified 06/04/25 08:12) Cough Medications ???Medication ???Instructions ???Recorded ???Confirmed ???Type levothyroxine 100 mcg tablet 100 mcg PO DAILY #90 tabs 08/23/24 06/04/25 Rx (Synthroid) aspirin 81 mg tablet,delayed 81 mg PO DAILY #90 tabs 06/04/25 0 06/04/25 Rx release atorvastatin 20 mg tablet 20 mg PO QHS #90 tabs 06/04/2504/23 Rx cholecalciferol (vitamin D3) 125 5,000 unit PO 2XW 06/04/25 5 History mcg (5,000 unit) capsule empagliflozin 25 mg tablet 25 mg PO DAILY #90 tabs 06/04/25 0 06/04/25 Rx (Jardiance) metoprolol tartrate 25 mg tablet 25 mg PO BID Dose increased #180 0 06/04/25 06/04/25 Rx tabs pyridoxine (vitamin B6) 100 mg 50 mg PO 3XW 06/04/25 06/04/25 His tory tablet (Vitamin B-6) Have you fallen in the past year?: [...] history: -Johan ROS Const Const: Negative for fatigue or weakness Eyes Eyes: Negative for change in vision ENT ENT: Positive for dizziness (Occasionally when bending over than standing up too quickly); Negative for balance problems Cardio Chest Pain: No Palpitations: No Edema: None Muscle aches with walking: None Resp Respiratory: Positive for SOB with activity (Occasionally with increased exertion or stress); Negative for SOB at rest or SOB orthopnea SOB lying down GI GI: Negative nausea or heartburn : Negative for hematuria or frequent nighttime urination/ nocturia Musc Musc: Negative for balance problems Skin Skin: Negative non-healing lesions or rash Neuro Neuro: Positive for dizziness (Occasionall (more content not included)... Normal [facility] Clavicleon 04-08-2025 Clavicle [facility] Imaging Services [address] [place], [place] [id number] Clavicle MR#: [id number] Acct: [id number] Name: SHASTA MARTINEZ VANDA Rep #: [id number] : 1960 F 64 From: Gio ramon MD PCP: PHILIPPE Altamirano Status: REG CLI Study: Clavicle Date of Exam: 04/08/25 Exam# [id number] Ordering Dr: Luiza Yee PROCEDURE: CLAVICLE 04/08/2025 REASON FOR EXAM: STERNOCLAVICULAR ARTHRITIS TECHNIQUE: 2 view(s) of each clavicle COMPARISON: None. 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 No associated erosive changes of the corresponding articular surface contour. No fracture or dislocation is seen. No lytic or blastic bone lesion is identified. Unremarkable acromioclavicular joint. 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 No associated erosive changes of the corresponding articular surface contour. 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 Results cannot be interpreted as absolute evidence of the presence or absence of malignant disease. Performed at: [facility] [id number] Inclinometer Tester: Jan Gonzalez PhD, Phone: [phone] Performed By: #### L [id number] ####[facility] [id number] [facility] [place], [address] Serum or plasma carcinoembry onic antigen measurement (mass/volume)Ordered By: Trudi Holliday on 03-29-2025 Carcinoembryonic Ag [Mass/Vol] 2.3 ng/mL 0.0-4.7 [facility] Comment on above: Nonsmokers <3.9 Smok ers <5.6[employer] Electrochemiluminescence Immunoassay(ECLIA)Values obtained with different assay methods or kitscannot be used interchangeably. Results cannot beinterpreted as absolute evidence of the presence orabsence of malignant disease.Performed at: [facility] [id number] Director: Jan Gonzalez PhD, Phone: [phone] Cardiology Visit Reporton Cardiology Visit Report [facility] [address] [facility]. [address] [place] [address] OFFICE VISIT Date of Service: 12/04/24 MR#: [id number] Acct: [id number] Name: SHASTA MARTINEZ Rep #: [id number] : 1960 Provider: PHILIPPE biggs Age/Sex: 64/F Location: [facility] Status: Signed HPI HPI History of Present Illness Details: SHASTA MARTINEZ, is a 64 F who presents to the office today for a cardiovascular follow up visit. She had presented to emergency room with chest pain in July of 2023. Her EKG revealed anterolateral ST elevation MO. 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 Normal [facility] Vitamin D,25 Hydroxyon 10-21 Vitamin D 25-OH 53.3 ng/mL Normal [facility] Comment on above: Result Comment: Dilcia min D 25(OH) Status Range Deficiency <20 ng/mL (50nmol/L) Insufficiency 20 - 30 ng/mL (50 - 75 nmol/L) Sufficiency 30 - 100 ng/mL (75 - 250 nmol/L) Toxicity >100 ng/mL (>250 nmol/L) Performed By: #### L 500.4100, L506.0400, L502.0250, L506.1000, L501.9520, L500.4050, L3100.2300 ####[facility] [id number]. [place], [place], [id number] Carcinoembryonic Antigenon 1 12-21-2023 CEA 3.1 ng/mL Normal 0.0-4.7 [facility] Comment on above: Result Comment: Nons mokers <3.9 Smokers <5.6 [facility] Electrochemiluminescence Immunoassay (ECLIA) Values obtained with different assay methods or kits cannot be used interchangeably. Results cannot be interpreted as absolute evidence of the presence or absence of malignant disease. Performed at: [address] [id number] Inclinometer Tester: Jan Gonzalez PhD, Phone: [phone] Performed By: #### L 500.4100, L506.0400, L502.0250, L506.1000, L501.9520, L500.4050, L3100.2300 ####[facility] [address] [place], [address] Comprehensive Metabolic Prof ilon 10-19-2024 Albumin [Mass/Vol] 3.6 g/dL Normal 3.2-5.0 [facility] Comment on above: Performed By: #### L 500.4100, L506.0400, L502.0250, L506.1000, L501.9520, L500.4050, L3100.2300 #### [facility] [address] [place], [address] Albumin/Globulin [Mass ratio] 1.0 {ratio} Normal 0.9-2.4 [facility] Comment on above: Performed By: #### L 500.4100, L506.0400, L502.0250, L506.1000, L501.9520, L500.4050, L3100.2300 #### [facility] [address] [place], [address] ALK P 82 U/L Normal 45-117 [facility] Comment on above: Performed By: #### L 500.4100, L506.0400, L502.0250, L506.1000, L501.9520, L500.4050, L3100.2300 #### [facility] [address] [place], [address] ALT [Catalytic activity/Vol] 25 U/L Normal 13-56 [facility] Comment on above: Performed By: #### L 500.4100, L506.0400, L502.0250, L506.1000, L501.9520, L500.4050, L3100.2300 #### [facility] [address] [place], [address] AST [Catalytic activity/Vol] 16 U/L Normal 15-37 [facility] Comment on above: Performed By: #### L 500.4100, L506.0400, L502.0250, L506.1000, L501.9520, L500.4050, L3100.2300 #### [facility] [address] [place], [address] Bilirubin [Mass/Vol] 0.50 mg/dL Normal 0.20-1.00 [facility] Comment on above: Result Comment: For patients on eltrombopag therapy, use of Dimension [place] TBIL is not recommended. Performed By: #### L 500.4100, L506.0400, L502.0250, L506.1000, L501.9520, L500.4050, L3100.2300 #### [facility] [address] [place], [address] BUN/CRE 21.6 RATIO High 10-20 [facility] Comment on above: Performed By: #### L 500.4100, L506.0400, L502.0250, L506.1000, L501.9520, L500.4050, L3100.2300 #### [facility] [address] [place], [address] CA,Total 9.1 mg/dL Normal 8.5-10.1 [facility] Comment on above: Performed By: #### L 500.4100, L506.0400, L502.0250, L506.1000, L501.9520, L500.4050, L3100.2300 #### [facility] [address] [place], [address] Chloride [Moles/Vol] 109 mmol/L High 98-107 [facility] Comment on above: Performed By: #### L 500.4100, L506.0400, L502.0250, L506.1000, L501.9520, L500.4050, L3100.2300 #### [facility] [address] [place], [address] CO2 [Moles/Vol] 27.0 mmol/L Normal 21.0-32.0 [facility] Comment on above: Performed By: #### L 500.4100, L506.0400, L502.0250, L506.1000, L501.9520, L500.4050, L3100.2300 #### [facility] [address] [place], [address] ([address] Creatinine [Mass/Vol] 0.83 mg/dL Normal 0.55-1.02 [facility] Comment on above: Result Comment: The validity of the calculated GFR GFRAA in patients over 70 years has not been determined. Clinical correlation is essential. Performed By: #### L 500.4100, L506.0400, L502.0250, L506.1000, L501.9520, L500.4050, L3100.2300 #### [facility] [address] [place], [address] (226 EST GFR - AA 89 mL/min Normal >60 [facility] Comment on above: Result Comment: Afri can Citizen Of [place] GFR Calc Performed By: #### L 500.4100, L506.0400, L502.0250, L506.1000, L501.9520, L500.4050, L3100.2300 #### [facility] [address] [place], [address] (531) GAP 4 Low 5-15 [facility] Comment on above: Performed By: #### L 500.4100, L506.0400, L502.0250, L506.1000, L501.9520, L500.4050, L3100.2300 #### [facility] [address] [place], [address] GFR/1.73 sq M.predicted among non-blacks MDRD (S/P/Bld) [Vol rate/Area] 73 mL/min/{1.73_m2} Normal >60 [facility] Comment on above: Result Comment: Non- GFR Calc Performed By: #### L 500.4100, L506.0400, L502.0250, L506.1000, L501.9520, L500.4050, L3100.2300 #### [facility] [address] [place], [address] Globulin (S) [Mass/Vol] 3.5 g/dL Normal 2.2-4.2 [facility] Comment on above: Performed By: #### L 500.4100, L506.0400, L502.0250, L506.1000, L501.9520, L500.4050, L3100.2300 #### [facility] [address] [place], [address] Glucose [Mass/Vol] 120 mg/dL High 74-106 [facility] Comment on above: Result Comment: Fast ing Glucose result from 100 to 125 mg/dL suggests IMPAIRED HOMEOSTASIS per A.D.A. criteria. Performed By: #### L 500.4100, L506.0400, L502.0250, L506.1000, L501.9520, L500.4050, L3100.2300 #### [facility] [address] [place], [address] Potassium [Moles/Vol] 4.0 mmol/L Normal 3.5-5.1 [facility] Comment on above: Performed By: #### L 500.4100, L506.0400, L502.0250, L506.1000, L501.9520, L500.4050, L3100.2300 #### [facility] [address] [place], [address] Sodium [Moles/Vol] 140 mmol/L Normal 136-145 [facility] Comment on above: Performed By: #### L 500.4100, L506.0400, L502.0250, L506.1000, L501.9520, L500.4050, L3100.2300 #### [facility] [address] [place], [address] T PROT 7.1 g/dL Normal 6.4-8.2 [facility] Comment on above: Performed By: #### L 500.4100, L506.0400, L502.0250, L506.1000, L501.9520, L500.4050, L3100.2300 #### [facility] [address] [place], [address] Urea nitrogen [Mass/Vol] 18 mg/dL Normal 7-18 [facility] Comment on above: Performed By: #### L 500.4100, L506.0400, L502.0250, L506.1000, L501.9520, L500.4050, L3100.2300 #### [facility] [address] [place], [address] Lipid Profileon 10-19-2024 Cholesterol [Mass/Vol] 145 mg/dL Normal 200 [facility] Comment on above: Result Comment: <200 mg/dL Desirable 200-240 mg/dL Borderline >240 mg/dL High Risk Performed By: #### L 500.4100, L506.0400, L502.0250, L506.1000, L501.9520, L500.4050, L3100.2300 #### [facility] [address] [place], [address] Cholesterol in HDL [Mass/Vol] 52 mg/dL Normal [facility] Comment on above: Result Comment: The drugs N-Acetylcysteine and Metamizole may falsely depress this assay. Reference Range HDL <40 mg/dL Low HDL Cholesterol HDL >or= 60 mg/dL High HDL Cholesterol Performed By: #### L 500.4100, L506.0400, L502.0250, L506.1000, L501.9520, L500.4050, L3100.2300 #### [facility] [address] [place], [place], [address] Cholesterol in LDL [Mass/Vol] 78 mg/dL Normal 0-130 [facility] Comment on above: Performed By: #### L 500.4100, L506.0400, L502.0250, L506.1000, L501.9520, L500.4050, L3100.2300 #### [facility] [address] [place], [address] Cholesterol in VLDL [Mass/Vol] 15 mg/dL Normal 5-40 [facility] Comment on above: Performed By: #### L 500.4100, L506.0400, L502.0250, L506.1000, L501.9520, L500.4050, L3100.2300 #### [facility] [address] [place], [address] Triglyceride [Mass/Vol] 74 mg/dL Normal [facility] Comment on above: Result Comment: The drugs N-Acetylcysteine and Metamizole may falsely depress this assay. Serum Triglycerides Reference Interval Normal <150 mg/dL Borderline high 150 - 199 mg/dL High 200 - 499 mg/dL Very High > or = 500 mg/dL Performed By: #### L 500.4100, L506.0400, L502.0250, L506.1000, L501.9520, L500.4050, L3100.2300 #### [facility] [address] [place], [address] Microalb:Creat Ratio,Random URon 10-19-2024 Creatinine [Mass/Vol] 53.80 mg/dL Normal NO RAN GE EST. [facility] Comment on above: Performed By: #### L 500.4100, L506.0400, L502.0250, L506.1000, L501.9520, L500.4050, L3100.2300 #### [facility] [address] [place], [address] MALB:CRE TNP Normal <30 mg/g CRE [facility] Comment on above: Performed By: #### L 500.4100, L506.0400, L502.0250, L506.1000, L501.9520, L500.4050, L3100.2300 #### [facility] [address] [place], [address] MICROALBUMIN,UR < 5.0 Normal NO RANGE EST. [facility] Comment on above: Performed By: #### L 500.4100, L506.0400, L502.0250, L506.1000, L501.9520, L500.4050, L3100.2300 #### [facility] [address] [place], [address] T4 Free Directon 10-19-2024 T4 FREE DIRECT 1.50 ng/dL High 0.76-1.46 [facility] Comment on above: Performed By: #### L 500.4100, L506.0400, L502.0250, L506.1000, L501.9520, L500.4050, L3100.2300 #### [facility] [address] [place], [address] Thyroid Stim Hormone (TSH)on 10-19-2024 TSH 0.365 uIU/mL Normal 0.358-3.740 [facility] Comment on above: Performed By: #### L 500.4100, L506.0400, L502.0250, L506.1000, L501.9520, L500.4050, L3100.2300 #### [facility] [address] [place], [address] SCRN MAMM (CAD)W/CHINTAN BILATo n 10-02-2024 SCRN MAMM (CAD)W/CHINTAN BILAT [facility] Imaging Services [address] [place] [address] SCRN MAMM (CAD)W/CHINTAN BILAT MR#: [id number] Acct: [id number] Name: SHASTA MARTINEZ Rep #: [id number] : 1960 F 64 From: Hugh geller MD PCP: PHILIPPE Altamirano Status: [facility] Study: SCRN MAMM (CAD)W/CHINTAN BILAT Date of Exam: 02/20 Exam# [id number] Ordering Dr: Mita Mazariegos DO [id number] MAMMOGRAPHY - BILATERAL SCREENING REASON FOR EXAM: [...] delay biopsy of a clinically suspicious abnormality. [id number] Electronically Signed: Hugh Schultz MD at 8:46 EST Reading Location ID and State: [facility] / [place] , Service support , CC: PHILIPPE Yee; Dr. 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 [address], [address] [place] [address] OFFICE VISIT Date of Service: 09/09/24 MR#: [id number] Acct: [id number] Name: SHASTA MARTINEZ Rep #: [id number] : 1960 Provider: Dr. Mita Iraheta DO Age/Sex: 63/F Location: 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 Female Reproductive History Questions: metorrhagia: [...] frequency, urinar (more content not included)... Normal [facility] Endocrinology Visit Reporton 08-23-2024 Endocrinology Visit Report [facility] [address] [place] [address] OFFICE VISIT Date of Service: 08/23/24 MR#: [id number] Acct: [id number] Name: SHASTA MARTINEZ VANDA Rep #: [id number] : 1960 Provider: Hannah Castillo Age/Sex: 63/F Location: [facility] Status: Signed Intake Vital Signs 08/25/23 08:07 [...] DAILY #90 tabs 08/23/24 08/23/24 Rx (Synthroid) [facility] Medical History Arteriosclerotic coronary artery disease (08/08/23) [...] Chief Complaint: Diabetes/Medullary thyroid cancer. Details: SHASTA MARTINEZ, is a 63 F [...] (no palp (more content not included)... Normal [facility] Absolute lymphocyte countOrd ered By: Queta Moss on 11-27-2023 Lymphocytes Auto (Unsp spec) [#/Vol] 1.04 10*3/uL 0.83-4.51 [facility] Automated lymphocyte count a s percentage of total leukocytesOrdered By: Queta Moss on 11-27-2023 Lymphocytes/100 WBC Auto (Unsp spec) 12.7 % 19-41 [facility] Basophil percentageOrdered B y: Queta Moss on 11-27-2023 Basophils/100 WBC (Bld) 1.0 % 0-1 [facility] Chloride [Moles/Vol] 111 mmol/L 98-107 [facility] Eosinophils/100 WBC (Bld) 3.6 % 0-5 [facility] Glucose [Mass/Vol] 121 mg/dL 74-106 [facility] Comment on above: Fasting Glucose resu lt from 100 to 125 mg/dL suggests IMPAIRED HOMEOSTASIS per A.D.A. criteria. Hemoglobin (Bld) [Mass/Vol] 14.4 g/dL 12.0-15.0 [facility] Monocytes/100 WBC (Bld) 9.1 % 0-10 [facility] Neutrophils (Bld) [#/Vol] 6.0 10*3/uL 2.0-7.7 [facility] Neutrophils/100 WBC (Bld) 73.2 % 47-70 [facility] Potassium [Moles/Vol] 4.3 mmol/L 3.5-5.1 [facility] Sodium [Moles/Vol] 139 mmol/L 136-145 [facility] WBC (Bld) [#/Vol] 8.2 10*3/uL 4.4-11.0 [facility] Determination of erythrocyte mean corpuscular volume (MCV)Ordered By: Queta Moss on 11-27-2023 MCV (RBC) [Entitic vol] 91.2 fL 81-99 [facility] Erythrocyte distribution wid th ratioOrdered By: Queta Moss on 11-27-2023 Erythrocyte distribution width (RBC) [Ratio] 13.8 % 11.6-14.6 [facility] Erythrocyte distribution wid th standard deviationOrdered By: Queta Moss on 11-27-2023 Erythrocyte distribution width (RBC) [Entitic vol] 46.5 fL 35.1-43.9 [facility] Hematocrit Auto (Bld) [Volum e fraction]Ordered By: Queta Moss on 11-27-2023 Hematocrit (Bld) [Volume fraction] 45.8 % 37-47 [facility] Immature granulocytes/100 WB C Auto (Bld)Ordered By: Queta Moss on 11-27-2023 Immature granulocytes/100 WBC (Bld) 0.400 % 0.0-0.9 [facility] Comment on above: IG% - Immature Granu locytes (promyelocytes, myelocytes and metamyelocytes) > 1% indicates that a LEFT SHIFT is Present. Laboratory - Chemistry and C hemistry - challengeOrdered By: Qeuta Moss on 11-27-2023 CO2 [Moles/Vol] 24.0 mmol/L 21.0-32.0 [facility] Natriuretic peptide B (Bld) [Mass/Vol] 11.6 pg/mL 0-100 [facility] Urea nitrogen/Creatinine [Mass ratio] 18.1 mg/mg 10-20 [facility] Laboratory - Hematology and Cell countsOrdered By: Queta Moss on 11-27-2023 MCH (RBC) [Entitic mass] 28.7 pg 27.0-32.0 [facility] MCHC (RBC) [Mass/Vol] 31.4 g/dL 32-36 [facility] Nucleated RBC/100 WBC (Bld) [Ratio] 0 % 0-5 [facility] Platelets (Bld) [#/Vol] 308 10*3/uL 150-450 [facility] No Panel InformationOrdered By: Queat Moss on 11-27-2023 Estimated GFR (MDRD) Amer 77 mL/min >60 [facility] Comment on above: GFR Calc Estimated GFR (MDRD) Non-Af Amer 64 mL/min >60 [facility] Comment on above: Non- GFR Calc Platelet mean volume Dallin-Ec ker (Bld) [Entitic vol]Ordered By: Queta Moss on 11-27-2023 Platelet mean volume (Bld) [Entitic vol] 9.7 fL 6.2-12.0 [facility] RBC Auto (Bld) [#/Vol]Ordere d By: Queta Moss on 11-27-2023 RBC (Bld) [#/Vol] 5.02 10*6/uL 4.2-5.4 [facility] Serum or plasma calcium blayne urement (mass/volume)Ordered By: Queta Moss on 11-27-2023 Calcium [Mass/Vol] 9.3 mg/dL 8.5-10.1 [facility] Serum or plasma creatinine m easurement (mass/volume)Ordered By: Queta Moss on 11-27-2023 Creatinine [Mass/Vol] 0.94 mg/dL 0.55-1.02 [facility] Comment on above: The validity of the calculated GFR & GFRAA in patients over 70 years has not been determined. Clinical correlation is essential. Serum or plasma thyroid stim ulating hormone (TSH) measurement (units/volume)Ordered By: Bob Saunders on 11-27-2023 TSH Qn 0.47 uIU/mL 0.358-3.74 [facility] Serum or plasma urea nitroge n measurement (mass/volume)Ordered By: Queta Moss on 11-27-2023 Urea nitrogen [Mass/Vol] 17 mg/dL 7-18 [facility] Thin prep Papanicolaou smear with manual screeningOrdered By: Queta Moss on 11-27-2023 Thin prep Papanicolaou smear with manual screening 4 5-15 [facility] Basophil percentageOrdered B y: Bob Saunders on 10-16-2023 WBC (Bld) [#/Vol] 9.1 10*3/uL 4.4-11.0 [facility] Blood erythrocytes count (nu mber/volume)Ordered By: Bob Saunders on 10-16-2023 RBC (Bld) [#/Vol] 4.76 10*6/uL 4.2-5.4 [facility] Blood hemoglobin measurement (mass/volume)Ordered By: Bob Saunders on 10-16-2023 Hemoglobin (Bld) [Mass/Vol] 14.3 g/dL 12.0-15.0 [facility] Blood platelet mean volumeOr dered By: Bob Saunders on 10-16-2023 Platelet mean volume (Bld) [Entitic vol] 9.4 fL 6.2-12.0 [facility] Determination of erythrocyte mean corpuscular volume (MCV)Ordered By: Bob Saunders on 10-16-2023 MCV (RBC) [Entitic vol] 92.2 fL 81-99 [facility] Hematocrit Auto (Bld) [Volum e fraction]Ordered By: Bob Saunders on 10-16-2023 Hematocrit (Bld) [Volume fraction] 43.9 % 37-47 [facility] - Hematology and Cell countsOrdered By: Bob Saunders on 10-16-2023 Erythrocyte distribution width (RBC) [Entitic vol] 50.3 fL 35.1-43.9 [facility] Erythrocyte distribution width (RBC) [Ratio] 14.7 % 11.6-14.6 [facility] MCH (RBC) [Entitic mass] 30.0 pg 27.0-32.0 [facility] MCHC Auto (RBC) [Mass/Vol]Or dered By: Bob Saunders on 10-16-2023 MCHC (RBC) [Mass/Vol] 32.6 g/dL 32-36 [facility] No Panel InformationOrdered By: Bob Saunders on 10-16-2023 Thyroid Stimulating Hormone (TSH) 0.14 uIU/mL 0.358-3.74 [facility] Platelets bldOrdered By: Chun Saunders on 10-16-2023 Platelets (Bld) [#/Vol] 334 10*3/uL 150-450 [facility] Basophil percentageOrdered B y: Bharath Raines on 09-30-2023 Bilirubin [Mass/Vol] 0.50 mg/dL 0.20-1.00 [facility] Comment on above: For patients on eltr ombopag therapy, use of Dimension [place] TBIL is not recommended. Chloride [Moles/Vol] 113 mmol/L 98-107 [facility] Cholesterol [Mass/Vol] 140 mg/dL <200 [facility] Comment on above: <200 mg/dL Desirable 200-240 mg/dL Borderline >240 mg/dL High Risk Glucose [Mass/Vol] 117 mg/dL 74-106 [facility] Comment on above: Fasting Glucose resu lt from 100 to 125 mg/dL suggests IMPAIRED HOMEOSTASIS per A.D.A. criteria. Potassium [Moles/Vol] 4.1 mmol/L 3.5-5.1 [facility] Protein [Mass/Vol] 6.6 g/dL 6.4-8.2 [facility] Sodium [Moles/Vol] 143 mmol/L 136-145 [facility] Triglyceride [Mass/Vol] 99 mg/dL <199 [facility] Comment on above: The drugs N-Acetylcy steine and Metamizole may falsely depress this assay.Serum Triglycerides Reference Interval Normal <150 mg/dL Borderline high 150 - 199 mg/dL High 200 - 499 mg/dL Very High > or = 500 mg/dL Laboratory - Chemistry and C hemistry - challengeOrdered By: Bharath Raines on 09-30-2023 ALP [Catalytic activity/Vol] 54 U/L 45-117 [facility] ALT [Catalytic activity/Vol] 22 U/L 13-56 [facility] CO2 [Moles/Vol] 26.0 mmol/L 21.0-32.0 [facility] Globulin (S) [Mass/Vol] 3.3 g/dL 2.2-4.2 [facility] Urea nitrogen/Creatinine [Mass ratio] 12.8 mg/mg 10-20 [facility] No Panel InformationOrdered By: Bharath Raines on 09-30-2023 Carcinoembryonic Ag Serial Monitor Not Reportable [facility] Estimated GFR (MDRD) Amer 86 mL/min >60 [facility] Comment on above: GFR Calc Estimated GFR (MDRD) Non-Af Amer 71 mL/min >60 [facility] Comment on above: Non- GFR Calc Urine Microalbumin/Creatini ne Ratio 12.9 mg/g CRE <30 [facility] Vitamin D 25-Hydroxy 76.3 ng/mL [facility] Comment on above: Vitamin D 25(OH) Sta tus Range Deficiency <20 ng/mL (50nmol/L) Insufficiency 20 - 30 ng/mL (50 - 75 nmol/L) Sufficiency 30 - 100 ng/mL (75 - 250 nmol/L) Toxicity >100 ng/mL (>250 nmol/L) Serum or plasma albumin blayne urement (mass/volume)Ordered By: Bharath Raines on 09-30-2023 Albumin [Mass/Vol] 3.3 g/dL 3.2-5.0 [facility] Serum or plasma albumin/glob ulin mass ratioOrdered By: Bharath Raines on 09-30-2023 Albumin/Globulin [Mass ratio] 1.0 {ratio} 0.9-2.4 [facility] Serum or plasma calcium blayne urement (mass/volume)Ordered By: Bharath Raines on 09-30-2023 Calcium [Mass/Vol] 8.7 mg/dL 8.5-10.1 [facility] Serum or plasma carcinoembry onic antigen measurement (mass/volume)Ordered By: Bharath Raines on 09-30-2023 Carcinoembryonic Ag [Mass/Vol] 2.5 ng/mL 0.0-4.7 [facility] Comment on above: Nonsmokers <3.9 Smok ers <5.6[employer] Electrochemiluminescence Immunoassay(ECLIA)Values obtained with different assay methods or kitscannot be used interchangeably. Results cannot beinterpreted as absolute evidence of the presence orabsence of malignant disease.Performed at: [employer] [id number] Director: Jan Gonzalez PhD, Phone: [phone] Serum or plasma cholesterol in HDL measurement (mass/volume)Ordered By: Bharath Raines on 09-30-2023 Cholesterol in HDL [Mass/Vol] 37 mg/dL >40 [facility] Comment on above: The drugs N-Acetylcy steine and Metamizole may falsely depress this assay. Reference Range HDL <40 mg/dL Low HDL Cholesterol HDL >or= 60 mg/dL High HDL Cholesterol Serum or plasma cholesterol in VLDL measurement (mass/volume)Ordered By: Bharath Raines on 09-30-2023 Cholesterol in VLDL [Mass/Vol] 20 mg/dL 5-40 [facility] Serum or plasma creatinine m easurement (mass/volume)Ordered By: Bharath Raines on 09-30-2023 Creatinine [Mass/Vol] 0.86 mg/dL 0.55-1.02 [facility] Comment on above: The validity of the calculated GFR & GFRAA in patients over 70 years has not been determined. Clinical correlation is essential. Serum or plasma low density lipoprotein (LDL) cholesterol measurement (mass/volume)Ordered By: Bharath Raines on 09-30-2023 Cholesterol in LDL [Mass/Vol] 83 mg/dL 0-130 [facility] Serum or plasma urea nitroge n measurement (mass/volume)Ordered By: Bharath Raines on 09-30-2023 Urea nitrogen [Mass/Vol] 11 mg/dL 7-18 [facility] Thin prep Papanicolaou smear with manual screeningOrdered By: Bharath Raines on 09-30-2023 Thin prep Papanicolaou smear with manual screening 15 U/L 15-37 [facility] Thin prep Papanicolaou smear with manual screening 4 5-15 [facility] Thin prep Papanicolaou smear with manual screening 13.3 mg/L NO RANGE EST. [facility] Urine creatinine measurement (mass/volume)Ordered By: Bharath Raines on 09-30-2023 Creatinine (U) [Mass/Vol] 103.00 mg/dL NO RANGE EST. [facility] Basophil percentageOrdered B y: Queta Moss on 08-25-2023 Chloride [Moles/Vol] 105 mmol/L 98-107 [facility] Glucose [Mass/Vol] 95 mg/dL 74-106 [facility] Potassium [Moles/Vol] 4.1 mmol/L 3.5-5.1 [facility] Sodium [Moles/Vol] 136 mmol/L 136-145 [facility] Laboratory - Chemistry and C hemistry - challengeOrdered By: Queta Moss on 08-25-2023 CO2 [Moles/Vol] 25.0 mmol/L 21.0-32.0 [facility] Magnesium [Mass/Vol] 2.1 mg/dL 1.6-2.6 [facility] Urea nitrogen/Creatinine [Mass ratio] 14.7 mg/mg 10- [facility] Laboratory - Hematology and Cell countson 08-25-2023 HbA1c (Bld) [Mass fraction] 6.2 % 4.2-6.3 [facility] No Panel InformationOrdered By: Queta Moss on 08-25-2023 Estimated GFR (MDRD) Amer 91 mL/min >60 [facility] Comment on above: GFR Calc Estimated GFR (MDRD) Non-Af Amer 75 mL/min >60 [facility] Comment on above: Non- GFR Calc Serum or plasma calcium blayne urement (mass/volume)Ordered By: Queta Moss on 08-25-2023 Calcium [Mass/Vol] 9.0 mg/dL 8.5-10.1 [facility] Serum or plasma creatinine m easurement (mass/volume)Ordered By: Queta Moss on 08-25-2023 Creatinine [Mass/Vol] 0.82 mg/dL 0.55-1.02 [facility] Comment on above: The validity of the calculated GFR & GFRAA in patients over 70 years has not been determined. Clinical correlation is essential. Serum or plasma urea nitroge n measurement (mass/volume)Ordered By: Queta Moss on 08-25-2023 Urea nitrogen [Mass/Vol] 12 mg/dL 7-18 [facility] Thin prep Papanicolaou smear with manual screeningOrdered By: Queta Moss on 08-25-2023 Thin prep Papanicolaou smear with manual screening 6 - [facility] Laboratory - Chemistry and C hemistry - challengeOrdered By: Trudi Holliday on 08-19-2023 Free T4 [Mass/Vol] 1.29 ng/dL 0.76-1.46 [facility] No Panel InformationOrdered By: Trudi Holliday on 08-19-2023 Thyroid Stimulating Hormone (TSH) 1.13 uIU/mL 0.358-3.74 [facility] Absolute lymphocyte countOrd ered By: Chante Josue on 08-10-2023 Lymphocytes Auto (Unsp spec) [#/Vol] 1.54 10*3/uL 0.83-4.51 [facility] Basophil percentageOrdered B y: Chante Josue on 08-10-2023 Basophils/100 WBC (Bld) 0.5 % 0-1 [facility] Chloride [Moles/Vol] 113 mmol/L 98-107 [facility] Eosinophils/100 WBC (Bld) 5.4 % 0-5 [facility] Glucose [Mass/Vol] 108 mg/dL 74-106 [facility] Comment on above: Fasting Glucose resu lt from 100 to 125 mg/dL suggests IMPAIRED HOMEOSTASIS per A.D.A. criteria. Neutrophils (Bld) [#/Vol] 6.5 10*3/uL 2.0-7.7 [facility] Neutrophils/100 WBC (Bld) 67.0 % 47-70 [facility] Potassium [Moles/Vol] 3.7 mmol/L 3.5-5.1 [facility] Sodium [Moles/Vol] 141 mmol/L 136-145 [facility] WBC (Bld) [#/Vol] 9.7 10*3/uL 4.4-11.0 [facility] Blood erythrocytes count (nu mber/volume)Ordered By: Chante Josue on 08-10-2023 RBC (Bld) [#/Vol] 4.51 10*6/uL 4.2-5.4 [facility] Blood hemoglobin measurement (mass/volume)Ordered By: Chante Josue on 08-10-2023 Hemoglobin (Bld) [Mass/Vol] 12.9 g/dL 12.0-15.0 [facility] Blood lymphocytes/100 leukoc ytesOrdered By: Chante Josue on 08-10-2023 Lymphocytes/100 WBC (Bld) 15.9 % 19-41 [facility] Blood monocytes/100 leukocyt esOrdered By: Chante Josue on 08-10-2023 Monocytes/100 WBC (Bld) 11.0 % 0-10 [facility] Blood platelet mean volumeOr dered By: Chante Josue on 08-10-2023 Platelet mean volume (Bld) [Entitic vol] 10.2 fL 6.2-12.0 [facility] Determination of erythrocyte mean corpuscular volume (MCV)Ordered By: Chante Josue on 08-10-2023 MCV (RBC) [Entitic vol] 91.1 fL 81-99 [facility] Hematocrit Auto (Bld) [Volum e fraction]Ordered By: Chante Josue on 08-10-2023 Hematocrit (Bld) [Volume fraction] 41.1 % 37-47 [facility] Laboratory - Chemistry and C hemistry - challengeOrdered By: Chante Josue on 08-10-2023 CO2 [Moles/Vol] 22.0 mmol/L 21.0-32.0 [facility] Urea nitrogen/Creatinine [Mass ratio] 12.7 mg/mg 10-20 [facility] Laboratory - Hematology and Cell countsOrdered By: Chante Josue on 08-10-2023 Erythrocyte distribution width (RBC) [Entitic vol] 47.3 fL 35.1-43.9 [facility] Erythrocyte distribution width (RBC) [Ratio] 14.0 % 11.6-14.6 [facility] Immature granulocytes/100 WBC (Bld) 0.200 % 0.0-0.9 [facility] Comment on above: IG% - Immature Granu locytes (promyelocytes, myelocytes and metamyelocytes) > 1% indicates that a LEFT SHIFT is Present. MCH (RBC) [Entitic mass] 28.6 pg 27.0-32.0 [facility] Nucleated RBC/100 WBC (Bld) [Ratio] 0 % 0-5 [facility] MCHC Auto (RBC) [Mass/Vol]Or dered By: Chante Josue on 08-10-2023 MCHC (RBC) [Mass/Vol] 31.4 g/dL 32-36 [facility] No Panel InformationOrdered By: Chante Joseu on 08-10-2023 Estimated Creatinine Clearance Calc 72.98 ml/min [facility] Estimated GFR (MDRD) Amer 107 mL/min >60 [facility] Comment on above: GFR Calc Estimated GFR (MDRD) Non-Af Amer 88 mL/min >60 [facility] Comment on above: Non- GFR Calc Platelets bldOrdered By: Karely Josue on 08-10-2023 Platelets (Bld) [#/Vol] 247 10*3/uL 150-450 [facility] Serum or plasma calcium blayne urement (mass/volume)Ordered By: Chante Josue on 08-10-2023 Calcium [Mass/Vol] 8.7 mg/dL 8.5-10.1 [facility] Serum or plasma creatinine m easurement (mass/volume)Ordered By: Chante Josue on 08-10-2023 Creatinine [Mass/Vol] 0.71 mg/dL 0.55-1.02 [facility] Comment on above: The validity of the calculated GFR & GFRAA in patients over 70 years has not been determined. Clinical correlation is essential. Serum or plasma urea nitroge n measurement (mass/volume)Ordered By: Chante Josue on 08-10-2023 Urea nitrogen [Mass/Vol] 9 mg/dL 7-18 [facility] Thin prep Papanicolaou smear with manual screeningOrdered By: Chante Josue on 08-10-2023 Thin prep Papanicolaou smear with manual screening 6 5-15 [facility] Basophil percentageOrdered B y: Rubio Lrjb on 08-09-2023 Bilirubin [Mass/Vol] 0.20 mg/dL 0.20-1.00 [facility] Comment on above: For patients on eltr ombopag therapy, use of Dimension [place] TBIL is not recommended. Protein [Mass/Vol] 5.9 g/dL 6.4-8.2 [facility] Laboratory - Chemistry and C hemistry - challengeOrdered By: [facility] on 08-09-2023 ALP [Catalytic activity/Vol] 59 U/L 45-117 [facility] ALT [Catalytic activity/Vol] 14 U/L 13-56 [facility] Globulin (S) [Mass/Vol] 3.0 g/dL 2.2-4.2 [facility] No Panel InformationOrdered By: Cristiano Rajput on 08-09-2023 Troponin I High Sensitivity 42605 pg/mL 3.0-54.0 [facility] Comment on above: Critical Result(s) C alled at: 04:27:37 08/09/2023 by: James Horta RN ICU. Results read back by same. Please Note: New Test Units and Gender Specific Reference Ranges. For more information see Policy Stat Procedure [place] High Sensitivity Troponin (TNIH) and attachments. Serum or plasma albumin blayne urement (mass/volume)Ordered By: Rubio Ye on 08-09-2023 Albumin [Mass/Vol] 2.9 g/dL 3.2-5.0 [facility] Serum or plasma albumin/glob ulin mass ratioOrdered By: Rubio Ye on 08-09-2023 Albumin/Globulin [Mass ratio] 1.0 {ratio} 0.9-2.4 [facility] Thin prep Papanicolaou smear with manual screeningOrdered By: Rubio Ye on 08-09-2023 Thin prep Papanicolaou smear with manual screening 25 U/L 15-37 [facility] Blood manual differential co mment interpretation (narrative result)Ordered By: Rogerio Zhu on 08-08-2023 Manual differential comment Ortiz (Bld) [Interp] SCANNED [facility] Comment on above: MONOCYTOSIS NOTED INR in Blood by Coagulation assayOrdered By: Rogerio Zhu on 08-08-2023 INR Coag (Bld) [Relative time] 1.0 {INR} [facility] Laboratory - CoagulationOrde red By: Rogerio Zhu on 08-08-2023 aPTT Coag (Bld) [Time] 25.5 s 24.1-36.2 [facility] PT Coag (PPP) [Time] 13.7 s 11.7-14.9 [facility] Review by pathologistOrdered By: Roegrio Zhu on 08-08-2023 Pathologist review Ortiz (Unsp spec) [Interp] Reviewed [facility] Comment on above: Previous reported re sult: Mellisa benitez Edited by: HOMER on 08/09/23:1342Leukocytosis.Clinical correlation suggested.Alexander Morse D.O. 08/09/23 AMENDED REPORT 08/09/23 1342 PATH REV previously reported as: Mellisa benitez Culture, urineOrdered By: Dr Jenaro Edmond on 03-03-2023 Bacteria identified Cx Nom (U) Mixed Gram Pos & Gram Neg Org [facility] Basophil percentageon 2021 Bilirubin [Mass/Vol] 0.50 mg/dL 0.20-1.00 [facility] Work Phone: Comment on above: For patients on eltr ombopag therapy, use of Dimension [place] TBIL is not recommended. Chloride [Moles/Vol] 104 mmol/L 98-107 [facility] Work Phone: Cholesterol [Mass/Vol] 126 mg/dL <200 [facility] Work Phone: Comment on above: <200 mg/dL Desirable 200-240 mg/dL Borderline >240 mg/dL High Risk Glucose [Mass/Vol] 263 mg/dL 74-106 [facility] Work Phone: Comment on above: Glucose result great er than or equal to 200 mg/dLsuggests DIABETES MELLITUS per A.D.A. criteria. Potassium [Moles/Vol] 3.9 mmol/L 3.5-5.[address] [facility] [address] Work Phone: Protein [Mass/Vol] 7.1 g/dL 6.4-8.2 [facility] Work Phone: Sodium [Moles/Vol] 138 mmol/L 136-145 [facility] Work Phone: Triglyceride [Mass/Vol] 139 mg/dL <199 [facility] Work Phone: Comment on above: The drugs N-Acetylcy steine and Metamizole may falsely depress this assay.Serum Triglycerides Reference Interval Normal <150 mg/dL Borderline high 150 - 199 mg/dL High 200 - 499 mg/dL Very High > or = 500 mg/dL Laboratory - Chemistry and C hemistry - challengeon 08-27-2022 ALP [Catalytic activity/Vol] 80 U/L 45-117 [facility] Work Phone: ALT [Catalytic activity/Vol] 26 U/L 13-56 [facility] Work Phone: CO2 [Moles/Vol] 24.0 mmol/L 21.0-32.0 [facility] Work Phone: Free T4 [Mass/Vol] 1.42 ng/dL 0.76-1.46 [facility] Work Phone: Globulin (S) [Mass/Vol] 3.4 g/dL 2.2-4.2 [facility] Work Phone: Urea nitrogen/Creatinine [Mass ratio] 12.5 mg/mg 10-20 [facility] Work Phone: No Panel Informationon 08-27 Estimated GFR (MDRD) Amer 84 mL/min >60 [facility] Work Phone: Comment on above: GFR Calc Estimated GFR (MDRD) Non-Af Amer 69 mL/min >60 [facility] Work Phone: Comment on above: Non- GFR Calc Miscellaneous Test See comment [facility] Work Phone: Comment on above: TEST RESULT LIMITSCh romogranin AChromogranin A, 50.8 ng/mL 0.0-101.8Chromogranin A performed by [employer] methodology.Values obtained with different assay methods or kits cannot be used interchangeably.A: This test was developed and its performance characteristics determined by [facility]. It has not been cleared or approved by the Food and DrugAdministration. TESTING PERFORMED AT [facility]. ORIGINAL REPORT ON FILE IN LAB CONTAINS ADDITIONAL TEST SITE INFORMATION. Thyroid Stimulating Hormone (TSH) 0.51 uIU/mL 0.358-3.74 [facility] Work Phone: Urine Microalbumin/Creatini ne Ratio 5.5 mg/g CRE <30 [facility] Work Phone: Vitamin D 25-Hydroxy 67.0 ng/mL [facility] Work Phone: Comment on above: Vitamin D 25(OH) Sta tus Range Deficiency <20 ng/mL (50nmol/L) Insufficiency 20 - 30 ng/mL (50 - 75 nmol/L) Sufficiency 30 - 100 ng/mL (75 - 250 nmol/L) Toxicity >100 ng/mL (>250 nmol/L) Serum or plasma albumin blayne urement (mass/volume)on 08-27-2022 Albumin [Mass/Vol] 3.7 g/dL 3.2-5.0 [facility] Work Phone: Serum or plasma albumin/glob ulin mass ratioon 08-27-2022 Albumin/Globulin [Mass ratio] 1.1 {ratio} 0.9-2.4 [facility] Work Phone: Serum or plasma calcium blayne urement (mass/volume)on 08-27-2022 Calcium [Mass/Vol] 9.0 mg/dL 8.5-10.1 [facility] Work Phone: Serum or plasma carcinoembry onic antigen measurement (mass/volume)on 08-27-2022 Carcinoembryonic Ag [Mass/Vol] 1.9 ng/mL 0.0-4.7 [facility] Work Phone: Comment on above: Nonsmokers <3.9 Smok ers <5.6[employer] Electrochemiluminescence Immunoassay(ECLIA)Values obtained with different assay methods or kitscannot be used interchangeably. Results cannot beinterpreted as absolute evidence of the presence orabsence of malignant disease.Performed at: [facility] [id number] Director: Jan Gonzalez PhD, Phone: [phone] Serum or plasma cholesterol in HDL measurement (mass/volume)on 08-27-2022 Cholesterol in HDL [Mass/Vol] 31 mg/dL >40 [facility] Work Phone: Comment on above: The drugs N-Acetylcy steine and Metamizole may falsely depress this assay. Reference Range HDL <40 mg/dL Low HDL Cholesterol HDL >or= 60 mg/dL High HDL Cholesterol Serum or plasma cholesterol in VLDL measurement (mass/volume)on 08-27-2022 Cholesterol in VLDL [Mass/Vol] 28 mg/dL 5-40 [facility] Work Phone: Serum or plasma creatinine m easurement (mass/volume)on 08-27-2022 Creatinine [Mass/Vol] 0.88 mg/dL 0.55-1.02 [facility] Work Phone: Comment on above: The validity of the calculated GFR & GFRAA in patients over 70 years has not been determined. Clinical correlation is essential. Serum or plasma low density lipoprotein (LDL) cholesterol measurement (mass/volume)on 08-27-2022 Cholesterol in LDL [Mass/Vol] 67 mg/dL 0-130 [facility] Work Phone: Serum or plasma urea nitroge n measurement (mass/volume)on 08-27-2022 Urea nitrogen [Mass/Vol] 11 mg/dL 7-18 [facility] Work Phone: Thin prep Papanicolaou smear with manual screeningon 08-27-2022 Thin prep Papanicolaou smear with manual screening 18 U/L 15-37 [facility] Work Phone: Thin prep Papanicolaou smear with manual screening 10 5-15 [facility] Work Phone: Thin prep Papanicolaou smear with manual screening 9.0 mg/L NO RANGE EST. [facility] Work Phone: Urine creatinine measurement (mass/volume)on 08-27-2022 Creatinine (U) [Mass/Vol] 162.00 mg/dL NO RANGE EST. [facility] Work Phone: Laboratory - Hematology and Cell countson 08-26-2022 HbA1c (Bld) [Mass fraction] 6.4 % [facility] Work Phone: No Panel Informationon 12-14 Carcinoembryonic Ag Serial Monitor See comment [facility] Work Phone: Comment on above: Scanned image report available in EMR Miscellaneous Test See comment [facility] Work Phone: Comment on above: TEST RESULT LIMITSCa lcitonin, Serum < 2.0 pg/mL 0.0 - 5.0 Nonsmokers <3.9 Smokers <5.6 [employer] Electrochemiluminescence Immunoassay (ECLIA) Values obtained with different assay methods or kits cannot be used interchangeably. Results cannot be interpreted as absolute evidence of the presence or absence of malignant disease. _ TESTING PERFORMED AT [facility]. ORIGINAL REPORT ON FILE IN LAB CONTAINS ADDITIONAL TEST SITE INFORMATION. Serum or plasma carcinoembry onic antigen measurement (mass/volume)on 12-14-2021 Carcinoembryonic Ag [Mass/Vol] 2.2 ng/mL [facility] Work Phone: Comment on above: Nonsmokers <3.9 Smok ers <5.6[employer] Electrochemiluminescence Immunoassay(ECLIA)Values obtained with different assay methods or kitscannot be used interchangeably. Results cannot beinterpreted as absolute evidence of the presence orabsence of malignant disease.Performed at: [facility] [employer] [id number] Director: Jan Gonzalez PhD, Phone: [phone] Lilian 10-06-2021 ANGELINA Office Visit (ENSUMN ) SHASTA MARTINEZ ([id number]) 1960 F Date Time Provider Department 10/06/21 10:15 AM LEONEL GILL During your visit today, we recorded the following information about you: Pulse Blood pressure Weight Height 91/minute 152/59 81.2 kg 1.698 m Alyson Tyson 10/06/2021 10:08 AM Signed Thank you for choosing the [facility] Department of Endocrinology, Diabetes and Metabolism. Did you know that you need to call 48 hours in advance of your scheduled visit, if you are unable to make your appointment? The Endocrinology and Metabolism [place] thanks you for your commitment, because patients not showing to their appointment results in a lost opportunity for patients to receive world class health care at the [facility]. To Cancel an appointment, please choose one of the following: - Call the Appointment Call Center at [phone] - From [facility], Go to Appointments ? Cancel Appts If cancelling, consider your need to reschedule to prevent further delays in your care. To Schedule an appointment, please choose one of the following: - Call the Appointment Call Center at [phone] - From [facility], Go to Appointments ? Request an Appt Leonel Gill MD 10/06/2021 11:09 AM Signed Leonel Gill M.D. Department of Endocrine Surgery Endocrinology Metabolism [place] The [address], [place] [address] ENDOCRINE SURGERY NEW CONSULTATION NAME: Shasta Martinez CLINIC NO: [id number] : 1960 REFERRING PROVIDER: Bharath Raines MD [address] [place], [place] [id number] The patient was referred by the above [...] Laterality Date - COLONOSCOP W/ OR W/O [facility] SPEC 12/07/2015 Colonoscopy - COLONOSCOPY 2004 [facility] (neg except hemorrhoids) - DRAINAGE OF PILONIDAL [...] visible cervi (more content not included)... Normal [facility] 09-28-2021 [facility] Telephone (NADIA) SHASTA MARTINEZ ([id number]) 1960 F Date Time Provider Department 09/28/21 LEONEL GILL During your visit today, we recorded the following information about you: Greta Pringle 09/30/2021 10:21 AM Addendum 09/30/21: INATKE COMPLETE Received labs and HANDP. Indexed into [facility]. 09/28/21: Left MAXINE w/ Dr. Raines for labs/office notes Patient had sub-total thyroidectomy with Dr. Masters in 2010. ENDOCRINE SURGERY PATIENT WORKSHEET Initial Call Date: September 28, 2021 Reason for Consult/ Referral: Hx thyroid cancer / increased calitonin PATIENT DEMOGRAPHICS Name: Shasta Martinez [facility]CF#: [id number] : 1960 AGE: [age] year old Contact Numbers: Home: (home) Work: There is no work phone number on file. PATIENT PHYSICIAN INFORMATION Referring Doctor: Dr. Bharath Raines Address: [facility] Endocrinology Electrostatic Painter: same Address: Phone: PCP: Jarad Murrell [address] [place] [address] PAST TREATMENT Office notes: Requested from referring physician (Date received:09/30/21 ) Medications: NONE THAT APPLY Pre-Visit Testing STUDY/TEST DATE ORDERED/REQUESTED DATE RECEIVED/COMPLETED ENTIRE PANEL TSH FREE T4 FREE T3 Imaging Reports: See [facility] CD of Images: See [facility] FNA: yes: 11/19/10 FNA Slides: FNA performed at [facility] facility Has the patient ever had thyroid or parathyroid surgery before: Yes: Thyroid (Date: 12/17/10) Operative Reports: SEE PSYCHIATRIC Pathology Reports: SEE PSYCHIATRIC Allergies As of Date: 09/28/2021 Noted Allergy [...] 06/23/2008 08/06/2015 Routine general medical examination at [facility]2009 08/06/2015 Class: Chronic Gynecological examination 2009 01/20/2014 [...] Encounter Status:Closed by GRETA PRINGLE on 09/28/21 [facility] 09-14-2021 CNPN Telephone (ENDOMN) SHASTA MARTINEZ ([id number]) 1960 F Date Time Provider Department 09/14/21 NICKY KENDRICK During your visit today, we recorded the following information about you: Daina Banuelosmarissa Adm 09/14/2021 4:44 PM Signed tiffanie Castillooster, called stated that she has taken over the care of Damaris. Patient has an elevated calcitonin level and Dr. Raines wants to know if she should come back to the clinic for a follow up or should Dr. Raines just continue watching her levels. Dr. Raines would like a call back at [phone] (L) Nicky Kendrick MD 09/15/2021 9:44 AM Signed Returned 's call. Patient's calcitonin has increased I suggested to have the patient schedule an appt with at [facility] Patient might also need to see Endocrine surgery Nicky Kendrick MD 09/15/21 Allergies As of Date: 09/14/2021 Noted Allergy Reaction environmental [Other] 11/29/2010 14 - Other: See Comments Comments: watery eyes and itching Date Reviewed: 01/09/2019 Reviewed by: Sara aCmara Ma - Fully Assessed Reason for Visit: [...] 06/23/2008 08/06/2015 Routine general medical examination at [facility]2009 08/06/2015 Class: Chronic Gynecological examination 2009 01/20/2014 [...] Status:Closed by DAINA LEON on 09/15/21 Normal [facility] Vital Signs Date Time Vital Sign Value Performing Clinician Ruiz barragan 06-04-2025 08:11-0400 Body height 165.1 cm Luiza Joselito PROPERTY ASSISTANT-C Work Phone: [facility] 06-04-2025 08:11-0400 Body mass index (BMI) [Ratio] 22.6 kg/m2 Luiza Joselito PROPERTY ASSISTANT-C Work Phone: [facility] 06-04-2025 08:11-0400 Body weight 61.68 kg Luiza Joselito PROPERTY ASSISTANT-C Work Phone: [facility] 06-04-2025 08:11-0400 Diastolic blood pressure 74 mm[Hg] Luiza Joselito PROPERTY ASSISTANT-C Work Phone: [facility] 06-04-2025 08:11-0400 Heart rate 73 /min Luiza Joselito PROPERTY ASSISTANT-C Work Phone: [facility] 06-04-2025 08:11-0400 Respiratory rate 16 /min Luiza Joselito PROPERTY ASSISTANT-C Work Phone: [facility] 06-04-2025 08:11-0400 Systolic blood pressure 115 mm[Hg] Luiza Joselito PROPERTY ASSISTANT-C Work Phone: [facility] 12-04-2024 15:36-0500 Body height 165.1 cm Luiza Joselito PROPERTY ASSISTANT-C Work Phone: [facility] 12-04-2024 15:36-0500 Body mass index (BMI) [Ratio] 21.8 kg/m2 Luiza Joselito PROPERTY ASSISTANT-C Work Phone: [facility] 12-04-2024 15:36-0500 Body weight 59.42 kg Luiza Joselito PROPERTY ASSISTANT-C Work Phone: [facility] 12-04-2024 15:36-0500 Diastolic blood pressure 66 mm[Hg] Luiza Joselito PROPERTY ASSISTANT-C Work Phone: [facility] 12-04-2024 15:36-0500 Heart rate 65 /min Luiza Joselito PROPERTY ASSISTANT-C Work Phone: [facility] 12-04-2024 15:36-0500 Respiratory rate 18 /min Luiza Yee PROPERTY ASSISTANT-C Work Phone: [facility] 12-04-2024 15:36-0500 SaO2% (BldA) [Mass fraction] 98 % Luiza Yee PROPERTY ASSISTANT-C Work Phone: [facility] 12-04-2024 15:36-0500 Systolic blood pressure 101 mm[Hg] Luiza Yee PROPERTY ASSISTANT-C Work Phone: [facility] 11-27-2023 08:26-0500 Body height 165.[address] Greta Edmond Work Phone: [facility] 11-27-2023 08:26-0500 Body mass index (BMI) [Ratio] 21.9 kg/m2 Dr. Greta Edmond Work Phone: [facility] 11-27-2023 08:26-0500 Body weight 59.[address] Greta Edmond Work Phone: [facility] 11-27-2023 08:26-0500 Diastolic blood pressure 58 mm[Hg] Dr. Greta Edmond Work Phone: [facility] 11-27-2023 08:26-0500 Heart rate 82 /min Dr. Greta Edmond Work Phone: [facility] 11-27-2023 08:26-0500 Respiratory rate 18 /min Dr. Greta Edmond Work Phone: [facility] 11-27-2023 08:26-0500 SaO2% (BldA) [Mass fraction] 98 % Dr. Greta Edmond Work Phone: [facility] 11-27-2023 08:26-0500 Systolic blood pressure 108 mm[Hg] Dr. Greta Edmond Work Phone: [facility] 10-30-2023 00:47-0500 Body weight 60.[address] Greta Edmond Work Phone: [facility] 10-16-2023 11:14-0500 Body height 165.[address] Greta Edmond Work Phone: [facility] 10-16-2023 11:14-0500 Body weight 60.[address] Greta Edmond Work Phone: [facility] 09-29-2023 00:50-0500 Body weight 61.[address] Greta Edmond Work Phone: [facility] 09-15-2023 10:02-0500 Body height 165.[address] Greta Edmond Work Phone: [facility] 09-15-2023 10:02-0500 Body weight 61.[address] Greta Edmond Work Phone: [facility] 08-25-2023 13:57-0400 Body height 165.[address] Greta Edmond Work Phone: [facility] 08-25-2023 13:57-0400 Body mass index (BMI) [Ratio] 22.6 kg/m2 Dr. Greta Edmond Work Phone: [facility] 08-25-2023 13:57-0400 Body weight 61.[address] Greta Edmond Work Phone: [facility] 08-25-2023 13:57-0400 Diastolic blood pressure 74 mm[Hg] Dr. Greta Edmond Work Phone: [facility] 08-25-2023 13:57-0400 Heart rate 98 /min Dr. Greta Edmond Work Phone: [facility] 08-25-2023 13:57-0400 Respiratory rate 18 /min Dr. Greta Edmond Work Phone: [facility] 08-25-2023 13:57-0400 SaO2% (BldA) [Mass fraction] 100 % Dr. Greta Edmond Work Phone: [facility] 08-25-2023 13:57-0400 Systolic blood pressure 128 mm[Hg] Dr. Greta Edmond Work Phone: [facility] 08-25-2023 08:07-0400 Body mass index (BMI) [Ratio] 23 kg/m2 Dr. Greta Edmond Work Phone: [facility] 08-25-2023 08:07-0400 Body temperature 97.4 [degF] Dr. Greta Edmond Work Phone: [facility] 08-25-2023 08:07-0400 Body weight 62.[address] Greta Edmond Work Phone: [facility] 08-25-2023 08:07-0400 Diastolic blood pressure 61 mm[Hg] Dr. Greta Edmond Work Phone: [facility] 08-25-2023 08:07-0400 Heart rate 96 /min Dr. Greta Edmond Work Phone: [facility] 08-25-2023 08:07-0400 Respiratory rate 16 /min Dr. Greta Edmond Work Phone: [facility] 08-25-2023 08:07-0400 SaO2% (BldA) [Mass fraction] 98 % Dr. Greta Edmond Work Phone: [facility] 08-25-2023 08:07-0400 Systolic blood pressure 90 mm[Hg] Dr. Greta Edmond Work Phone: [facility] 08-16-2023 09:12-0400 Body mass index (BMI) [Ratio] 23.3 kg/m2 Dr. Greta Edmond Work Phone: [facility] 08-16-2023 08:22-0400 Body height 165.[address] Greta Edmond Work Phone: [facility] 08-16-2023 08:22-0400 Body weight 63.[address] Greta Edmond Work Phone: [facility] 08-16-2023 08:13-0400 Diastolic blood pressure 76 mm[Hg] Dr. Greta Edmond Work Phone: [facility] 08-16-2023 08:13-0400 Heart rate 79 /min Dr. Greta Edmond Work Phone: [facility] 08-16-2023 08:13-0400 SaO2% (BldA) [Mass fraction] 99 % Dr. Greta Edmond Work Phone: [facility] 08-16-2023 08:13-0400 Systolic blood pressure 129 mm[Hg] Dr. Greta Edmond Work Phone: [facility] 08-10-2023 10:11-0400 Heart rate 95 /min Dr. Greta Edmond Work Phone: [facility] 08-10-2023 09:50-0400 Body temperature 97.9 [degF] Dr. Greta Edmond Work Phone: [facility] 08-10-2023 09:50-0400 Diastolic blood pressure 60 mm[Hg] Dr. Greta Edmond Work Phone: [facility] 08-10-2023 09:50-0400 Respiratory rate 16 /min Dr. Greta Edmond Work Phone: [facility] 08-10-2023 09:50-0400 SaO2% (BldA) [Mass fraction] 99 % Dr. Greta Edmond Work Phone: [facility] 08-10-2023 09:50-0400 Systolic blood pressure 126 mm[Hg] Dr. Greta Edmond Work Phone: [facility] 08-10-2023 03:27-0400 Body mass index (BMI) [Ratio] 23.3 kg/m2 Dr. Greta Edmond Work Phone: [facility] 08-10-2023 03:27-0400 Body weight 63.[address] Greta Edmond Work Phone: [facility] 08-09-2023 10:02-0400 Body height 165.[address] Greta Edmond Work Phone: [facility] 07-28-2023 13:37-0400 Body mass index (BMI) [Ratio] 24.1 kg/m2 Dr. Greta Edmond Work Phone: [facility] 07-28-2023 13:37-0400 Body temperature 95.7 [degF] Dr. Greta Edmond Work Phone: [facility] 07-28-2023 13:37-0400 Body weight 65.[address] Greta Edmond Work Phone: [facility] 07-28-2023 13:37-0400 Diastolic blood pressure 81 mm[Hg] Dr. Greta Edmond Work Phone: [facility] 07-28-2023 13:37-0400 Heart rate 86 /min Dr. Greta Edmond Work Phone: [facility] 07-28-2023 13:37-0400 Respiratory rate 17 /min Dr. Greta Edmond Work Phone: [facility] 07-28-2023 13:37-0400 SaO2% (BldA) [Mass fraction] 98 % Dr. Greta Edmond Work Phone: [facility] 07-28-2023 13:37-0400 Systolic blood pressure 136 mm[Hg] Dr. Greta Edmond Work Phone: [facility] 06-29-2023 08:52-0400 Body mass index (BMI) [Ratio] 24 kg/m2 Dr. Greta Edmond Work Phone: [facility] 06-29-2023 08:52-0400 Body weight 66.[address] Greta Edmond Work Phone: [facility] 06-29-2023 08:52-0400 Diastolic blood pressure 68 mm[Hg] Dr. Greta Edmond Work Phone: [facility] 06-29-2023 08:52-0400 Systolic blood pressure 121 mm[Hg] Dr. Greta Edmond Work Phone: [facility] 08-26-2022 08:09-0400 Body height 166.[address] Jarad Murrell Work Phone: [facility] Work Phone: 08-26-2022 08:09-0400 Body mass index (BMI) [Ratio] 28.2 kg/m2 Dr. Jarad Murrell Work Phone: [facility] Work Phone: 08-26-2022 08:09-0400 Body temperature 95.2 [degF] Dr. Jarad Murrell Work Phone: [facility] Work Phone: 08-26-2022 08:09-0400 Body weight 78.[address] Jarad Murrell Work Phone: [facility] Work Phone: 08-26-2022 08:09-0400 Diastolic blood pressure 84 mm[Hg] Dr. Jarad Murrell Work Phone: [facility] Work Phone: 08-26-2022 08:09-0400 Heart rate 102 /min Dr. Jarad Murrell Work Phone: [facility] Work Phone: 08-26-2022 08:09-0400 Respiratory rate 18 /min Dr. Jarad Murrell Work Phone: [facility] Work Phone: 08-26-2022 08:09-0400 SaO2% (BldA) [Mass fraction] 97 % Dr. Jarad Murrell Work Phone: [facility] Work Phone: 08-26-2022 08:09-0400 Systolic blood pressure 148 mm[Hg] Dr. Jarad Murrell Work Phone: [facility] Work Phone: 03-16-2022 13:32-0400 Body height 166.[address] Jarad Murrell Work Phone: [facility] Work Phone: 03-16-2022 13:32-0400 Body mass index (BMI) [Ratio] 29.2 kg/m2 Dr. Jarad Murrell Work Phone: [facility] Work Phone: 03-16-2022 13:32-0400 Body weight 80.[address] Jarad Murrell Work Phone: [facility] Work Phone: 03-16-2022 13:32-0400 Diastolic blood pressure 80 mm[Hg] Dr. Jarad Murrell Work Phone: [facility] Work Phone: 03-16-2022 13:32-0400 Systolic blood pressure 168 mm[Hg] Dr. Jarad Murrell Work Phone: [facility] Work Phone: 03-01-2022 09:45-0400 Body mass index (BMI) [Ratio] 29.2 kg/m2 Dr. Jarad Murrell Work Phone: [facility] Work Phone: 03-01-2022 09:45-0400 Body weight 80.[address] Jarad Murrell Work Phone: [facility] Work Phone: 03-01-2022 09:45-0400 Diastolic blood pressure 80 mm[Hg] Dr. Jarad Murrell Work Phone: [facility] Work Phone: 03-01-2022 09:45-0400 Systolic blood pressure 180 mm[Hg] Dr. Jarad Murrell Work Phone: [facility] Work Phone: Encounters Encounter Date Encounter Type Care Provider Facility Start: 08-11-2025 End: 08-11-2025 ambulatory [place] Joselito Facility:[facility] Start: 06-04-2025 End: 06-04-2025 Patient encounter procedure Kaden Martin PROPERTY ASSISTANT-C -[facility] Work Phone: Start: 06-04-2025 End: 06-04-2025 ambulatory Luiza Joselito PROPERTY ASSISTANT-C Work Phone: -[facility] Start: 04-08-2025 End: 04-08-2025 ambulatory [facility] PROPERTY ASSISTANT-C Work Phone: [facility] Work Phone: Start: 04-08-2025 End: 04-08-2025 Patient encounter procedure Luiza Anthonygar PROPERTY ASSISTANT-C -Radiology [facility] Work Phone: Start: 04-08-2025 End: 04-08-2025 ambulatory [facility] Facility:[facility] Start: 03-29-2025 End: 03-29-2025 ambulatory [facility] PROPERTY ASSISTANT-C Work Phone: [facility] Work Phone: Start: 03-29-2025 End: 03-29-2025 Patient encounter procedure Trudi Holliday PROPERTY ASSISTANT-C -Laboratory Work Phone: Start: 03-29-2025 End: 03-29-2025 ambulatory [facility] Facility:[facility] Start: 12-04-2024 End: 12-04-2024 Patient encounter procedure Kaden Martin PROPERTY ASSISTANT-C -[facility] Work Phone: Start: 12-04-2024 End: 12-04-2024 ambulatory Luiza Joselito Facility:[facility] Start: 10-19-2024 End: 10-19-2024 ambulatory [facility] Facility:[facility] Start: 10-02-2024 End: 10-02-2024 ambulatory [facility] Facility:[facility] Start: 09-09-2024 Encounter for gynecological examination (general) (routine) without abnormal findings Mita Mazariegos [facility] Start: 09-09-2024 End: 09-09-2024 ambulatory [place] Joselito Facility:[facility] Start: 08-23-2024 End: 08-23-2024 ambulatory Greta Edmond Facility:[facility] Start: 01-17-2024 End: 01-17-[address] Greta Edmond Work Phone: [facility] Work Phone: Start: 01-17-2024 End: 01-17-[address] Greta Edmond Work Phone: [facility]-Radiology, [facility] Work Phone: Start: 11-27-2023 End: 11-29-[address] Greta Edmond Work Phone: [facility] Work Phone: Start: 11-27-2023 End: 11-29-[address] Greta Edmond Work Phone: [facility]-Cardiac Rehab Work Phone: Start: 11-27-2023 End: 11-27-[address] Greta Edmond Work Phone: [facility] Work Phone: Start: 11-27-2023 End: 11-27-[address] Greta Edmond Work Phone: [facility]-Laboratory Work Phone: Start: 10-27-2023 End: 10-29-[address] Greta Edmond Work Phone: [facility] Work Phone: Start: 10-27-2023 End: 10-29-[address] Greta Edmond Work Phone: [facility]Cardiac [facility] Work Phone: Start: 10-16-2023 End: 10-16-[address] [facility] Start: 09-30-2023 End: 09-30-[address] Greta Edmond Work Phone: [facility] Work Phone: Start: 09-30-2023 End: 09-30-[address] Greta Edmond Work Phone: [facility]-Laboratory Work Phone: Start: 09-29-[address] Greta Edmond Work Phone: [facility] Work Phone: Start: 09-27-2023 End: 09-28-[address] Greta Edmond Work Phone: [facility] Work Phone: Start: 09-27-2023 End: 09-28-[address] Greta Edmond Work Phone: [facility] Work Phone: Start: 09-13-2023 Non-patient / Non-visit Dr. Wilma Edmond Work Phone: [facility] Start: 08-30-[address] Greta Edmond Work Phone: [facility] Work Phone: Start: 08-28-2023 End: 08-29-[address] Greta Edmond Work Phone: [facility] Work Phone: Start: 08-28-2023 End: 08-29-[address] Greta Edmond Work Phone: [facility] Work Phone: Start: 08-25-2023 End: 08-25-[address] Greta Edmond Work Phone: [facility] Work Phone: Start: 08-25-2023 End: 08-25-[address] [facility] Start: 08-25-2023 End: 08-25-[address] Greta Edmond Work Phone: [facility] Work Phone: Start: 08-23-[address] Greta Edmond Work Phone: [facility] Work Phone: Start: 08-21-[address] Gre[facility] Edmond [facility] Start: 08-19-2023 End: 08-19-[address] Greta Edmond Work Phone: [facility] Work Phone: Start: 08-19-2023 End: 08-19-[address] [facility] Ed[facility] Start: 08-16-2023 End: 08-16-[address] Greta Edmond Work Phone: [facility] Work Phone: Start: 08-16-2023 End: 08-16-[address] Greta Edmond Work Phone: [facility]Cardiac Rehab Work Phone: Start: 08-10-2023 Non-patient / Non-visit Dr. Wilma Edmond Work Phone: [facility] Work Phone: Start: 08-10-2023 Non-patient / Non-visit Dr. Wilma Edmond Work Phone: [facility] Start: 08-09-2023 Non-patient / Non-visit Dr. Wilma Edmond Work Phone: [facility] Start: 08-09-2023 Non-patient / Non-visit Dr. Wilma Edmond Work Phone: [facility] Work Phone: Start: 08-08-2023 Non-patient / Non-visit Dr. Wilma Edmond Work Phone: [facility] Start: 08-08-2023 End: 08-10-2023 Evaluation and management of inpatient Dr. Greta Edmond Work Phone: [facility]-Progressive Care Unit Work Phone: Start: 07-28-2023 End: 07-28-[address] Greta Edmond Work Phone: [facility] Work Phone: Start: 06-29-2023 End: 06-29-[address] Greta Edmond Work Phone: [facility] Work Phone: Start: 05-04-2023 End: 05-04-[address] Greta Edmond Work Phone: [facility]-Outpatient Breast Imaging Work Phone: Start: 03-02-2023 End: 03-02-2023 ambulatory [facility] Work Phone: Start: 03-02-2023 End: 03-02-2023 [facility] Start: 09-13-2022 End: 09-13-[address] Jarad Murrell Work Phone: [facility] Work Phone: Start: 09-13-2022 End: 09-13-[address] Jarad Murrell Work Phone: [facility]-Outpatient Bone Densitometry Start: 08-27-2022 End: 08-27-[address] Jarad Murrell Work Phone: [facility] Work Phone: Start: 08-27-2022 End: 08-27-[address] [facility] Murrell [facility] Start: 08-26-2022 End: 08-26-[address] Jarad Murrell Work Phone: [facility] Start: 07-11-2022 End: 07-11-[address] Jarad Murrell Work Phone: [facility] Start: 04-01-2022 End: 04-01-[address] Jarad Murrell Work Phone: [facility]-Outpatient Breast Imaging Start: 03-16-2022 End: 03-16-[address] Jarad Murrell [facility] Start: 03-16-2022 End: 03-16-[address] Jarad Murrell Work Phone: [facility] Start: 03-01-2022 End: 03-01-[address] Jarad Murrell Work Phone: [facility] Start: 12-14-2021 End: 12-14-[address] Jarad Murrell Work Phone: [facility] Procedures Date Procedure Procedure Detail Performing Clinician Start: 04-08-2025 Plain X-ray of clavicle Luiza PAEZ Work Phone: Start: 01-17-2024 Radiologic examinati on of knee [...] Detail Author Start: 09-30-2023 Lab findings surveillance [facility] Start: 09-13-2023 Patient referral [facility] Work Phone: Start: 08-16-2023 Blood chemistry [facility] Start: 08-16-2023 Patient referral to dietitian [facility] Start: 08-15-2023 Blood chemistry [facility] Start: 08-14-2023 Blood chemistry [facility] Start: 08-13-2023 Blood chemistry [facility] Start: 08-12-2023 Blood chemistry [facility] Start: 08-11-2023 Blood chemistry [facility] Start: 08-10-2023 Patient referral [facility] Work Phone: Start: 08-10-2023 Patient discharge [facility] Start: 08-09-2023 Care planning and problem solving actions [facility] Start: 08-09-2023 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 to journeyman pipe fitter [facility] Start: 08-08-2023 Cardiac monitoring [facility] Start: 08-08-2023 Cardiac rehabilitation - phase 1 [facility] Start: 08-08-2023 Cardiac rehabilitation - phase 2 [facility] Start: 08-08-2023 Patient discharge [facility] Start: 08-08-2023 Systemic arterial pressure monitoring [facility] Start: 08-08-2023 Vascular disease risk assessment [facility] Start: 08-08-2023 End: 08-08-2023 [facility] Start: 08-08-2023 Application of intermittent pneumatic compression device [facility] Start: 08-08-2023 End: 08-08-2023 Notification of physician [facility] Start: 08-08-2023 Patient education [facility] Start: 08-08-2023 Provision of activity privileges [facility] Start: 08-08-2023 Pulse taking [facility] Start: 08-08-2023 End: 08-08-2023 Taking patient vital signs [facility] Start: 08-08-2023 Wound care [facility] Start: 08-08-2023 Following clinical pathway protocol [facility] Start: 08-08-2023 Assessment of risk of venous thromboembolism [facility] Start: 08-08-2023 Bedrest [facility] Start: 08-08-2023 Catheterization of vein [facility] Start: 08-08-2023 Chart related administrative procedure [facility] Start: 08-08-2023 Elevation of head of bed [facility] Start: 08-08-2023 Insertion of catheter into peripheral vein [facility] Start: 08-08-2023 Measuring intake and output [facility] Start: 08-08-2023 Oxygen therapy [facility] Start: 08-08-2023 Providing care according to standard [facility] Start: 08-08-2023 Vital signs measurements [facility] Start: 08-08-2023 Admission procedure [facility] Lab findings surveillance [facility] Lipid 1996 panel - S michael or Plasma [facility] Patient Education Heart Attack D c Heart Attack Meds Heart Attack Questions Heart Attack: Leaving the Hospital Heart Attack: Back at Home [facility] Work Phone: Patient referral [facility] Work Phone: Urine microalbumin/creatinine ratio measurement [facility] Vitamin D, 25-hydrox y measurement [facility] Payers Date Payer Category Payer Self-pay [id number] 2023 Unknown [id number] Unknown [id number] [id number] Unknown [id number] [id number] Unknown [id number] 2.16.8 [id number] Unknown [id number] 2.16.8 [id number] Unknown [id number] 2.16.8 [id number] Unknown [id number] 2.16.8 [id number] Unknown [id number] 2.16.8 [id number] Unknown [id number] 2.16.8 [id number] Unknown [id number] 2.16.8 [id number] Social History Date Type Detail Facility Start: 03-01-2022 End: 11-27-2023 Tobacco smoking status NHIS Unknown if ever smoked [facility] Start: 1960 Sex Assigned At Female [facility] Start: 09-09-2024 Tobacco smoking stat us NHIS Never smoked tobacco (finding) [facility] Medical Equipment Procedure Code Equipment Code Equipment Origin al Text Equipment Identifier Dates Drug-eluting coronary artery stent, [id number]-vt lymer-coated [id number] FDA Start: 08-08-2023 Goals Date Patient Goal Desired Activity /State Functional Status Date Assessment Result Facility 08-10-2023 Functional status Bedrest Christiana Valdez [facility] Work Phone: Mental Status Date Assessment Result Facility 08-10-2023 Cognitive function Voice/Name [facility] Work Phone: Clinical Notes 10-06-2021 to 06-04-2025 Note Date & Type Note Facility 06-04-2025 Progress note [facility] 06-04-2025 Progress note Note Date/Time June 04, 2025 8:43am [facility] [address] [place] [address] OFFICE VISIT Date of Service: 06/04/25 MR#: [id number] Acct: [id number] Name: SHASTA MARTINEZ Rep #: [id number] : 1960 Provider: PHILIPPE Martin Age/Sex: 64/F Location: [facility] Status: Signed HPI HPI History of Present Illness Details: SHASTA MARTINEZ, is a 64 F who presents to the office today for a cardiovascularfollow up visit. She had presented to emergency room with chest pain in July of 2023. Her EKG revealed anterolateral ST elevation MO. Patient underwent emergent coronary angiography which revealed 90% stenosis in the LAD diagonal 1 bifurcation. She was treated with drug-eluting stent to the LAD and PTCA alone of the ostial diagonal 1. She denies chest, arm, jaw, or neck discomfort. She denies palpitations. She denies bilateral lower extremity edema. She denies claudication. She states occasional shortness of breath with activity such with increased exertion or times of stress. She denies shortness of breath at rest, orthopnea, or PND. She denies chronic cough. She denies significant, sudden weight gain. She states dizziness with quick position changes. She denies lightheadedness, near-syncope, or syncope. She denies blood in urine, blood in stool, or epistaxis. He denies fever with chills. She denies myalgia. She denies fatigue. Her exercise level has remained stable. 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: No Accompanied by: Is patient in pain?: No Allergies animal dander Allergy (Unknown, Verified 06/04/25 08:12) Sneezing, watery eyes house dust Allergy (Unknown, Verified 06/04/25 08:12) Unknown mold Allergy (Unknown, Verified 06/04/25 08:12) Unknown lisinopril Adverse Reaction (Mild, Verified 06/04/25 08:12) Cough Medications ?Medication ?Instructions ?Recorded ?Confirmed ?Type levothyroxine 100 mcg tablet 100 mcg PO DAILY #90 tabs 08/23/24 06/04/25 Rx (Synthroid) aspirin 81 mg tablet,delayed 81 mg PO DAILY #90 tabs 0 06/04/25 06/04/25 Rx release atorvastatin 20 mg tablet 20 mg PO QHS #90 tabs 06/04/25 Rx cholecalciferol (vitamin D3) 125 5,000 unit PO 2XW 04/2306/04/25 History mcg (5,000 unit) capsule empagliflozin 25 mg tablet 25 mg PO DAILY #90 tabs 04/2306/04/25 Rx (Jardiance) metoprolol tartrate 25 mg tablet 25 mg PO BID Dose inc reased #180 06/04/25 06/04/25 Rx tabs pyridoxine (vitamin B6) 100 mg 50 mg PO 3XW 06/04/25 0 06/04/25 History tablet (Vitamin B-6) Have you fallen in the past year?: [...] history: -Johan ROS Const Const: Negative for fatigue or weakness Eyes Eyes: Negative for change in vision ENT ENT: Positive for dizziness (Occasionally when bending over than standing up tooquickly); Negative for balance problems Cardio Chest Pain: No Palpitations: No Edema: None Muscle aches with walking: None Resp Respiratory: Positive for SOB with activity (Occasionally with increased exertion or stress); Negative for SOB at rest or SOB orthopnea\SOB lying down GI GI: Negative nausea or heartburn : Negative for hematuria or frequent nighttime urination/ nocturia Musc Musc: Negative for balance problems Skin Skin: Negative non-healing lesions or rash Neuro Neuro: Positive for dizziness (Occasionally when bending over than standing up too quickly); Negative for lightheadedness, near syncope, syncope or weakness Endo Endo: Negative for fatigue Allergy Allergy/Immunology: Negative for rash Cardiology Exam Const Appearance: cooperative, healthy appearing, comfortable and no acute distress Nutritional Appearance: average body habitus and well nourished Orientation: alert, awake and oriented x3 Head Head: normal to inspection Ears: hearing grossly normal bilaterally Nose: external nose normal Face and Sinus: face symmetric Mouth: moist mucous membranes Eyes General: appearance normal, both eyes and all related structures Eyelids: eyelids normal EOM: EOM intact bilaterally Neck Neck: normal visual inspection and no JVD Carotids: normal carotid upstroke Chest Chest inspection: normal inspection of the chest, symmetric chest movement and normal respiratory effort; Negative cough Auscultation: Bilateral: Clear to Auscultation Cardio Rate: regular rate Rhythm: regular rhythm Heart sounds: S1 normal and S2 normal; Negative rub, gallop or murmur GI GI: normal to inspection Neuro General: patient alert, patient awake, patient oriented x3 and CN's II-XI intactbilaterally Skin Skin: no rashes or lesions noted Extremities Pulses: Normal: Right Posterior Tibial Pulse, Left Posterior Tibial Pulse, RightRadial Pulse and Left Radial Pulse Lower Extremity Edema: None: Bilateral Psych Psychological: normal affect Supplemental Info Supplemental Information Echocardiogram 08/08/2023: Interpretation Summary Normal LV size. The left ventricular ejection fraction is 55 %. There are regional wall motion abnormalities as specified. Stage 1 diastolic dysfunction. Pulmonary artery systolic pressure is 32 mmHg. Contrast injection was performed. Cardiac catheterization 08/10/2023: CONCLUSIONS CAD as described. Successful PCI of mLAD/D1 bifurcation with HOWARD to mLAD and PTCA alone of D1. CORONARY ANGIOGRAPHY DOMINANCE: Right Dominant LEFT MAIN: Mild luminal irregularities LEFT ANTERIOR DESCENDING ARTERY: MID LAD: 95 % Stenosis DIAGONAL 1: Ostial - 95 % Stenosis CIRCUMFLEX ARTERY: Mild luminal irregularities RIGHT CORONARY ARTERY: Mild luminal irregularities Assessment and Plan Assessment and Plan (1) Stented coronary artery: Status: Chronic Comment: HOWARD to LAD and PTCA of ostial Diagonal 1 Plan: Patient has a history of coronary artery disease with stenting to her mid LAD on08/10/2023. This appears stable. We will continue to monitor and not make any medication regimen changes. We will continue to promote risk factor and lifestyle modification. (2) (HFpEF) heart failure with preserved ejection fraction: Status: Chronic Qualifiers: Heart failure chronicity: chronic Qualified Code(s): I50.32 - Chronic diastolic (congestive) heart failure Plan: Heart Failure with Preserved EF: Echocardiogram 08/08/2023-EF: 55% Twelve-lead EC08/10/2023-Sinus rhythm at 81 bpm with QRS 86 [place] [employer] Functional Class: I ACC/AHA stage: C Guideline Directed Medical Therapy: Jardiance 25mg PO Daily She appears euvolemic. We will continue current medications and continue to monior. No changes made. (3) Hypercholesterolemia: Status: Chronic Plan: Patient has a history of hypercholesterolemia. This is monitored by her store receiving clerk. Lipid panel from 10/19/2024 showed Total Cholesterol: 145, HDL:52, LDL: 78, and Triglycerides: 74. She was reminded of LDL goal of 70 and belowand closer to 50-55 as a diabetic. Zetia and PSCK9 inhibitor reviewed as optionsif desire to reduce LDL further. We could also consider advancing atorvastatin. (4) Diabetes type 2, controlled: Status: Chronic Plan: She is on SGLT2 inhibitor and states her hemoglobin A1c is controlled. She will continue to follow with Electrostatic Painter. We did not pursue precedent D researchtrial on account of controlled hemoglobin A1c on SGLT2 inhibitor. Medications: New aspirin 81 mg PO DAILY 90 tabs 3RF Refilled atorvastatin 20 mg PO QHS 90 tabs 3RF empagliflozin (Jardiance) 25 mg PO DAILY 90 tabs 3RF metoprolol tartrate 25 mg PO BID 180 tabs 3RF Dose increased Plan Details Additional Comments: Thank you for allowing us to participate in the patients plan of care, if you have any questions please do not hesitate to call. Plan was reviewed with patient/family member along with red flag symptoms. Understanding was acknowledged. Questions were answered to apparent satisfaction. This note was generated using a voice recognition system and there may be incorrect words, spelling or punctuation that were not noted when reviewing the office note prior to saving. Portions of this documentation were copied and pasted from previous office visitnotes to provide a cohesive continuity of the history. The note has been reviewed, edited, and updated, as necessary. Follow Up: Keep as is (CONDITIONING COACH) Coding Level of Care Code Off vis,est,level 4 Diagnoses Stented coronary artery Z95.5 Chronic heart failure with preserved ejection fraction I50.32 Heart failure chronicity: chronic Hypercholesterolemia E78.00 Diabetes type 2, controlled E11.9 Coding Level of Care Code Off vis,est,level 4 Diagnoses Stented coronary artery Z95.5 Chronic heart failure with preserved ejection fraction I50.32 Heart failure chronicity: chronic Hypercholesterolemia E78.00 Diabetes type 2, controlled E11.9 Clinical Quality Measures Falls Risk Screening/Assistive Devices Have you fallen in the past year?: No 06/04/25 0843 <Electronically signed by Kaden PAEZ> Date _ Kaden ESPITIAC Cosigner Signature: Date (if applicable) CC: PHILIPPE Yee ~ [facility] Work Phone: 1(568) 753-483506-11-2025 Radiology Diagnostic study note [facility] Imaging Services [address] [place] [address] Clavicle MR#: [id number] Acct: [id number] Name: SHSATA MARTINEZ Rep #: [id number] : 1960 F 64 From: Taina Matos MD PCP: PHILIPPE Altamirano Status: REG CLI Study:Clavicle Date of Exam: 04/08/25 Exam# [id number] Ordering Dr: Ra yumiko Yee PROCEDURE: CLAVICLE 04/08/2025 REASON FOR EXAM: STERNOCLAVICULAR ARTHRITIS TECHNIQUE: 2 view(s) of each clavicle COMPARISON: None. 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 No associated erosive changes of thecorresponding articular surface contour. No fracture or dislocation is seen. No lytic or blastic bone lesion is identified.Unremarkable acromioclavicular joint. 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 No associated erosive changes of the corresponding articular surface contour. Reading Location: [place] [address] CC: PHILIPPE Yee ~ Riveting Machine Operator: Signed [facility]02-05-2025 Evaluation note* Diagnosis Onset Date Resolution Status Admit Date (HFpEF) heart failure with preserved ejection fraction acute 2024 3:25pm Stented coronary artery August 08, 2023 acute December 04, 2024 3:25pm Hypercholesterolemia chronic 2024 3:25pm [facility] Work Phone: 1(777) 131-626110-12-2023 Progress note Author Bob Saunders [facility] August 10, 2023 8:16am Note Date/Time August 10, 2023 8 :16am [facility] Medical Records Department [address] [place] [address] Progress Note - Cardiology 08/10/2314 MR#: [id number] Acct: [id number] Name: SHASTA MARTINEZ Rep #:[id number] : 1960 62 From: Bob Saunders MD PCP: Dr. Greta Edmond, DO Status:ADM IN Location: [place] [address] Subjective Subjective Patient seen and evaluated. Doing [...] (Auto) 67.0, Lymph % (Auto) 15.9 L, [place] % (Auto) 11.0 H, Eos % (Auto) [...] (Auto) 67.0, Lymph % (Auto) 15.9 L, [place] % (Auto) 11.0 H, Eos % (Auto) [...] Cosigner Signature (if applicable): CC: ~ Signed [facility] Work Phone: 1([phone]) 603-398210-11-2023 Progress note Author Chante Josue [facility] August 09, 2023 9:22am Note Date/Time August 09, 2023 7 :17am [facility] Medical Records Department [address] [place] [address] Progress Note - Hospitalist 08/09/23 0714 MR#: [id number] Acct: [id number] Name: SHASTA MARTINEZ Rep #:[id number] : [...] % (Auto) 51.8, Lymph % (Auto) 32.4, [place]% (Auto) 11.2 H, Eos % (Auto) 3.4, [...] (Auto) 76.5 H, Lymph % (Auto)12.5 L, [place] % (Auto) 9.2, Eos % (Auto) 1.0, [...] Alkaline Phosphatase 59, Troponin I High Sens 64344 H*, Total Protein 5.9 L, Albumin 2.9 [...] was consulted. Patient was taken to the farm laborer -Check troponin and trend so it can [...] 35 minutes. Charges/Coding Visit Charges Inpatient E&M: 47495 Subs Hosp L2 08/09/23 0922 <Electronically signed by Chante Josue MD> Cosigner Signature (if applicable): CC: ~ Signed [facility] Work Phone: [phone]) 110-408210-11-2023 History and physical note Author Cristiano Rajput [facility] August 09, 2023 2:23am Note Date/Time August 08, 2023 9 :56pm [facility] Medical Records Department [address] [place] [address] H&P Exam - Hospitalist 08/08/232155 MR#: [id number] Acct: [id number] Name: SHASTA MARTINEZ VANDA Rep #:[id number] : 1960 62 From: [...] patient was found to have a STEMI. 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 Patient was taken to the farm laborer Check troponin and trend so it can be used as baseline. Further orders after stent placement or by cardiology. Time spent in the patient's overall evaluation,decision-making process, review of diagnostic data, adjustment of management, discussion with other providers, nursing and ancillary staff involved in patient's care documentation, 30 minutes. Charges/Coding Visit Charges Inpatient E&M: 43840 Init Hosp L3 08/09/23222 <Electronically signed by Cristiano Rajput MD> Cosigner Signature (if applicable): CC: Dr. Cristiano Rajput MD; Dr. Greta Edmond, ~ Signed [facility] Work Phone: [phone]) 219-870610-11-2023 Discharge summary Author Rogerio Zhu [facility] August 09, 2023 12:11am Note Date/Time August 08, 2023 1 0:24pm [facility] Medical Records Department [address] [place] [address] Emergency Department Summary 08/08/23 MR#: [id number] Acct: [id number] Name: SHASTA MARTINEZ Rep #:[id number] : 1960 62 From: Rogerio Aguero PCP: Dr. 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 aVL. Management Discussion w/another healthcare provider: Chain Maker (Interventional cardiology) Critical Care Time Critical Care Time: Yes Critical care time (excluding procedures): 30-74 minutes ( 34 min), Including time spent:, Discussing w/Patient &/or Family/Plexiglas Former, Discussing w/Consultants, Arranging Admission or Transfer and Performing Direct Patient Care at Bedside Discharge Plan Triage Chief Complaint: Chest Pain ED Provider: Rogerio Zhu Dx/Rx/DC Orders Clinical Impression: Hypercholesterolemia, STEMI (ST elevation myocardial infarction), Diabetes type2, controlled Primary Care Provider: Greta Edmond Disposition Disposition: Acute Care Hospital [facility] Discharge Date/Time: 08/08/23 22:27 What to do if you have Problems For any increased pain, shortness of breath, bleeding, nausea or vomiting, chestpain, or any unexpected problems, contact your Primary Care Provider. Call [facility] ([phone]) or report to the closest Emergency Room. Call 911 if necessary. 08/09/23 0011 <Electronically signed by Rogerio Zhu DO> Cosigner Signature (if applicable): CC: Dr. Greta Edmond DO ~ Signed [facility] Work Phone: 1(959) 590-189310-11-2023 Consult note Author Rubio Ye [facility] August 08, 2023 11:53pm Note Date/Time August 08, 2023 1 1:53pm [facility] Medical Records Department [address] [place] [address] Consultation - Cardiology 08/08/23 2350 MR#: [id number] Acct: [id number] Name: NELSHASTA VANDA Rep #:[id number] : 1960 62 From: [...] chest pain. EKG revealed anterolateral ST elevation MO. Patient underwent emergent coronary angiography which revealed [...] else is negative except as in HPI [facility] Medical History Arthritis Cervical high risk HPV [...] cream with perineal applicator (Proctozone-HC) 1 applic SD BID-QID PRN hemorrhoids #30 grams 07/28/23 [Rx [...] Applicable: No Charges/Coding Visit Charges Inpatient E&M: 11857 Init Hosp L2 Objective Data Vital Signs: [...] % (Auto) 51.8, Lymph % (Auto) 32.4, [place]% (Auto) 11.2 H, Eos % (Auto) 3.4, [...] % (Auto) 51.8, Lymph % (Auto) 32.4, [place] % (Auto) 11.2 H, Eos % (Auto) [...] Swartz MD at 22:23 EDT , 08/08/23 235 <Electronically signed by Rubio Ye MD> Cosigner Signature (if applicable): CC: Dr. Greta Edmodn DO; Dr. Rubio Ye MD~ Signed [facility] Work Phone: [phone]) 142-879510-10-2023 Evaluation note* Diagnosis Onset Date Resolution Status Encounter for routine gyneco logical examination noneactive Hemorrhoids acute (HFpEF) heart failure with p reserved ejection fraction acute Hypercholesterolemia acute Stented coronary artery August 08, 2023 acute Diabetes type 2, controlled chronic Medullary thyroid carcinoma chronic STEMI (ST elevation myocardial infarction) July resolved Diabetes type 2, controlled chronic Hypothyroidism associated [facility] surgical procedure chronic Thyroid cancer chronic (HFpEF) heart failure with p reserved ejection fraction acute Hypercholesterolemia acute Stented coronary artery August 08, 2023 acute [facility] Work Phone: [phone]) 509-303710-10-2023 Evaluation note* Diagnosis Onset Date Resolution Status Hemorrhoids acute (HFpEF) heart failure with p reserved ejection fraction acute Hypercholesterolemia acute Stented coronary artery August 08, 2023 acute Diabetes type 2, controlled chronic Medullary thyroid carcinoma chronic STEMI (ST elevation myocardial infarction) July resolved Diabetes type 2, controlled chronic Hypothyroidism associated [facility] surgical procedure chronic Thyroid cancer chronic (HFpEF) heart failure with p reserved ejection fraction acute Hypercholesterolemia acute Stented coronary artery August 08, 2023 [facility] Work Phone: [phone]) 418-983910-10-2023 Evaluation note* Diagnosis Onset Date Resolution Status (HFpEF) heart failure with p reserved ejection fraction acute Hypercholesterolemia acute Stented coronary artery August 08, 2023 acute Diabetes type 2, controlled chronic Medullary thyroid carcinoma chronic STEMI (ST elevation myocardial infarction) July resolved Diabetes type 2, controlled chronic Hypothyroidism associated [facility] surgical procedure chronic Thyroid cancer chronic (HFpEF) heart failure with p reserved ejection fraction acute Hypercholesterolemia acute Stented coronary artery August 08, 2023 acute (HFpEF) heart failure with p reserved ejection fraction acute Hypercholesterolemia acute SOB (shortness of breath) ac [place] Stented coronary artery August 08, 2023 [facility] Work Phone: [phone]) 950-465010-10-2023 Evaluation note* Diagnosis Onset Date Resolution Status (HFpEF) heart failure with p reserved ejection fraction acute Hypercholesterolemia acute SOB (shortness of breath) ac [place] Stented coronary artery August 08, 2023 acute [facility] Work Phone: [phone] NoteHNO ID: [id number] Author: Leonel Gill MD Service: ? Author Type: Physician Type: Progress Notes Filed: 10/06/2021 11:09 AM Note Text: Leonel Gill M.D. Department of Endocrine Surgery Endocrinology Metabolism [place] [address], [facility] [place] [address] ENDOCRINE SURGERY NEW CONSULTATION NAME: Shasta Martinez CLINIC NO: [id number] : 1960 REFERRING PROVIDER: Bharath Raines MD [facility] [address] The patient was referred by the above [...] Laterality Date - COLONOSCOP W/ OR W/O [facility] SPEC 12/07/2015 Colonoscopy - COLONOSCOPY 2004 [facility] (neg except hemorrhoids) - DRAINAGE OF PILONIDAL [...] have additional questions. Sincerely, (more content not included)...[facility] summary Author Chante Josue [facility] August 10, 2023 11:47am Note Date/Time August 10, 2023 1 1:44am [facility] Medical Records Department [address] [place] [address] Instructions for Home/Discharge Instructions 08/10/23 1143 MR#: [id number] Acct: [id number] Name: SHASTA MARTINEZ Rep #:[id number] : 1960 62 From: Chante Josue MD PCP: Dr. Greta Edmond, DO Status:ADM IN Discharge Instructions Diet Discharge Diet: [...] % cream with perineal applicator 1 applic SD BID-QID PRN (Reason: hemorrhoids) Qty: 30 0RF [...] can be placed): Home, Self Care 08/10/23 114<Electronically signed by Chante Josue MD>Chante Josue MD CC: Dr. Cristiano Rajput MD; Dr. Greta Edmond DO; Dr. Rubio Ye MD ~ Signed [facility] Work Phone: Discharge summary Author Chante [facility] August 10, 2023 11:51am Note Date/Time August 10, 2023 1 1:51am [facility] Medical Records Department [address] [place] [address] Discharge Summary 08/10/231146 MR#: [id number] Acct: [id number] Name: SHASTA MARTINEZ Rep #:[id number] : 1960 62 From: Chante Josue MD PCP: Dr. Greta Edmond DO Status:ADM IN Location: [facility] [id number]- 1 Providers Date of Admission: 08/08/23 Date of Discharge: 08/10/23 Primary Care Physician: Dr. Greta Edmond DO Consultations 08/09/23 02:14 Consult: Cardiology Routine Consulting Provider: Rubio Ye Reason for Consult: STEMI EMERGENT Consult: Yes Notified: Yes Date Notified: 08/09/23 Time Notified: [...] diabetes mellitus without complications Qualifiers: Diabetes mellitus roasterman insulin use: without longterm use Diabetesmellitus complication status: without complication Qualified [...] cream with perineal applicator (Proctozone-HC) 1 applic SD BID-QID PRN hemorrhoids #30 grams 07/28/23 aspirin [...] with reciprocals in inferior leads. Taken to Rheostat Assembler emergently and treated with HOWARD to LAD [...] to schedule your hospital follow-up appointment ( [phone]) -Do only light and easy activities for [...] (Auto) 67.0, Lymph % (Auto) 15.9 L, [place] % (Auto) 11.0 H, Eos % (Auto) [...] Garo at discharge?: Yes Done w/ Acute MO measure.: Yes Documented LVEF (%): 55 Discharge [...] % cream with perineal applicator 1 applic SD BID-QID PRN (Reason: hemorrhoids) Qty: 30 0RF [...] Self Care Charges/Coding Visit Charges Inpatient E&M: 82768 Disch Hosp >30min 08/10/23 1151 <Electronically signed by Chante Josue MD> Cosigner Signature (if applicable): CC: Dr. Greta Edmond DO; Dr. Chante Josue MD~ Signed [facility] Work Phone: evaluation note* Diagnosis Onset Date Resolution Status Diabetes type 2, controlled acute Hypothyroidism associated with surgical procedure acute Overweight (BMI 25.0-29.9) a cute Vitamin D deficiency acute Vulvar lesion acute Medullary thyroid carcinoma chronic Vulvar lesion acute [facility] Work Phone: evaluation note* Diagnosis Onset Date Resolution Status Diabetes type 2, controlled acute Hypothyroidism associated with surgical procedure acute Overweight (BMI 25.0-29.9) a cute Vitamin D deficiency acute Medullary thyroid carcinoma chronic [facility] Work Phone: Evaluation noteNo assessment information available [facility] Work Phone: evaluation note* Diagnosis Onset Date Resolution Status Encounter for routine gyneco logical examination noneactive Hemorrhoids acute (HFpEF) heart failure with p reserved ejection fraction acute Diabetes type 2, controlled acute Hypercholesterolemia acute STEMI (ST elevation myocardial infarction) July acute Stented coronary artery August 08, 2023 acute Medullary thyroid carcinoma chronic [facility] Work Phone: Evaluation note* Diagnosis Onset Date Resolution Status Encounter for routine gyneco logical examination noneactive Hemorrhoids acute (HFpEF) heart failure with p reserved ejection fraction acute Diabetes type 2, controlled acute Hypercholesterolemia acute Stented coronary artery August 08, 2023 acute Medullary thyroid carcinoma chronic STEMI (ST elevation myocardial infarction) July resolved [facility] Work Phone: Evaluation note* Diagnosis Onset Date Resolution Status Admit Date (HFpEF) heart failure with preserved ejection fraction chronic Augu 2024 8:01am Diabetes type 2, controlled chronic June 04, 2025 8:01am Hypercholesterolemia chronic Augu 2024 8:01am Stented coronary artery August 08, 2023 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 June 04, 2025 8:01am [facility] Work Phone: Hospital Discharge instructionsAmbulatory Orders* Phase II, Outpatient Cardiac Rehab Location: None Selected [facility] Work Phone: Reason for referral (narrative)No reason for referral information availableWAs[facility] Work Phone: Summary Purpose Family History No Family History Records Found Relationship Condition Age at Onset Recorded Date/T jeny Not Specified Diabetes mellitus Unknown Cardiac disease Unknown Myocardial infarction Unknown Malignant neoplasm Unknown Hypertension Unknown Advance Directives No Advanced Directives Records Found Advance Directive Response Recorded Date/ Time Living Will No August 08 11:31pm Power of Science Technicians No August 08, 2023 11:31pm Advance Directive Response Recorded Date/ Time Advance Directives on File No Octob er 2022 8:13am Living Will No August 16 8:13am Power of Science Technicians No August 16, 2023 8:13am Advance Directive Response Recorded Date/ Time Advance Directives on File No Octob er 2022 7:13am Living Will No August 16 7:13am Power of Science Technicians No August 16, 2023 7:13am Advance Directive Response Recorded Date/ Time Living Will No August 16 8:13am Power of Science Technicians No August 16, 2023 8:13am Advance Directive Response Recorded Date/ Time Living Will No August 16 8:13am Do you have a Healthcare Power of Science Technicians? No August 16, 2023 8:13am Chief Complaint and Reason for Visit Chief Complaint Annual (PENSION AGENT) Vulvar biopsy VULVAR LESION Reason for Visit Diabetes type 2, con trolled Hypothyroidism associated with surgical procedure Overweight (BMI 25.0-29.9) Vitamin D deficiency Vulvar lesion Medullary thyroid carcinoma Vulvar lesion Chief Complaint Annual (PENSION AGENT) Vulvar biopsy VULVAR LESION SCREENING Reason for [...] Medullary thyroid carcinoma Chief Complaint SCREENING Annual (PENSION AGENT) THROMBOSED HEMORRHOIDS STEMI STEMI STEMI STEMI STEMI Reason for Visit Encounter for routin e gynecological examination Hemorrhoids (HFpEF) heart failure with preserved ejection fraction Diabetes type 2, controlled Hypercholesterolemia STEMI (ST elevation myocardial infarction) Stented coronary artery Medullary thyroid carcinoma Chief Complaint SCREENING Annual (PENSION AGENT) THROMBOSED HEMORRHOIDS STEMI STEMI STEMI STEMI STEMI STEMI, S/P PCI w/coronary stenting STEMI, PCI with coronary stent Reason for Visit Encounter for routin e gynecological examination Hemorrhoids (HFpEF) heart failure with preserved ejection fraction Diabetes type 2, controlled Hypercholesterolemia Stented coronary artery Medullary thyroid carcinoma STEMI (ST elevation myocardial infarction) Chief Complaint SCREENING Annual (PENSION AGENT) THROMBOSED HEMORRHOIDS STEMI STEMI STEMI STEMI STEMI STEMI, S/P PCI w/coronary stenting 1 Y FU S/P [facility] 08/08 E-ORDER STEMI, PCI with coronary [...] Stented coronary artery Chief Complaint SCREENING Annual (PENSION AGENT) THROMBOSED HEMORRHOIDS STEMI STEMI STEMI STEMI STEMI STEMI, S/P PCI w/coronary stenting 1 Y FU S/P [facility] 08/08 E-ORDER STEMI, PCI with coronary [...] Hypercholesterolemia Stented coronary artery Chief Complaint Annual (PENSION AGENT) THROMBOSED HEMORRHOIDS STEMI STEMI STEMI STEMI STEMI STEMI, S/P PCI w/coronary stenting 1 Y FU S/P [facility] 08/08 E-ORDER STEMI, PCI with coronary [...] Hypercholesterolemia Stented coronary artery Chief Complaint Annual (PENSION AGENT) THROMBOSED HEMORRHOIDS STEMI STEMI STEMI STEMI STEMI STEMI, S/P PCI w/coronary stenting 1 Y FU S/P [facility] 08/08 E-ORDER STEMI, PCI with coronary [...] PCI w/coronary stenting 1 Y FU S/P [facility] 08/08 E-ORDER STEMI, PCI with coronary [...] PCI w/coronary stenting 1 Y FU S/P [facility] 08/08 E-ORDER STEMI, PCI with coronary [...] 04 3:25pm Hypercholesterolemia December 04, 2024 3:25pm Chief Complaint Admit Date INT LAB ORDER March 29, 2025 7:59a m Chief Complaint Admit Date INT LAB ORDER March 29, 2025 7:59a m 6 M FU June 04, 2025 8:0 1am Reason for Visit Admit Date (HFpEF) heart failure with preserved eje ction fraction June 04, 2025 8:01am Diabetes type 2, controlled June 04, 2025 8:01am Hypercholesterolemia June 04, 2025 8: 01am Stented coronary artery June 04, 2025 8:01am Additional Source Comments INFORMATION SOURCE (unrecogn ized section and content) DATE CREATED AUTHOR 11/08/2021 [facility] DATE CREATED AUTHOR AUTHOR'S ORGANIZ ATION 08/11/2025 [facility] Goals (unrecognized section and [...] MD Family Provider Active Dr. Greta Edmond , DO Primary Care Provider Active Team Status: Inactive Member Role Status Dates Dr. Greta Edmond , DO Primary Care Provide r, Attending Provider, Referring Provider Active Team Status: Inactive Member Role Status Dates Dr. Greta Edmond DO Primary Care Provider, Referring P rovider Active Dr. Mita Mazariegos , DO Attending Provider Activ e Team Status: [...] DO Primary Care Provider Active Dr. Rogerio Deemston , DO Emergency Provider Active Dr. Cristiano Rajput [...] Greta Edmond DO Primary Care Provider Active PHILIPPE Hernandez Attending Provider Active Team Status: Active Member Role Status Dates Dr. Jarad Murrell MD Family Provider Active Luiza Yee , PROPERTY ASSISTANT-C Primary Care Provider Active Team Status: Inactive Member Role Status Dates Dr. Jarad Murrell MD Referring Provider Active Dr. Bharath Raines MD Attending Provider Active Dr. Greta Edmond DO Primary Care Provider Active Team Status: Inactive Member Role Status Dates Dr. Greta Edmond DO Primary Care Provider, Referring P rovider Active Queta Moss PROPERTY ASSISTANT, PROPERTY ASSISTANT-C Attending Provider Active Team Status: Active Member Role Status Dates Luiza Yee , PROPERTY ASSISTANT-C Primary Care Provider Active Queta Moss PROPERTY ASSISTANT, PROPERTY ASSISTANT-C Attending Provider, Referring P rovider Active Team Status: Inactive Member Role Status Dates Luiza Yee PROPERTY ASSISTANT-C Primary Care Provider Active Queta Moss PROPERTY ASSISTANT, PROPERTY ASSISTANT-C Attending Provider, Referring P rovider Active Team Status: Active Member Role Status Dates Dr. Bob Saunders MD Attending Provider, Referring Pro vider Active Luiza Joselito , PROPERTY ASSISTANT-C Primary Care Provider Active Team Status: Active Member Role Status Dates Luiza Yee PROPERTY ASSISTANT-C Primary Care Provider Active Queta Moss PROPERTY ASSISTANT, PROPERTY ASSISTANT-C Attending Provider Active Team Status: Inactive Member Role Status Dates Dr. Bob Saunders MD Attending Provider, Referring Pro vider Active Luiza Yee , PROPERTY ASSISTANT-C Primary Care Provider Active Team Status: Inactive Member Role Status Dates Luiza Yee PROPERTY ASSISTANT-C Primary Care Provider Active Dr. Bharath Raines MD Attending Provider, Referring Provi jesse Active Team Status: Inactive Member Role Status Dates Luiza Yee , PROPERTY ASSISTANT-C Primary Care Provider Active Dr. Bob Saunders MD Attending Provider, Referring Pro vider Active Team Status: Inactive Member Role Status Dates Dr. Greta Edmond DO Referring Provider Active Queta Moss PROPERTY ASSISTANT, PROPERTY ASSISTANT-C Attending Provider Active Luiza Yee PROPERTY ASSISTANT-C Primary Care Provider Active Team Status: Inactive Member Role Status Dates Luiza Yee , PROPERTY ASSISTANT-C Primary Care Provider Active Dr. Harjit Gordon DO Attending Provider, Referring P maddi Active Team Status: Active Member Role Status Dates Luiza Joselito , PROPERTY ASSISTANT-C Primary Care Provider Active Team Status: Inactive Member Role Status Dates Luiza Yee , PROPERTY ASSISTANT-C Primary Care Provider Active Start: December 04, 2024 End: December 04, 2024 Luiza Yee , PROPERTY ASSISTANT-C Referring Provider Active St art: December 04, 2024 End: December 04, 2024 Kaden Martin PROPERTY ASSISTANT, PROPERTY ASSISTANT-C Attending Provider Active S tart: December 04, 2024 End: December 04, 2024 Team Status: Inactive Member Role Status Dates Luiza Yee , PROPERTY ASSISTANT-C Primary Care Provider Active Start: March 29, 2025 End: March 29, 2025 Trudi Holliday PROPERTY ASSISTANT-C Attending Provider Active Start: March 29, 2025 End: March 29, 2025 Trudi Holliday PROPERTY ASSISTANT-C Referring Provider Active Start: March 29, 2025 End: March 29, 2025 Team Status: Inactive Member Role Status Dates Luiza Yee , PROPERTY ASSISTANT-C Primary Care Provider Active Start: April 08, 2025 End: April 08, 2025 Luiza Yee , PROPERTY ASSISTANT-C Attending Provider Active St art: April 08, 2025 End: April 08, 2025 Luiza Yee , PROPERTY ASSISTANT-C Referring Provider Active St art: April 08, 2025 End: April 08, 2025 Team Status: Active Member Role/Relationship Status Dates Luizalogan Yee , PROPERTY ASSISTANT-C Primary Care Provider Active Team Status: Inactive Member Role/Relationship Status Dates Luizalogan Yee , PROPERTY ASSISTANT-C Primary Care Provider Active Start: March 29, 2025 End: March 29, 2025 Trudi Holliday PROPERTY ASSISTANT-C Attending Provider Active Start: March 29, 2025 End: March 29, 2025 Trudi Holliday PROPERTY ASSISTANT-C Referring Provider Active Start: March 29, 2025 End: March 29, 2025 Team Status: Inactive Member Role/Relationship Status Dates PHILIPPE Altamirano Primary Care Provider Active Start: April 08, 2025 End: April 08, 2025 PHILIPPE Altamirano Attending Provider Active St art: April 08, 2025 End: April 08, 2025 PHILIPPE Altamirano Referring Provider Active St art: April 08, 2025 End: April 08, 2025 Team Status: Inactive Member Role/Relationship Status Dates PHILIPPE Altamirano Primary Care Provider Active Start: June 04, 2025 End: June 04, 2025 PHILIPPE Altamirano Referring Provider Active St art: June 04, 2025 End: June 04, 2025 Kaden Martin PROPERTY ASSISTANT, PROPERTY ASSISTANT-C Attending Provider Active S tart: June 04, 2025 End: June 04, 2025 FOR RECORDS PERTAINING TO PATIENTS WHO [...] BE BASED ON THE PRIMARY CLINICAL RECORDS. [employer] provides no warranty or guarantee of the accuracy or completeness of information in this document.
--- OUTSIDE RECORDS SUMMARY | 2025-08-16 08:12 | XMS RPT_ITS | CCD ---
Author Organization [facility] Care Team Providers Care Technical Maintenance Specialist Name Role Phone Dr. Jarad Murrell Primary Care Provider Dr. Jarad Murrell Referring Provider Dr. Mita Mazariegos Attending Provider [phone] Dr. Jarad Murrell Primary Care Provider Dr. Jarad uMrrell Referring Provider FER Jefferson Attending Provider Dr. Bharath Raines Attending Provider Dr. Jarad Murrell Primary Care Provider Dr. Jarad Murrell Referring Provider FER Jefferson Attending Provider Dr. Bharath Raines Attending Provider Dr. Greta Edmond Primary Care Provider Dr. Greta Edmond Referring Provider Dr. Mita Mazariegos Attending Provider Dr. Katherin Alcala Attending Provider Dr. Rogerio Zhu Emergency Provider [phone] Cristiano Rajput Admit Provider Dr. Cristiano Rajput Other Provider Dr. Rubio Ye Attending Provider [phone] Dr. Rubio Ye Referring Provider [phone] Dr. Rubio Ye Other Provider Dr. Chante Josue Attending Provider Dr. Chante Josue Other Provider Dr. Bob Saunders Attending Provider [phone] Jarad Murrell Referring Provider Unavailable Dr. Bharath Raines Attending Provider Ajay PARDO, ARNP-C Queta Attending Provider Feli, Dr. Hernandes Primary Care Provider Dr. Greta Edmond Referring Provider Dr. Mita Mazariegos Attending Provider [phone] Dr. aKtherin Alcala Attending Provider Dr. Rogerio Zhu Emergency [...] Dr. Bharath Raines Attending Provider Ajay PARDO, ARNP-C Queta Attending Provider PHILIPPE Yee Primary Care Provider Dr. Greta Edmond Primary Care Provider Feli, Dr. Hernandes Referring Provider Dr. Greta Edmond Primary Care Provider Dr. Greta Edmond Referring Provider Dr. Greta Edmond Referring Provider [phone] Ajay ARNP, ARNP-C Queta Attending Provider Joselito, ARNP-C Luiza Primary Care Provider Joselito ARNP-C, Luiza Primary Care Provider Joselito ARNP-C, Luiza Referring Provider Veronica ARNP-C, Kaden Suh Attending Provider [phone] ARNP-C, Trudi Attending Provider [phone] ARNP-C, Trudi Referring Provider Joselito ARNP-C, Luiza Primary Care Provider Joselito ARNP-C, Luiza Attending Provider Joselito ARNP-C, Luiza Referring Provider Veronica ARNP-C, Kaden Suh Attending Provider Joselito, Luiza Primary [...] dust allergenic extract Drug Allergy 2 Unknown [facility] (19 sources) Mold Extract Drug Allergy 2 Unknown [facility] (4 sources) pet dander Allergy to substance 1 Unknown [facility] Work Phone: (16 sources) animal dander; Translations: [animal dander] Allergy to substance 2 NEEDS FOLLOW-UP, Sneezing, watery eyes [facility] (3 sources) Lisinopril Drug Allergy 5 Cough [facility] (1 source) house dust allergenic extract Drug Allergy 5 [facility] Repository (1 source) Lisinopril Drug Allergy 5 [facility] Repository (1 source) Mold Extract Drug Allergy 5 [facility] Repository Medications Current Medications Medication Drug Class(es) [...] Coronary arteriosclerosis; Translations: [Atherosclerotic heart disease of [place] coronary artery without angina pectoris] Onset: 08-08-2023 [...] Endocrinology Visit Reporton 08-11-2025 Endocrinology Visit Report [facility] [address] [place] [address] [address] [place] [address] OFFICE VISIT Date of Service: 08/11/25 MR#: [id number] Acct: [id number] Name: SHASTA MARTINEZ Rep #: [id number] : 1960 Provider: Hannah Castillo Age/Sex: 64/F Location: [facility] Status: Signed Intake Vital Signs 08/23/24 07:58 [...] you fallen in the past year?: No [facility] Medical History Arteriosclerotic coronary artery disease (08/08/23) [...] Neuro Genera (more content not included)... Normal [facility] Cardiology Visit Reporton Cardiology Visit Report [facility] [address] [place] [address] OFFICE VISIT Date of Service: 06/04/25 MR#: [id number] Acct: [id number] Name: SHASTA MARTINEZ Rep #: [id number] : 1960 Provider: PHILIPPE biggs Age/Sex: 64/F Location: [facility] Status: Signed HPI HPI History of Present Illness Details: SHASTA MARTIENZ, is a 64 F who presents to the office today for a cardiovascular follow up visit. She had presented to emergency room with chest pain in July of 2023. Her EKG revealed anterolateral ST elevation DC. Patient underwent emergent coronary angiography which revealed [...] 98 Intake Visit Reasons: 6 M FU Lpc Required: No Accompanied by: Is patient in [...] dizziness (Occasionall (more content not included)... Normal [facility] Clavicleon 04-08-2025 Clavicle [facility] Imaging Services [address] [place], [place] [address] Clavicle MR#: [id number] Acct: [id number] Name: SHASTA MARTINEZ VANDA Rep #: [id number] : 1960 F 64 From: Gio ramon MD PCP: PHILIPPE Altamirano Status: REG CLI Study: Clavicle Date of Exam: 04/08/25 Exam# [id number] Ordering Dr: Luiza Yee PROCEDURE: CLAVICLE 04/08/2025 [...] the corresponding articular surface contour. Reading Location: [place] [address] CC: PHILIPPE Yee [employer] Counselor: Signed Normal [facility] Carcinoembryonic Antigenon 0 03-30-2025 CEA 2.3 ng/mL Normal 0.0-4.7 [facility] Comment on above: Result Comment: Nons mokers <3.9 Smokers <5.6 [employer] Electrochemiluminescence Immunoassay (ECLIA) Values obtained with different assay methods or kits cannot be used interchangeably. Results cannot be interpreted as absolute evidence of the presence or absence of malignant disease. Performed at: [facility] [id number] Obstetrician/Gynecologist: Jan Gonzalez PhD, Phone: [phone] Performed By: #### L 3106.2300 ####[facility] [address] [facility] [place], [address] Serum or plasma carcinoembry onic antigen measurement (mass/volume)Ordered By: Trudi Holliday on 03-29-2025 Carcinoembryonic Ag [Mass/Vol] 2.3 ng/mL 0.0-4.7 [facility] Comment on above: Nonsmokers <3.9 Smok ers <5.6[employer] Electrochemiluminescence Immunoassay(ECLIA)Values obtained with different assay methods or kitscannot be used interchangeably. Results cannot beinterpreted as absolute evidence of the presence orabsence of malignant disease.Performed at: [facility] [id number] Director: Jan Gonzalez PhD, Phone: [phone] Cardiology Visit Reporton Cardiology Visit Report [facility] [address] [facility]. [address] [place] [address] OFFICE VISIT Date of Service: 12/04/24 MR#: [id number] Acct: [id number] Name: SHASTA MARTINEZ Rep #: [id number] : 1960 Provider: PHILIPPE biggs Age/Sex: 64/F Location: [facility] Status: Signed HPI HPI History of Present Illness Details: SHASTA MARTINEZ, is a 64 F who presents to the office today for a cardiovascular follow up visit. She had presented to emergency room with chest pain in July of 2023. Her EKG revealed anterolateral ST elevation DC. Patient underwent emergent coronary angiography which revealed [...] 98 Intake Visit Reasons: 6 M FU Lpc Required: No Is patient in pain?: No [...] Endo Endo: (more content not included)... Normal [facility] Vitamin D,25 Hydroxyon 10-21 Vitamin D 25-OH 53.3 ng/mL Normal [facility] Comment on above: Result Comment: Dilcia min D 25(OH) Status Range Deficiency <20 ng/mL (50nmol/L) Insufficiency 20 - 30 ng/mL (50 - 75 nmol/L) Sufficiency 30 - 100 ng/mL (75 - 250 nmol/L) Toxicity >100 ng/mL (>250 nmol/L) Performed By: #### L 500.4100, L506.0400, L502.0250, L506.1000, L501.9520, L500.4050, L3100.2300 ####[facility] [address] [place], [place], [id number] Carcinoembryonic Antigenon 1 12-21-2023 CEA 3.1 ng/mL Normal 0.0-4.7 [facility] Comment on above: Result Comment: Nons mokers <3.9 Smokers <5.6 [employer] Electrochemiluminescence Immunoassay (ECLIA) Values obtained with different assay methods or kits cannot be used interchangeably. Results cannot be interpreted as absolute evidence of the presence or absence of malignant disease. Performed at: [address] [id number] Obstetrician/Gynecologist: Jan Gonzalez PhD, Phone: [phone] Performed By: #### L 500.4100, L506.0400, L502.0250, L506.1000, L501.9520, L500.4050, L3100.2300 ####[facility] [address] [place], [address] Comprehensive Metabolic Prof ilon 10-19-2024 Albumin [Mass/Vol] 3.6 g/dL Normal 3.2-5.0 [facility] Comment on above: Performed By: #### L 500.4100, L506.0400, L502.0250, L506.1000, L501.9520, L500.4050, L3100.2300 #### [facility] [address] [place], [address] Albumin/Globulin [Mass ratio] 1.0 {ratio} Normal 0.9-2.4 [facility] Comment on above: Performed By: #### L 500.4100, L506.0400, L502.0250, L506.1000, L501.9520, L500.4050, L3100.2300 #### [facility] [address] [place], [address] ALK P 82 U/L Normal 45-117 [facility] Comment on above: Performed By: #### L 500.4100, L506.0400, L502.0250, L506.1000, L501.9520, L500.4050, L3100.2300 #### [facility] [address] [place], [address] ALT [Catalytic activity/Vol] 25 U/L Normal 13-56 [facility] Comment on above: Performed By: #### L 500.4100, L506.0400, L502.0250, L506.1000, L501.9520, L500.4050, L3100.2300 #### [facility] [address] [place], [address] AST [Catalytic activity/Vol] 16 U/L Normal 15-37 [facility] Comment on above: Performed By: #### L 500.4100, L506.0400, L502.0250, L506.1000, L501.9520, L500.4050, L3100.2300 #### [facility] [address] [place], [address] Bilirubin [Mass/Vol] 0.50 mg/dL Normal 0.20-1.00 [facility] Comment on above: Result Comment: For patients on eltrombopag therapy, use of Dimension [place] TBIL is not recommended. Performed By: #### L 500.4100, L506.0400, L502.0250, L506.1000, L501.9520, L500.4050, L3100.2300 #### [facility] [address] [place], [address] BUN/CRE 21.6 RATIO High 10-20 [facility] Comment on above: Performed By: #### L 500.4100, L506.0400, L502.0250, L506.1000, L501.9520, L500.4050, L3100.2300 #### [facility] [address] [place], [address] CA,Total 9.1 mg/dL Normal 8.5-10.1 [facility] Comment on above: Performed By: #### L 500.4100, L506.0400, L502.0250, L506.1000, L501.9520, L500.4050, L3100.2300 #### [facility] [address] [place], [address] Chloride [Moles/Vol] 109 mmol/L High 98-107 [facility] Comment on above: Performed By: #### L 500.4100, L506.0400, L502.0250, L506.1000, L501.9520, L500.4050, L3100.2300 #### [facility] [address] [place], [address] CO2 [Moles/Vol] 27.0 mmol/L Normal 21.0-32.0 [facility] Comment on above: Performed By: #### L 500.4100, L506.0400, L502.0250, L506.1000, L501.9520, L500.4050, L3100.2300 #### [facility] [address] [place], [address] Creatinine [Mass/Vol] 0.83 mg/dL Normal 0.55-1.02 [facility] Comment on above: Result Comment: The validity of the calculated GFR GFRAA in patients over 70 years has not been determined. Clinical correlation is essential. Performed By: #### L 500.4100, L506.0400, L502.0250, L506.1000, L501.9520, L500.4050, L3100.2300 #### [facility] [address] [place], [address] (281 EST GFR - AA 89 mL/min Normal >60 [facility] Comment on above: Result Comment: Afri can [place] GFR Calc Performed By: #### L 500.4100, L506.0400, L502.0250, L506.1000, L501.9520, L500.4050, L3100.2300 #### [facility] [address] [place], [address] (311) GAP 4 Low 5-15 [facility] Comment on above: Performed By: #### L 500.4100, L506.0400, L502.0250, L506.1000, L501.9520, L500.4050, L3100.2300 #### [facility] [address] [place], [address] GFR/1.73 sq M.predicted among non-blacks MDRD (S/P/Bld) [Vol rate/Area] 73 mL/min/{1.73_m2} Normal >60 [facility] Comment on above: Result Comment: Non- GFR Calc Performed By: #### L 500.4100, L506.0400, L502.0250, L506.1000, L501.9520, L500.4050, L3100.2300 #### [facility] [address] [place], [address] Globulin (S) [Mass/Vol] 3.5 g/dL Normal 2.2-4.2 [facility] Comment on above: Performed By: #### L 500.4100, L506.0400, L502.0250, L506.1000, L501.9520, L500.4050, L3100.2300 #### [facility] [address] [place], [address] Glucose [Mass/Vol] 120 mg/dL High 74-106 [facility] Comment on above: Result Comment: Fast ing Glucose result from 100 to 125 mg/dL suggests IMPAIRED HOMEOSTASIS per A.D.A. criteria. Performed By: #### L 500.4100, L506.0400, L502.0250, L506.1000, L501.9520, L500.4050, L3100.2300 #### [facility] [address] [place], [address] Potassium [Moles/Vol] 4.0 mmol/L Normal 3.5-5.1 [facility] Comment on above: Performed By: #### L 500.4100, L506.0400, L502.0250, L506.1000, L501.9520, L500.4050, L3100.2300 #### [facility] [address] [place], [address] Sodium [Moles/Vol] 140 mmol/L Normal 136-145 [facility] Comment on above: Performed By: #### L 500.4100, L506.0400, L502.0250, L506.1000, L501.9520, L500.4050, L3100.2300 #### [facility] [address] [place], [address] T PROT 7.1 g/dL Normal 6.4-8.2 [facility] Comment on above: Performed By: #### L 500.4100, L506.0400, L502.0250, L506.1000, L501.9520, L500.4050, L3100.2300 #### [facility] [address] [place], [address] Urea nitrogen [Mass/Vol] 18 mg/dL Normal 7-18 [facility] Comment on above: Performed By: #### L 500.4100, L506.0400, L502.0250, L506.1000, L501.9520, L500.4050, L3100.2300 #### [facility] [address] [place], [address] Lipid Profileon 10-19-2024 Cholesterol [Mass/Vol] 145 mg/dL Normal 200 [facility] Comment on above: Result Comment: <200 mg/dL Desirable 200-240 mg/dL Borderline >240 mg/dL High Risk Performed By: #### L 500.4100, L506.0400, L502.0250, L506.1000, L501.9520, L500.4050, L3100.2300 #### [facility] [address] [place], [address] Cholesterol in HDL [Mass/Vol] 52 mg/dL Normal [facility] Comment on above: Result Comment: The drugs N-Acetylcysteine and Metamizole may falsely depress this assay. Reference Range HDL <40 mg/dL Low HDL Cholesterol HDL >or= 60 mg/dL High HDL Cholesterol Performed By: #### L 500.4100, L506.0400, L502.0250, L506.1000, L501.9520, L500.4050, L3100.2300 #### [facility] [address] [place], [place], [address] Cholesterol in LDL [Mass/Vol] 78 mg/dL Normal 0-130 [facility] Comment on above: Performed By: #### L 500.4100, L506.0400, L502.0250, L506.1000, L501.9520, L500.4050, L3100.2300 #### [facility] [address] [place], [address] Cholesterol in VLDL [Mass/Vol] 15 mg/dL Normal 5-40 [facility] Comment on above: Performed By: #### L 500.4100, L506.0400, L502.0250, L506.1000, L501.9520, L500.4050, L3100.2300 #### [facility] [address] [place], [address] Triglyceride [Mass/Vol] 74 mg/dL Normal [facility] Comment on above: Result Comment: The drugs N-Acetylcysteine and Metamizole may falsely depress this assay. Serum Triglycerides Reference Interval Normal <150 mg/dL Borderline high 150 - 199 mg/dL High 200 - 499 mg/dL Very High > or = 500 mg/dL Performed By: #### L 500.4100, L506.0400, L502.0250, L506.1000, L501.9520, L500.4050, L3100.2300 #### [facility] [address] [place], [address] Microalb:Creat Ratio,Random URon 10-19-2024 Creatinine [Mass/Vol] 53.80 mg/dL Normal NO RAN GE EST. [facility] Comment on above: Performed By: #### L 500.4100, L506.0400, L502.0250, L506.1000, L501.9520, L500.4050, L3100.2300 #### [facility] [address] [place], [address] MALB:CRE TNP Normal <30 mg/g CRE [facility] Comment on above: Performed By: #### L 500.4100, L506.0400, L502.0250, L506.1000, L501.9520, L500.4050, L3100.2300 #### [facility] [address] [place], [address] MICROALBUMIN,UR < 5.0 Normal NO RANGE EST. [facility] Comment on above: Performed By: #### L 500.4100, L506.0400, L502.0250, L506.1000, L501.9520, L500.4050, L3100.2300 #### [facility] [address] [place], [address] T4 Free Directon 10-19-2024 T4 FREE DIRECT 1.50 ng/dL High 0.76-1.46 [facility] Comment on above: Performed By: #### L 500.4100, L506.0400, L502.0250, L506.1000, L501.9520, L500.4050, L3100.2300 #### [facility] [address] [place], [address] Thyroid Stim Hormone (TSH)on 10-19-2024 TSH 0.365 uIU/mL Normal 0.358-3.740 [facility] Comment on above: Performed By: #### L 500.4100, L506.0400, L502.0250, L506.1000, L501.9520, L500.4050, L3100.2300 #### [facility] [address] [place], [address] SCRN MAMM (CAD)W/CHINTAN BILATo n 10-02-2024 SCRN MAMM (CAD)W/CHINTAN BILAT [facility] Imaging Services [address] [place] [address] SCRN MAMM (CAD)W/CHINTAN BILAT MR#: [id number] Acct: [id number] Name: SHASTA MARTINEZ Rep #: [id number] : 1960 F 64 From: Hugh geller MD PCP: PHILIPPE Altamirano Status: [facility] Study: SCRN MAMM (CAD)W/CHINTAN BILAT Date of Exam: 02/20 Exam# [id number] Ordering Dr: Mita Mazariegos DO [id number] MAMMOGRAPHY - BILATERAL SCREENING REASON FOR EXAM: [...] delay biopsy of a clinically suspicious abnormality. [id number] Electronically Signed: Hugh Schultz MD at 8:46 EST Reading Location ID and State: [facility] / [place] , Service support , CC: PHILIPPE Yee; Dr. Mita Mazariegos DO [employer] Counselor: Signed Normal [facility] Air Conditioning Supervisor Office Visit Reporton 09-09-2024 Air Conditioning Supervisor Office Visit Report [facility]'s [address], [address] [place] [address] OFFICE VISIT Date of Service: 09/09/24 MR#: [id number] Acct: [id number] Name: SHASTA MARTINEZ Rep #: [id number] : 1960 Provider: Dr. 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 Female Reproductive History Questions: metorrhagia: [...] frequency, urinar (more content not included)... Normal [facility] Endocrinology Visit Reporton 08-23-2024 Endocrinology Visit Report [facility] [address] [place] [address] OFFICE VISIT Date of Service: 08/23/24 MR#: [id number] Acct: [id number] Name: SHASTA MARTINEZ VANDA Rep #: [id number] : 1960 Provider: Hannah Castillo Age/Sex: 63/F Location: [facility] Status: Signed Intake Vital Signs 08/25/23 08:07 [...] DAILY #90 tabs 08/23/24 08/23/24 Rx (Synthroid) [facility] Medical History Arteriosclerotic coronary artery disease (08/08/23) [...] (no palp (more content not included)... Normal [facility] Absolute lymphocyte countOrd ered By: Queta Moss on 11-27-2023 Lymphocytes Auto (Unsp spec) [#/Vol] 1.04 10*3/uL 0.83-4.51 [facility] Automated lymphocyte count a s percentage of total leukocytesOrdered By: Queta Moss on 11-27-2023 Lymphocytes/100 WBC Auto (Unsp spec) 12.7 % 19-41 [facility] Basophil percentageOrdered B y: Queta Moss on 11-27-2023 Basophils/100 WBC (Bld) 1.0 % 0-1 [facility] Chloride [Moles/Vol] 111 mmol/L 98-107 [facility] Eosinophils/100 WBC (Bld) 3.6 % 0-5 [facility] Glucose [Mass/Vol] 121 mg/dL 74-106 [facility] Comment on above: Fasting Glucose resu lt from 100 to 125 mg/dL suggests IMPAIRED HOMEOSTASIS per A.D.A. criteria. Hemoglobin (Bld) [Mass/Vol] 14.4 g/dL 12.0-15.0 [facility] Monocytes/100 WBC (Bld) 9.1 % 0-10 [facility] Neutrophils (Bld) [#/Vol] 6.0 10*3/uL 2.0-7.7 [facility] Neutrophils/100 WBC (Bld) 73.2 % 47-70 [facility] Potassium [Moles/Vol] 4.3 mmol/L 3.5-5.1 [facility] Sodium [Moles/Vol] 139 mmol/L 136-145 [facility] WBC (Bld) [#/Vol] 8.2 10*3/uL 4.4-11.0 [facility] Determination of erythrocyte mean corpuscular volume (MCV)Ordered By: Queta Moss on 11-27-2023 MCV (RBC) [Entitic vol] 91.2 fL 81-99 [facility] Erythrocyte distribution wid th ratioOrdered By: Queta Moss on 11-27-2023 Erythrocyte distribution width (RBC) [Ratio] 13.8 % 11.6-14.6 [facility] Erythrocyte distribution wid th standard deviationOrdered By: Queta Moss on 11-27-2023 Erythrocyte distribution width (RBC) [Entitic vol] 46.5 fL 35.1-43.9 [facility] Hematocrit Auto (Bld) [Volum e fraction]Ordered By: Queta Moss on 11-27-2023 Hematocrit (Bld) [Volume fraction] 45.8 % 37-47 [facility] Immature granulocytes/100 WB C Auto (Bld)Ordered By: Queta Moss on 11-27-2023 Immature granulocytes/100 WBC (Bld) 0.400 % 0.0-0.9 [facility] Comment on above: IG% - Immature Granu locytes (promyelocytes, myelocytes and metamyelocytes) > 1% indicates that a LEFT SHIFT is Present. Laboratory - Chemistry and C hemistry - challengeOrdered By: Queta Moss on 11-27-2023 CO2 [Moles/Vol] 24.0 mmol/L 21.0-32.0 [facility] Natriuretic peptide B (Bld) [Mass/Vol] 11.6 pg/mL 0-100 [facility] Urea nitrogen/Creatinine [Mass ratio] 18.1 mg/mg 10-20 [facility] Laboratory - Hematology and Cell countsOrdered By: Queta Moss on 11-27-2023 MCH (RBC) [Entitic mass] 28.7 pg 27.0-32.0 [facility] MCHC (RBC) [Mass/Vol] 31.4 g/dL 32-36 [facility] Nucleated RBC/100 WBC (Bld) [Ratio] 0 % 0-5 [facility] Platelets (Bld) [#/Vol] 308 10*3/uL 150-450 [facility] No Panel InformationOrdered By: Queta Moss on 11-27-2023 Estimated GFR (MDRD) Amer 77 mL/min >60 [facility] Comment on above: GFR Calc Estimated GFR (MDRD) Non-Af Amer 64 mL/min >60 [facility] Comment on above: Non- GFR Calc Platelet mean volume [place] ker (Bld) [Entitic vol]Ordered By: Queta Moss on 11-27-2023 Platelet mean volume (Bld) [Entitic vol] 9.7 fL 6.2-12.0 [facility] RBC Auto (Bld) [#/Vol]Ordere d By: Queta Moss on 11-27-2023 RBC (Bld) [#/Vol] 5.02 10*6/uL 4.2-5.4 [facility] Serum or plasma calcium blayne urement (mass/volume)Ordered By: Queta Moss on 11-27-2023 Calcium [Mass/Vol] 9.3 mg/dL 8.5-10.1 [facility] Serum or plasma creatinine m easurement (mass/volume)Ordered By: Queta Moss on 11-27-2023 Creatinine [Mass/Vol] 0.94 mg/dL 0.55-1.02 [facility] Comment on above: The validity of the calculated GFR & GFRAA in patients over 70 years has not been determined. Clinical correlation is essential. Serum or plasma thyroid stim ulating hormone (TSH) measurement (units/volume)Ordered By: Bob Saunders on 11-27-2023 TSH Qn 0.47 uIU/mL 0.358-3.74 [facility] Serum or plasma urea nitroge n measurement (mass/volume)Ordered By: Queta Moss on 11-27-2023 Urea nitrogen [Mass/Vol] 17 mg/dL 7-18 [facility] Thin prep Papanicolaou smear with manual screeningOrdered By: Queta Moss on 11-27-2023 Thin prep Papanicolaou smear with manual screening 4 5-15 [facility] Basophil percentageOrdered B y: Bob Saunders on 10-16-2023 WBC (Bld) [#/Vol] 9.1 10*3/uL 4.4-11.0 [facility] Blood erythrocytes count (nu mber/volume)Ordered By: Bob Saunders on 10-16-2023 RBC (Bld) [#/Vol] 4.76 10*6/uL 4.2-5.4 [facility] Blood hemoglobin measurement (mass/volume)Ordered By: Bob Saunders on 10-16-2023 Hemoglobin (Bld) [Mass/Vol] 14.3 g/dL 12.0-15.0 [facility] Blood platelet mean volumeOr dered By: Bob Saunders on 10-16-2023 Platelet mean volume (Bld) [Entitic vol] 9.4 fL 6.2-12.0 [facility] Determination of erythrocyte mean corpuscular volume (MCV)Ordered By: Bob Saunders on 10-16-2023 MCV (RBC) [Entitic vol] 92.2 fL 81-99 [facility] Hematocrit Auto (Bld) [Volum e fraction]Ordered By: Bob Saunders on 10-16-2023 Hematocrit (Bld) [Volume fraction] 43.9 % 37-47 [facility] Laboratory - Hematology and Cell countsOrdered By: Bob Saunders on 10-16-2023 Erythrocyte distribution width (RBC) [Entitic vol] 50.3 fL 35.1-43.9 [facility] Erythrocyte distribution width (RBC) [Ratio] 14.7 % 11.6-14.6 [facility] MCH (RBC) [Entitic mass] 30.0 pg 27.0-32.0 [facility] MCHC Auto (RBC) [Mass/Vol]Or dered By: Bob Saunders on 10-16-2023 MCHC (RBC) [Mass/Vol] 32.6 g/dL 32-36 [facility] No Panel InformationOrdered By: Bob Saunders on 10-16-2023 Thyroid Stimulating Hormone (TSH) 0.14 uIU/mL 0.358-3.74 [facility] Platelets bldOrdered By: Chun Saunders on 10-16-2023 Platelets (Bld) [#/Vol] 334 10*3/uL 150-450 [facility] Basophil percentageOrdered B y: Bharath Raines on 09-30-2023 Bilirubin [Mass/Vol] 0.50 mg/dL 0.20-1.00 [facility] Comment on above: For patients on eltr ombopag therapy, use of Dimension [place] TBIL is not recommended. Chloride [Moles/Vol] 113 mmol/L 98-107 [facility] Cholesterol [Mass/Vol] 140 mg/dL <200 [facility] Comment on above: <200 mg/dL Desirable 200-240 mg/dL Borderline >240 mg/dL High Risk Glucose [Mass/Vol] 117 mg/dL 74-106 [facility] Comment on above: Fasting Glucose resu lt from 100 to 125 mg/dL suggests IMPAIRED HOMEOSTASIS per A.D.A. criteria. Potassium [Moles/Vol] 4.1 mmol/L 3.5-5.1 [facility] Protein [Mass/Vol] 6.6 g/dL 6.4-8.2 [facility] Sodium [Moles/Vol] 143 mmol/L 136-145 [facility] Triglyceride [Mass/Vol] 99 mg/dL <199 [facility] Comment on above: The drugs N-Acetylcy steine and Metamizole may falsely depress this assay.Serum Triglycerides Reference Interval Normal <150 mg/dL Borderline high 150 - 199 mg/dL High 200 - 499 mg/dL Very High > or = 500 mg/dL Laboratory - Chemistry and C hemistry - challengeOrdered By: Bharath Raines on 09-30-2023 ALP [Catalytic activity/Vol] 54 U/L 45-117 [facility] ALT [Catalytic activity/Vol] 22 U/L 13-56 [facility] CO2 [Moles/Vol] 26.0 mmol/L 21.0-32.0 [facility] Globulin (S) [Mass/Vol] 3.3 g/dL 2.2-4.2 [facility] Urea nitrogen/Creatinine [Mass ratio] 12.8 mg/mg 10-20 [facility] No Panel InformationOrdered By: Bharath Raines on 09-30-2023 Carcinoembryonic Ag Serial Monitor Not Reportable [facility] Estimated GFR (MDRD) Amer 86 mL/min >60 [facility] Comment on above: GFR Calc Estimated GFR (MDRD) Non-Af Amer 71 mL/min >60 [facility] Comment on above: Non- GFR Calc Urine Microalbumin/Creatini ne Ratio 12.9 mg/g CRE <30 [facility] Vitamin D 25-Hydroxy 76.3 ng/mL [facility] Comment on above: Vitamin D 25(OH) Sta tus Range Deficiency <20 ng/mL (50nmol/L) Insufficiency 20 - 30 ng/mL (50 - 75 nmol/L) Sufficiency 30 - 100 ng/mL (75 - 250 nmol/L) Toxicity >100 ng/mL (>250 nmol/L) Serum or plasma albumin blayne urement (mass/volume)Ordered By: Bharath Raines on 09-30-2023 Albumin [Mass/Vol] 3.3 g/dL 3.2-5.0 [facility] Serum or plasma albumin/glob ulin mass ratioOrdered By: Bharath Raines on 09-30-2023 Albumin/Globulin [Mass ratio] 1.0 {ratio} 0.9-2.4 [facility] Serum or plasma calcium blayne urement (mass/volume)Ordered By: Bharath Raines on 09-30-2023 Calcium [Mass/Vol] 8.7 mg/dL 8.5-10.1 [facility] Serum or plasma carcinoembry onic antigen measurement (mass/volume)Ordered By: Bharath Raines on 09-30-2023 Carcinoembryonic Ag [Mass/Vol] 2.5 ng/mL 0.0-4.7 [facility] Comment on above: Nonsmokers <3.9 Smok ers <5.6[employer] Electrochemiluminescence Immunoassay(ECLIA)Values obtained with different assay methods or kitscannot be used interchangeably. Results cannot beinterpreted as absolute evidence of the presence orabsence of malignant disease.Performed at: [facility] [id number] Director: Jan Gonzalez PhD, Phone: [phone] Serum or plasma cholesterol in HDL measurement (mass/volume)Ordered By: Bharath Raines on 09-30-2023 Cholesterol in HDL [Mass/Vol] 37 mg/dL >40 [facility] Comment on above: The drugs N-Acetylcy steine and Metamizole may falsely depress this assay. Reference Range HDL <40 mg/dL Low HDL Cholesterol HDL >or= 60 mg/dL High HDL Cholesterol Serum or plasma cholesterol in VLDL measurement (mass/volume)Ordered By: Bharath Raines on 09-30-2023 Cholesterol in VLDL [Mass/Vol] 20 mg/dL 5-40 [facility] Serum or plasma creatinine m easurement (mass/volume)Ordered By: Bharath Raines on 09-30-2023 Creatinine [Mass/Vol] 0.86 mg/dL 0.55-1.02 [facility] Comment on above: The validity of the calculated GFR & GFRAA in patients over 70 years has not been determined. Clinical correlation is essential. Serum or plasma low density lipoprotein (LDL) cholesterol measurement (mass/volume)Ordered By: Bharath Raines on 09-30-2023 Cholesterol in LDL [Mass/Vol] 83 mg/dL 0-130 [facility] Serum or plasma urea nitroge n measurement (mass/volume)Ordered By: Bharath Raines on 09-30-2023 Urea nitrogen [Mass/Vol] 11 mg/dL 7-18 [facility] Thin prep Papanicolaou smear with manual screeningOrdered By: Bharath Raines on 09-30-2023 Thin prep Papanicolaou smear with manual screening 15 U/L 15-37 [facility] Thin prep Papanicolaou smear with manual screening 4 5-15 [facility] Thin prep Papanicolaou smear with manual screening 13.3 mg/L NO RANGE EST. [facility] Urine creatinine measurement (mass/volume)Ordered By: Bharath Raines on 09-30-2023 Creatinine (U) [Mass/Vol] 103.00 mg/dL NO RANGE EST. [facility] Basophil percentageOrdered B y: Queta Moss on 08-25-2023 Chloride [Moles/Vol] 105 mmol/L 98-107 [facility] Glucose [Mass/Vol] 95 mg/dL 74-106 [facility] Potassium [Moles/Vol] 4.1 mmol/L 3.5-5.1 [facility] Sodium [Moles/Vol] 136 mmol/L 136-145 [facility] Laboratory - Chemistry and C hemistry - challengeOrdered By: Queta Moss on 08-25-2023 CO2 [Moles/Vol] 25.0 mmol/L 21.0-32.0 [facility] Magnesium [Mass/Vol] 2.1 mg/dL 1.6-2.6 [facility] Urea nitrogen/Creatinine [Mass ratio] 14.7 mg/mg 10- [facility] Laboratory - Hematology and Cell countson 08-25-2023 HbA1c (Bld) [Mass fraction] 6.2 % 4.2-6.3 [facility] No Panel InformationOrdered By: Queta Moss on 08-25-2023 Estimated GFR (MDRD) Amer 91 mL/min >60 [facility] Comment on above: GFR Calc Estimated GFR (MDRD) Non-Af Amer 75 mL/min >60 [facility] Comment on above: Non- GFR Calc Serum or plasma calcium blayne urement (mass/volume)Ordered By: Queta Moss on 08-25-2023 Calcium [Mass/Vol] 9.0 mg/dL 8.5-10.1 [facility] Serum or plasma creatinine m easurement (mass/volume)Ordered By: Queta Moss on 08-25-2023 Creatinine [Mass/Vol] 0.82 mg/dL 0.55-1.02 [facility] Comment on above: The validity of the calculated GFR & GFRAA in patients over 70 years has not been determined. Clinical correlation is essential. Serum or plasma urea nitroge n measurement (mass/volume)Ordered By: Queta Moss on 08-25-2023 Urea nitrogen [Mass/Vol] 12 mg/dL 7-18 [facility] Thin prep Papanicolaou smear with manual screeningOrdered By: Queta Moss on 08-25-2023 Thin prep Papanicolaou smear with manual screening 6 - [facility] Laboratory - Chemistry and C hemistry - challengeOrdered By: Trudi Holliday on 08-19-2023 Free T4 [Mass/Vol] 1.29 ng/dL 0.76-1.46 [facility] No Panel InformationOrdered By: Trudi Holliday on 08-19-2023 Thyroid Stimulating Hormone (TSH) 1.13 uIU/mL 0.358-3.74 [facility] Absolute lymphocyte countOrd ered By: Chante Josue on 08-10-2023 Lymphocytes Auto (Unsp spec) [#/Vol] 1.54 10*3/uL 0.83-4.51 [facility] Basophil percentageOrdered B y: Chante Josue on 08-10-2023 Basophils/100 WBC (Bld) 0.5 % 0-1 [facility] Chloride [Moles/Vol] 113 mmol/L 98-107 [facility] Eosinophils/100 WBC (Bld) 5.4 % 0-5 [facility] Glucose [Mass/Vol] 108 mg/dL 74-106 [facility] Comment on above: Fasting Glucose resu lt from 100 to 125 mg/dL suggests IMPAIRED HOMEOSTASIS per A.D.A. criteria. Neutrophils (Bld) [#/Vol] 6.5 10*3/uL 2.0-7.7 [facility] Neutrophils/100 WBC (Bld) 67.0 % 47-70 [facility] Potassium [Moles/Vol] 3.7 mmol/L 3.5-5.1 [facility] Sodium [Moles/Vol] 141 mmol/L 136-145 [facility] WBC (Bld) [#/Vol] 9.7 10*3/uL 4.4-11.0 [facility] Blood erythrocytes count (nu mber/volume)Ordered By: Chante Josue on 08-10-2023 RBC (Bld) [#/Vol] 4.51 10*6/uL 4.2-5.4 [facility] Blood hemoglobin measurement (mass/volume)Ordered By: Chante Josue on 08-10-2023 Hemoglobin (Bld) [Mass/Vol] 12.9 g/dL 12.0-15.0 [facility] Blood lymphocytes/100 leukoc ytesOrdered By: Chante Josue on 08-10-2023 Lymphocytes/100 WBC (Bld) 15.9 % 19-41 [facility] Blood monocytes/100 leukocyt esOrdered By: Chante Josue on 08-10-2023 Monocytes/100 WBC (Bld) 11.0 % 0-10 [facility] Blood platelet mean volumeOr dered By: Chante Josue on 08-10-2023 Platelet mean volume (Bld) [Entitic vol] 10.2 fL 6.2-12.0 [facility] Determination of erythrocyte mean corpuscular volume (MCV)Ordered By: Chante Josue on 08-10-2023 MCV (RBC) [Entitic vol] 91.1 fL 81-99 [facility] Hematocrit Auto (Bld) [Volum e fraction]Ordered By: Chante Josue on 08-10-2023 Hematocrit (Bld) [Volume fraction] 41.1 % 37-47 [facility] Laboratory - Chemistry and C hemistry - challengeOrdered By: Chante Josue on 08-10-2023 CO2 [Moles/Vol] 22.0 mmol/L 21.0-32.0 [facility] Urea nitrogen/Creatinine [Mass ratio] 12.7 mg/mg 10-20 [facility] Laboratory - Hematology and Cell countsOrdered By: Chante Josue on 08-10-2023 Erythrocyte distribution width (RBC) [Entitic vol] 47.3 fL 35.1-43.9 [facility] Erythrocyte distribution width (RBC) [Ratio] 14.0 % 11.6-14.6 [facility] Immature granulocytes/100 WBC (Bld) 0.200 % 0.0-0.9 [facility] Comment on above: IG% - Immature Granu locytes (promyelocytes, myelocytes and metamyelocytes) > 1% indicates that a LEFT SHIFT is Present. MCH (RBC) [Entitic mass] 28.6 pg 27.0-32.0 [facility] Nucleated RBC/100 WBC (Bld) [Ratio] 0 % 0-5 [facility] MCHC Auto (RBC) [Mass/Vol]Or dered By: Chante Josue on 08-10-2023 MCHC (RBC) [Mass/Vol] 31.4 g/dL 32-36 [facility] No Panel InformationOrdered By: Chante Josue on 08-10-2023 Estimated Creatinine Clearance Calc 72.98 ml/min [facility] Estimated GFR (MDRD) Amer 107 mL/min >60 [facility] Comment on above: GFR Calc Estimated GFR (MDRD) Non-Af Amer 88 mL/min >60 [facility] Comment on above: Non- GFR Calc Platelets bldOrdered By: Karely Josue on 08-10-2023 Platelets (Bld) [#/Vol] 247 10*3/uL 150-450 [facility] Serum or plasma calcium blayne urement (mass/volume)Ordered By: Chante Josue on 08-10-2023 Calcium [Mass/Vol] 8.7 mg/dL 8.5-10.1 [facility] Serum or plasma creatinine m easurement (mass/volume)Ordered By: Chante Josue on 08-10-2023 Creatinine [Mass/Vol] 0.71 mg/dL 0.55-1.02 [facility] Comment on above: The validity of the calculated GFR & GFRAA in patients over 70 years has not been determined. Clinical correlation is essential. Serum or plasma urea nitroge n measurement (mass/volume)Ordered By: Chante Josue on 08-10-2023 Urea nitrogen [Mass/Vol] 9 mg/dL 7-18 [facility] Thin prep Papanicolaou smear with manual screeningOrdered By: Chante Josue on 08-10-2023 Thin prep Papanicolaou smear with manual screening 6 5-15 [facility] Basophil percentageOrdered B y: Rubio Lrjb on 08-09-2023 Bilirubin [Mass/Vol] 0.20 mg/dL 0.20-1.00 [facility] Comment on above: For patients on eltr ombopag therapy, use of Dimension [place] TBIL is not recommended. Protein [Mass/Vol] 5.9 g/dL 6.4-8.2 [facility] Laboratory - Chemistry and C hemistry - challengeOrdered By: [facility] on 08-09-2023 ALP [Catalytic activity/Vol] 59 U/L 45-117 [facility] ALT [Catalytic activity/Vol] 14 U/L 13-56 [facility] Globulin (S) [Mass/Vol] 3.0 g/dL 2.2-4.2 [facility] No Panel InformationOrdered By: Cristiano Rajput on 08-09-2023 Troponin I High Sensitivity 21980 pg/mL 3.0-54.0 [facility] Comment on above: Critical Result(s) C alled at: 04:27:37 08/09/2023 by: James Horta RN ICU. Results read back by same. Please Note: New Test Units and Gender Specific Reference Ranges. For more information see Policy Stat Procedure [place] High Sensitivity Troponin (TNIH) and attachments. Serum or plasma albumin blayne urement (mass/volume)Ordered By: Rubio Ye on 08-09-2023 Albumin [Mass/Vol] 2.9 g/dL 3.2-5.0 [facility] Serum or plasma albumin/glob ulin mass ratioOrdered By: Rubio Ye on 08-09-2023 Albumin/Globulin [Mass ratio] 1.0 {ratio} 0.9-2.4 [facility] Thin prep Papanicolaou smear with manual screeningOrdered By: Rubio Ye on 08-09-2023 Thin prep Papanicolaou smear with manual screening 25 U/L 15-37 [facility] Blood manual differential co mment interpretation (narrative result)Ordered By: Rogerio Zhu on 08-08-2023 Manual differential comment Ortiz (Bld) [Interp] SCANNED [facility] Comment on above: MONOCYTOSIS NOTED INR in Blood by Coagulation assayOrdered By: Rogerio Zhu on 08-08-2023 INR Coag (Bld) [Relative time] 1.0 {INR} [facility] Laboratory - CoagulationOrde red By: Rogerio Zhu on 08-08-2023 aPTT Coag (Bld) [Time] 25.5 s 24.1-36.2 [facility] PT Coag (PPP) [Time] 13.7 s 11.7-14.9 [facility] Review by pathologistOrdered By: Rogerio Zhu on 08-08-2023 Pathologist review Ortiz (Unsp spec) [Interp] Reviewed [facility] Comment on above: Previous reported re sult: Mellisa benitez Edited by: HOMER on 08/09/23:1342Leukocytosis.Clinical correlation suggested.Alexander Morse D.O. 08/09/23 AMENDED REPORT 08/09/23 1342 PATH REV previously reported as: Mellisa benitez Culture, urineOrdered By: Dr Jenaro Edmond on 03-03-2023 Bacteria identified Cx Nom (U) Mixed Gram Pos & Gram Neg Org [facility] Basophil percentageon 2021 Bilirubin [Mass/Vol] 0.50 mg/dL 0.20-1.00 [facility] Work Phone: Comment on above: For patients on eltr ombopag therapy, use of Dimension [place] TBIL is not recommended. Chloride [Moles/Vol] 104 mmol/L 98-107 [facility] Work Phone: Cholesterol [Mass/Vol] 126 mg/dL <200 [facility] Work Phone: Comment on above: <200 mg/dL Desirable 200-240 mg/dL Borderline >240 mg/dL High Risk Glucose [Mass/Vol] 263 mg/dL 74-106 [facility] Work Phone: Comment on above: Glucose result great er than or equal to 200 mg/dLsuggests DIABETES MELLITUS per A.D.A. criteria. Potassium [Moles/Vol] 3.9 mmol/L 3.5-5.1 [facility] Work Phone: Protein [Mass/Vol] 7.1 g/dL 6.4-8.2 [facility] Work Phone: Sodium [Moles/Vol] 138 mmol/L 136-145 [facility] Work Phone: Triglyceride [Mass/Vol] 139 mg/dL <199 [facility] Work Phone: Comment on above: The drugs N-Acetylcy steine and Metamizole may falsely depress this assay.Serum Triglycerides Reference Interval Normal <150 mg/dL Borderline high 150 - 199 mg/dL High 200 - 499 mg/dL Very High > or = 500 mg/dL Laboratory - Chemistry and C hemistry - challengeon 08-27-2022 ALP [Catalytic activity/Vol] 80 U/L 45-117 [facility] Work Phone: ALT [Catalytic activity/Vol] 26 U/L 13-56 [facility] Work Phone: CO2 [Moles/Vol] 24.0 mmol/L 21.0-32.0 [facility] Work Phone: Free T4 [Mass/Vol] 1.42 ng/dL 0.76-1.46 [facility] Work Phone: Globulin (S) [Mass/Vol] 3.4 g/dL 2.2-4.2 [facility] Work Phone: Urea nitrogen/Creatinine [Mass ratio] 12.5 mg/mg 10-20 [facility] Work Phone: No Panel Informationon 08-27 Estimated GFR (MDRD) Amer 84 mL/min >60 [facility] Work Phone: Comment on above: GFR Calc Estimated GFR (MDRD) Non-Af Amer 69 mL/min >60 [facility] Work Phone: Comment on above: Non- GFR Calc Miscellaneous Test See comment [facility] Work Phone: Comment on above: TEST RESULT LIMITSCh romogranin AChromogranin A, 50.8 ng/mL 0.0-101.8Chromogranin A performed by [employer] methodology.Values obtained with different assay methods or kits cannot be used interchangeably.A: This test was developed and its performance characteristics determined by [facility]. It has not been cleared or approved by the Food and DrugAdministration. TESTING PERFORMED AT [facility]. ORIGINAL REPORT ON FILE IN LAB CONTAINS ADDITIONAL TEST SITE INFORMATION. Thyroid Stimulating Hormone (TSH) 0.51 uIU/mL 0.358-3.74 [facility] Work Phone: Urine Microalbumin/Creatini ne Ratio 5.5 mg/g CRE <30 [facility] Work Phone: Vitamin D 25-Hydroxy 67.0 ng/mL [facility] Work Phone: Comment on above: Vitamin D 25(OH) Sta tus Range Deficiency <20 ng/mL (50nmol/L) Insufficiency 20 - 30 ng/mL (50 - 75 nmol/L) Sufficiency 30 - 100 ng/mL (75 - 250 nmol/L) Toxicity >100 ng/mL (>250 nmol/L) Serum or plasma albumin blayne urement (mass/volume)on 08-27-2022 Albumin [Mass/Vol] 3.7 g/dL 3.2-5.0 [facility] Work Phone: Serum or plasma albumin/glob ulin mass ratioon 08-27-2022 Albumin/Globulin [Mass ratio] 1.1 {ratio} 0.9-2.4 [facility] Work Phone: Serum or plasma calcium blayne urement (mass/volume)on 08-27-2022 Calcium [Mass/Vol] 9.0 mg/dL 8.5-10.1 [facility] Work Phone: Serum or plasma carcinoembry onic antigen measurement (mass/volume)on 08-27-2022 Carcinoembryonic Ag [Mass/Vol] 1.9 ng/mL 0.0-4.7 [facility] Work Phone: Comment on above: Nonsmokers <3.9 Smok ers <5.6[employer] Electrochemiluminescence Immunoassay(ECLIA)Values obtained with different assay methods or kitscannot be used interchangeably. Results cannot beinterpreted as absolute evidence of the presence orabsence of malignant disease.Performed at: [facility] [id number] Director: Jan Gonzalez PhD, Phone: [phone] Serum or plasma cholesterol in HDL measurement (mass/volume)on 08-27-2022 Cholesterol in HDL [Mass/Vol] 31 mg/dL >40 [facility] Work Phone: Comment on above: The drugs N-Acetylcy steine and Metamizole may falsely depress this assay. Reference Range HDL <40 mg/dL Low HDL Cholesterol HDL >or= 60 mg/dL High HDL Cholesterol Serum or plasma cholesterol in VLDL measurement (mass/volume)on 08-27-2022 Cholesterol in VLDL [Mass/Vol] 28 mg/dL 5-40 [facility] Work Phone: Serum or plasma creatinine m easurement (mass/volume)on 08-27-2022 Creatinine [Mass/Vol] 0.88 mg/dL 0.55-1.02 [facility] Work Phone: Comment on above: The validity of the calculated GFR & GFRAA in patients over 70 years has not been determined. Clinical correlation is essential. Serum or plasma low density lipoprotein (LDL) cholesterol measurement (mass/volume)on 08-27-2022 Cholesterol in LDL [Mass/Vol] 67 mg/dL 0-130 [facility] Work Phone: Serum or plasma urea nitroge n measurement (mass/volume)on 08-27-2022 Urea nitrogen [Mass/Vol] 11 mg/dL 7-18 [facility] Work Phone: Thin prep Papanicolaou smear with manual screeningon 08-27-2022 Thin prep Papanicolaou smear with manual screening 18 U/L 15-37 [facility] Work Phone: Thin prep Papanicolaou smear with manual screening 10 5-15 [facility] Work Phone: Thin prep Papanicolaou smear with manual screening 9.0 mg/L NO RANGE EST. [facility] Work Phone: Urine creatinine measurement (mass/volume)on 08-27-2022 Creatinine (U) [Mass/Vol] 162.00 mg/dL NO RANGE EST. [facility] Work Phone: Laboratory - Hematology and Cell countson 08-26-2022 HbA1c (Bld) [Mass fraction] 6.4 % [facility] Work Phone: No Panel Informationon 12-14 Carcinoembryonic Ag Serial Monitor See comment [facility] Work Phone: Comment on above: Scanned image report available in EMR Miscellaneous Test See comment [facility] Work Phone: Comment on above: TEST [...] (mass/volume)on 12-14-2021 Carcinoembryonic Ag [Mass/Vol] 2.2 ng/mL [facility] Work Phone: Comment on above: Nonsmokers <3.9 Smok ers <5.6[employer] Electrochemiluminescence Immunoassay(ECLIA)Values obtained with different assay methods or kitscannot be used interchangeably. Results cannot beinterpreted as absolute evidence of the presence orabsence of malignant disease.Performed at: [id number] Director: Jan Gonzalez PhD, Phone: [phone] Lilian 10-06-2021 ANGELINA Office Visit (ENSUMN ) SHASTA MARTINEZ ([id number]) 1960 F Date Time Provider Department 10/06/21 10:15 AM LEONEL GILL During your visit today, we recorded the following information about you: Pulse Blood pressure Weight Height 91/minute 152/59 81.2 kg 1.698 m Alyson Tyson 10/06/2021 10:08 AM Signed Thank you for choosing the [facility] Department of Endocrinology, Diabetes and Metabolism. Did you know that you need to call 48 hours in advance of your scheduled visit, if you are unable to make your appointment? The Endocrinology and Metabolism [place] thanks you for your commitment, because patients not showing to their appointment results in a lost opportunity for patients to receive world class health care at the [facility]. To Cancel an appointment, please choose one of the following: - Call the Appointment Call Center at [phone] - From [facility], Go to Appointments ? Cancel Appts If cancelling, consider your need to reschedule to prevent further delays in your care. To Schedule an appointment, please choose one of the following: - Call the Appointment Call Center at [phone] - From [facility], Go to Appointments ? Request an Appt Leonel Gill MD 10/06/2021 11:09 AM Signed Leonel Gill M.D. Department of Endocrine Surgery Endocrinology Metabolism [place] The [address], [facility] [place] [address] ENDOCRINE SURGERY NEW CONSULTATION NAME: Shasta Martinez CLINIC NO: [id number] : 1960 REFERRING PROVIDER: Bharath Raines MD [address] [place], [place] [id number] The patient was referred by the above [...] Laterality Date - COLONOSCOP W/ OR W/O [facility] SPEC 12/07/2015 Colonoscopy - COLONOSCOPY 2004 [facility] (neg except hemorrhoids) - DRAINAGE OF PILONIDAL [...] visible cervi (more content not included)... Normal [facility] 09-28-2021 [facility] Telephone (NADIA) SHASTA MARTINEZ ([id number]) 1960 F Date Time Provider Department 09/28/21 LEONEL GILL During your visit today, we recorded the following information about you: Greta Pringle 09/30/2021 10:21 AM Addendum 09/30/21: INATKE COMPLETE Received labs and HANDP. Indexed into [employer]. 09/28/21: Left MAXINE w/ Dr. Raines for labs/office notes Patient had sub-total thyroidectomy with Dr. Masters in 2010. 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 PATIENT PHYSICIAN INFORMATION Referring Doctor: Dr. Bharath Raines Address: [facility] Endocrinology Basic Sciences Professor: same Address: Phone: PCP: Jarad Murrell [address] [place] [address] PAST TREATMENT Office notes: Requested from referring physician (Date received:09/30/21 ) Medications: NONE THAT APPLY Pre-Visit Testing STUDY/TEST DATE ORDERED/REQUESTED DATE RECEIVED/COMPLETED ENTIRE PANEL TSH FREE T4 FREE T3 Imaging Reports: See [facility] CD of Images: See [facility] FNA: yes: 11/19/10 FNA Slides: FNA performed at [facility] facility Has the patient ever had thyroid or parathyroid surgery before: Yes: Thyroid (Date: 12/17/10) Operative Reports: SEE [facility] Pathology Reports: SEE [facility] Allergies As of Date: 09/28/2021 Noted Allergy [...] 06/23/2008 08/06/2015 Routine general medical examination at [facility]*2009 08/06/2015 Class: Chronic Gynecological examination 2009 01/20/2014 [...] Encounter Status:Closed by GRETA PRINGLE on 09/28/21 [facility] 09-14-2021 CNPN Telephone (ENDOMN) SHASTA MARTINEZ ([id number]) 1960 F Date Time Provider Department 09/14/21 [...] Raines would like a call back at [phone] (H) Nicky Kendrick MD 09/15/2021 9:44 AM Signed Returned 's call. Patient's calcitonin has increased I suggested to have the patient schedule an appt with at [facility] Patient might also need to see [...] 06/23/2008 08/06/2015 Routine general medical examination at [facility]*2009 08/06/2015 Class: Chronic Gynecological examination 2009 01/20/2014 [...] Status:Closed by DAINA LEON on 09/15/21 Normal [facility] Vital Signs Date Time Vital Sign Value Performing Clinician Ruiz barragan 06-04-2025 08:11-0400 Body height 165.1 cm Luiza Joselito ARNP-C Work Phone: [facility] 06-04-2025 08:11-0400 Body mass index (BMI) [Ratio] 22.6 kg/m2 Luiza Joselito ARNP-C Work Phone: [facility] 06-04-2025 08:11-0400 Body weight 61.68 kg Luiza Joselito ARNP-C Work Phone: [facility] 06-04-2025 08:11-0400 Diastolic blood pressure 74 mm[Hg] Luiza Joselito ARNP-C Work Phone: [facility] 06-04-2025 08:11-0400 Heart rate 73 /min Luiza Joselito ARNP-C Work Phone: [facility] 06-04-2025 08:11-0400 Respiratory rate 16 /min Luiza Joselito ARNP-C Work Phone: [facility] 06-04-2025 08:11-0400 Systolic blood pressure 115 mm[Hg] Luiza Joselito ARNP-C Work Phone: [facility] 12-04-2024 15:36-0500 Body height 165.1 cm Luiza Joselito ARNP-C Work Phone: [facility] 12-04-2024 15:36-0500 Body mass index (BMI) [Ratio] 21.8 kg/m2 Luiza Joselito ARNP-C Work Phone: [facility] 12-04-2024 15:36-0500 Body weight 59.42 kg Luiza Joselito ARNP-C Work Phone: [facility] 12-04-2024 15:36-0500 Diastolic blood pressure 66 mm[Hg] Luiza Joselito ARNP-C Work Phone: [facility] 12-04-2024 15:36-0500 Heart rate 65 /min Luiza Joselito ARNP-C Work Phone: [facility] 12-04-2024 15:36-0500 Respiratory rate 18 /min Luiza Yee ARNP-C Work Phone: [facility] 12-04-2024 15:36-0500 SaO2% (BldA) [Mass fraction] 98 % Luiza Yee ARNP-C Work Phone: [facility] 12-04-2024 15:36-0500 Systolic blood pressure 101 mm[Hg] Luiza Yee ARNP-C Work Phone: [facility] 11-27-2023 08:26-0500 Body height 165.[address] Greta Edmond Work Phone: [facility] 11-27-2023 08:26-0500 Body mass index (BMI) [Ratio] 21.9 kg/m2 Dr. Greta Edmond Work Phone: [facility] 11-27-2023 08:26-0500 Body weight 59.[address] Greta Edmond Work Phone: [facility] 11-27-2023 08:26-0500 Diastolic blood pressure 58 mm[Hg] Dr. Greta Edmond Work Phone: [facility] 11-27-2023 08:26-0500 Heart rate 82 /min Dr. Greta Edmond Work Phone: [facility] 11-27-2023 08:26-0500 Respiratory rate 18 /min Dr. Greta Edmond Work Phone: [facility] 11-27-2023 08:26-0500 SaO2% (BldA) [Mass fraction] 98 % Dr. Greta Edmond Work Phone: [facility] 11-27-2023 08:26-0500 Systolic blood pressure 108 mm[Hg] Dr. Greta Edmond Work Phone: [facility] 10-30-2023 00:47-0500 Body weight 60.[address] Greta Edmond Work Phone: [facility] 10-16-2023 11:14-0500 Body height 165.[address] Greta Edmond Work Phone: [facility] 10-16-2023 11:14-0500 Body weight 60.[address] Greta Edmond Work Phone: [facility] 09-29-2023 00:50-0500 Body weight 61.[address] Greta Edmond Work Phone: [facility] 09-15-2023 10:02-0500 Body height 165.[address] Greta Edmond Work Phone: [facility] 09-15-2023 10:02-0500 Body weight 61.[address] Greta Edmond Work Phone: [facility] 08-25-2023 13:57-0400 Body height 165.[address] Greta Edmond Work Phone: [facility] 08-25-2023 13:57-0400 Body mass index (BMI) [Ratio] 22.6 kg/m2 Dr. Greta Edmond Work Phone: [facility] 08-25-2023 13:57-0400 Body weight 61.[address] Greta Edmond Work Phone: [facility] 08-25-2023 13:57-0400 Diastolic blood pressure 74 mm[Hg] Dr. Greta Edmond Work Phone: [facility] 08-25-2023 13:57-0400 Heart rate 98 /min Dr. Greta Edmond Work Phone: [facility] 08-25-2023 13:57-0400 Respiratory rate 18 /min Dr. Greta Edmond Work Phone: [facility] 08-25-2023 13:57-0400 SaO2% (BldA) [Mass fraction] 100 % Dr. Greta Edmond Work Phone: [facility] 08-25-2023 13:57-0400 Systolic blood pressure 128 mm[Hg] Dr. Greta Edmond Work Phone: [facility] 08-25-2023 08:07-0400 Body mass index (BMI) [Ratio] 23 kg/m2 Dr. Greta Edmond Work Phone: [facility] 08-25-2023 08:07-0400 Body temperature 97.4 [degF] Dr. Greta Edmond Work Phone: [facility] 08-25-2023 08:07-0400 Body weight 62.[address] Greta Edmond Work Phone: [facility] 08-25-2023 08:07-0400 Diastolic blood pressure 61 mm[Hg] Dr. Greta Edmond Work Phone: [facility] 08-25-2023 08:07-0400 Heart rate 96 /min Dr. Greta Edmond Work Phone: [facility] 08-25-2023 08:07-0400 Respiratory rate 16 /min Dr. Greta Edmond Work Phone: [facility] 08-25-2023 08:07-0400 SaO2% (BldA) [Mass fraction] 98 % Dr. Greta Edmond Work Phone: [facility] 08-25-2023 08:07-0400 Systolic blood pressure 90 mm[Hg] Dr. Greta Edmond Work Phone: [facility] 08-16-2023 09:12-0400 Body mass index (BMI) [Ratio] 23.3 kg/m2 Dr. Greta Edmond Work Phone: [facility] 08-16-2023 08:22-0400 Body height 165.[address] Greta Edmond Work Phone: [facility] 08-16-2023 08:22-0400 Body weight 63.[address] Greta Edmond Work Phone: [facility] 08-16-2023 08:13-0400 Diastolic blood pressure 76 mm[Hg] Dr. Greta Edmond Work Phone: [facility] 08-16-2023 08:13-0400 Heart rate 79 /min Dr. Greta Edmond Work Phone: [facility] 08-16-2023 08:13-0400 SaO2% (BldA) [Mass fraction] 99 % Dr. Greta Edmond Work Phone: [facility] 08-16-2023 08:13-0400 Systolic blood pressure 129 mm[Hg] Dr. Greta Edmond Work Phone: [facility] 08-10-2023 10:11-0400 Heart rate 95 /min Dr. Greta Edmond Work Phone: [facility] 08-10-2023 09:50-0400 Body temperature 97.9 [degF] Dr. Greta Edmond Work Phone: [facility] 08-10-2023 09:50-0400 Diastolic blood pressure 60 mm[Hg] Dr. Greta Edmond Work Phone: [facility] 08-10-2023 09:50-0400 Respiratory rate 16 /min Dr. Greta Edmond Work Phone: [facility] 08-10-2023 09:50-0400 SaO2% (BldA) [Mass fraction] 99 % Dr. Greta Edmond Work Phone: [facility] 08-10-2023 09:50-0400 Systolic blood pressure 126 mm[Hg] Dr. Greta Edmond Work Phone: [facility] 08-10-2023 03:27-0400 Body mass index (BMI) [Ratio] 23.3 kg/m2 Dr. Greta Edmond Work Phone: [facility] 08-10-2023 03:27-0400 Body weight 63.[address] Greta Edmond Work Phone: [facility] 08-09-2023 10:02-0400 Body height 165.[address] Greta Edmond Work Phone: [facility] 07-28-2023 13:37-0400 Body mass index (BMI) [Ratio] 24.1 kg/m2 Dr. Greta Edmond Work Phone: [facility] 07-28-2023 13:37-0400 Body temperature 95.7 [degF] Dr. Greta Edmond Work Phone: [facility] 07-28-2023 13:37-0400 Body weight 65.[address] Greta Edmond Work Phone: [facility] 07-28-2023 13:37-0400 Diastolic blood pressure 81 mm[Hg] Dr. Greta Edmond Work Phone: [facility] 07-28-2023 13:37-0400 Heart rate 86 /min Dr. Greta Edmond Work Phone: [facility] 07-28-2023 13:37-0400 Respiratory rate 17 /min Dr. Greta Edmond Work Phone: [facility] 07-28-2023 13:37-0400 SaO2% (BldA) [Mass fraction] 98 % Dr. Greta Edmond Work Phone: [facility] 07-28-2023 13:37-0400 Systolic blood pressure 136 mm[Hg] Dr. Greta Edmond Work Phone: [facility] 06-29-2023 08:52-0400 Body mass index (BMI) [Ratio] 24 kg/m2 Dr. Greta Edmond Work Phone: [facility] 06-29-2023 08:52-0400 Body weight 66.[address] Greta Edmond Work Phone: [facility] 06-29-2023 08:52-0400 Diastolic blood pressure 68 mm[Hg] Dr. Greta Edmond Work Phone: [facility] 06-29-2023 08:52-0400 Systolic blood pressure 121 mm[Hg] Dr. Greta Edmond Work Phone: [facility] 08-26-2022 08:09-0400 Body height 166.[address] Jarad Murrell Work Phone: [facility] Work Phone: 08-26-2022 08:09-0400 Body mass index (BMI) [Ratio] 28.2 kg/m2 Dr. Jarad Murrell Work Phone: [facility] Work Phone: 08-26-2022 08:09-0400 Body temperature 95.2 [degF] Dr. Jarad Murrell Work Phone: [facility] Work Phone: 08-26-2022 08:09-0400 Body weight 78.[address] Jarad Murrell Work Phone: [facility] Work Phone: 08-26-2022 08:09-0400 Diastolic blood pressure 84 mm[Hg] Dr. Jarad Murrell Work Phone: [facility] Work Phone: 08-26-2022 08:09-0400 Heart rate 102 /min Dr. Jarad Murrell Work Phone: [facility] Work Phone: 08-26-2022 08:09-0400 Respiratory rate 18 /min Dr. Jarad Murrell Work Phone: [facility] Work Phone: 08-26-2022 08:09-0400 SaO2% (BldA) [Mass fraction] 97 % Dr. Jarad Murrell Work Phone: [facility] Work Phone: 08-26-2022 08:09-0400 Systolic blood pressure 148 mm[Hg] Dr. Jarad Murrell Work Phone: [facility] Work Phone: 03-16-2022 13:32-0400 Body height 166.[address] Jarad Murrell Work Phone: [facility] Work Phone: 03-16-2022 13:32-0400 Body mass index (BMI) [Ratio] 29.2 kg/m2 Dr. Jarad Murrell Work Phone: [facility] Work Phone: 03-16-2022 13:32-0400 Body weight 80.[address] Jarad Murrell Work Phone: [facility] Work Phone: 03-16-2022 13:32-0400 Diastolic blood pressure 80 mm[Hg] Dr. Jarad Murrell Work Phone: [facility] Work Phone: 03-16-2022 13:32-0400 Systolic blood pressure 168 mm[Hg] Dr. Jarad Murrell Work Phone: [facility] Work Phone: 03-01-2022 09:45-0400 Body mass index (BMI) [Ratio] 29.2 kg/m2 Dr. Jarad Murrell Work Phone: [facility] Work Phone: 03-01-2022 09:45-0400 Body weight 80.[address] Jarad Murrell Work Phone: [facility] Work Phone: 03-01-2022 09:45-0400 Diastolic blood pressure 80 mm[Hg] Dr. Jarad Murrell Work Phone: [facility] Work Phone: 03-01-2022 09:45-0400 Systolic blood pressure 180 mm[Hg] Dr. Jarad Murrell Work Phone: [facility] Work Phone: Encounters Encounter Date Encounter Type Care Provider Facility Start: 08-11-2025 End: 08-11-2025 ambulatory [place] Joselito Facility:[facility] Start: 06-04-2025 End: 06-04-2025 Patient encounter procedure Kaden Martin ARNP-C -[facility] Work Phone: Start: 06-04-2025 End: 06-04-2025 ambulatory Luiza Joselito ARNP-C Work Phone: -[facility] Start: 04-08-2025 End: 04-08-2025 ambulatory [facility] ARNP-C Work Phone: [facility] Work Phone: Start: 04-08-2025 End: 04-08-2025 Patient encounter procedure Luiza Anthonygar ARNP-C -Radiology [facility] Work Phone: Start: 04-08-2025 End: 04-08-2025 ambulatory [facility] Facility:[facility] Start: 03-29-2025 End: 03-29-2025 ambulatory [facility] ARNP-C Work Phone: [facility] Work Phone: Start: 03-29-2025 End: 03-29-2025 Patient encounter procedure Trudi Holliday ARNP-C -Laboratory Work Phone: Start: 03-29-2025 End: 03-29-2025 ambulatory [facility] Facility:[facility] Start: 12-04-2024 End: 12-04-2024 Patient encounter procedure Kaden Martin ARNP-C -[facility] Work Phone: Start: 12-04-2024 End: 12-04-2024 ambulatory Luiza Joselito Facility:[facility] Start: 10-19-2024 End: 10-19-2024 ambulatory [facility] Facility:[facility] Start: 10-02-2024 End: 10-02-2024 ambulatory [facility] Facility:[facility] Start: 09-09-2024 Encounter for gynecological examination (general) (routine) without abnormal findings Mita Mazariegos [facility] Start: 09-09-2024 End: 09-09-2024 ambulatory [place] Joselito Facility:[facility] Start: 08-23-2024 End: 08-23-2024 ambulatory Greta Edmond Facility:[facility] Start: 01-17-2024 End: 01-17-[address] Greta Edmond Work Phone: [facility] Work Phone: Start: 01-17-2024 End: 01-17-[address] Greta Edmond Work Phone: [facility]-Radiology, [facility] Work Phone: Start: 11-27-2023 End: 11-29-[address] Greta Edmond Work Phone: [facility] Work Phone: Start: 11-27-2023 End: 11-29-[address] Greta Edmond Work Phone: [facility]-Cardiac Rehab Work Phone: Start: 11-27-2023 End: 11-27-[address] Greta Edmond Work Phone: [facility] Work Phone: Start: 11-27-2023 End: 11-27-[address] Greta Edmond Work Phone: [facility]-Laboratory Work Phone: Start: 10-27-2023 End: 10-29-[address] Greta Edmond Work Phone: [facility] Work Phone: Start: 10-27-2023 End: 10-29-[address] Greta Edmond Work Phone: [facility]-Cardiac Rehab Work Phone: Start: 10-16-2023 End: 10-16-[address] [facility] Start: 09-30-2023 End: 09-30-[address] Greta Edmond Work Phone: [facility] Work Phone: Start: 09-30-2023 End: 09-30-[address] Greta Edmond Work Phone: [facility]-Laboratory Work Phone: Start: 09-29-[address] Greta Edmond Work Phone: [facility]-Cardiac [facility]hab Work Phone: Start: 09-27-2023 End: 09-28-[address] Greta Edmond Work Phone: [facility] Work Phone: Start: 09-27-2023 End: 09-28-[address] Greta Edmond Work Phone: [facility] Work Phone: Start: 09-13-2023 Non-patient / Non-visit Dr. Wilma Edmond Work Phone: [facility] Start: 08-30-[address] Greta Edmond Work Phone: [facility] Work Phone: Start: 08-28-2023 End: 08-29-[address] Greta Edmond Work Phone: [facility] Work Phone: Start: 08-28-2023 End: 08-29-[address] Greta Edmond Work Phone: [facility] Work Phone: Start: 08-25-2023 End: 08-25-[address] Greta Edmond Work Phone: [facility] Work Phone: Start: 08-25-2023 End: 08-25-[address] [facility] Start: 08-25-2023 End: 08-25-[address] Greta Edmond Work Phone: [facility] Work Phone: Start: 08-23-[address] Greta Edmond Work Phone: [facility] Work Phone: Start: 08-21-[address] Gre[facility] Ed[facility] Start: 08-19-2023 End: 08-19-[address] Greta Edmond Work Phone: [facility] Work Phone: Start: 08-19-2023 End: 08-19-[address] [facility] d[facility]mond [facility] Start: 08-16-2023 End: 08-16-[address] Greta Edmond Work Phone: [facility] Work Phone: Start: 08-16-2023 End: 08-16-[address] Greta Edmond Work Phone: [facility] Work Phone: Start: 08-10-2023 Non-patient / Non-visit Dr. Wilma Edmond Work Phone: [facility] Work Phone: Start: 08-10-2023 Non-patient / Non-visit Dr. Wilma Edmond Work Phone: [facility] Start: 08-09-2023 Non-patient / Non-visit Dr. Wilma Edmond Work Phone: [facility] Start: 08-09-2023 Non-patient / Non-visit Dr. Wilma Edmond Work Phone: [facility] Work Phone: Start: 08-08-2023 Non-patient / Non-visit Dr. Wilma Edmond Work Phone: [facility] Start: 08-08-2023 End: 08-10-2023 Evaluation and management of inpatient Dr. Greta Edmond Work Phone: [facility] Work Phone: Start: 07-28-2023 End: 07-28-[address] Greta Edmond Work Phone: [facility] Work Phone: Start: 06-29-2023 End: 06-29-[address] Greta Edmond Work Phone: [facility] Work Phone: Start: 05-04-2023 End: 05-04-[address] Greta Edmond Work Phone: [facility]Out[facility] Breast Imaging Work Phone: Start: 03-02-2023 End: 03-02-2023 ambulatory [facility] Work Phone: Start: 03-02-2023 End: 03-02-2023 [facility] Start: 09-13-2022 End: 09-13-[address] Jarad Murrell Work Phone: [facility] Work Phone: Start: 09-13-2022 End: 09-13-[address] Jarad Murrell Work Phone: [facility]Outpatient Bone Densitometry Start: 08-27-2022 End: 08-27-[address] Jarad Murrell Work Phone: [facility] Work Phone: Start: 08-27-2022 End: 08-27-[address] [facility] Start: 08-26-2022 End: 08-26-[address] Jarad Murrell Work Phone: [facility] Start: 07-11-2022 End: 07-11-[address] Jarad Murrell Work Phone: [facility] Start: 04-01-2022 End: 04-01-[address] Jarad Murrell Work Phone: [facility] Breast Imaging Start: 03-16-2022 End: 03-16-[address] Jarad Murrell [facility] Start: 03-16-2022 End: 03-16-[address] Jarad Murrell Work Phone: [facility] Start: 03-01-2022 End: 03-01-[address] Jarad Murrell Work Phone: [facility] Start: 12-14-2021 End: 12-14-[address] Jarad Murrell Work Phone: [facility], [facility] Procedures Date Procedure Procedure [...] Detail Author Start: 09-30-2023 Lab findings surveillance [facility] Start: 09-13-2023 Patient referral [facility] Work Phone: Start: 08-16-2023 Blood chemistry [facility] Start: 08-16-2023 Patient referral to dietitian [facility] Start: 08-15-2023 Blood chemistry [facility] Start: 08-14-2023 Blood chemistry [facility] Start: 08-13-2023 Blood chemistry [facility] Start: 08-12-2023 Blood chemistry [facility] Start: 08-11-2023 Blood chemistry [facility] Start: 08-10-2023 Patient referral [facility] Work Phone: Start: 08-10-2023 Patient discharge [facility] Start: 08-09-2023 Care planning and problem solving actions [facility] Start: 08-09-2023 Referral to quality assurance supervisor trim [facility] Start: 08-08-2023 Cardiac monitoring [facility] Start: 08-08-2023 Cardiac rehabilitation - phase 1 [facility] Start: 08-08-2023 Cardiac rehabilitation - phase 2 [facility] Start: 08-08-2023 Patient discharge [facility] Start: 08-08-2023 Systemic arterial pressure monitoring [facility] Start: 08-08-2023 Vascular disease risk assessment [facility] Start: 08-08-2023 End: 08-08-2023 [facility] Start: 08-08-2023 Application of intermittent pneumatic compression device [facility] Start: 08-08-2023 End: 08-08-2023 Notification of physician [facility] Start: 08-08-2023 Patient education [facility] Start: 08-08-2023 Provision of activity privileges [facility] Start: 08-08-2023 Pulse taking [facility] Start: 08-08-2023 End: 08-08-2023 Taking patient vital signs [facility] Start: 08-08-2023 Wound care [facility] Start: 08-08-2023 Following clinical pathway protocol [facility] Start: 08-08-2023 Assessment of risk of venous thromboembolism [facility] Start: 08-08-2023 Bedrest [facility] Start: 08-08-2023 Catheterization of vein [facility] Start: 08-08-2023 Chart related administrative procedure [facility] Start: 08-08-2023 Elevation of head of bed [facility] Start: 08-08-2023 Insertion of catheter into peripheral vein [facility] Start: 08-08-2023 Measuring intake and output [facility] Start: 08-08-2023 Oxygen therapy [facility] Start: 08-08-2023 Providing care according to standard [facility] Start: 08-08-2023 Vital signs measurements [facility] Start: 08-08-2023 Admission procedure [facility] Lab findings surveillance [facility] Lipid 1996 panel - S michael or Plasma [facility] Patient Education Heart Attack D c Heart Attack Meds Heart Attack Questions Heart Attack: Leaving the Hospital Heart Attack: Back at Home [facility] Work Phone: Patient referral [facility] Work Phone: Urine microalbumin/creatinine ratio measurement [facility] Vitamin D, 25-hydrox y measurement [facility] Payers Date Payer Category Payer Self-pay [id number] 2023 Unknown [id number] Unknown [id number] Unknown [id number] Unknown [id number] 2.16.8 [id number] Unknown [id number] 2.16.8 [id number] Unknown [id number] 2.16.8 [id number] Unknown [id number] 2.16.8 [id number] Unknown [id number] 2.16.8 [id number] Unknown [id number] 2.16.8 [id number] Unknown [id number] 2.16.8 [id number] Unknown [id number] 2.16.8 [id number] Unknown [id number] 2.16.8 [id number] Social History Date Type Detail Facility Start: 03-01-2022 End: 11-27-2023 Tobacco smoking status NHIS Unknown if ever smoked [facility] Start: 1960 Sex Assigned At Female [facility] Start: 09-09-2024 Tobacco smoking stat us NHIS Never smoked tobacco (finding) [facility] Medical Equipment Procedure Code Equipment Code Equipment Origin al Text Equipment Identifier Dates Drug-eluting coronary artery stent, [id number] lymer-coated [id number] FDA Start: 08-08-2023 Goals Date Patient Goal Desired Activity /State Functional Status Date Assessment Result Facility 08-10-2023 Functional status Bedrest Christiana Valdez [facility] Work Phone: Mental Status Date Assessment Result Facility 08-10-2023 Cognitive function Voice/Name [place] [facility] Work Phone: Clinical Notes 10-06-2021 to 06-04-2025 Note Date & Type Note Facility 06-04-2025 Progress note [facility] 06-04-2025 Progress note Note Date/Time June 04, 2025 8:43am [facility] [address] [place] [address] OFFICE VISIT Date of Service: 06/04/25 MR#: [id number] Acct: [id number] Name: SHASTA MARTINEZ Rep #: [id number] : 1960 Provider: PHILIPPE Martin Age/Sex: 64/F Location: [facility] Status: Signed HPI HPI History of Present Illness Details: SHASTA MARTINEZ, is a 64 F who presents to the office today for a cardiovascularfollow up visit. She had presented to emergency room with chest pain in July of 2023. Her EKG revealed anterolateral ST elevation DC. Patient underwent emergent coronary angiography which revealed [...] 98 Intake Visit Reasons: 6 M FU Lpc Required: No Accompanied by: Is patient in [...] rhythm at 81 bpm with QRS 86 [employer] Functional Class: I ACC/AHA stage: C Guideline Directed Medical Therapy: Jardiance 25mg PO Daily She appears euvolemic. We will continue current medications and continue to monior. No changes made. (3) Hypercholesterolemia: Status: Chronic Plan: Patient has a history of hypercholesterolemia. 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 Lipid panel from 10/19/2024 showed Total Cholesterol: [...] controlled. She will continue to follow with Basic Sciences Professor. We did not pursue precedent D researchtrial [...] as necessary. 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: Signed [facility]02-05-2025 Evaluation note* Diagnosis Onset Date Resolution Status Admit Date (HFpEF) heart failure with preserved ejection fraction acute 2024 3:25pm Stented coronary artery August 08, 2023 acute December 04, 2024 3:25pm Hypercholesterolemia chronic 2024 3:25pm [facility] Work Phone: [phone] 120-356410-12-2023 Progress note Author Bob Saunders [facility] August 10, 2023 8:16am Note Date/Time August 10, 2023 8 :16am [facility] Medical Records Department [address] [place] [address] Progress Note - Cardiology 08/10/2314 MR#: [id number] Acct: [id number] Name: SHASTA MARTINEZ Rep #:[id number] : 1960 62 From: Bob Saunders MD PCP: Dr. Greta Edmond, DO Status:ADM IN Location: [place] [address] Subjective Subjective Patient seen and evaluated. Doing [...] (Auto) 67.0, Lymph % (Auto) 15.9 L, Lamb % (Auto) 11.0 H, Eos % (Auto) [...] (Auto) 67.0, Lymph % (Auto) 15.9 L, Lamb % (Auto) 11.0 H, Eos % (Auto) [...] Cosigner Signature (if applicable): CC: ~ Signed [facility] Work Phone: 1(154) 819-508610-11-2023 Progress note Author Chante Josue [facility] August 09, 2023 9:22am Note Date/Time August 09, 2023 7 :17am [facility] Medical Records Department [address] [place] [address] Progress Note - Hospitalist 08/09/23 0714 MR#: [id number] Acct: [id number] Name: SHASTA MARTINEZ Rep #:[id number] : [...] % (Auto) 51.8, Lymph % (Auto) 32.4, Lamb% (Auto) 11.2 H, Eos % (Auto) 3.4, [...] (Auto) 76.5 H, Lymph % (Auto)12.5 L, Lamb % (Auto) 9.2, Eos % (Auto) 1.0, [...] Alkaline Phosphatase 59, Troponin I High Sens 86152 H*, Total Protein 5.9 L, Albumin 2.9 [...] consulted. Patient was taken to the label printer -Check troponin and trend so it can [...] 35 minutes. Charges/Coding Visit Charges Inpatient E&M: 17666 Subs Hosp L2 08/09/23 0922 <Electronically signed by Chante Josue MD> Cosigner Signature (if applicable): CC: ~ Signed [facility] Work Phone: [phone]) 541-474110-11-2023 History and physical note Author Cristiano Rajput [facility] August 09, 2023 2:23am Note Date/Time August 08, 2023 9 :56pm [facility] Medical Records Department [address] [place] [address] H&P Exam - Hospitalist 08/08/232155 MR#: [id number] Acct: [id number] Name: SHASTA MARTINEZ VANDA Rep #:[id number] [...] patient was found to have a STEMI. 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 Patient was taken to the label printer Check troponin and trend so it can be used as baseline. Further orders after stent placement or by cardiology. Time spent in the patient's overall evaluation,decision-making process, review of diagnostic data, adjustment of management, discussion with other providers, nursing and ancillary staff involved in patient's care documentation, 30 minutes. Charges/Coding Visit Charges Inpatient E&M: 07774 Init Hosp L3 08/09/23222 <Electronically signed by Cristiano Rajput MD> Cosigner Signature (if applicable): CC: Dr. Cristiano Rajput MD; Dr. 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 aVL. Management Discussion w/another healthcare provider: Manager Reliability (Interventional cardiology) Critical Care Time Critical Care Time: Yes Critical care time (excluding procedures): 30-74 minutes ( 34 min), Including time spent:, Discussing w/Patient &/or Family/Pastry Decorator, Discussing w/Consultants, Arranging Admission or Transfer and Performing Direct Patient Care at Bedside Discharge Plan Triage Chief Complaint: Chest Pain ED Provider: Rogerio Zhu Dx/Rx/DC Orders Clinical Impression: Hypercholesterolemia, STEMI (ST elevation myocardial infarction), Diabetes type2, controlled Primary Care Provider: Greta Edmond Disposition Disposition: Acute Care Hospital [facility] Discharge Date/Time: 08/08/23 22:27 What to do if you have Problems For any increased pain, shortness of breath, bleeding, nausea or vomiting, chestpain, or any unexpected problems, contact your Primary Care Provider. Call [facility] ([phone]) or report to the closest Emergency Room. Call 911 if necessary. 08/09/23 0011 <Electronically signed by Rogerio Zhu DO> Cosigner Signature (if applicable): CC: Dr. Greta Edmond DO ~ Signed [facility] Work Phone: [phone]) 146-392510-11-2023 Consult note Author Rubio Ye [facility] August 08, 2023 11:53pm Note Date/Time August 08, 2023 1 1:53pm [facility] Medical Records Department [address] [place] [address] Consultation - Cardiology 08/08/23 2350 MR#: [id number] Acct: [id number] Name: NELSHASTA VANDA Rep #:[id number] : [...] chest pain. EKG revealed anterolateral ST elevation DC. 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 Rubio Ye MD~ Signed [facility] Work Phone: [phone]) 863-848610-10-2023 Evaluation note* Diagnosis Onset Date Resolution Status Encounter for routine gyneco logical examination noneactive Hemorrhoids acute (HFpEF) heart failure with p reserved ejection fraction acute Hypercholesterolemia acute Stented coronary artery August 08, 2023 acute Diabetes type 2, controlled chronic Medullary thyroid carcinoma chronic STEMI (ST elevation myocardial infarction) July resolved Diabetes type 2, controlled chronic Hypothyroidism associated [facility] surgical procedure chronic Thyroid cancer chronic (HFpEF) heart failure with p reserved ejection fraction acute Hypercholesterolemia acute Stented coronary artery August 08, 2023 acute [facility] Work Phone: [phone]) 589-811510-10-2023 Evaluation note* Diagnosis Onset Date Resolution Status Hemorrhoids acute (HFpEF) heart failure with p reserved ejection fraction acute Hypercholesterolemia acute Stented coronary artery August 08, 2023 acute Diabetes type 2, controlled chronic Medullary thyroid carcinoma chronic STEMI (ST elevation myocardial infarction) July resolved Diabetes type 2, controlled chronic Hypothyroidism associated [facility] surgical procedure chronic Thyroid cancer chronic (HFpEF) heart failure with p reserved ejection fraction acute Hypercholesterolemia acute Stented coronary artery August 08, 2023 [facility] Work Phone: [phone]) 208-691410-10-2023 Evaluation note* Diagnosis Onset Date Resolution Status (HFpEF) heart failure with p reserved ejection fraction acute Hypercholesterolemia acute Stented coronary artery August 08, 2023 acute Diabetes type 2, controlled chronic Medullary thyroid carcinoma chronic STEMI (ST elevation myocardial infarction) July resolved Diabetes type 2, controlled chronic Hypothyroidism associated [facility] surgical procedure chronic Thyroid cancer chronic (HFpEF) heart failure with p reserved ejection fraction acute Hypercholesterolemia acute Stented coronary artery August 08, 2023 acute (HFpEF) heart failure with p reserved ejection fraction acute Hypercholesterolemia acute SOB (shortness of breath) [place] Stented coronary artery August 08, 2023 [facility] Work Phone: [phone]) 929-705610-10-2023 Evaluation note* Diagnosis Onset Date Resolution Status (HFpEF) heart failure with p reserved ejection fraction acute Hypercholesterolemia acute SOB (shortness of breath) ac [place] Stented coronary artery August 08, 2023 acute [facility] Work Phone: [phone] NoteHNO ID: [id number] Author: Leonel Gill MD Service: ? Author Type: Physician Type: Progress Notes Filed: 10/06/2021 11:09 AM Note Text: Leonel Gill M.D. Department of Endocrine Surgery Endocrinology Metabolism [place] [address], [facility] [place] [address] ENDOCRINE SURGERY NEW CONSULTATION NAME: Shasta Martinez CLINIC NO: [id number] : 1960 REFERRING PROVIDER: Bharath Raines MD [facility] [address] The patient was referred by the above [...] Laterality Date - COLONOSCOP W/ OR W/O [facility] SPEC 12/07/2015 Colonoscopy - COLONOSCOPY 2004 [facility] (neg except hemorrhoids) - DRAINAGE OF PILONIDAL [...] have additional questions. Sincerely, (more content not included)...[facility] summary Author Chante Josue [facility] August 10, 2023 11:47am Note Date/Time August 10, 2023 1 1:44am [facility] Medical Records Department [address] [place] [address] Instructions for Home/Discharge Instructions 08/10/23 1143 MR#: [id number] Acct: [id number] Name: SHASTA MARTINEZ Rep #:[id number] : [...] to schedule your hospital follow-up appointment ( [phone]) -Do only light and easy activities for [...] % cream with perineal applicator 1 applic NV BID-QID PRN (Reason: hemorrhoids) Qty: 30 0RF [...] DO; Dr. Rubio Ye MD ~ Signed [facility] Work Phone: Discharge summary Author Chante [facility] August 10, 2023 11:51am Note Date/Time August 10, 2023 1 1:51am [facility] Medical Records Department [address] [place] [address] Discharge Summary 08/10/231146 MR#: [id number] Acct: [id number] Name: SHASTA MARTINEZ Rep #:[id number] : 1960 62 From: Chante Josue MD PCP: Dr. Greta Edmond DO Status:ADM IN Location: [facility] [id number] Providers Date of Admission: 08/08/23 Date [...] diabetes mellitus without complications Qualifiers: Diabetes mellitus intermediate frame tender insulin use: without custodial use Diabetesmellitus complication status: without complication Qualified [...] cream with perineal applicator (Proctozone-HC) 1 applic NV BID-QID PRN hemorrhoids #30 grams 07/28/23 aspirin [...] with reciprocals in inferior leads. Taken to Process Design Engineer emergently and treated with HOWARD to LAD [...] (Auto) 67.0, Lymph % (Auto) 15.9 L, Lamb % (Auto) 11.0 H, Eos % (Auto) [...] Garo at discharge?: Yes Done w/ Acute DC measure.: Yes Documented LVEF (%): 55 Discharge [...] to schedule your hospital follow-up appointment ( [phone]) -Do only light and easy activities for [...] % cream with perineal applicator 1 applic NV BID-QID PRN (Reason: hemorrhoids) Qty: 30 0RF [...] Self Care Charges/Coding Visit Charges Inpatient E&M: 52802 Disch Hosp >30min 08/10/23 1151 <Electronically signed by Chante Josue MD> Cosigner Signature (if applicable): CC: Dr. Greta Edmond DO; Dr. Chante Josue MD~ Signed [facility] Work Phone: evaluation note* Diagnosis Onset Date Resolution Status Diabetes type 2, controlled acute Hypothyroidism associated with surgical procedure acute Overweight (BMI 25.0-29.9) a cute Vitamin D deficiency acute Vulvar lesion acute Medullary thyroid carcinoma chronic Vulvar lesion acute [facility] Work Phone: evaluation note* Diagnosis Onset Date Resolution Status Diabetes type 2, controlled acute Hypothyroidism associated with surgical procedure acute Overweight (BMI 25.0-29.9) a cute Vitamin D deficiency acute Medullary thyroid carcinoma chronic [facility] Work Phone: Evaluation noteNo assessment information available [facility] Work Phone: evaluation note* Diagnosis Onset Date Resolution Status Encounter for routine gyneco logical examination noneactive Hemorrhoids acute (HFpEF) heart failure with p reserved ejection fraction acute Diabetes type 2, controlled acute Hypercholesterolemia acute STEMI (ST elevation myocardial infarction) July acute Stented coronary artery August 08, 2023 acute Medullary thyroid carcinoma chronic [facility] Work Phone: Evaluation note* Diagnosis Onset Date Resolution Status Encounter for routine gyneco logical examination noneactive Hemorrhoids acute (HFpEF) heart failure with p reserved ejection fraction acute Diabetes type 2, controlled acute Hypercholesterolemia acute Stented coronary artery August 08, 2023 acute Medullary thyroid carcinoma chronic STEMI (ST elevation myocardial infarction) July resolved [facility] Work Phone: Evaluation note* Diagnosis Onset Date Resolution Status Admit Date (HFpEF) heart failure with preserved ejection fraction chronic Augu 2024 8:01am Diabetes type 2, controlled chronic June 04, 2025 8:01am Hypercholesterolemia chronic Augu 2024 8:01am Stented coronary artery August 08, 2023 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 [facility] Work Phone: Summary Purpose Family History No Family History Records Found Relationship Condition Age at Onset Recorded Date/T jeny Not Specified Diabetes mellitus Unknown Cardiac disease Unknown Myocardial infarction Unknown Malignant neoplasm Unknown Hypertension Unknown Advance Directives No Advanced Directives Records Found Advance Directive Response Recorded Date/ Time Living Will No August 08 11:31pm Power of Insurance Auditor No August 08, 2023 11:31pm Advance Directive Response Recorded Date/ Time Advance Directives on File No Octob er 2022 8:13am Living Will No August 16 8:13am Power of Insurance Auditor No August 16, 2023 8:13am Advance Directive Response Recorded Date/ Time Advance Directives on File No Octob er 2022 7:13am Living Will No August 16 7:13am Power of Insurance Auditor No August 16, 2023 7:13am Advance Directive Response Recorded Date/ Time Living Will No August 16 8:13am Power of Insurance Auditor No August 16, 2023 8:13am Advance Directive Response Recorded Date/ Time Living Will No August 16 8:13am Do you have a Healthcare Power of Insurance Auditor? 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) Vulvar biopsy VULVAR LESION Reason for Visit Diabetes type 2, con trolled Hypothyroidism associated with surgical procedure Overweight (BMI 25.0-29.9) Vitamin D deficiency Vulvar lesion Medullary thyroid carcinoma Vulvar lesion Chief Complaint Annual (FRONT DESK AGENT) Vulvar biopsy VULVAR LESION SCREENING Reason [...] Medullary thyroid carcinoma Chief Complaint SCREENING Annual (FRONT DESK AGENT) THROMBOSED HEMORRHOIDS STEMI STEMI STEMI STEMI STEMI Reason for Visit Encounter for routin e gynecological examination Hemorrhoids (HFpEF) heart failure with preserved ejection fraction Diabetes type 2, controlled Hypercholesterolemia STEMI (ST elevation myocardial infarction) Stented coronary artery Medullary thyroid carcinoma Chief Complaint SCREENING Annual (FRONT DESK AGENT) THROMBOSED HEMORRHOIDS STEMI STEMI STEMI STEMI STEMI STEMI, S/P PCI w/coronary stenting STEMI, PCI with coronary stent Reason for Visit Encounter for routin e gynecological examination Hemorrhoids (HFpEF) heart failure with preserved ejection fraction Diabetes type 2, controlled Hypercholesterolemia Stented coronary artery Medullary thyroid carcinoma STEMI (ST elevation myocardial infarction) Chief Complaint SCREENING Annual (FRONT DESK AGENT) THROMBOSED HEMORRHOIDS STEMI STEMI STEMI STEMI STEMI STEMI, S/P PCI w/coronary stenting 1 Y FU S/P [facility] 08/08 E-ORDER STEMI, PCI with coronary [...] Stented coronary artery Chief Complaint SCREENING Annual (FRONT DESK AGENT) THROMBOSED HEMORRHOIDS STEMI STEMI STEMI STEMI STEMI STEMI, S/P PCI w/coronary stenting 1 Y FU S/P [facility] 08/08 E-ORDER STEMI, PCI with coronary [...] Hypercholesterolemia Stented coronary artery Chief Complaint Annual (FRONT DESK AGENT) THROMBOSED HEMORRHOIDS STEMI STEMI STEMI STEMI STEMI STEMI, S/P PCI w/coronary stenting 1 Y FU S/P [facility] 08/08 E-ORDER STEMI, PCI with coronary [...] Hypercholesterolemia Stented coronary artery Chief Complaint Annual (FRONT DESK AGENT) THROMBOSED HEMORRHOIDS STEMI STEMI STEMI STEMI STEMI STEMI, S/P PCI w/coronary stenting 1 Y FU S/P [facility] 08/08 E-ORDER STEMI, PCI with coronary [...] PCI w/coronary stenting 1 Y FU S/P [facility] 08/08 E-ORDER STEMI, PCI with coronary [...] PCI w/coronary stenting 1 Y FU S/P [facility] 08/08 E-ORDER STEMI, PCI with coronary [...] section and content) DATE CREATED AUTHOR 11/08/2021 [facility] DATE CREATED AUTHOR AUTHOR'S ORGANIZ ATION 08/11/2025 [facility] Goals (unrecognized section and [...] DO Primary Care Provider Active Dr. Rogerio Quail , DO Emergency Provider Active Dr. Cristiano [...] MD Family Provider Active Luiza Yee , ARNP-C Primary Care Provider Active Team Status: Inactive Member Role Status Dates Dr. Jarad Murrell MD Referring Provider Active Dr. Bharath Raines MD Attending Provider Active Dr. Greta Edmond DO Primary Care Provider Active Team Status: Inactive Member Role Status Dates Dr. Greta Edmond DO Primary Care Provider, Referring P rovider Active Queta Moss ARNP, ARNP-C Attending Provider Active Team Status: Active Member Role Status Dates Luiza Yee , ARNP-C Primary Care Provider Active Queta Moss ARNP, ARNP-C Attending Provider, Referring P rovider Active Team Status: Inactive Member Role Status Dates Luiza Yee ARNP-C Primary Care Provider Active Queta Moss ARNP, ARNP-C Attending Provider, Referring P rovider Active Team Status: Active Member Role Status Dates Dr. Bob Saunders MD Attending Provider, Referring Pro vider Active Luiza Joselito , ARNP-C Primary Care Provider Active Team Status: Active Member Role Status Dates Luiza Yee ARNP-C Primary Care Provider Active Queta Moss ARNP, ARNP-C Attending Provider Active Team Status: Inactive Member Role Status Dates Dr. Bob Saunders MD Attending Provider, Referring Pro vider Active Luiza Yee , ARNP-C Primary Care Provider Active Team Status: Inactive Member Role Status Dates Luiza Yee ARNP-C Primary Care Provider Active Dr. Bharath Raines MD Attending Provider, Referring Provi jesse Active Team Status: Inactive Member Role Status Dates Luiza Yee , ARNP-C Primary Care Provider Active Dr. Bob Saunders MD Attending Provider, Referring Pro vider Active Team Status: Inactive Member Role Status Dates Dr. Greta Edmond DO Referring Provider Active Queta Moss ARNP, ARNP-C Attending Provider Active Luiza Yee ARNP-C Primary Care Provider Active Team Status: Inactive Member Role Status Dates Luiza Yee , ARNP-C Primary Care Provider Active Dr. Harjit Gordon DO Attending Provider, Referring P maddi Active Team Status: Active Member Role Status Dates Luiza Joselito , ARNP-C Primary Care Provider Active Team Status: Inactive Member Role Status Dates Luiza Yee , ARNP-C Primary Care Provider Active Start: December 04, 2024 End: December 04, 2024 Luiza Yee , ARNP-C Referring Provider Active St art: December 04, 2024 End: December 04, 2024 Kaden Martin ARNP, ARNP-C Attending Provider Active S tart: December 04, 2024 End: December 04, 2024 Team Status: Inactive Member Role Status Dates Luiza Yee , ARNP-C Primary Care Provider Active Start: March 29, 2025 End: March 29, 2025 Trudi Holliday ARNP-C Attending Provider Active Start: March 29, 2025 End: March 29, 2025 Trudi Holliday ARNP-C Referring Provider Active Start: March 29, 2025 End: March 29, 2025 Team Status: Inactive Member Role Status Dates Luiza Yee , ARNP-C Primary Care Provider Active Start: April 08, 2025 End: April 08, 2025 Luiza Yee , ARNP-C Attending Provider Active St art: April 08, 2025 End: April 08, 2025 Luiza Yee , ARNP-C Referring Provider Active St art: April 08, 2025 End: April 08, 2025 Team Status: Active Member Role/Relationship Status Dates Luizalogan Yee , ARNP-C Primary Care Provider Active Team Status: Inactive Member Role/Relationship Status Dates Luizalogan Yee , ARNP-C Primary Care Provider Active Start: March 29, 2025 End: March 29, 2025 Trudi Holliday ARNP-C Attending Provider Active Start: March 29, 2025 End: March 29, 2025 Trudi Holliday ARNP-C Referring Provider Active Start: March 29, 2025 [...] 2025 End: June 04, 2025 Kaden Martin ARNP, ARNP-C Attending Provider Active S tart: June 04, [...] BE BASED ON THE PRIMARY CLINICAL RECORDS. [employer] provides no warranty or guarantee of the accuracy or completeness of information in this document.
[2025-08-16 09:43] LABS: Creatinine, Urine (random) 61.20 mg/dL (28.00-217.00); Microalbumin,Random Urine < 12.0 mg/L (<20 mg/L)
[2025-08-16 09:57] LABS: AST(SGOT) 23 U/L (<=31); Alanine Aminotransfer ALT/SGPT 20 U/L (<=34); Albumin, Serum 4.2 g/dL (3.4-4.8); Alkaline Phosphatase 73 U/L (35-104); Anion Gap 9 (5-15); BUN 15 mg/dL (4-19); BUN/Creat Ratio 19.2 RATIO (10-20); Calcium,Total 9.2 mg/dL (7.6-11.0); Carbon Dioxide 24.6 mmol/L (21.0-32.0); Chloride 106 mmol/L (98-108); Cholesterol 146 mg/dL (<=200); Globulin 2.8 g/dL (2.2-4.2); Glucose 113 mg/dL (70-99); Low Density Lipoprotein Calc. 88 mg/dL; Potassium 4.2 mmol/L (3.3-5.1); Triglycerides 94 mg/dL; Very Low Density Lipoprotein 19 mg/dL (5-40); Vitamin D,25 Hydroxy 41.6 ng/mL (30-100); cholesterol:hdl ratio screen 3.63
[2025-08-18 16:09] LABS: Carcinoembryonic Antigen 2139 2.1 ng/mL (0.0-4.7)
== END | disposition home or self-care (01) ==
LOC: LAB 08:08
PROVIDERS: PCP Nurse Practitioner Family; Referring Provider Internal Medicine Endocrinology, Diabetes & Metabolism; Visit Provider Internal Medicine Endocrinology, Diabetes & Metabolism
DX: E89.0 Postprocedural hypothyroidism (principal); C73 Malignant neoplasm of thyroid gland; E11.9 Type 2 diabetes mellitus without complications; E55.9 Vitamin D deficiency, unspecified; E78.00 Pure hypercholesterolemia, unspecified; E03.9 Hypothyroidism, unspecified
CPT/HCPCS: 36415; 80053; 80061; 82043; 82306; 82378; 82570; 83695; 84443

== ENCOUNTER → 2025-08-26 | Outpatient (CLI) | payer OTHER, SELFPAY ==
--- NOTE | 2025-08-26 13:30 | BD_ITS ---
PROCEDURE: DEXA BONE DENSITY STUDY 08/26/2025 REASON FOR EXAM: OSTEOPENIA F, age 64 y/o . Postmenopausal. TECHNIQUE: Procedure Code: BDDBD Modality: DX Procedure: DEXA BONE DENSITY STUDY COMPARISON: September 13, 2022. FINDINGS: BMD and T-SCORES Lumbar spine: 0.880 g/cm2, T-score -1.4 Levels: L1 through L4 Change from prior: Loss of 1.9%. Left femoral neck: 0.853 g/cm2, T-score 0.0 Femoral neck comparison data not recommended for monitoring change. Left total hip: 0.942 g/cm2, T-score 0.0 Change from prior: Loss of 9.7%. Right femoral neck: 0.873 g/cm2, T-score 0.2 Femoral neck comparison data not recommended for monitoring change. Right total hip: 0.898 g/cm2, T-score -0.4 Change from prior: Loss of 11.4%. Delete tab The World Health Organization has defined the following categories based on bone density: Normal bone density: T-score equal to or greater than -1.0 Osteopenia: T-score between -1.0 and -2.5 Osteoporosis: T-score equal to or less than -2.5 FRAX (or Comparable) Fracture Risk Assessment: 10 Year Probability of Fracture: Major Osteoporotic Fracture: 6.2% Hip Fracture: 0.2% (Note: FRAX is not to be reported in setting of normal range bone density, osteoporosis on DEXA, known history of osteoporosis, prior osteoporotic hip or vertebral fracture, or for any patient undergoing pharmacological treatment for bone loss.) The National Osteoporosis Foundation (NOF) recommends pharmacological treatment for patients with a FRAX 10-year risk of 3% or higher for a hip fracture, or 20% or higher for a major osteoporotic fracture, to prevent osteoporosis and reduce fracture risk. The patient does meet the pharmacological treatment recommendations for prevention of osteoporosis. BD/Dexa Bone Density Study IMPRESSION: OSTEOPENIA. Recommend follow-up as clinically warranted. Reading Location: [id number]
== END | disposition home or self-care (01) ==
LOC: OPBD 13:21
PROVIDERS: PCP Nurse Practitioner Family; Referring Provider Internal Medicine Endocrinology, Diabetes & Metabolism; Visit Provider Internal Medicine Endocrinology, Diabetes & Metabolism
DX: M85.89 Other specified disorders of bone density and structure, multiple sites (principal)
CPT/HCPCS: 77080

== ENCOUNTER → 2025-10-17 | Outpatient (CLI) | payer OTHER, SELFPAY | END | disposition home or self-care (01) | LOC: LABSPEC 16:22 | PROVIDERS: PCP Nurse Practitioner Family; Visit Provider Obstetrics & Gynecology | DX: Z12.4 Encounter for screening for malignant neoplasm of cervix (principal) | CPT/HCPCS: 87624; 88175; G0145 ==